=== PATIENT | male | born 1930 | race Caucasian/White ===

== ENCOUNTER → 2017-03-16 | Outpatient (CLI) | payer OTHER | LOC: FIMAGING 08:50 | PROVIDERS: ATTEND Internal Medicine | DX: N41.9 Inflammatory disease of prostate, unspecified (principal); Z87.440 Personal history of urinary (tract) infections ==

== ENCOUNTER → 2017-05-08 | Outpatient (CLI) | payer OTHER | LOC: BHFA 11:30 | PROVIDERS: ATTEND Internal Medicine Interventional Cardiology | DX: I35.9 Nonrheumatic aortic valve disorder, unspecified (principal) ==

== ENCOUNTER 2017-09-01 09:18 | Inpatient (IN) | payer OTHER ==
--- NOTE | 2017-09-01 09:55 | EDPHY ---
H & P Time Seen by Provider: 09/01/17 09:32 HPI/ROS: CHIEF COMPLAINT: Right groin pain HISTORY OF PRESENT ILLNESS: 87-year-old male presents to the emergency department by private vehicle complaining of pain in his groin on the right side. The patient has had a previous inguinal hernia repair a number of years ago. He states that he does not remember doing anything. Denies trauma. He states 2 days ago he noted pain and swelling in his right groin. He was trying to "push it back in" however he was on able to. He states that he was in too much pain. He had a normal bowel movement prior to arrival. No urinary symptoms. No chest pain or difficulty breathing. No fevers or chills. REVIEW OF SYSTEMS: Constitutional: No fever, no chills. Eyes: No double or blurry vision. ENT: No sore throat. Respiratory: No cough, no shortness of breath. Cardiac: No chest pain. Gastrointestinal: No abdominal pain, vomiting or diarrhea. Genitourinary: No dysuria. Musculoskeletal: No neck or back pain. Skin: No rashes. Neurological: No headache. Past Medical/Surgical History: Atrial fibrillation, pacemaker, aortic valve replacement, coronary artery disease, CABG, abdominal aortic aneurysm with repair, pulmonary fibrosis on chronic oxygen, retinal detachment, bilateral inguinal hernia repair, cataract, appendectomy, cholecystectomy, small-bowel obstruction Primary care provider is Dr. Cohn Social History: and lives with his son in [place] Smoking Status: Former smoker Physical Exam: General Appearance: Alert, no distress. Eyes: Pupils equal and round. Extraocular motions are all intact. ENT: Mouth: Mucous membranes moist. Respiratory: No wheezing, rhonchi, or rales, lungs are clear to auscultation. Cardiovascular: Regular rate and rhythm. Gastrointestinal: Abdomen is soft and nontender, no masses, no rebound or guarding, bowel sounds normal. Neurological: Alert and oriented x 3, cranial nerves II through XII grossly intact Genitourinary: Tender, palpable lump in the right inguinal area. Unable to reproduce this with him lying supine. Skin: Warm and dry, no rashes. Musculoskeletal: Nontender to palpate along the cervical, thoracic or lumbar spine. Neck is supple. Extremities: Full range of motion and no peripheral edema. Psychiatric: Patient is oriented X 3, there is no agitation. Constitutional: Initial Vital Signs Temperature (C) 36.6 C 09/01/17 09:20 Heart Rate 74 09/01/17 09:20 Respiratory Rate 18 09/01/17 09:20 Blood Pressure 154/83 H 09/01/17 09:20 O2 Sat (%) 88 L 09/01/17 09:20 O2 Delivery Mode Room Air O2 (L/minute) 3 Allergies/Adverse Reactions: ciprofloxacin [From Cipro] Allergy (Verified 09/01/17 11:20) Other-Enter Comments codeine Allergy (Verified 09/01/17 11:20) Other-Enter Comments Home Medications: Medication Instructions Recorded Acetaminophen [Tylenol 325mg (*)] 650 mg PO BID PRN 11/25/14 Carvedilol [Coreg (*)] 3.125 mg PO BIDMEAL 11/25/14 Fexofenadine HCl [Yohana Allergy] 60 mg PO DAILY PRN 11/25/14 Pantoprazole Sodium [Protonix 40mg 40 mg PO DAILY 11/25/14 (*)] Polyethylene Glycol 3350 [Miralax 17 gm PO DAILY 11/25/14 17 gm (*)] Tamsulosin HCl [Flomax 0.4 MG (*)] 0.4 mg PO HS 11/25/14 Warfarin Sodium [Coumadin 4MG (*)] 4 mg PO SUTUTHSA@16 11/25/14 [place]-3 Fatty Acids [Fish Oil 1000 1,000 mg PO DAILY18 11/29/14 mg (*)] Finasteride [Proscar 5 MG (*)] 5 mg PO HS 11/25/15 Herbals/Supplements -Info Only 1 ea PO DAILY 11/25/15 Warfarin Sodium [Coumadin 2MG (*)] 2 mg PO MWF@16 11/25/15 rOPINIRole HCL [Requip 1mg (*)] 1 mg PO TID 11/25/15 Ascorbic Acid [Vitamin C 500 mg 500 mg PO DAILY 09/01/17 (*)] Aspirin [Aspirin 81mg (*)] 81 mg PO DAILY 09/01/17 Cholecalciferol Vit D3 [Vitamin D3 1,000 units PO DAILY 09/01/17 (*)] Multivitamins [Multivitamin (*)] 1 tab PO DAILY 09/01/17 Medical Decision Making ED Course/Re-evaluation: 87-year-old male with right inguinal hernia which is incarcerated. I attempted to try to reduce the hernia with the patient lying supine, however this was not successful. I consulted with Dr. Zoltan Man, secondary supervising physician , who also evaluated the patient and placed the patient in Trendelenburg. He also tried to reduce the hernia and this was unsuccessful. I consulted with Dr. Osman Hernandez, on-call general surgeon, who also attempted to reduce the hernia and was unsuccessful. The patient will be taken to the operating room for incarcerated inguinal hernia. Differential Diagnosis: Including but not limited to incarcerated inguinal hernia, hematoma, carcinoma, bowel obstruction - Data Points Laboratory Results: Laboratory Results 09/01/17 10:24 09/01/17 10:24 09/01/17 09/01/17 09/01/17 10:45 10:24 10:24 WBC 7.78 10^3/uL 10^3/uL (3.80-9.50) RBC 4.16 10^6/uL L 10^6/uL (4.40-6.38) Hgb 13.7 g/dL g/dL (13.7-17.5) POC Hgb Hct 39.5 % L % (40.0-51.0) POC Hct MCV 95.0 fL fL (81.5-99.8) MCH 32.9 pg pg (27.9-34.1) MCHC 34.7 g/dL g/dL (32.4-36.7) RDW 14.7 % % (11.5-15.2) Plt Count 156 10^3/uL 10^3/uL (150-400) MPV 9.0 fL fL (8.7-11.7) Neut % (Auto) 72.1 % % (39.3-74.2) Lymph % (Auto) 14.3 % L % (15.0-45.0) Clinch % (Auto) 9.6 % % (4.5-13.0) Eos % (Auto) 3.2 % % (0.6-7.6) Baso % (Auto) 0.5 % % (0.3-1.7) Nucleat RBC Rel Count 0.0 % % (0.0-0.2) Absolute Neuts (auto) 5.61 10^3/uL 10^3/uL (1.70-6.50) Absolute Lymphs (auto) 1.11 10^3/uL 10^3/uL (1.00-3.00) Absolute Monos (auto) 0.75 10^3/uL 10^3/uL (0.30-0.80) Absolute Eos (auto) 0.25 10^3/uL 10^3/uL (0.03-0.40) Absolute Basos (auto) 0.04 10^3/uL 10^3/uL (0.02-0.10) Absolute Nucleated RBC 0.00 10^3/uL 10^3/uL (0-0.01) Immature Gran % 0.3 % % (0.0-1.1) Immature Gran # 0.02 10^3/uL 10^3/uL (0.00-0.10) PT 25.5 SEC H SEC (12.0-15.0) INR 2.30 H (0.83-1.16) POC Sodium Sodium 139 mEq/L mEq/L (134-144) POC Potassium Potassium 4.0 mEq/L mEq/L (3.5-5.2) POC Chloride Chloride 103 mEq/L mEq/L (97-110) Carbon Dioxide 26 mEq/l mEq/l (22-31) Anion Gap 10 mEq/L mEq/L (8-16) POC BUN BUN 18 mg/dL mg/dL (7-23) Creatinine 0.8 mg/dL mg/dL (0.7-1.3) POC Creatinine Estimated GFR > 60 Glucose 119 mg/dL H mg/dL (70-100) POC Glucose Calcium 9.0 mg/dL mg/dL (8.5-10.4) 09/01/17 10:19 WBC RBC Hgb POC Hgb 14.3 gm/dL gm/dL (13.7-17.5) Hct POC Hct 42 % % (40-51) MCV MCH MCHC RDW Plt Count MPV Neut % (Auto) Lymph % (Auto) Clinch % (Auto) Eos % (Auto) Baso % (Auto) Nucleat RBC Rel Count Absolute Neuts (auto) Absolute Lymphs (auto) Absolute Monos (auto) Absolute Eos (auto) Absolute Basos (auto) Absolute Nucleated RBC Immature Gran % Immature Gran # PT INR POC Sodium 141 mEq/L mEq/L (134-144) Sodium POC Potassium 3.9 mEq/L mEq/L (3.3-5.0) Potassium POC Chloride 103 mEq/L mEq/L (97-110) Chloride Carbon Dioxide Anion Gap POC BUN 18 mg/dL mg/dL (7-23) BUN Creatinine POC Creatinine 0.9 mg/dL mg/dL (0.7-1.3) Estimated GFR Glucose POC Glucose 123 mg/dL H mg/dL (70-100) Calcium Point of Care Test Results: 09/01/17 10:19 POC Sodium 141 POC Potassium 3.9 POC Chloride 103 POC BUN 18 POC Creatinine 0.9 POC Glucose 123 H Departure - Departure Disposition: To OP Cath/Surgery Clinical Impression: Incarcerated right inguinal hernia Condition: Good
[2017-09-01 10:33] LABS: % IMMATURE GRANULYOCYTES 0.3 % (0.0-1.1); ABSOLUTE IMMATURE GRANULOCYTES 0.02 10^3/uL (0.00-0.10); ADD DIFF? NO; ADD MORPH? NO; ADD SCAN? NO; ATYPICAL LYMPHOCYTE FLAG 0 (0-99); FRAGMENT RBC FLAG 0 (0-99); HEMATOCRIT 39.5 % (40.0-51.0); HEMOGLOBIN 13.7 g/dL (13.7-17.5); LEFT SHIFT FLG 0 (0-99); LIPEMIA HEMOLYSIS FLAG 90 (0-99); MEAN CELL HEMOGLOBIN 32.9 pg (27.9-34.1); MEAN CELL HEMOGLOBIN CONCENTR. 34.7 g/dL (32.4-36.7); PLATELET CLUMPS FLAG 0 (0-99); PLATELET COUNT 156 10^3/uL (150-400); RED BLOOD CELL COUNT 4.16 10^6/uL (4.40-6.38); RED CELL DISTRIBUTION WIDTH 14.7 % (11.5-15.2)
[2017-09-01 10:47] LABS: ANION GAP 10 mEq/L (8-16); CARBON DIOXIDE 26 mEq/l (22-31); CHLORIDE 103 mEq/L (97-110); CREATININE 0.8 mg/dL (0.7-1.3); GLOMERULAR FILTRATION RATE > 60; GLUCOSE 119 mg/dL (70-100); SODIUM 139 mEq/L (134-144)
[2017-09-01 11:07] LABS: INR 2.3 (0.83-1.16); PROTIME(PATIENT) 25.5 SEC (12.0-15.0)
[2017-09-01] MEDS ORDERED: ceFAZolin 2 GM/DEXTROSE 100 ML IV ONE (11:08)
[2017-09-01] MEDS ORDERED: DEXAMETHASONE 4 MG/ML VIAL IVP ONE (11:10)
[2017-09-01] MEDS ORDERED: ONDANSETRON 4 MG/2 ML VIAL IVP ONE (11:10)
--- NOTE | 2017-09-01 11:16 | PDCONSULT ---
Phone Triage Specialist Note: CC: RIH HPI: 87 y/o male with 3 day hx incarcerated RIH. He tried to reduce it himself at home, but was unsuccessful. He came to the ED and despite attempts at reduction by Patricia Marcano PA-C and Dr. Zoltan Man, it remains incarcerated. Surgical consult was requested. He reports no changes in his bowel or bladder function and denies N/V. He last ate at 0800 and did not take his Coumadin last night. PMH: Bovine Aortic Valve replacement AAA repair pacemaker appendectomy bilateral inguinal hernia repair meds: Carvedilol, Coumadin, Proscar, Protonix, Requip, Flomax, ASA, Yohana med hx: A-fib, BPH, CHF non-smoker, denies EtOH SH: , lives with his son ROS: denies chest pain/dyspnea, N/V, change in bowel or bladder habits PE: BP 154/83 P 74 R 18 T 36.6 O2sat 88% RA pleasant and articulate gentleman in NAD HEENT: no scleral icterus or adenopathy CVS: IRRR Lungs: clear Abd: soft/distended , non-tender : right groin mass, tender consistant with incarcerated inguinal hernia testes descended bilaterally INR 2.3 Na 139 wbc 7.8 K 4.0 HCT 39.5 BUN/creat 18/0.8 Plat 165K gluc 119 Imp: incarcerated RIH 72 hours/no bowel symptoms-could be omental incarceration multiple medical problems on anticoagulation for AVR Rec: start reversing anticoagulation with FFP, NPO, to OR later today for operative repair Hospitalist consult requested. Ziggy Hernandez MD, FACS
[2017-09-01] MEDS ORDERED: LR 1,000 ML IV SCH (11:30)
--- NOTE | 2017-09-01 11:45 | CPEKG ---
Heart Rate: 70 RR Interval: 857 QRSD Interval: 126 QT Interval: 448 QTC Interval: 484 QRS [place]: 264 T Wave [place]: 60 EKG Severity - ABNORMAL ECG - EKG Impression: AFIB/FLUTTER AND VENTRICULAR-PACED RHYTHM Electronically Signed By: Zoltan Man 01-Sep-2017 13:18:01
--- NOTE | 2017-09-01 13:11 | PDHOSCONS ---
Hospitalist Consult Hospitalist Consult: We have been consulted for medical management of this 87yo male with right incarcerated hernia who will have surgical management by Dr. Hernandez this afternoon. The patient is a pleasant make with hx of bilateral inguinal hernia s /p bilateral repair. He has a hx of Afib and is s/p pacemaker, Aortic valve replacement x 2 with most recent replacement Bovine aortic valve in 2000. He is on chronic AC on Coumadin and INR is 2.30 today. FFP has been ordered for reversal. He is a non smoker. He has a hx of AAA repair in the late . He has no know CAD and no hx of RI. He does have chronic resp failure of unclear etiology and is on 3L O2 24/. He denies any CV or Resp sx's. EKG today shows Afib with a rate in the 70's. CBC and BMP are unremarkable. He has a hx of SHAY and uses a CPAP machine at home. He denies any pain. He has a hx of allergies to Codeine as well as Dilaudid. ROS: 10 point ROS obtained and is positive per above, otherwise negative PMHX: Bovine aortic valve replacement, AAA repair, Appendectomy, Bilateral inguinal hernia repair, BPH, Afib, Recurrent UTI, s/p Pacemaker, Chronic resp failure (3L), SHAY, Soc: lives with son. Non smoker, social ETOH, no illicits FmHx: Non contributory Exam: NAD PERRLA, EOMI, OROPHARYNX CLEAR, MMM NO JVD IRR/IRR, 2/6 CANDIE CTA B, NO RESP DISTRESS S/NT/ND : DEFERRED SKIN: WARM AAOX 3, NO ANXIETY, NO ENCEPHALOPATHY MOOD APPROPRIATE I/P #RIH: Mgmt per surgery #Afib s/p pacemaker #chronic Anticoagulation on Warfarin #Hx of Bovine Aortic Valve replacement #Chronic respiratory failure, 3L O2 24/7 #SHAY, on CPAP Plan: -INR is being reversed with FFP -to OR today -home meds have already been restarted -will follow Full Code
[2017-09-01 14:34] LABS: INR 1.6 (0.83-1.16); PROTIME(PATIENT) 19.1 SEC (12.0-15.0)
[2017-09-01] MEDS ORDERED: LIDOCAINE 1% 300 MG/30 ML SDV ONE (15:39)
[2017-09-01] MEDS ORDERED: BUPIVACAINE/EPI 0.5% 30 ML SDV ONE (15:39)
[2017-09-01] MEDS ORDERED: CEFAZOLIN 2 GM/DEXTROSE/100 ML BAG IV ONE (15:40)
[2017-09-01] MEDS ORDERED: ONDANSETRON 4 MG/2 ML VIAL ONE (15:50)
[2017-09-01] MEDS ORDERED: DEXAMETHASONE 4 MG/ML VIAL ONE (15:50)
[2017-09-01] MEDS ORDERED: LIDOCAINE 2% 5 ML SDV ONE (15:59)
[2017-09-01] MEDS ORDERED: PROPOFOL 200 MG/20 ML VIAL ONE (15:59)
[2017-09-01] MEDS ORDERED: PHENYLEPHRINE HCL 100 MCG/ML SYR ONE (16:00)
[2017-09-01] MEDS ORDERED: ROCURONIUM 100 MG/10 ML VIAL ONE ×2 (16:00→17:32)
--- NOTE | 2017-09-01 16:03 | PDANEPAE ---
ANE Past Medical History - Cardiovascular History Hx Hypertension: Yes Hx Arrhythmias: Yes Hx Chest Pain: No Hx Coronary Artery / Peripheral Vascular Disease: Yes Hx CHF / Valvular Disease: Yes Hx Palpitations: No - Pulmonary History Hx COPD: Yes Hx Asthma/Reactive Airway Disease: No Hx Recent Upper Respiratory Infection: No Hx Oxygen in Use at Home: Yes O2 in Use at Home (L/minute): 3 Hx Sleep Apnea: Yes - Endocrine History Hx Diabetes: No Hypothyroid: No Hyperthyroid: No Obesity: mild - Renal History Hx Renal Disorders: No - Liver History Hx Hepatic Disorders: No - Neurological & Psychiatric Hx Hx Neurological and Psychiatric Disorders: No - GI History GERD: no - Chronic Pain History Chronic Pain: No ANE Review of Systems Review of Systems: - Pacemaker Pacemaker Top [employer] Body Maker: [employer] Pacemaker Model: 2800 ANE Patient History - Allergies Allergies/Adverse Reactions: ciprofloxacin [From Cipro] Allergy (Verified 09/01/17 11:20) Other-Enter Comments codeine Allergy (Verified 09/01/17 11:20) Other-Enter Comments - Home Medications Home Medications: Acetaminophen [Tylenol 325mg (*)] 650 mg PO BID PRN 11/25/14 [Last Taken ] Carvedilol [Coreg (*)] 3.125 mg PO BIDMEAL 11/25/14 [Last Taken 09/01/17] Fexofenadine HCl [Yohana Allergy] 60 mg PO DAILY PRN 11/25/14 [Last Taken 09/01] Pantoprazole Sodium [Protonix 40mg (*)] 40 mg PO DAILY 11/25/14 [Last Taken ] Polyethylene Glycol 3350 [Miralax 17 gm (*)] 17 gm PO DAILY 11/25/14 [Last Taken 08/31/17] Tamsulosin HCl [Flomax 0.4 MG (*)] 0.4 mg PO HS 11/25/14 [Last Taken 08/31/17] Warfarin Sodium [Coumadin 4MG (*)] 4 mg PO SUTUTHSA@16 11/25/14 [Last Taken 11/04] [place]-3 Fatty Acids [Fish Oil 1000 mg (*)] 1,000 mg PO DAILY18 11/29/14 [Last Taken 09/01/17] Finasteride [Proscar 5 MG (*)] 5 mg PO HS 11/25/15 [Last Taken 08/31/17] Herbals/Supplements -Info Only 1 ea PO DAILY 11/25/15 [Last Taken Unknown] Warfarin Sodium [Coumadin 2MG (*)] 2 mg PO MWF@16 11/25/15 [Last Taken 08/29/17] rOPINIRole HCL [Requip 1mg (*)] 1 mg PO TID 11/25/15 [Last Taken 11/24/15] Ascorbic Acid [Vitamin C 500 mg (*)] 500 mg PO DAILY 09/01/17 [Last Taken ] Aspirin [Aspirin 81mg (*)] 81 mg PO DAILY 09/01/17 [Last Taken 08/31/17] Cholecalciferol Vit D3 [Vitamin D3 (*)] 1,000 units PO DAILY 09/01/17 [Last Taken 08/31/17] Multivitamins [Multivitamin (*)] 1 tab PO DAILY 09/01/17 [Last Taken 09/01/17] - Smoking Hx Smoking Status: Former smoker ANE Labs/Vital Signs - Labs Result Diagrams: 09/01/17 10:24 09/01/17 10:24 - Vital Signs Blood Pressure: 176/99 Heart Rate: 70 Respiratory Rate: 16 O2 Sat (%): 100 Height: 172.72 cm Weight: 77.111 kg ANE Physical Exam - Airway Neck exam: decreased ROM Mallampati Score: Class 1 Mouth exam: poor dentition - Pulmonary Pulmonary: no respiratory distress - Cardiovascular Cardiovascular: irregularly irregular ANE Anesthesia Plan Anesthesia Plan: GA w LMA
[2017-09-01] MEDS ORDERED: fentaNYL 100 MCG/2 ML INJ ONE ×2 (16:07→16:30)
--- NOTE | 2017-09-01 17:17 | POSTOPPROG ---
Post Op Note Date of Operation: 09/01/17 Surgeon: Osman Hernandez (, FACS) Anesthesiologist: Edouard Arrington MD Pre-op Diagnosis: incarcerated R inguinal hernia Post-op Diagnosis: incarcerated recurrent RIH Procedure: open repair incarcerated recurrent RIH Findings: incarceration with bladder/omentum Inf/Abcess present in the surg proc area at time of surgery?: No EBL: Minimal Specimen(s): hernia sac
[2017-09-01] MEDS ORDERED: PROMETHAZINE HCL 25 MG/ML INJ IVP PRN (17:33)
[2017-09-01] MEDS ORDERED: fentaNYL 100 MCG/2 ML INJ IVP PRN (17:33)
[2017-09-01] MEDS ORDERED: NALOXONE HCL 0.4 MG/ML INJ IVP PRN (17:33)
--- NOTE | 2017-09-01 17:34 | POSTANESTH ---
Post Anesthetic Evaluation Cardiovascular Status: Similar to Pre-Op Cond Respiratory Status: Similar to Pre-op Cond. Level of Consciousness/Mental Status: Mildly Sleepy, Arousable Pain Control: Adequate, Prn Tx Ordered Nausea/Vomiting Control: Adequate, Prn Tx Ordered Complications Possibly Related to Anesthesia: None Noted
[2017-09-01] MEDS: CARVEDILOL 3.125 MG TAB PO SCH (19:11)
[2017-09-01] MEDS: TAMSULOSIN HCL 0.4 MG CAP PO SCH (20:53)
[2017-09-01] MEDS: FINASTERIDE 5 MG TAB PO SCH (20:53)
--- NOTE | 2017-09-01 21:07 | GOP ---
[f rep st] OPERATIVE REPORT DATE OF OPERATION: 09/01/2017 SURGEON: Osman Hernandez MD ANESTHESIA: General endotracheal. ANESTHESIOLOGIST: Travis Paige MD. PREOPERATIVE DIAGNOSIS: Incarcerated right inguinal hernia, recurrent. POSTOPERATIVE DIAGNOSIS: Incarcerated right inguinal hernia, recurrent. PROCEDURE PERFORMED: Open repair, recurrent incarcerated right inguinal hernia. FINDINGS: Indirect recurrence at the internal ring with incarceration of lateral portion of the blad brian and omentum. No bowel incarceration. ESTIMATED BLOOD LOSS: 10 cc. INDICATIONS: The patient is an 87-year-old male who presents with a 3-day history of an incarcerated hernia and an INR of 2.3. Patient received 3 units of fresh frozen plasma prior to surgery. His IN R dropped to 1.6 after the first 2 units. DESCRIPTION OF PROCEDURE: After informed consent was obtained, the patient was brought to the operat ing room. Placed under general anesthesia. The lower abdomen was clipped, prepped and draped in the usual fashion. Before proceeding, a time-out and identification of the patient was performed. 0.25% Marcaine with epinephrine was used to establish a regional field block. The planned incision s ite was infiltrated and a transverse incision was made and carried through the skin and subcutaneous tissues. Dissection was carried out down to the external oblique fascia which was quite attenuated. This was opened laterally and the hernia sac which was filled with dark blood tinged fluid was isola gerard from the spermatic cord and the cord encircled with a Kelley drain for gentle traction. The her tyrone sac was opened and noted to contain 2 structures, an area of ischemic omentum and a larger area o f fatty tissue that ultimately proved to be the bladder. The internal ring had been previously recon structed with a mesh technique and had an opening measuring approximately 10 mm in diameter through w [facility] these 2 structures had prolapsed and incarcerated. Despite the open approach, these structures could not be reduced into the peritoneal cavity and I elected to incise the prior repair directly cep halad from the internal ring. This allowed reduction of the omentum as well as the lateral edge of t he bladder, both of which appeared viable. The internal ring was reconstructed with interrupted 0 Nu robbie sutures. There was no need to reinforce the inguinal floor as this showed no evidence of recur rent hernia. The cord structures were returned to their anatomic position. The external oblique fas jonas was closed with continuous running 0 PDS suture. Subcutaneous tissues were closed with 3-0 Monoc ryl suture and skin was closed with 4-0 Monocryl suture in a subcuticular fashion. Mastisol and Ster i-Strips were applied. Needle, sponge, and instrument count were correct. COMPLICATIONS: None. /[id number]/MODL
[2017-09-01 22:59] LABS: COLOR YELLOW; LEUKOCYTE ESTERASE,URINE NEGATIVE (NEGATIVE); NITRITE,URINE NEGATIVE (NEGATIVE)
[2017-09-01 23:21] LABS: RBC,URINE NONE SEEN /hpf (0-3)
[2017-09-02] MEDS: ceFAZolin 2 GM/DEXTROSE 100 ML IV SCH ×2 (00:28→07:53)
[2017-09-02 04:47] LABS: % IMMATURE GRANULYOCYTES 0.4 % (0.0-1.1); ABSOLUTE IMMATURE GRANULOCYTES 0.04 10^3/uL (0.00-0.10); ADD DIFF? NO; ADD MORPH? NO; ADD SCAN? NO; ATYPICAL LYMPHOCYTE FLAG 0 (0-99); FRAGMENT RBC FLAG 0 (0-99); HEMATOCRIT 36.3 % (40.0-51.0); HEMOGLOBIN 12.3 g/dL (13.7-17.5); LEFT SHIFT FLG 0 (0-99); LIPEMIA HEMOLYSIS FLAG 90 (0-99); MEAN CELL HEMOGLOBIN 32.5 pg (27.9-34.1); MEAN CELL HEMOGLOBIN CONCENTR. 33.9 g/dL (32.4-36.7); MEAN PLATELET VOLUME 9.5 fL (8.7-11.7); PLATELET CLUMPS FLAG 0 (0-99); PLATELET COUNT 141 10^3/uL (150-400); RED BLOOD CELL COUNT 3.78 10^6/uL (4.40-6.38); RED CELL DISTRIBUTION WIDTH 14.7 % (11.5-15.2)
[2017-09-02 04:58] LABS: ANION GAP 7 mEq/L (8-16); CALCIUM 9.1 mg/dL (8.5-10.4); CARBON DIOXIDE 25 mEq/l (22-31); CHLORIDE 104 mEq/L (97-110); CREATININE 0.8 mg/dL (0.7-1.3); GLOMERULAR FILTRATION RATE > 60; GLUCOSE 131 mg/dL (70-100); MAGNESIUM 2.1 mg/dL (1.6-2.3); POTASSIUM 4.2 mEq/L (3.5-5.2); SODIUM 136 mEq/L (134-144)
[2017-09-02 06:11] LABS: INR 1.57 (0.83-1.16); PROTIME(PATIENT) 18.8 SEC (12.0-15.0)
[2017-09-02] MEDS ORDERED: WARFARIN SODIUM 5 MG TAB PO ONE (06:44)
--- NOTE | 2017-09-02 07:36 | SOAPPROG ---
SOAP Progress Note Assessment/Plan: Assessment:s/p repair incarcerated recurrent RIH chronic anticoagulation for A-fib pacemaker/has not been interrogated since surgery transient post op femoral nerve paresis Plan:start bridging anticoagulation with Lovenox 1mg/kg BID, po Coumadin recheck INR in AM, PT to eval anticipate discharge home tomorrow [facility] Ziggy Hernandez MD, FACS 09/02/17 07:34 Subjective: Tripp is resting comfortably/he was unable to walk post op due to right quadriceps weakness Objective: Vital Signs Temp Pulse Resp BP Pulse Ox 36.6 C 75 16 147/79 H 97 09/02/17 04:00 09/02/17 04:00 09/02/17 04:00 09/02/17 04:00 09/02/17 04:00 Microbiology 09/01/17 16:40 Gram Stain - Final Peritoneal Fluid - Eswab Laboratory Results 09/02/17 04:24 09/02/17 04:24 09/01/17 09/02/17 09/03/17 05:59 05:59 05:59 Intake Total 1450 Output Total 735 200 Balance 715 -200 PT 18.8 SEC (12.0-15.0) H 09/02/17 05:50 INR 1.57 (0.83-1.16) H 09/02/17 05:50 Physical Exam - Physical Exam General Appearance: no apparent distress Respiratory: lungs clear Cardiac/Chest: irregularly irregular Abdomen: soft, distended (hypoactive bowel sounds) Male Genitalia: other (right inguinal dressing dry and intact/mild swelling) Rectal: deferred Extremities: normal range of motion Neuro/Psych: no motor/sensory deficits, normal mood/affect, oriented x 3, other (Prior right quad weakness related to intra-op injection of bupivicaine into the surgical field with secondary femoral nerve block) ICD10 Worksheet Patient Problems: Problems Problem Status Onset Incarcerated right inguinal hernia Acute Abdominal pain Acute Atrial fibrillation Acute Hematoma of chest wall Acute Hematoma of pacemaker pocket Acute Small bowel obstruction Acute
[2017-09-02] MEDS: ENOXAPARIN 80 MG/0.8 ML SYR SC SCH ×2 (07:53→20:52)
[2017-09-02] MEDS: CARVEDILOL 3.125 MG TAB PO SCH ×2 (07:54→17:54)
[2017-09-02] MEDS: PANTOPRAZOLE SODIUM 40 MG TAB PO SCH (07:54)
[2017-09-02] MEDS: traMADol 50 MG TAB PO PRN ×2 (08:59→13:16)
[2017-09-02] MEDS: POLYETHYLENE GLYCOL 3350 17 GM PKT PO SCH (09:29)
--- NOTE | 2017-09-02 10:35 | ASMTCASEMG ---
Living Arrangements What is your living Answers: With Child(carlyn) arrangement? Who do you live with? Type Of Residence What kind of residence do Answers: House you live in? Discharge Plan Comments Coordination Status Comments Notes: Chart reviewed and spoke w/ TAVARES Lynn. Pt is a 87 y/o man admitted w/ right incarcerated hernia that lives w/ a supportive son. Pt had surgical procedure yesterday. PT ordered and awaiting recommendations. Needs are TBD at this time. CM to follow. Date Signed: 09/02/2017 10:35 AM Electronically Signed By:JACQUES Diaz
--- NOTE | 2017-09-02 13:47 | HOSPPROG ---
Hospitalist Progress Note Assessment/Plan: 87 y male with incarcerated RIH, s/p repair on POD #1. Doing well overall. #RIH: Mgmt per surgery #Afib s/p pacemaker #chronic Anticoagulation on Warfarin #Hx of Bovine Aortic Valve replacement #Chronic respiratory failure, 3L O2 24/ #SHAY, on CPAP Plan: -Restart warfarin. Lovenox bridge -Stop IVF -cont home meds -PT/OT -Likely home with [facility] tomorrow Full Code Subjective: Surgery yesterday. No pain. No overnight events. Objective: Vital Signs Temp Pulse Resp BP Pulse Ox 36.7 C 74 14 126/67 H 97 09/02/17 11:23 09/02/17 11:23 09/02/17 11:23 09/02/17 11:23 09/02/17 11:23 PT 18.8 SEC (12.0-15.0) H 09/02/17 05:50 INR 1.57 (0.83-1.16) H 09/02/17 05:50 - Physical Exam Constitutional: no apparent distress Eyes: PERRL, EOMI Ears, Nose, Mouth, Throat: moist mucous membranes, hearing normal Cardiovascular: regular rate and rhythym, no murmur, rub, or gallop Respiratory: no respiratory distress, reduced air movement Gastrointestinal: normoactive bowel sounds, soft, non-tender abdomen Skin: warm Neurologic: AAOx3, sensation intact bilaterally Psychiatric: interacting appropriately, not anxious, not encephalopathic ICD10 Worksheet Patient Problems: Problems Problem Status Onset Incarcerated right inguinal hernia Acute Abdominal pain Acute Atrial fibrillation Acute Hematoma of chest wall Acute Hematoma of pacemaker pocket Acute Small bowel obstruction Acute
[2017-09-02] MEDS: CETIRIZINE 10 MG TAB PO SCH (14:53)
[2017-09-02] MEDS: ONDANSETRON 4 MG/2 ML VIAL IVP PRN ×2 (17:55→23:20)
[2017-09-02] MEDS: TAMSULOSIN HCL 0.4 MG CAP PO SCH (20:52)
[2017-09-02] MEDS: FINASTERIDE 5 MG TAB PO SCH (20:52)
[2017-09-02] MEDS ORDERED: ATENOLOL 25 MG TAB PO ONE (23:45)
[2017-09-03] MEDS: ONDANSETRON 4 MG/2 ML VIAL IVP PRN (04:34)
[2017-09-03 05:02] LABS: % IMMATURE GRANULYOCYTES 0.4 % (0.0-1.1); ABSOLUTE IMMATURE GRANULOCYTES 0.05 10^3/uL (0.00-0.10); ADD DIFF? NO; ADD MORPH? NO; ADD SCAN? NO; ATYPICAL LYMPHOCYTE FLAG 0 (0-99); FRAGMENT RBC FLAG 0 (0-99); HEMOGLOBIN 13.6 g/dL (13.7-17.5); LEFT SHIFT FLG 0 (0-99); LIPEMIA HEMOLYSIS FLAG 90 (0-99); MEAN CELL HEMOGLOBIN 32.5 pg (27.9-34.1); MEAN CELL VOLUME 95.7 fL (81.5-99.8); MEAN PLATELET VOLUME 9.6 fL (8.7-11.7); PLATELET CLUMPS FLAG 0 (0-99); PLATELET COUNT 173 10^3/uL (150-400); RED BLOOD CELL COUNT 4.18 10^6/uL (4.40-6.38); RED CELL DISTRIBUTION WIDTH 14.6 % (11.5-15.2)
[2017-09-03 05:06] LABS: INR 1.81 (0.83-1.16); PROTIME(PATIENT) 21.1 SEC (12.0-15.0)
[2017-09-03 05:14] LABS: ANION GAP 8 mEq/L (8-16); CALCIUM 9.6 mg/dL (8.5-10.4); CARBON DIOXIDE 32 mEq/l (22-31); CHLORIDE 97 mEq/L (97-110); CREATININE 0.8 mg/dL (0.7-1.3); GLOMERULAR FILTRATION RATE > 60; GLUCOSE 136 mg/dL (70-100); POTASSIUM 3.9 mEq/L (3.5-5.2); SODIUM 137 mEq/L (134-144)
--- NOTE | 2017-09-03 06:13 | SOAPPROG ---
SOAP Progress Note Assessment/Plan: Assessment:s/p repair incarcerated recurrent RIH/now with symptoms of SBO Tripp has had several SBOs in the past chronic anticoagulation for A-fib INR today 1.8 pacemaker/has not been interrogated since surgery transient post op femoral nerve paresis-resolved Plan:continue bridging anticoagulation with Lovenox 1mg/kg BID, hold additional Coumadin for now check KUB, NPO, IV fluids/he would like to avoid NG decompression for now S MD David, FACS 09/02/17 07:34 09/03/17 06:10 Subjective: Tripp started having abdominal pain last night followed by emesis Objective: Vital Signs Temp Pulse Resp BP Pulse Ox 37.1 C 74 16 174/96 H 97 09/03/17 04:00 09/03/17 04:00 09/03/17 04:00 09/03/17 04:00 09/03/17 04:00 Laboratory Results 09/03/17 04:19 09/03/17 04:19 09/02/17 09/03/17 09/04/17 05:59 05:59 05:59 Intake Total 0 Output Total 700 Balance -700 PT 21.1 SEC (12.0-15.0) H 09/03/17 04:19 INR 1.81 (0.83-1.16) H 09/03/17 04:19 - Pending Discharge Pending Discharge Within 24 Hours: No Pending Discharge Within 48 Hours: No Physical Exam - Physical Exam General Appearance: mild distress Respiratory: lungs clear Cardiac/Chest: irregularly irregular Abdomen: soft, distended, other (active bowel sounds/tympanitic) Male Genitalia: deferred, other (RIH site uncomplicated) Skin: normal color Extremities: non-tender Neuro/Psych: oriented x 3 ICD10 Worksheet Patient Problems: Problems Problem Status Onset Incarcerated right inguinal hernia Acute Abdominal pain Acute Atrial fibrillation Acute Hematoma of chest wall Acute Hematoma of pacemaker pocket Acute Small bowel obstruction Acute
[2017-09-03] MEDS: POTASSIUM Cl (KCl) 20 MEQ in D5W LR 1,000 ML IV SCH ×2 (06:21→16:21)
[2017-09-03] MEDS: CETIRIZINE 10 MG TAB PO SCH (08:15)
[2017-09-03] MEDS: CARVEDILOL 3.125 MG TAB PO SCH ×2 (08:15→18:34)
[2017-09-03] MEDS: PANTOPRAZOLE SODIUM 40 MG TAB PO SCH (08:16)
[2017-09-03] MEDS: ENOXAPARIN 80 MG/0.8 ML SYR SC SCH ×2 (08:26→20:02)
--- NOTE | 2017-09-03 09:02 | HOSPPROG ---
Hospitalist Progress Note Assessment/Plan: 87 y male with #incarcerated RIH, s/p repair on POD #2, now with concern for SBO -per surgery/Dr Hernandez -may need NGT, continue bowel rest for now #Afib s/p pacemaker -chronic Anticoagulation on Warfarin -INR 1.8, on bridge lovenox as holding warfarin for now # HTN -intermittently quite elev -not on chronic meds, prn ordered #Hx of Bovine Aortic Valve replacement -see above #Chronic respiratory failure, 3L O2 11/06 #SHAY, on CPAP PCP: [facility] Dispo: > 2 mdnts bc of post op SBO Full Code Subjective: Feels OK, no sign pain, has been up walking. No n/v this AM. No CP/ SOB. Discussed code status, confirms full code. Objective: Vital Signs Temp Pulse Resp BP Pulse Ox 98.7 F 75 20 174/96 H 96 09/03/17 07:27 09/03/17 07:27 09/03/17 07:27 09/03/17 07:27 09/03/17 07:27 Laboratory Results 09/03/17 04:19 09/03/17 04:19 09/01/17 09/02/17 09/03/17 11:59 11:59 11:59 Intake Total 0 Output Total 1600 Balance -1600 PT 21.1 SEC (12.0-15.0) H 09/03/17 04:19 INR 1.81 (0.83-1.16) H 09/03/17 04:19 - Time Spent With Patient Time Spent with Patient: greater than 25 minutes Time Spent with Patient: Greater than 25 minutes spent on this patients care, greater than 50% of time spent counseling, educating, and coordinating care regarding the above mentioned plan. - Physical Exam Constitutional: no apparent distress, not in pain Eyes: anicteric sclera Ears, Nose, Mouth, Throat: moist mucous membranes Cardiovascular: regular rate and rhythym Respiratory: no respiratory distress, no rales or rhonchi, clear to auscultation Gastrointestinal: tenderness (mild throughout), distension, No normoactive bowel sounds (decreased bowel sounds), No guarding, No rebound Skin: warm Psychiatric: interacting appropriately, not anxious, not encephalopathic ICD10 Worksheet Patient Problems: Problems Problem Status Onset Incarcerated right inguinal hernia Acute Abdominal pain Acute Atrial fibrillation Acute Hematoma of chest wall Acute Hematoma of pacemaker pocket Acute Small bowel obstruction Acute
[2017-09-03] MEDS: POLYETHYLENE GLYCOL 3350 17 GM PKT PO SCH (11:34)
--- NOTE | 2017-09-03 14:34 | ASMTCMCOM ---
CM Note CM Note Notes: CM met w/ pt for dispo planning. Pt is post op day 2 from his hernia repair. Pt has some concerns about going up to his second floor apartment. PT is recommending HC at this time. Pt reports that he may be interested in going to a SNF if he continues to have concerns about stairs. Pt would like to mario over his d/c options at this time. Pt hopes to improve his strength and mobility. CM to follow. Date Signed: 09/03/2017 02:33 PM Electronically Signed By:JACQUES Diaz
[2017-09-03] MEDS ORDERED: BISACODYL 10 MG SUPP PR PRN (15:35)
[2017-09-03] MEDS ORDERED: LACTULOSE 20 GM/30 ML UDCUP PO PRN (15:35)
[2017-09-03] MEDS ORDERED: MAGNESIUM HYDROXIDE 30 ML UDCUP PO PRN (15:35)
[2017-09-03] MEDS ORDERED: hydrALAZINE 20 MG/ML VIAL IVP PRN (15:43)
[2017-09-03] MEDS: SENNOSIDES/DOCUSATE SODIUM TAB PO SCH (20:01)
[2017-09-03] MEDS: FINASTERIDE 5 MG TAB PO SCH (20:01)
[2017-09-03] MEDS: TAMSULOSIN HCL 0.4 MG CAP PO SCH (20:01)
[2017-09-04] MEDS: POTASSIUM Cl (KCl) 20 MEQ in D5W LR 1,000 ML IV SCH ×2 (02:10→11:53)
[2017-09-04 05:23] LABS: HEMATOCRIT 34.1 % (40.0-51.0); HEMOGLOBIN 11.4 g/dL (13.7-17.5); MEAN CELL HEMOGLOBIN 32.8 pg (27.9-34.1); MEAN CELL HEMOGLOBIN CONCENTR. 33.4 g/dL (32.4-36.7); RED BLOOD CELL COUNT 3.48 10^6/uL (4.40-6.38); RED CELL DISTRIBUTION WIDTH 14.8 % (11.5-15.2)
[2017-09-04 05:31] LABS: ALANINE AMINOTRANSFERASE 38 IU/L (21-72); ALBUMIN 2.9 g/dL (3.5-5.0); ALKALINE PHOSPHATASE 54 IU/L (38-126); ANION GAP 6 mEq/L (8-16); ASPARTATE AMINOTRANSFERASE 32 IU/L (17-59); CALCIUM 9.3 mg/dL (8.5-10.4); CARBON DIOXIDE 31 mEq/l (22-31); CHLORIDE 101 mEq/L (97-110); CREATININE 0.9 mg/dL (0.7-1.3); GLOMERULAR FILTRATION RATE > 60; GLUCOSE 120 mg/dL (70-100); INR 1.97 (0.83-1.16); POTASSIUM 4.5 mEq/L (3.5-5.2); PROTIME(PATIENT) 22.5 SEC (12.0-15.0); SODIUM 138 mEq/L (134-144)
--- NOTE | 2017-09-04 08:35 | SOAPPROG ---
SOAP Progress Note Assessment/Plan: Assessment:s/p repair incarcerated recurrent RIH/now with symptoms of SBO Tripp has had several SBOs in the past chronic anticoagulation for A-fib INR today 1.8 pacemaker/has not been interrogated since surgery transient post op femoral nerve paresis-resolved Plan:continue bridging anticoagulation with Lovenox 1mg/kg BID, hold additional Coumadin for now sips and chips only, IV fluids/he would like to avoid NG decompression for now S MD David, FACS 09/02/17 07:34 09/03/17 06:10 09/04/17 08:33 Subjective: hiccups/no further emesis passed some flatus Objective: Vital Signs Temp Pulse Resp BP Pulse Ox 36.7 C 60 16 171/73 H 98 09/04/17 07:14 09/04/17 07:14 09/04/17 07:14 09/04/17 07:14 09/04/17 07:14 Laboratory Results 09/04/17 04:17 09/04/17 04:17 09/03/17 09/04/17 09/05/17 05:59 05:59 05:59 Intake Total 0 1100 Output Total 1600 Balance -1600 1100 PT 22.5 SEC (12.0-15.0) H 09/04/17 04:17 INR 1.97 (0.83-1.16) H 09/04/17 04:17 - Pending Discharge Pending Discharge Within 24 Hours: No Physical Exam - Physical Exam General Appearance: mild distress Respiratory: lungs clear Cardiac/Chest: regular rate, rhythm Abdomen: soft, distended, other (bowel sounds active) Male Genitalia: other (right inguinal swelling c/w post op hematoma) Rectal: deferred Skin: warm/dry Neuro/Psych: alert, normal mood/affect, oriented x 3 ICD10 Worksheet Patient Problems: Problems Problem Status Onset Incarcerated right inguinal hernia Acute Abdominal pain Acute Atrial fibrillation Acute Hematoma of chest wall Acute Hematoma of pacemaker pocket Acute Small bowel obstruction Acute
[2017-09-04] MEDS: POLYETHYLENE GLYCOL 3350 17 GM PKT PO SCH (08:37)
[2017-09-04] MEDS: ONDANSETRON 4 MG/2 ML VIAL IVP PRN (09:04)
[2017-09-04] MEDS: CARVEDILOL 3.125 MG TAB PO SCH ×2 (09:07→17:36)
[2017-09-04] MEDS: SENNOSIDES/DOCUSATE SODIUM TAB PO SCH ×2 (09:07→22:12)
[2017-09-04] MEDS: CETIRIZINE 10 MG TAB PO SCH (09:08)
[2017-09-04] MEDS: PANTOPRAZOLE SODIUM 40 MG TAB PO SCH (09:08)
[2017-09-04] MEDS: ENOXAPARIN 80 MG/0.8 ML SYR SC SCH ×2 (09:08→22:13)
[2017-09-04] MEDS: traMADol 50 MG TAB PO PRN ×2 (11:11→17:36)
--- NOTE | 2017-09-04 15:22 | HOSPPROG ---
Hospitalist Progress Note Assessment/Plan: #incarcerated RIH, s/p repair on POD #3 -post op SBO -per surgery/Dr Hernandez -may need NGT, continue bowel rest/IVF for now #Afib s/p pacemaker -chronic anticoagulation on Warfarin -INR 1.9, on bridge lovenox as holding warfarin for now -likely restart warfarin when advancing diet per surgery # HTN -intermittently quite elev -not on chronic meds, prn ordered #Hx of Bovine Aortic Valve replacement -see above #Chronic respiratory failure, 3L O2 11/06 #SHAY, on CPAP PCP: [facility] Dispo: > 2 mdnts bc of post op SBO Full Code Subjective: Says pain OK with meds, was N earlier, but improved. No CP/SOB. No BM yet. Objective: Vital Signs Temp Pulse Resp BP Pulse Ox 97.9 F 79 24 H 194/93 H 98 09/04/17 15:07 09/04/17 15:07 09/04/17 15:07 09/04/17 15:07 09/04/17 15:07 Laboratory Results 09/04/17 04:17 09/04/17 04:17 09/03/17 09/04/17 09/05/17 11:59 11:59 11:59 Intake Total 0 1100 Output Total 1600 125 Balance -1600 1100 -125 PT 22.5 SEC (12.0-15.0) H 09/04/17 04:17 INR 1.97 (0.83-1.16) H 09/04/17 04:17 - Physical Exam Constitutional: no apparent distress Ears, Nose, Mouth, Throat: moist mucous membranes Cardiovascular: regular rate and rhythym Respiratory: no respiratory distress, no rales or rhonchi, clear to auscultation Gastrointestinal: tenderness (R LQ, some bowel sounds noted), distension, No guarding, No rebound Skin: warm Psychiatric: interacting appropriately, not anxious, not encephalopathic ICD10 Worksheet Patient Problems: Problems Problem Status Onset Incarcerated right inguinal hernia Acute Abdominal pain Acute Atrial fibrillation Acute Hematoma of chest wall Acute Hematoma of pacemaker pocket Acute Small bowel obstruction Acute
--- NOTE | 2017-09-04 16:27 | ASMTCMCOM ---
CM Note CM Note Notes: Spoke w/pt about possible rehab before going home, discussed facilities nearby and Medicare coverage. Pt wishes to wait to send referral, will check in with pt tomorrow. Date Signed: 09/04/2017 04:27 PM Electronically Signed By:Cathie Romeo RN
[2017-09-04] MEDS ORDERED: amLODIPine BESYLATE 5 MG TAB PO SCH (17:15)
[2017-09-04] MEDS: FINASTERIDE 5 MG TAB PO SCH (22:13)
[2017-09-04] MEDS: TAMSULOSIN HCL 0.4 MG CAP PO SCH (22:13)
[2017-09-05] MEDS: POTASSIUM Cl (KCl) 20 MEQ in D5W LR 1,000 ML IV SCH ×3 (01:56→20:57)
[2017-09-05 05:11] LABS: ANION GAP 6 mEq/L (8-16); CALCIUM 8.9 mg/dL (8.5-10.4); CARBON DIOXIDE 31 mEq/l (22-31); CHLORIDE 103 mEq/L (97-110); CREATININE 0.8 mg/dL (0.7-1.3); GLOMERULAR FILTRATION RATE > 60; GLUCOSE 121 mg/dL (70-100); INR 1.93 (0.83-1.16); POTASSIUM 4.2 mEq/L (3.5-5.2); PROTIME(PATIENT) 22.2 SEC (12.0-15.0); SODIUM 140 mEq/L (134-144)
[2017-09-05] MEDS: traMADol 50 MG TAB PO PRN (05:21)
[2017-09-05] MEDS: CARVEDILOL 3.125 MG TAB PO SCH ×2 (09:41→17:35)
[2017-09-05] MEDS: ENOXAPARIN 80 MG/0.8 ML SYR SC SCH ×2 (09:41→20:56)
[2017-09-05] MEDS: POLYETHYLENE GLYCOL 3350 17 GM PKT PO SCH (09:41)
[2017-09-05] MEDS: PANTOPRAZOLE SODIUM 40 MG TAB PO SCH (09:42)
[2017-09-05] MEDS: CETIRIZINE 10 MG TAB PO SCH (09:42)
[2017-09-05] MEDS: SENNOSIDES/DOCUSATE SODIUM TAB PO SCH (09:42)
--- NOTE | 2017-09-05 11:23 | HOSPPROG ---
Hospitalist Progress Note Assessment/Plan: # incarcerated RIH s/p open repair by Dr Hernandez - ongoing post-op SBO - resolving - diet per Dr Hernandez # a-fib s/p ppm - lovenox bridge, INR 1.9 - coreg # bovine AVR # chronic resp failure - 3L O2 baseline # SHAY - CPAP # BPH - flomax # RLS - requip Subjective: +flatus; no BM; mild abd pain Objective: Vital Signs Temp Pulse Resp BP Pulse Ox 37.0 C 73 20 129/69 H 96 09/05/17 08:00 09/05/17 09:41 09/05/17 08:00 09/05/17 08:00 09/05/17 08:00 Laboratory Results 09/04/17 04:17 09/05/17 04:21 09/04/17 09/05/17 09/06/17 05:59 05:59 05:59 Intake Total 1100 2055 Output Total 400 Balance 1100 1655 PT 22.2 SEC (12.0-15.0) H 09/05/17 04:21 INR 1.93 (0.83-1.16) H 09/05/17 04:21 - Physical Exam Constitutional: no apparent distress, appears nourished Cardiovascular: no murmur, rub, or gallop, irregularly irregular Respiratory: no respiratory distress, no rales or rhonchi, clear to auscultation Gastrointestinal: other (+BS; distended; mild TTP diffusely; no masses) ICD10 Worksheet Patient Problems: Problems Problem Status Onset Incarcerated right inguinal hernia Acute Abdominal pain Acute Atrial fibrillation Acute Hematoma of chest wall Acute Hematoma of pacemaker pocket Acute Small bowel obstruction Acute
--- NOTE | 2017-09-05 12:30 | SOAPPROG ---
SOAP Progress Note Assessment/Plan: Assessment:s/p repair incarcerated recurrent RIH/now with symptoms of SBO- resolving clinically Tripp has had several SBOs in the past related to his prior AAA repair chronic anticoagulation for A-fib INR today 1.8 pacemaker/has not been interrogated since surgery transient post op femoral nerve paresis-resolved Plan:continue bridging anticoagulation with Lovenox 1mg/kg BID clear liquid diet (no C02 beverages), po coumadin 4mg today check PT/INR in AM Ziggy Hernandez MD, FACS 09/02/17 07:34 09/03/17 06:10 09/04/17 08:33 09/05/17 12:28 Subjective: feeling better/passing flatus Objective: Vital Signs Temp Pulse Resp BP Pulse Ox 36.4 C 70 20 103/62 95 09/05/17 11:28 09/05/17 11:28 09/05/17 08:00 09/05/17 11:28 09/05/17 11:28 Laboratory Results 09/04/17 04:17 09/05/17 04:21 09/04/17 09/05/17 09/06/17 05:59 05:59 05:59 Intake Total 1100 2055 Output Total 400 Balance 1100 1655 PT 22.2 SEC (12.0-15.0) H 09/05/17 04:21 INR 1.93 (0.83-1.16) H 09/05/17 04:21 Physical Exam - Physical Exam General Appearance: no apparent distress Respiratory: normal breath sounds Cardiac/Chest: regular rate, rhythm Abdomen: non-tender, soft, distended, other (hypoactive bowel sounds) ICD10 Worksheet Patient Problems: Problems Problem Status Onset Incarcerated right inguinal hernia Acute Abdominal pain Acute Atrial fibrillation Acute Hematoma of chest wall Acute Hematoma of pacemaker pocket Acute Small bowel obstruction Acute
[2017-09-05] MEDS ORDERED: WARFARIN SODIUM 4 MG TAB PO ONE (16:00)
--- NOTE | 2017-09-05 16:38 | ASMTCMCOM ---
CM Note CM Note Notes: Met w/pt again re; dc poc. Discussed referrals to snf, pt ok w/CM faxing referrals, still feeling uncertain about going home but would like home care if dc's to son's house. Advised pt CM will fax referrals to [facility], [facility], and [facility] and can change his mind if he feels safe enough to return home. Also discussed above with son Scott who works from home and is able to assist but is agreeable to snf. CM w/f Date Signed: 09/05/2017 04:38 PM Electronically Signed By:Cathie Romeo RN
[2017-09-05] MEDS: ONDANSETRON 4 MG/2 ML VIAL IVP PRN (17:42)
[2017-09-05] MEDS: TAMSULOSIN HCL 0.4 MG CAP PO SCH (20:57)
[2017-09-05] MEDS: FINASTERIDE 5 MG TAB PO SCH (20:57)
[2017-09-06] MEDS: traMADol 50 MG TAB PO PRN ×2 (03:11→11:46)
[2017-09-06] MEDS: POTASSIUM Cl (KCl) 20 MEQ in D5W LR 1,000 ML IV SCH ×2 (05:55→18:12)
[2017-09-06 06:01] LABS: % IMMATURE GRANULYOCYTES 0.5 % (0.0-1.1); ABSOLUTE IMMATURE GRANULOCYTES 0.05 10^3/uL (0.00-0.10); ADD DIFF? NO; ADD MORPH? NO; ADD SCAN? NO; ATYPICAL LYMPHOCYTE FLAG 10 (0-99); FRAGMENT RBC FLAG 0 (0-99); HEMATOCRIT 28.6 % (40.0-51.0); HEMOGLOBIN 9.7 g/dL (13.7-17.5); LEFT SHIFT FLG 0 (0-99); LIPEMIA HEMOLYSIS FLAG 90 (0-99); MEAN CELL HEMOGLOBIN 33.6 pg (27.9-34.1); MEAN CELL HEMOGLOBIN CONCENTR. 33.9 g/dL (32.4-36.7); MEAN PLATELET VOLUME 9.9 fL (8.7-11.7); PLATELET CLUMPS FLAG 0 (0-99); PLATELET COUNT 195 10^3/uL (150-400); RED BLOOD CELL COUNT 2.89 10^6/uL (4.40-6.38); RED CELL DISTRIBUTION WIDTH 14.3 % (11.5-15.2)
[2017-09-06 06:05] LABS: INR 2.02 (0.83-1.16)
--- NOTE | 2017-09-06 06:12 | SOAPPROG ---
SOAP Progress Note Assessment/Plan: Assessment:s/p repair incarcerated recurrent RIH/now with symptoms of SBO- appears worse today Tripp has had several SBOs in the past related to his prior AAA repair chronic anticoagulation for A-fib INR today 2.0 Plan:continue bridging anticoagulation with Lovenox 1mg/kg BID Tripp has been reluctant to consider further treatment of SBO with NGT I recommended a CT Abd and if SBO is confirmed I would recommend NGT decompression He could require laparotomy Ziggy Hernandez MD, FACS 09/02/17 07:34 09/03/17 06:10 09/04/17 08:33 09/05/17 12:28 09/06/17 06:10 Subjective: awake/complaining of increased abd pain no flatus or stool Objective: Vital Signs Temp Pulse Resp BP Pulse Ox 36.6 C 74 16 137/78 H 100 09/06/17 03:05 09/06/17 03:05 09/06/17 03:05 09/06/17 03:05 09/06/17 03:05 Laboratory Results 09/06/17 04:16 09/05/17 09/06/17 09/07/17 05:59 05:59 05:59 Intake Total 2054 2016 Output Total 400 300 Balance 1655 1717 PT 23.0 SEC (12.0-15.0) H 09/06/17 04:16 INR 2.02 (0.83-1.16) H 09/06/17 04:16 - Pending Discharge Pending Discharge Within 24 Hours: No Pending Discharge Within 48 Hours: No Physical Exam - Physical Exam General Appearance: no apparent distress, moderate distress Respiratory: lungs clear Cardiac/Chest: regular rate, rhythm Abdomen: soft, distended, other (diffuse tenderness) Male Genitalia: deferred Rectal: deferred Extremities: normal range of motion Neuro/Psych: normal mood/affect, oriented x 3 ICD10 Worksheet Patient Problems: Problems Problem Status Onset Incarcerated right inguinal hernia Acute Abdominal pain Acute Atrial fibrillation Acute Hematoma of chest wall Acute Hematoma of pacemaker pocket Acute Small bowel obstruction Acute
[2017-09-06 06:17] LABS: ANION GAP 6 mEq/L (8-16); CALCIUM 8.7 mg/dL (8.5-10.4); CARBON DIOXIDE 32 mEq/l (22-31); CHLORIDE 101 mEq/L (97-110); CREATININE 0.8 mg/dL (0.7-1.3); GLOMERULAR FILTRATION RATE > 60; GLUCOSE 141 mg/dL (70-100); POTASSIUM 4.2 mEq/L (3.5-5.2); SODIUM 139 mEq/L (134-144)
[2017-09-06] MEDS ORDERED: IOPAMIDOL (ISOVUE-300) 100 ML BTL ONE (06:32)
[2017-09-06] MEDS ORDERED: LIDOCAINE 2% JELLY 5 ML TUBE TP ONE (07:05)
--- NOTE | 2017-09-06 07:08 | SOAPPROG ---
Downtime Inpatient MD Late Entry SOAP Note: Ct shows SBO with significant gastric distention in addition to right inguinal hematoma/no hernia recurrence/no free air NGT orders placed will attempt non-operative management.
[2017-09-06] MEDS: ENOXAPARIN 80 MG/0.8 ML SYR SC SCH (11:11)
[2017-09-06] MEDS: CETIRIZINE 10 MG TAB PO SCH (11:11)
[2017-09-06] MEDS: PANTOPRAZOLE SODIUM 40 MG TAB PO SCH (11:11)
[2017-09-06] MEDS: CARVEDILOL 3.125 MG TAB PO SCH (11:11)
[2017-09-06] MEDS: ONDANSETRON 4 MG/2 ML VIAL IVP PRN (12:55)
[2017-09-06] MEDS ORDERED: FUROSEMIDE 20 MG/2 ML VIAL IVP ONE (13:03)
--- NOTE | 2017-09-06 13:06 | HOSPPROG ---
Hospitalist Progress Note Assessment/Plan: # incarcerated RIH s/p open repair by Dr Hernandez # SBO - has a hx of SBO's, never required surgery - s/p NGT (advance slightly) # a-fib s/p ppm - INR 2.0 - hold lovenox tonight - metop IV while NGT in place # mild CHF, suspect diastolic (EF 55%) - lasix 20 IV x 1 # bovine AVR # chronic resp failure - 3L O2 baseline # SHAY - CPAP # BPH - flomax # RLS - requip Subjective: s/p NGT placement; abd softer Objective: Vital Signs Temp Pulse Resp BP Pulse Ox 36.5 C 77 24 H 177/90 H 97 09/06/17 11:20 09/06/17 11:20 09/06/17 11:20 09/06/17 11:20 09/06/17 11:20 Laboratory Results 09/06/17 04:16 09/06/17 04:16 09/05/17 09/06/17 09/07/17 05:59 05:59 05:59 Intake Total 2054 2016 80 Output Total 400 300 Balance 1655 1717 80 PT 23.0 SEC (12.0-15.0) H 09/06/17 04:16 INR 2.02 (0.83-1.16) H 09/06/17 04:16 chart reviewed CXR personally reviewed CT reviewed - Physical Exam Constitutional: no apparent distress Ears, Nose, Mouth, Throat: other (NGT) Cardiovascular: regular rate and rhythym, no murmur, rub, or gallop Respiratory: no respiratory distress, no rales or rhonchi, clear to auscultation Gastrointestinal: other (soft, mild TTP, slightly distended, faint BS) ICD10 Worksheet Patient Problems: Problems Problem Status Onset Hematoma of chest wall Acute Hematoma of pacemaker pocket Acute Atrial fibrillation Acute Small bowel obstruction Acute Abdominal pain Acute Incarcerated right inguinal hernia Acute
[2017-09-06] MEDS ORDERED: WARFARIN SODIUM 4 MG TAB PO ONE (16:00)
[2017-09-06] MEDS: METOPROLOL TARTRATE 5 MG/5 ML INJ IVP SCH (18:15)
[2017-09-06] MEDS: TAMSULOSIN HCL 0.4 MG CAP PO SCH (22:20)
[2017-09-07] MEDS: METOPROLOL TARTRATE 5 MG/5 ML INJ IVP SCH ×4 (01:20→17:13)
[2017-09-07 05:08] LABS: INR 2.81 (0.83-1.16); PROTIME(PATIENT) 29.9 SEC (12.0-15.0)
[2017-09-07] MEDS: POTASSIUM Cl (KCl) 20 MEQ in D5W LR 1,000 ML IV SCH ×2 (05:18→17:08)
[2017-09-07] MEDS ORDERED: PHYTONADIONE 5 MG in NS 50 ML IV ONE (07:58)
--- NOTE | 2017-09-07 08:02 | SOAPPROG ---
SOAP Progress Note Assessment/Plan: Assessment:s/p repair incarcerated recurrent RIH/now with symptoms of SBO- improved after NGT Tripp has had several SBOs in the past related to his prior AAA repair chronic anticoagulation for A-fib INR today 2.8 Plan:stop bridging anticoagulation with Lovenox 1mg/kg BID SBFT with gastrograffin He could require laparotomy Ziggy Hernandez MD, FACS 09/02/17 07:34 09/03/17 06:10 09/04/17 08:33 09/05/17 12:28 09/06/17 06:10 09/07/17 07:59 Subjective: feels better after NGT decompression Objective: Vital Signs Temp Pulse Resp BP Pulse Ox 36.6 C 72 15 138/73 H 99 09/07/17 04:00 09/07/17 04:00 09/07/17 04:00 09/07/17 04:00 09/07/17 04:00 Laboratory Results 09/06/17 04:16 09/06/17 04:16 09/06/17 09/07/17 09/08/17 05:59 05:59 05:59 Intake Total 2016 2508 Output Total 300 3050 Balance 1717 -541 PT 29.9 SEC (12.0-15.0) H 09/07/17 04:37 INR 2.81 (0.83-1.16) H 09/07/17 04:37 Physical Exam - Physical Exam General Appearance: alert, mild distress, other (hiccups) Respiratory: lungs clear, decreased breath sounds Cardiac/Chest: irregularly irregular Abdomen: non-tender, soft, distended, other (active bowel sounds) Male Genitalia: deferred, other (right inguinal hematoma) Rectal: deferred Neuro/Psych: normal mood/affect, oriented x 3 ICD10 Worksheet Patient Problems: Problems Problem Status Onset Incarcerated right inguinal hernia Acute Abdominal pain Acute Atrial fibrillation Acute Hematoma of chest wall Acute Hematoma of pacemaker pocket Acute Small bowel obstruction Acute
[2017-09-07] MEDS: ONDANSETRON 4 MG/2 ML VIAL IVP PRN (08:47)
--- NOTE | 2017-09-07 09:02 | HOSPPROG ---
Hospitalist Progress Note Assessment/Plan: # incarcerated RIH s/p open repair by Dr Hernandez # SBO - has a hx of SBO's, never required surgery - cont NGT - check SBFT - may need KIESHA # p. acnes in peritoneal fluid - will d/w Dr Hernandez # a-fib s/p ppm - INR 2.8 - vit k given - metop IV while NGT in place # mild CHF, suspect diastolic (EF 55%) - relatively euvolemic today # bovine AVR # AAA repair # chronic resp failure - 3L O2 baseline # SHAY - CPAP # BPH - flomax # RLS - requip Subjective: abd pain ongoing; no flatus or BM Objective: Vital Signs Temp Pulse Resp BP Pulse Ox 36.6 C 72 15 138/73 H 99 09/07/17 04:00 09/07/17 04:00 09/07/17 04:00 09/07/17 04:00 09/07/17 04:00 Laboratory Results 09/06/17 04:16 09/06/17 04:16 09/06/17 09/07/17 09/08/17 05:59 05:59 05:59 Intake Total 2016 2508 Output Total 300 3050 Balance 1717 -541 PT 29.9 SEC (12.0-15.0) H 09/07/17 04:37 INR 2.81 (0.83-1.16) H 09/07/17 04:37 high risk - may need KIESHA - Physical Exam Constitutional: no apparent distress, appears nourished Ears, Nose, Mouth, Throat: other (NGT) Respiratory: no respiratory distress, no rales or rhonchi, clear to auscultation Gastrointestinal: other (normal BS; slightly distended; mild TTP diffusely; no masses) ICD10 Worksheet Patient Problems: Problems Problem Status Onset Hematoma of chest wall Acute Hematoma of pacemaker pocket Acute Atrial fibrillation Acute Small bowel obstruction Acute Abdominal pain Acute Incarcerated right inguinal hernia Acute
[2017-09-07] MEDS: PANTOPRAZOLE SODIUM 40 MG in NS 100 ML IV SCH (09:51)
--- NOTE | 2017-09-07 14:20 | SOAPPROG ---
Downtime Inpatient MD Late Entry SOAP Note: SBFT shows no contrast passing beyond the mid small bowel at 3 hours. Tripp is back in his room and denies worsening pain. I reviewed the images with him and recommended a repeat film in a couple of hours and if not improved proceeding to exp lap. I have started reversal of his anticoagulation with vitK and FFP. Ziggy Hernandez MD, FACS
--- NOTE | 2017-09-07 14:49 | ASMTCMCOM ---
CM Note CM Note Notes: Spoke w/RN, pt to have xray at 4pm to see if he needs surgery, likely will need snf, referrals sent to [facility]. Son Scott hinkle and agrees w/plan, [facility]ILO w/f for PT/OT recs. Date Signed: 09/07/2017 02:48 PM Electronically Signed By:Cathie Romeo RN
[2017-09-07 19:13] LABS: INR 1.46 (0.83-1.16); PROTIME(PATIENT) 17.7 SEC (12.0-15.0)
[2017-09-07] MEDS ORDERED: BUPIVACAINE 0.5% 30 ML SDV ONE (19:47)
--- NOTE | 2017-09-07 19:59 | PDANEPAE ---
ANE History of Present Illness SBO S/P inguinal hernia repair 09/01/17 ANE Past Medical History - Cardiovascular History Hx Hypertension: Yes Hx Arrhythmias: Yes Hx Chest Pain: No Hx Coronary Artery / Peripheral Vascular Disease: Yes Hx CHF / Valvular Disease: Yes Hx Palpitations: No - Pulmonary History Hx COPD: Yes Hx Asthma/Reactive Airway Disease: No Hx Recent Upper Respiratory Infection: No Hx Oxygen in Use at Home: Yes O2 in Use at Home (L/minute): 3 Hx Sleep Apnea: Yes Sleep Apnea Screening Result - Last Documented: Positive - Endocrine History Hx Diabetes: No Hypothyroid: No Hyperthyroid: No Obesity: mild - Renal History Hx Renal Disorders: No - Liver History Hx Hepatic Disorders: No - Neurological & Psychiatric Hx Hx Neurological and Psychiatric Disorders: No - GI History GERD: no - Chronic Pain History Chronic Pain: No ANE Review of Systems Review of Systems: - Exercise capacity METS (RN): 3 METS - Pacemaker Pacemaker Liqu[employer] Mer[employer]: [employer] Pacemaker Model: 2800 ANE Patient History - Allergies Allergies/Adverse Reactions: ciprofloxacin [From Cipro] Allergy (Verified 09/01/17 11:20) Other-Enter Comments codeine Allergy (Verified 09/01/17 11:20) Other-Enter Comments hydromorphone [From Dilaudid] Allergy (Verified 09/02/17 07:29) Unknown - Home Medications Home Medications: Acetaminophen [Tylenol 325mg (*)] 650 mg PO BID PRN 11/25/14 [Last Taken ] Carvedilol [Coreg (*)] 3.125 mg PO BIDMEAL 11/25/14 [Last Taken 09/01/17] Fexofenadine HCl [Yohana Allergy] 60 mg PO DAILY PRN 11/25/14 [Last Taken 09/01] Pantoprazole Sodium [Protonix 40mg (*)] 40 mg PO DAILY 11/25/14 [Last Taken ] Polyethylene Glycol 3350 [Miralax 17 gm (*)] 17 gm PO DAILY 11/25/14 [Last Taken 08/31/17] Tamsulosin HCl [Flomax 0.4 MG (*)] 0.4 mg PO HS 11/25/14 [Last Taken 08/31/17] Warfarin Sodium [Coumadin 4MG (*)] 4 mg PO SUTUTHSA@16 11/25/14 [Last Taken 11/04] [place]-3 Fatty Acids [Fish Oil 1000 mg (*)] 1,000 mg PO DAILY18 11/29/14 [Last Taken 09/01/17] Finasteride [Proscar 5 MG (*)] 5 mg PO HS 11/25/15 [Last Taken 08/31/17] Herbals/Supplements -Info Only 1 ea PO DAILY 11/25/15 [Last Taken Unknown] Warfarin Sodium [Coumadin 2MG (*)] 2 mg PO MWF@16 11/25/15 [Last Taken 08/29/17] rOPINIRole HCL [Requip 1mg (*)] 1 mg PO TID 11/25/15 [Last Taken 11/24/15] Ascorbic Acid [Vitamin C 500 mg (*)] 500 mg PO DAILY 09/01/17 [Last Taken ] Aspirin [Aspirin 81mg (*)] 81 mg PO DAILY 09/01/17 [Last Taken 08/31/17] Cholecalciferol Vit D3 [Vitamin D3 (*)] 1,000 units PO DAILY 09/01/17 [Last Taken 08/31/17] Multivitamins [Multivitamin (*)] 1 tab PO DAILY 09/01/17 [Last Taken 09/01/17] - NPO status NPO Status: no food or drink >8 hours NPO Since - Liquids (Date): 09/01/17 NPO Since - Liquids (Time): 07:30 NPO Since - Solids (Date): 09/01/17 NPO Since - Solids (Time): 07:30 - Anes Hx Anes Hx: no prior problems - Smoking Hx Smoking Status: Former smoker ANE Labs/Vital Signs - Labs Result Diagrams: 09/06/17 04:16 09/06/17 04:16 - Vital Signs Blood Pressure: 140/65 Heart Rate: 70 Respiratory Rate: 19 O2 Sat (%): 100 Height: 172.72 cm Weight: 77.111 kg ANE Physical Exam - Airway Neck exam: decreased ROM Mouth exam: poor dentition - Pulmonary Pulmonary: no respiratory distress - Cardiovascular Cardiovascular: regular rate and rhythym ANE Anesthesia Plan Anesthesia Plan: general endotracheal anesthesia
[2017-09-07] MEDS ORDERED: fentaNYL 100 MCG/2 ML INJ ONE ×3 (20:33→23:26)
[2017-09-07] MEDS ORDERED: PROPOFOL/EMULSION 500 MG/50 ML BOTTLE IV ONE (20:34)
[2017-09-07] MEDS ORDERED: ROCURONIUM 50 MG/5 ML VIAL ONE ×2 (21:27→21:28)
[2017-09-07] MEDS ORDERED: GLYCOPYRROLATE 0.2 MG/1 ML VIAL ONE (21:28)
[2017-09-07 21:58] LABS: HEMATOCRIT 21.6 % (40.0-51.0); HEMOGLOBIN 7.3 g/dL (13.7-17.5)
[2017-09-07] MEDS ORDERED: FUROSEMIDE 20 MG/2 ML VIAL ONE (22:35)
[2017-09-07] MEDS ORDERED: PROPOFOL 200 MG/20 ML VIAL ONE (22:36)
[2017-09-07] MEDS ORDERED: SUGAMMADEX SODIUM 200 MG/2 ML VIAL IVP ONE (23:07)
[2017-09-07] MEDS: fentaNYL 100 MCG/2 ML INJ IVP PRN ×2 (23:30→23:55)
[2017-09-07 23:50] LABS: HEMATOCRIT 30.9 % (40.0-51.0); HEMOGLOBIN 10.4 g/dL (13.7-17.5)
--- NOTE | 2017-09-07 23:51 | POSTOPPROG ---
Post Op Note Date of Operation: 09/07/17 Surgeon: Osman Hernandez (, FACS) Anesthesiologist: Debbie Pacheco MD Pre-op Diagnosis: SBO Post-op Diagnosis: SBO/hemoperitoneum/inguinal hematoma Procedure: laparotomy with lysis adhesions/evacuation of hematoma Findings: chronic adhesions/ hemoperitoneum from recent inguinal hernia repair Inf/Abcess present in the surg proc area at time of surgery?: No EBL: 50 ml acute blood loss/500 ml clot Drains: Ventura Rodríguez (right inguinal)
[2017-09-07] MEDS ORDERED: NALOXONE HCL 0.4 MG/ML INJ IVP PRN (23:53)
[2017-09-07 23:59] LABS: INR 1.25 (0.83-1.16); PROTIME(PATIENT) 15.7 SEC (12.0-15.0)
[2017-09-08] LABS: APTT 30.2 SEC (23.0-38.0)
[2017-09-08] MEDS: ceFAZolin 2 GM in D5W 100 ML IV SCH ×3 (00:47→17:04)
[2017-09-08] MEDS: METOPROLOL TARTRATE 5 MG/5 ML INJ IVP SCH ×4 (01:01→17:03)
[2017-09-08] MEDS: TAMSULOSIN HCL 0.4 MG CAP PO SCH ×2 (01:02→21:15)
[2017-09-08 04:46] LABS: % IMMATURE GRANULYOCYTES 0.6 % (0.0-1.1); ABSOLUTE NRBC COUNT 0.02 10^3/uL (0-0.01); ADD DIFF? NO; ADD MORPH? NO; ADD SCAN? NO; ATYPICAL LYMPHOCYTE FLAG 20 (0-99); FRAGMENT RBC FLAG 0 (0-99); HEMATOCRIT 29.2 % (40.0-51.0); LEFT SHIFT FLG 10 (0-99); LIPEMIA HEMOLYSIS FLAG 90 (0-99); MEAN CELL HEMOGLOBIN 33.2 pg (27.9-34.1); MEAN CELL HEMOGLOBIN CONCENTR. 34.2 g/dL (32.4-36.7); MEAN PLATELET VOLUME 9.3 fL (8.7-11.7); NRBC-AUTO% 0.1 % (0.0-0.2); PLATELET CLUMPS FLAG 10 (0-99); PLATELET COUNT 183 10^3/uL (150-400); RED BLOOD CELL COUNT 3.01 10^6/uL (4.40-6.38); RED CELL DISTRIBUTION WIDTH 15.5 % (11.5-15.2)
[2017-09-08 04:54] LABS: INR 1.3 (0.83-1.16); PROTIME(PATIENT) 16.2 SEC (12.0-15.0)
[2017-09-08 05:03] LABS: ANION GAP 9 mEq/L (8-16); CALCIUM 8.6 mg/dL (8.5-10.4); CARBON DIOXIDE 39 mEq/l (22-31); CHLORIDE 100 mEq/L (97-110); GLOMERULAR FILTRATION RATE > 60; GLUCOSE 133 mg/dL (70-100); POTASSIUM 3.6 mEq/L (3.5-5.2); SODIUM 148 mEq/L (134-144)
[2017-09-08] MEDS ORDERED: ceFAZolin 2 GM/DEXTROSE 100 ML IV SCH (06:00)
--- NOTE | 2017-09-08 06:25 | SOAPPROG ---
SOAP Progress Note Assessment/Plan: Assessment: s/p laparotomy and lysis adhesions for SBO post op ileus increase activity/pulmonary toilet Plan: Hold anticoagulation additional 24 hours then start bridging therapy with Lovenox S MD David, FACS 09/02/17 07:34 09/03/17 06:10 09/04/17 08:33 09/05/17 12:28 09/06/17 06:10 09/07/17 07:59 09/08/17 06:25 Subjective: awake/incisional pain Objective: Vital Signs Temp Pulse Resp BP Pulse Ox 36.9 C 77 14 118/53 L 100 09/08/17 00:45 09/08/17 05:00 09/08/17 05:00 09/08/17 05:00 09/08/17 05:00 Laboratory Results 09/08/17 04:30 09/08/17 04:30 09/07/17 09/08/17 09/09/17 05:59 05:59 05:59 Intake Total 2509 4175 Output Total 3050 5130 Balance -541 -955 PT 16.2 SEC (12.0-15.0) H 09/08/17 04:30 INR 1.30 (0.83-1.16) H 09/08/17 04:30 - Pending Discharge Pending Discharge Within 24 Hours: No Pending Discharge Within 48 Hours: No Physical Exam - Physical Exam General Appearance: mild distress Respiratory: lungs clear, normal breath sounds, decreased breath sounds, splinting Cardiac/Chest: regular rate, rhythm Abdomen: soft, other (dressing dry/BRET sanguinous/hypoactive bowel sounds) ICD10 Worksheet Patient Problems: Problems Problem Status Onset Incarcerated right inguinal hernia Acute Abdominal pain Acute Atrial fibrillation Acute Hematoma of chest wall Acute Hematoma of pacemaker pocket Acute Small bowel obstruction Acute
[2017-09-08] MEDS: POTASSIUM Cl (KCl) 20 MEQ in D5W LR 1,000 ML IV SCH (06:32)
--- NOTE | 2017-09-08 09:11 | GOP ---
[f rep st] OPERATIVE REPORT DATE OF OPERATION: SURGEON: Osman Hernandez MD, FACS ANESTHESIA: General endotracheal. ANESTHESIOLOGIST: Nadya Pacheco MD. PREOPERATIVE DIAGNOSIS: 1. Small bowel obstruction. 2. Right inguinal hematoma, status post repair of incarcerated right inguinal hernia 09/01/2017. POSTOPERATIVE DIAGNOSIS: 1. Small bowel obstruction. 2. Right inguinal hematoma, status post repair of incarcerated right inguinal hernia 09/01/2017. PROCEDURE PERFORMED: 1. Laparotomy with lysis of adhesions. 2. Evacuation of right inguinal hematoma. FINDINGS: Moderate-sized right inguinal hematoma related to prior repair of incarcerated right inguinal hernia. Moderate hemoperitoneum with old clotted blood in the pelvis, likely arising from the hernia repair as well. No evidence of hernia recurrence. Small bowel obstruction related to chronic adhesions from prior abdominal aortic aneurysm repair. No evidence of bowel ischemia or necrosis. No evidence of bowel perforation. ESTIMATED BLOOD LOSS: 50 mL of acute blood loss, 500 mL of clot. Patient received 1 unit of packed red blood cells and 1 unit of FFP in the operating room in addition to crystalloid. I should mention that a Sousa catheter was placed with some difficulty prior to beginning the operation. After a failed attempt at a silicone catheter, I was successful in passing a 14-Lithuanian coude catheter with some resistance, but without bleeding. Urine output improved throughout the operation toward the end of the case. DESCRIPTION OF PROCEDURE: After informed consent was obtained, the patient was brought to the operating room and placed under general anesthesia. He had received 2 units of fresh frozen plasma to bring his INR down from 2.8 to 1.46, and a third unit was running as he was placed under anesthesia. The abdomen and right groin were prepped and draped in the usual fashion. The patient had a progressively enlarging hematoma in the right groin that started to arise the day after his surgery, when he was restarted on full anticoagulation. He had a slow decline in his hemoglobin and hematocrit. Before proceeding, a time-out identification of the patient was performed. The abdomen was entered through the prior midline incision, starting with the umbilicus down to the pubis. Adhesions were immediately encountered to the anterior abdominal wall and were slowly and carefully taken down using primarily sharp dissection. The pelvis was relatively free of adhesions, and the internal aspect of the right inguinal hernia repair showed evidence of hematoma and old blood, but no active bleeding. This was evacuated. 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 The second content of the inguinal hernia appeared as a tinea epiploica, previously thought to be an omental fat plug. These structures appeared viable and without active hemorrhage. The small bowel was run from the ligament of Treitz proximally, and this terminal ileum was all decompressed. The proximal bowel was quite dilated. Extensive adhesions did not readily reveal the point of obstruction, and I took down all adhesions starting with the distal bowel proximally in slow, careful, painstaking fashion using primarily sharp dissection. A couple of small serosal injuries were repaired with 3-0 Vicryl suture. There were no full-thickness injuries during the dissection. Most of the dense adhesions were between loops of small bowel and omentum. As these were taken down, the transition point was identified, and some of the more proximal adhesions were left in place, as they did not appear to be contributing to this obstructive process. After this had been completed, the abdominal cavity was irrigated, and hemostasis was secured with spot cautery. A sheet of Interceed was placed over the right internal inguinal floor to prevent adhesions to the prior hernia repair. The bowel was returned to its anatomic position. The remaining upper abdominal adhesions, which were extensive, made it difficult to palpate the stomach, but the stomach appeared decompressed, and nasogastric tube position was confirmed. The inguinal incision was reopened, and the hematoma was evacuated and irrigated. A 10 mm flat Ventura-Rodríguez drain was brought through a separate stab wound and placed into the depths of the inguinal incision. The hematoma extended down to the external oblique fascia, which was not reopened. Subcutaneous tissues were closed with continuous running 3-0 Monocryl suture, and the skin closed with kirsty over the drain, which was secured to the skin with 3-0 nylon suture. The abdominal cavity was again inspected for hemostasis, which appeared secure. The bowel was run one final time and returned to its anatomic position. The midline fascia was closed with continuous running #1 PDS suture, looped. Skin was closed with kirsty. The patient had sterile dressings applied, was extubated in the operating room and returned to the recovery room in satisfactory condition. Needle, sponge and instrument counts were correct. /[id number]/MODL MTDD
[2017-09-08] MEDS: PANTOPRAZOLE SODIUM 40 MG in NS 100 ML IV SCH (09:44)
--- NOTE | 2017-09-08 10:28 | HOSPPROG ---
Hospitalist Progress Note Assessment/Plan: DIAGNOSES: # incarcerated RIH s/p open repair by Dr Hernandez -p op ileus # acute blood loss anemia with inguinal hematoma after nick repair; subsequent evacuation of hematoma -s/p transfusion RBC # SBO - s/p adhesiolysis # prerenal azotemia and hypernatremia, mild # p. acnes in peritoneal fluid # a-fib hx, s/p ppm - INR down to 1.3, off anticoag for moment due to inguinal bleed - metop IV while NGT in place # mild CHF, suspect diastolic (EF 55%) - relatively euvolemic today # hx of bovine AVR # hx of AAA repair # chronic resp failure - 3L O2 baseline # SHAY - CPAP # BPH - flomax # RLS - requip reviewed in detail with Dr Hill also seen on multidisc rounds PLANS: -continue current supportive care, hydration -continue off anticoag another 24 hours then bridge back to oral med -does not appear to need further diuresis at present -increase ambulation as able -repeat BMP in am, increase fluids if not improving -diet per Dr Hernandez when pt able SUBJECTIVE: feels better overall today still some pain but pt ok w control at this time no fever sxs OBJECTIVE: vitals: stable without fever card monitor: paced exam: alert oriented relaxed, skin warm dry resps easy lungs diminished but clear heart reg abd soft nondistended, mildly tender some edema Labs: some hypernatremia and rising BUN, may need more fluid Hg better after transfusion Objective: Vital Signs Temp Pulse Resp BP Pulse Ox 36.3 C 74 18 128/54 H 99 09/08/17 06:00 09/08/17 06:36 09/08/17 06:00 09/08/17 06:36 09/08/17 06:00 Laboratory Results 09/08/17 04:30 09/08/17 04:30 09/07/17 09/08/17 09/09/17 06:59 06:59 06:59 Intake Total 2429 0605 Output Total 4581 9766 4903 Balance -756 -985 -8767 PT 16.2 SEC (12.0-15.0) H 09/08/17 04:30 INR 1.30 (0.83-1.16) H 09/08/17 04:30 - Time Spent With Patient Time Spent with Patient: greater than 35 minutes Time Spent with Patient: Greater than 35 minutes spent on this patients care, greater than 50% of time spent counseling, educating, and coordinating care regarding the above mentioned plan. ICD10 Worksheet Patient Problems: Problems Problem Status Onset Incarcerated right inguinal hernia Acute Abdominal pain Acute Atrial fibrillation Acute Hematoma of chest wall Acute Hematoma of pacemaker pocket Acute Small bowel obstruction Acute
[2017-09-09] MEDS: METOPROLOL TARTRATE 5 MG/5 ML INJ IVP SCH ×4 (00:16→16:16)
[2017-09-09] MEDS: ceFAZolin 2 GM in D5W 100 ML IV SCH ×3 (00:17→16:14)
[2017-09-09] MEDS: POTASSIUM Cl (KCl) 20 MEQ in D5W LR 1,000 ML IV SCH ×2 (04:53→16:13)
[2017-09-09 05:08] LABS: HEMATOCRIT 28.6 % (40.0-51.0); HEMOGLOBIN 9.7 g/dL (13.7-17.5); MEAN CELL HEMOGLOBIN 33.3 pg (27.9-34.1); MEAN CELL HEMOGLOBIN CONCENTR. 33.9 g/dL (32.4-36.7); MEAN CELL VOLUME 98.3 fL (81.5-99.8); RED BLOOD CELL COUNT 2.91 10^6/uL (4.40-6.38)
[2017-09-09 05:17] LABS: INR 1.32 (0.83-1.16); PROTIME(PATIENT) 16.4 SEC (12.0-15.0)
[2017-09-09 05:19] LABS: ALANINE AMINOTRANSFERASE 33 IU/L (21-72); ALBUMIN 2.7 g/dL (3.5-5.0); ALKALINE PHOSPHATASE 60 IU/L (38-126); ANION GAP 11 mEq/L (8-16); ASPARTATE AMINOTRANSFERASE 39 IU/L (17-59); BILIRUBIN,TOTAL 1.6 mg/dL (0.1-1.4); CALCIUM 8.1 mg/dL (8.5-10.4); CARBON DIOXIDE 33 mEq/l (22-31); CHLORIDE 103 mEq/L (97-110); CREATININE 0.8 mg/dL (0.7-1.3); GLOMERULAR FILTRATION RATE > 60; GLUCOSE 141 mg/dL (70-100); POTASSIUM 3.7 mEq/L (3.5-5.2); SODIUM 147 mEq/L (134-144); TOTAL PROTEIN 5.1 g/dL (6.3-8.2)
[2017-09-09] MEDS: PANTOPRAZOLE SODIUM 40 MG in NS 100 ML IV SCH (08:55)
--- NOTE | 2017-09-09 10:01 | SOAPPROG ---
SOAP Progress Note Assessment/Plan: Assessment: s/p laparotomy and lysis adhesions for SBO post op ileus Plan: Restart Lovenox/clamp NGT/increase activity-OOB continue SDU status for now/anticipate transition to med-surg next 24 hours discussed need for post hospital rehab/SNF before returning home with patient and son will leave Sousa in for now as it was passed with difficulty under anesthesia Ziggy Hernandez MD, FACS 09/02/17 07:34 09/03/17 06:10 09/04/17 08:33 09/05/17 12:28 09/06/17 06:10 09/07/17 07:59 09/08/17 06:25 09/09/17 09:58 09/09/17 10:01 Subjective: awake/resting comfortably, but requiring IV narcotics for pain control oriented, but not able to remember what happened yesterday Objective: Vital Signs Temp Pulse Resp BP Pulse Ox 36.9 C 80 16 162/79 H 99 09/09/17 08:00 09/09/17 08:00 09/09/17 08:00 09/09/17 08:00 09/09/17 08:00 Laboratory Results 09/09/17 05:00 09/09/17 05:00 09/08/17 09/09/17 09/10/17 05:59 05:59 05:59 Intake Total 4175 2855 Output Total 5130 2410 Balance -955 445 PT 16.4 SEC (12.0-15.0) H 09/09/17 05:00 INR 1.32 (0.83-1.16) H 09/09/17 05:00 Physical Exam - Physical Exam General Appearance: mild distress Respiratory: normal breath sounds, decreased breath sounds Cardiac/Chest: regular rate, rhythm Abdomen: soft, distended, other (bowel sounds present) Male Genitalia: other (uncircumcised/14FR.Coudet cath in place) Rectal: deferred ICD10 Worksheet Patient Problems: Problems Problem Status Onset Incarcerated right inguinal hernia Acute Abdominal pain Acute Atrial fibrillation Acute Hematoma of chest wall Acute Hematoma of pacemaker pocket Acute Small bowel obstruction Acute
[2017-09-09] MEDS: ENOXAPARIN 80 MG/0.8 ML SYR SC SCH ×2 (11:17→21:25)
--- NOTE | 2017-09-09 12:40 | ASMTCMCOM ---
CM Note CM Note Notes: No bleeding this AM no clear source. May need to be transferred to [facility] for more extensive testing. [place] to eval on Sunday for Medicaid eligibility. CM to follow. Date Signed: 09/09/2017 12:39 PM Electronically Signed By:Jocelyn Blanco LCSW
--- NOTE | 2017-09-09 15:33 | HOSPPROG ---
Hospitalist Progress Note Assessment/Plan: DIAGNOSES: # incarcerated RIH s/p open repair by Dr Hernandez -p op ileus # acute blood loss anemia with inguinal hematoma after nick repair; subsequent evacuation of hematoma -s/p transfusion RBC # SBO - s/p adhesiolysis # prerenal azotemia and hypernatremia, mild # p. acnes in peritoneal fluid # a-fib hx, s/p ppm - INR down to 1.3, off anticoag for moment due to inguinal bleed - metop IV while NGT in place # mild CHF, suspect diastolic (EF 55%) - relatively euvolemic today # hx of bovine AVR # hx of AAA repair # chronic resp failure - 3L O2 baseline # SHAY - CPAP # BPH - flomax # RLS - requip reviewed in detail with Dr Hill and Dr. Osman Hernandez also seen on multidisc rounds PLANS: -continue current supportive care, hydration -Coumadin to start today, continue bridging until therapeutic -increase ambulation as able -diet per Dr Hernandez when pt able SUBJECTIVE: Complains of dry mouth mostly. Very little pain no dyspnea or fever symptoms This morning was noted to be somewhat confused and lethargic but now wide awake and very talkative Did do some walking very short distance today OBJECTIVE: vitals: stable without fever card monitor: paced exam: alert oriented relaxed, skin warm dry resps easy lungs diminished but clear heart reg abd bowel sounds present, soft nondistended, mildly tender, wounds look okay some edema Labs: Improvement in hypernatremia and BUN Objective: Vital Signs Temp Pulse Resp BP Pulse Ox 36.9 C 73 16 138/70 H 97 09/09/17 08:00 09/09/17 12:00 09/09/17 12:00 09/09/17 12:00 09/09/17 12:00 Laboratory Results 09/09/17 05:00 09/09/17 05:00 09/08/17 09/09/17 09/10/17 06:59 06:59 06:59 Intake Total 4175 2855 Output Total 5176 2410 Balance -955 445 PT 16.4 SEC (12.0-15.0) H 09/09/17 05:00 INR 1.32 (0.83-1.16) H 09/09/17 05:00 ICD10 Worksheet Patient Problems: Problems Problem Status Onset Incarcerated right inguinal hernia Acute Abdominal pain Acute Atrial fibrillation Acute Hematoma of chest wall Acute Hematoma of pacemaker pocket Acute Small bowel obstruction Acute
[2017-09-09] MEDS: WARFARIN SODIUM 3 MG TAB PO SCH (16:16)
[2017-09-09] MEDS: TAMSULOSIN HCL 0.4 MG CAP PO SCH (21:24)
[2017-09-10] MEDS: METOPROLOL TARTRATE 5 MG/5 ML INJ IVP SCH ×2 (00:31→06:08)
[2017-09-10] MEDS: ceFAZolin 2 GM in D5W 100 ML IV SCH (00:31)
[2017-09-10] MEDS: POTASSIUM Cl (KCl) 20 MEQ in D5W LR 1,000 ML IV SCH ×2 (00:32→14:51)
[2017-09-10 03:51] LABS: INR 1.43 (0.83-1.16); PROTIME(PATIENT) 17.4 SEC (12.0-15.0)
--- NOTE | 2017-09-10 07:48 | SOAPPROG ---
SOAP Progress Note Assessment/Plan: Assessment: s/p laparotomy and lysis adhesions for SBO post op ileus-resolving Plan: Sips of clears, increase activity-OOB discussed need for post hospital rehab/SNF before returning home with patient and son DC Lars Hernandez MD, FACS 09/02/17 07:34 09/03/17 06:10 09/04/17 08:33 09/05/17 12:28 09/06/17 06:10 09/07/17 07:59 09/08/17 06:25 09/09/17 09:58 09/09/17 10:01 09/10/17 07:46 Objective: Vital Signs Temp Pulse Resp BP Pulse Ox 36.9 C 70 11 L 123/43 H 96 09/10/17 00:00 09/10/17 06:08 09/10/17 04:00 09/10/17 06:08 09/10/17 04:00 Laboratory Results 09/09/17 05:00 09/09/17 05:00 09/09/17 09/10/17 09/11/17 05:59 05:59 05:59 Intake Total 2855 2618 Output Total 2410 760 Balance 445 1858 PT 17.4 SEC (12.0-15.0) H 09/10/17 03:30 INR 1.43 (0.83-1.16) H 09/10/17 03:30 Physical Exam - Physical Exam General Appearance: alert, mild distress Respiratory: lungs clear Cardiac/Chest: regular rate, rhythm Abdomen: soft, distended Male Genitalia: other (dressing dry/hypoactive bowel sounds) ICD10 Worksheet Patient Problems: Problems Problem Status Onset Incarcerated right inguinal hernia Acute Abdominal pain Acute Atrial fibrillation Acute Hematoma of chest wall Acute Hematoma of pacemaker pocket Acute Small bowel obstruction Acute
[2017-09-10] MEDS: CARVEDILOL 3.125 MG TAB PO SCH ×2 (08:07→17:45)
[2017-09-10] MEDS: ENOXAPARIN 80 MG/0.8 ML SYR SC SCH ×2 (08:07→20:55)
[2017-09-10] MEDS ORDERED: METHYLNALTREXONE BROMIDE 12 MG/0.6 ML INJ SC ONE (09:15)
[2017-09-10] MEDS: PANTOPRAZOLE SODIUM 40 MG TAB PO SCH (09:22)
--- NOTE | 2017-09-10 11:21 | HOSPPROG ---
Hospitalist Progress Note Assessment/Plan: DIAGNOSES: # incarcerated RIH s/p open repair by Dr Hernandez -p op ileus # acute blood loss anemia with inguinal hematoma after nick repair; subsequent evacuation of hematoma -s/p transfusion RBC # SBO - s/p adhesiolysis # prerenal azotemia and hypernatremia, mild # p. acnes in peritoneal fluid # a-fib hx, s/p ppm - INR down to 1.3, off anticoag for moment due to inguinal bleed - metop IV while NGT in place # mild CHF, suspect diastolic (EF 55%) - relatively euvolemic today # hx of bovine AVR # hx of AAA repair # chronic resp failure - 3L O2 baseline # SHAY - CPAP # BPH - flomax # RLS - requip today he is overall stable but has ongoing ileus with increased distension reviewed in detail with Dr Pinedo also seen on multidisc rounds PLANS: -continue current supportive care, hydration -Coumadin resumed, continue bridging until therapeutic -will add some relistor today to see if he does better w that -increase ambulation as able -diet per Dr Hernandez when pt able SUBJECTIVE: states he is hungry no flatus or stool no emesis OBJECTIVE: vitals: stable without fever card monitor: paced exam: alert oriented relaxed, skin warm dry resps easy lungs diminished but clear heart reg abd abdomen quite, is more distended and diffusely tender today; wounds look ok some edema rmains Objective: Vital Signs Temp Pulse Resp BP Pulse Ox 37.3 C 82 23 H 133/49 H 99 09/10/17 08:00 09/10/17 08:07 09/10/17 08:00 09/10/17 08:07 09/10/17 08:00 Laboratory Results 09/09/17 05:00 09/09/17 05:00 09/09/17 09/10/17 09/11/17 06:59 06:59 06:59 Intake Total 2855 2618 Output Total 2410 760 150 Balance 445 1858 -150 PT 17.4 SEC (12.0-15.0) H 09/10/17 03:30 INR 1.43 (0.83-1.16) H 09/10/17 03:30 - Time Spent With Patient Time Spent with Patient: greater than 35 minutes Time Spent with Patient: Greater than 35 minutes spent on this patients care, greater than 50% of time spent counseling, educating, and coordinating care regarding the above mentioned plan. ICD10 Worksheet Patient Problems: Problems Problem Status Onset Incarcerated right inguinal hernia Acute Abdominal pain Acute Atrial fibrillation Acute Hematoma of chest wall Acute Hematoma of pacemaker pocket Acute Small bowel obstruction Acute
--- NOTE | 2017-09-10 12:22 | POSTANESTH ---
Post Anesthetic Evaluation Cardiovascular Status: Normal, Stable Respiratory Status: Normal, Stable Level of Consciousness/Mental Status: Other, See Comment Pain Control: Adequate, Prn Tx Ordered Nausea/Vomiting Control: Adequate, Prn Tx Ordered Complications Possibly Related to Anesthesia: None Noted (NG tube out. Pt walked today. Asleep now. Rn states ileus.)
[2017-09-10] MEDS: traMADol 50 MG TAB PO PRN ×2 (13:48→17:44)
[2017-09-10] MEDS: WARFARIN SODIUM 3 MG TAB PO SCH (15:56)
--- NOTE | 2017-09-10 16:16 | ASMTCMCOM ---
CM Note CM Note Notes: Sorry, Please disregard CM Note dated 09/09/17 12:39 documented on the wrong patient. Chucho Castillo: [facility] Gave son addresses and he will go tour and make a final decision. Date Signed: 09/10/2017 04:16 PM Electronically Signed By:Jocelyn Blanco LCSW
[2017-09-10] MEDS: TAMSULOSIN HCL 0.4 MG CAP PO SCH (20:57)
[2017-09-11] MEDS: traMADol 50 MG TAB PO PRN ×4 (00:36→21:14)
[2017-09-11] MEDS: ONDANSETRON 4 MG/2 ML VIAL IVP PRN (00:40)
[2017-09-11] MEDS: POTASSIUM Cl (KCl) 20 MEQ in D5W LR 1,000 ML IV SCH (00:49)
[2017-09-11 05:54] LABS: INR 1.44 (0.83-1.16); PROTIME(PATIENT) 17.5 SEC (12.0-15.0)
--- NOTE | 2017-09-11 06:58 | SOAPPROG ---
SOAP Progress Note Assessment/Plan: Assessment: s/p laparotomy and lysis adhesions for SBO post op ileus-resolving Plan: Full Liquids/stop IV fluids, increase activity-OOB transfer to Med Surg discussed need for post hospital rehab/SNF before returning home with patient and son Ziggy Hernandez MD, FACS 09/02/17 07:34 09/03/17 06:10 09/04/17 08:33 09/05/17 12:28 09/06/17 06:10 09/07/17 07:59 09/08/17 06:25 09/09/17 09:58 09/09/17 10:01 09/10/17 07:46 09/11/17 06:56 Objective: Vital Signs Temp Pulse Resp BP Pulse Ox 36.6 C 75 12 122/58 H 98 09/11/17 04:00 09/11/17 04:00 09/11/17 04:00 09/11/17 04:00 09/11/17 04:00 Laboratory Results 09/09/17 05:00 09/09/17 05:00 09/10/17 09/11/17 09/12/17 05:59 05:59 05:59 Intake Total 2618 2648 Output Total 760 690 Balance 1858 1958 PT 17.5 SEC (12.0-15.0) H 09/11/17 05:30 INR 1.44 (0.83-1.16) H 09/11/17 05:30 Physical Exam - Physical Exam General Appearance: no apparent distress Respiratory: crackles, rales Cardiac/Chest: regular rate, rhythm (paced at 80) Abdomen: normal bowel sounds, soft, distended, other (incisions healing well/BRET drain removed) ICD10 Worksheet Patient Problems: Problems Problem Status Onset Incarcerated right inguinal hernia Acute Abdominal pain Acute Atrial fibrillation Acute Hematoma of chest wall Acute Hematoma of pacemaker pocket Acute Small bowel obstruction Acute
[2017-09-11] MEDS: CARVEDILOL 3.125 MG TAB PO SCH ×2 (08:19→17:39)
[2017-09-11] MEDS: ENOXAPARIN 80 MG/0.8 ML SYR SC SCH ×2 (08:19→21:14)
[2017-09-11] MEDS: PANTOPRAZOLE SODIUM 40 MG TAB PO SCH (08:19)
--- NOTE | 2017-09-11 10:00 | HOSPPROG ---
Hospitalist Progress Note Assessment/Plan: DIAGNOSES: # incarcerated RIH s/p open repair by Dr Hernandez -p op ileus # acute blood loss anemia with inguinal hematoma after nick repair; subsequent evacuation of hematoma -s/p transfusion RBC # SBO - s/p adhesiolysis # prerenal azotemia and hypernatremia, mild # p. acnes in peritoneal fluid # a-fib hx, s/p ppm - INR up to 1.4 no won coumadin -on his usual coreg # mild CHF, suspect diastolic (EF 55%) - relatively euvolemic today # hx of bovine AVR # hx of AAA repair # chronic resp failure - 3L O2 baseline # SHAY - CPAP # BPH - flomax # RLS - requip PLANS: -check K and Mg to be sure these aren't affecting ileus -may need some diuresis at this time to help ileus -Coumadin resumed, continue bridging until therapeutic -increase ambulation as able -increaases in diet per Dr Hernandez as pt able SUBJECTIVE: taking oral fluids ok has no new pains or discomforts slightly stronger had a loose stool after relistor yest; BSs have been noted today OBJECTIVE: vitals: stable without fever card monitor: paced exam: alert oriented relaxed, skin warm dry resps easy lungs diminished but clear heart reg abd abdomen +BSs, is somewhat less distended nontender; wounds look ok some edema remains Objective: Vital Signs Temp Pulse Resp BP Pulse Ox 36.7 C 70 18 122/52 H 2 L 09/11/17 07:30 09/11/17 07:30 09/11/17 07:30 09/11/17 07:30 09/11/17 07:30 Laboratory Results 09/09/17 05:00 09/09/17 05:00 09/10/17 09/11/17 09/12/17 06:59 06:59 06:59 Intake Total 2618 2648 Output Total 760 690 Balance 1858 1958 PT 17.5 SEC (12.0-15.0) H 09/11/17 05:30 INR 1.44 (0.83-1.16) H 09/11/17 05:30 ICD10 Worksheet Patient Problems: Problems Problem Status Onset Incarcerated right inguinal hernia Acute Abdominal pain Acute Atrial fibrillation Acute Hematoma of chest wall Acute Hematoma of pacemaker pocket Acute Small bowel obstruction Acute
[2017-09-11 11:31] LABS: ANION GAP 7 mEq/L (8-16); CALCIUM 7.8 mg/dL (8.5-10.4); CARBON DIOXIDE 33 mEq/l (22-31); CHLORIDE 105 mEq/L (97-110); CREATININE 0.7 mg/dL (0.7-1.3); GLOMERULAR FILTRATION RATE > 60; GLUCOSE 115 mg/dL (70-100); MAGNESIUM 1.7 mg/dL (1.6-2.3); POTASSIUM 3.6 mEq/L (3.5-5.2); SODIUM 145 mEq/L (134-144)
--- NOTE | 2017-09-11 17:20 | ASMTCMCOM ---
CM Note CM Note Notes: Received info from [facility] that [facility] could admit patient. Relayed that message to son, who went to look at facilities today. He would [facility] to [facility]. Gave that info to [facility] and to hold a bed for patient. Possible discharge Sunday? Date Signed: 09/11/2017 05:19 PM Electronically Signed By:Jocelyn Blanco LCSW
[2017-09-11] MEDS: WARFARIN SODIUM 3 MG TAB PO SCH (17:40)
[2017-09-11] MEDS: TAMSULOSIN HCL 0.4 MG CAP PO SCH (21:14)
[2017-09-12 05:58] LABS: ANION GAP 8 mEq/L (8-16); CALCIUM 7.9 mg/dL (8.5-10.4); CARBON DIOXIDE 33 mEq/l (22-31); CHLORIDE 103 mEq/L (97-110); CREATININE 0.8 mg/dL (0.7-1.3); GLOMERULAR FILTRATION RATE > 60; GLUCOSE 108 mg/dL (70-100); POTASSIUM 3.2 mEq/L (3.5-5.2); SODIUM 144 mEq/L (134-144)
[2017-09-12 06:30] LABS: INR 1.45 (0.83-1.16); PROTIME(PATIENT) 17.6 SEC (12.0-15.0)
--- NOTE | 2017-09-12 06:47 | SOAPPROG ---
SOAP Progress Note Assessment/Plan: Assessment: s/p laparotomy and lysis adhesions for SBO post op ileus-resolving Plan: Advance diet to regular increase activity-OOB transfer to [facility] Surg discussed need for post hospital rehab/SNF before returning home with patient and son anticipate DC if bowel and bladder function regular Ziggy Hernandez MD, FACS 09/02/17 07:34 09/03/17 06:10 09/04/17 08:33 09/05/17 12:28 09/06/17 06:10 09/07/17 07:59 09/08/17 06:25 09/09/17 09:58 09/09/17 10:01 09/10/17 07:46 09/11/17 06:56 09/12/17 06:45 Subjective: awake/alert, no BM tolerated diet advance has only voided once Objective: Vital Signs Temp Pulse Resp BP Pulse Ox 36.8 C 80 14 132/70 H 98 09/12/17 04:15 09/12/17 04:15 09/12/17 04:15 09/12/17 04:15 09/12/17 04:15 Laboratory Results 09/09/17 05:00 09/12/17 05:27 09/11/17 09/12/17 09/13/17 05:59 05:59 05:59 Intake Total 2648 300 Output Total 690 Balance 1958 300 PT 17.6 SEC (12.0-15.0) H 09/12/17 05:27 INR 1.45 (0.83-1.16) H 09/12/17 05:27 - Pending Discharge Pending Discharge Within 24 Hours: Yes Pending Discharge Date: 09/13/17 Pending Discharge Time: 11:00 Physical Exam - Physical Exam General Appearance: no apparent distress Respiratory: lungs clear, crackles, rales Cardiac/Chest: regular rate, rhythm Abdomen: soft, distended, other (hypoactive bowel sounds, incisions o.k.) Male Genitalia: other (ecchymosis/uncircumcised ) Rectal: deferred Neuro/Psych: normal mood/affect, oriented x 3 ICD10 Worksheet Patient Problems: Problems Problem Status Onset Incarcerated right inguinal hernia Acute Abdominal pain Acute Atrial fibrillation Acute Hematoma of chest wall Acute Hematoma of pacemaker pocket Acute Small bowel obstruction Acute
[2017-09-12] MEDS ORDERED: NS 500 ML IV ONE (06:52)
[2017-09-12] MEDS: PANTOPRAZOLE SODIUM 40 MG TAB PO SCH (08:05)
[2017-09-12] MEDS: CARVEDILOL 3.125 MG TAB PO SCH ×2 (08:05→18:30)
[2017-09-12] MEDS: ENOXAPARIN 80 MG/0.8 ML SYR SC SCH ×2 (08:06→20:45)
[2017-09-12] MEDS ORDERED: POTASSIUM CL 20 MEQ/15 ML UDCUP PO ONE (10:38)
--- NOTE | 2017-09-12 12:33 | HOSPPROG ---
Hospitalist Progress Note Assessment/Plan: DIAGNOSES: # incarcerated RIH s/p open repair by Dr Hernandez -p op ileus # acute blood loss anemia with inguinal hematoma after nick repair; subsequent evacuation of hematoma -s/p transfusion RBC # SBO - s/p adhesiolysis # prerenal azotemia and hypernatremia, mild # p. acnes in peritoneal fluid # a-fib hx, s/p ppm - INR up to 1.4 no won coumadin -on his usual coreg # mild CHF, suspect diastolic (EF 55%) - relatively euvolemic today # hx of bovine AVR # hx of AAA repair # chronic resp failure - 3L O2 baseline # SHAY - CPAP # BPH - flomax # RLS - requip PLANS: -will add K to help with ileus and recheck in am -will increase coumadin dose today, continue bridging until therapeutic -increase ambulation as able -increase in diet per Dr Hernandez as pt able SUBJECTIVE: taking oral fluids ok has no new pains or discomforts slightly stronger no BM today so far, stil feels a bit distended but comfortable OBJECTIVE: vitals: stable without fever card monitor: paced exam: alert oriented relaxed, skin warm dry resps easy lungs clear heart reg abd abdomen +BSs, still some distension; wounds look ok some edema remains Lab data: INR stuck at 1.4 K low today at 3.2 Objective: Vital Signs Temp Pulse Resp BP Pulse Ox 36.4 C 81 16 144/72 H 100 09/12/17 07:59 09/12/17 08:05 09/12/17 07:59 09/12/17 08:05 09/12/17 07:59 Laboratory Results 09/09/17 05:00 09/12/17 05:27 09/11/17 09/12/17 09/13/17 06:59 06:59 06:59 Intake Total 2648 300 Output Total 690 Balance 1958 300 PT 17.6 SEC (12.0-15.0) H 09/12/17 05:27 INR 1.45 (0.83-1.16) H 09/12/17 05:27 ICD10 Worksheet Patient Problems: Problems Problem Status Onset Incarcerated right inguinal hernia Acute Abdominal pain Acute Atrial fibrillation Acute Hematoma of chest wall Acute Hematoma of pacemaker pocket Acute Small bowel obstruction Acute
[2017-09-12] MEDS: WARFARIN SODIUM 5 MG TAB PO SCH (16:22)
[2017-09-12] MEDS: traMADol 50 MG TAB PO PRN (20:44)
[2017-09-12] MEDS: TAMSULOSIN HCL 0.4 MG CAP PO SCH (20:45)
[2017-09-13 06:02] LABS: ANION GAP 8 mEq/L (8-16); CALCIUM 7.8 mg/dL (8.5-10.4); CARBON DIOXIDE 31 mEq/l (22-31); CHLORIDE 103 mEq/L (97-110); CREATININE 0.8 mg/dL (0.7-1.3); GLOMERULAR FILTRATION RATE > 60; GLUCOSE 93 mg/dL (70-100); POTASSIUM 3.4 mEq/L (3.5-5.2); SODIUM 142 mEq/L (134-144)
[2017-09-13 06:07] LABS: INR 1.73 (0.83-1.16); PROTIME(PATIENT) 20.3 SEC (12.0-15.0)
[2017-09-13] MEDS ORDERED: BISACODYL 10 MG SUPP PR ONE (08:15)
--- NOTE | 2017-09-13 08:17 | SOAPPROG ---
SOAP Progress Note Assessment/Plan: Assessment: s/p laparotomy and lysis adhesions for SBO post op ileus-resolving Plan: Advance diet to regular increase activity-OOB discussed need for post hospital rehab/SNF before returning home with patient and son anticipate DC if bowel and bladder function returns Ziggy Hernandez MD, FACS 09/02/17 07:34 09/03/17 06:10 09/04/17 08:33 09/05/17 12:28 09/06/17 06:10 09/07/17 07:59 09/08/17 06:25 09/09/17 09:58 09/09/17 10:01 09/10/17 07:46 09/11/17 06:56 09/12/17 06:45 09/13/17 08:16 Subjective: tolerating diet advance, passing flatus/no BM Objective: Vital Signs Temp Pulse Resp BP Pulse Ox 36.5 C 60 18 121/55 H 98 09/12/17 23:16 09/12/17 23:16 09/12/17 23:16 09/12/17 23:16 09/12/17 23:16 Laboratory Results 09/09/17 05:00 09/13/17 05:20 09/12/17 09/13/17 09/14/17 05:59 05:59 05:59 Intake Total 300 1750 Balance 300 1750 PT 20.3 SEC (12.0-15.0) H 09/13/17 05:20 INR 1.73 (0.83-1.16) H 09/13/17 05:20 - Pending Discharge Pending Discharge Within 24 Hours: Yes Pending Discharge Date: 09/14/17 Pending Discharge Time: 11:00 Physical Exam - Physical Exam General Appearance: no apparent distress Respiratory: lungs clear, decreased breath sounds Cardiac/Chest: regular rate, rhythm Abdomen: soft, distended, other (incisions o.k.) Rectal: deferred ICD10 Worksheet Patient Problems: Problems Problem Status Onset Incarcerated right inguinal hernia Acute Abdominal pain Acute Atrial fibrillation Acute Hematoma of chest wall Acute Hematoma of pacemaker pocket Acute Small bowel obstruction Acute
[2017-09-13] MEDS: ENOXAPARIN 80 MG/0.8 ML SYR SC SCH ×2 (08:42→21:03)
[2017-09-13] MEDS: PANTOPRAZOLE SODIUM 40 MG TAB PO SCH (08:42)
[2017-09-13] MEDS: CARVEDILOL 3.125 MG TAB PO SCH ×2 (08:42→17:26)
[2017-09-13 09:59] LABS: ABSOLUTE IMMATURE GRANULOCYTES 0.11 10^3/uL (0.00-0.10); ADD DIFF? NO; ADD MORPH? NO; ADD SCAN? NO; ATYPICAL LYMPHOCYTE FLAG 30 (0-99); FRAGMENT RBC FLAG 0 (0-99); HEMATOCRIT 26.4 % (40.0-51.0); HEMOGLOBIN 8.7 g/dL (13.7-17.5); LEFT SHIFT FLG 20 (0-99); LIPEMIA HEMOLYSIS FLAG 80 (0-99); MEAN CELL HEMOGLOBIN 32.8 pg (27.9-34.1); MEAN CELL VOLUME 99.6 fL (81.5-99.8); MEAN PLATELET VOLUME 9.9 fL (8.7-11.7); PLATELET CLUMPS FLAG 10 (0-99); PLATELET COUNT 244 10^3/uL (150-400); RED BLOOD CELL COUNT 2.65 10^6/uL (4.40-6.38); RED CELL DISTRIBUTION WIDTH 14.6 % (11.5-15.2)
--- NOTE | 2017-09-13 12:58 | HOSPPROG ---
Hospitalist Progress Note Assessment/Plan: Mr Castillo is an 87 y/o male who has a history of atrial fibrillation, status post pacemaker, aortic valve replacement x2 with recent bovine valve in 2000. He is on chronic oral anticoagulation. He has chronic respiratory failure of unclear etiology. He had a right incarcerated hernia who had an open repair by Dr. Hernnadez. Today is my 1st encounter with the patient. Chart reviewed. * incarcerated graded right sided hernia -status post repair with Dr. Hernandez -having some issues with postop ileus -eating and drinking well today * acute blood loss anemia with subsequent inguinal hematoma -subsequent evacuation of the hematoma and transfusion of packed red blood cells * small-bowel obstruction -status post adhesiolysis * P acnes in peritoneal fluid *pre renal azotemia -resolved * hypernatremia -resolved * atrial fibrillation status post permanent pacemaker -INR is 1.73 * mild congestive heart failure, diastolic with an EF of 55% * history of bovine aortic valve repair -Coumadin resumed *hypokalemia -added oral protocol * history of AAA repair * chronic respiratory failure * obstructive sleep apnea -on CPAP * BPH -on Flomax * Restless leg syndrome -Requip *DVT prophylaxis -OAC *Plan: should be ready for dc soon/ has some abdominal and peripheral swelling/ will ask nursing staff to do daily weights/ may need a low dose of iv lasix/ eating and drinking well Subjective: Tripp is feeling better today/ would like to stay a bit longer in the hospital. Objective: Vital Signs Temp Pulse Resp BP Pulse Ox 36.8 C 83 18 118/62 96 09/13/17 08:00 09/13/17 08:00 09/13/17 08:00 09/13/17 08:00 09/13/17 08:00 Laboratory Results 09/13/17 05:20 09/13/17 05:20 09/12/17 09/13/17 09/14/17 05:59 05:59 05:59 Intake Total 300 1750 Balance 300 1750 PT 20.3 SEC (12.0-15.0) H 09/13/17 05:20 INR 1.73 (0.83-1.16) H 09/13/17 05:20 - Physical Exam Constitutional: not in pain, chronically ill appearing Eyes: PERRL Ears, Nose, Mouth, Throat: hearing normal Cardiovascular: regular rate and rhythym, edema (lower extremity) Respiratory: no respiratory distress Gastrointestinal: distension (abdomen large and rounded/ abdominal incision well approximated) Skin: warm, No normal color (pale) Musculoskeletal: generalized weakness Neurologic: AAOx3 Psychiatric: interacting appropriately ICD10 Worksheet Patient Problems: Problems Problem Status Onset Incarcerated right inguinal hernia Acute Abdominal pain Acute Atrial fibrillation Acute Hematoma of chest wall Acute Hematoma of pacemaker pocket Acute Small bowel obstruction Acute
[2017-09-13] MEDS ORDERED: PROTOCOL POTASSIUM 1 DOSE MISC PRN (14:55)
[2017-09-13] MEDS ORDERED: POTASSIUM CL 10 MEQ TAB PO ONE ×2 (15:10→19:43)
[2017-09-13] MEDS: WARFARIN SODIUM 5 MG TAB PO SCH (15:22)
--- NOTE | 2017-09-13 16:30 | ASMTCMCOM ---
CM Note CM Note Notes: Spoke w/[facility] regarding bed for pt, they state they cannot continue to hold bed, it is 50/50 whether bed available tomorrow. Pt and son notified. Date Signed: 09/13/2017 04:30 PM Electronically Signed By:Cathie Romeo RN
[2017-09-13 18:31] LABS: POTASSIUM 3.3 mEq/L (3.5-5.2)
[2017-09-13] MEDS: TAMSULOSIN HCL 0.4 MG CAP PO SCH (21:03)
[2017-09-13 22:26] VITALS: BP 133/63; PULSE 70; O2SAT 97
[2017-09-14 05:50] LABS: POTASSIUM 3.4 mEq/L (3.5-5.2)
[2017-09-14 05:55] LABS: INR 1.99 (0.83-1.16); PROTIME(PATIENT) 22.7 SEC (12.0-15.0)
--- NOTE | 2017-09-14 07:41 | PDIAF ---
- Diagnosis Code Status: Full Code - Medication Management Discharge Medications: Medications to Continue on Transfer Acetaminophen [Tylenol 325mg (*)] 650 mg PO BID PRN 11/25/14 [Last Taken ] Carvedilol [Coreg (*)] 3.125 mg PO BIDMEAL 11/25/14 [Last Taken 09/01/17] Fexofenadine HCl [Yohana Allergy] 60 mg PO DAILY PRN 11/25/14 [Last Taken 09/01] Pantoprazole Sodium [Protonix 40mg (*)] 40 mg PO DAILY 11/25/14 [Last Taken ] Polyethylene Glycol 3350 [Miralax 17 gm (*)] 17 gm PO DAILY 11/25/14 [Last Taken 08/31/17] Tamsulosin HCl [Flomax 0.4 MG (*)] 0.4 mg PO HS 11/25/14 [Last Taken 08/31/17] Warfarin Sodium [Coumadin 4MG (*)] 4 mg PO SUTUTHSA@16 11/25/14 [Last Taken 11/04] [place]-3 Fatty Acids [Fish Oil 1000 mg (*)] 1,000 mg PO DAILY18 11/29/14 [Last Taken 09/01/17] Finasteride [Proscar 5 MG (*)] 5 mg PO HS 11/25/15 [Last Taken 08/31/17] Herbals/Supplements -Info Only 1 ea PO DAILY 11/25/15 [Last Taken Unknown] Warfarin Sodium [Coumadin 2MG (*)] 2 mg PO MWF@16 11/25/15 [Last Taken 08/29/17] rOPINIRole HCL [Requip 1mg (*)] 1 mg PO TID 11/25/15 [Last Taken 11/24/15] Ascorbic Acid [Vitamin C 500 mg (*)] 500 mg PO DAILY 09/01/17 [Last Taken ] Aspirin [Aspirin 81mg (*)] 81 mg PO DAILY 09/01/17 [Last Taken 08/31/17] Cholecalciferol Vit D3 [Vitamin D3 (*)] 1,000 units PO DAILY 09/01/17 [Last Taken 08/31/17] Multivitamins [Multivitamin (*)] 1 tab PO DAILY 09/01/17 [Last Taken 09/01/17] Cetirizine [ZyrTEC 10 mg (*)] 10 mg PO DAILY tab 09/14/17 [Last Taken Unknown] Finasteride [Proscar 5 MG (*)] 5 mg PO HS tab 09/14/17 [Last Taken Unknown] traMADol [Ultram 50 mg (*)] 50 mg PO Q6HRS PRN tab 09/14/17 [Last Taken Unknown ] Discharge Medications: Refer to the Discharge Home Medication list for PRN reason. - Orders Services needed: Registered Nurse, Certified Winery Worker, Physical Therapy, Occupational Therapy Diet Recommendation: other (no carbonated beverages) Diet Texture: Regular Texture Diet Sutures/Alisia Site: abdominal and inguinal incisions Date to Remove Sutures/Alisia: 09/21/17 Activity/Weight Bearing Restrictions: no lifting over 25 pounds - Labs/Radiology PT/INR Date: 09/17/17 - Follow Up Care Current Providers and Referrals: Maurisio Cohn MD [Primary Care Provider] - As per Instructions Osman Hernandez MD [Medical Doctor] -
--- NOTE | 2017-09-14 07:44 | SOAPPROG ---
SOAP Progress Note Assessment/Plan: Assessment: s/p laparotomy and lysis adhesions for SBO post op ileus-resolving bowel movement with suppository-remains somewhat distended Plan: Advance diet to regular increase activity-OOB discussed need for post hospital rehab/SNF before returning home with patient and son anticipate DC today if bed available interagency document completed S MD David, FACS 09/02/17 07:34 09/03/17 06:10 09/04/17 08:33 09/05/17 12:28 09/06/17 06:10 09/07/17 07:59 09/08/17 06:25 09/09/17 09:58 09/09/17 10:01 09/10/17 07:46 09/11/17 06:56 09/12/17 06:45 09/13/17 08:16 09/14/17 07:42 Subjective: resting comfortably/explosive BM after suppository Objective: Vital Signs Temp Pulse Resp BP Pulse Ox 37.1 C 70 16 133/63 H 97 09/13/17 22:25 09/13/17 22:25 09/13/17 22:25 09/13/17 22:25 09/13/17 22:25 Laboratory Results 09/13/17 05:20 09/14/17 05:14 09/13/17 09/14/17 09/15/17 05:59 05:59 05:59 Intake Total 1750 Balance 1750 PT 22.7 SEC (12.0-15.0) H 09/14/17 05:14 INR 1.99 (0.83-1.16) H 09/14/17 05:14 - Pending Discharge Pending Discharge Within 24 Hours: Yes Pending Discharge Date: 09/15/17 Pending Discharge Time: 11:00 Physical Exam - Physical Exam General Appearance: mild distress Respiratory: normal breath sounds, decreased breath sounds, other (mild tachypnea at rest) Cardiac/Chest: regular rate, rhythm Abdomen: non-tender, soft, distended, other (incisions o.k.) ICD10 Worksheet Patient Problems: Problems Problem Status Onset Incarcerated right inguinal hernia Acute Abdominal pain Acute Atrial fibrillation Acute Hematoma of chest wall Acute Hematoma of pacemaker pocket Acute Small bowel obstruction Acute
[2017-09-14] MEDS: CARVEDILOL 3.125 MG TAB PO SCH (08:04)
[2017-09-14] MEDS: PANTOPRAZOLE SODIUM 40 MG TAB PO SCH (08:06)
[2017-09-14] MEDS: ENOXAPARIN 80 MG/0.8 ML SYR SC SCH (08:06)
[2017-09-14] MEDS ORDERED: POTASSIUM CL 10 MEQ TAB PO ONE (09:05)
[2017-09-14 09:12] VITALS: RESP 18; TEMP 98.6
--- NOTE | 2017-09-14 10:42 | ASMTCMCOM ---
CM Note CM Note Notes: D/w MD, final orders faxed, admissions at notified. supervisor porcelain department at 1pm arranged with [facility], pt and son notified. Date Signed: 09/14/2017 10:41 AM Electronically Signed By:Cathie Romeo RN
--- NOTE | 2017-09-14 12:43 | HOSPPROG ---
Hospitalist Progress Note Assessment/Plan: Mr Castillo is an 87 y/o male who has a history of atrial fibrillation, status post pacemaker, aortic valve replacement x2 with recent bovine valve in 2000. He is on chronic oral anticoagulation. He has chronic respiratory failure of unclear etiology. He had a right incarcerated hernia who had an open repair by Dr. Hernandez. Today is my 1st encounter with the patient. Chart reviewed. D/W CM. * incarcerated graded right sided hernia -status post repair with Dr. Hernandez -postop ileus resolved -eating and drinking well today * acute blood loss anemia with subsequent inguinal hematoma -subsequent evacuation of the hematoma and transfusion of packed red blood cells * small-bowel obstruction -status post adhesiolysis * P acnes in peritoneal fluid *pre renal azotemia -resolved * hypernatremia -resolved * atrial fibrillation status post permanent pacemaker -INR is 1.99 * mild congestive heart failure, diastolic with an EF of 55% * history of bovine aortic valve repair -Coumadin resumed *hypokalemia -oral protocol * history of AAA repair * chronic respiratory failure * obstructive sleep apnea -on CPAP * BPH -on Flomax * Restless leg syndrome -Requip *DVT prophylaxis -OAC *Plan: DC to [facility] Subjective: Up in the chair. Feels well. No pain. Objective: Vital Signs Temp Pulse Resp BP Pulse Ox 37.0 C 70 18 133/63 H 97 09/14/17 08:00 09/14/17 08:04 09/14/17 08:00 09/14/17 08:04 09/14/17 08:00 Laboratory Results 09/13/17 05:20 09/14/17 05:14 09/13/17 09/14/17 09/15/17 05:59 05:59 05:59 Intake Total 1750 Balance 1750 PT 22.7 SEC (12.0-15.0) H 09/14/17 05:14 INR 1.99 (0.83-1.16) H 09/14/17 05:14 - Physical Exam Constitutional: no apparent distress, appears nourished, not in pain Eyes: PERRL, anicteric sclera, EOMI Ears, Nose, Mouth, Throat: moist mucous membranes, hearing normal, ears appear normal Cardiovascular: irregularly irregular, No JVD, No edema Respiratory: no respiratory distress, no rales or rhonchi, reduced air movement Gastrointestinal: tenderness, No ascites, No distension Skin: warm, normal color, No mottled Musculoskeletal: normal joint ROM, no joint effusions, generalized weakness Neurologic: AAOx3 Psychiatric: interacting appropriately, not anxious, not encephalopathic ICD10 Worksheet Patient Problems: Problems Problem Status Onset Hematoma of chest wall Acute Hematoma of pacemaker pocket Acute Atrial fibrillation Acute Small bowel obstruction Acute Abdominal pain Acute Incarcerated right inguinal hernia Acute
--- NOTE | 2017-09-14 14:19 | ASDISCHSUM ---
Discharge Information Plan Status:SNF Medically Cleared to Leave: Discharge Date:09/14/2017 01:15 PM D/C Disposition:Shelter Facility ADT D/C Disposition:Shelter Facility Projected Discharge Date:09/14/2017 01:00 PM Transportation at D/C:Wheelchair Van Discharge Delay Reason: Follow-Up Date:09/14/2017 01:00 PM Discharge Slot: Final Diagnosis:Incarcerated R hernia, Hematoma, SBO Placement Information Referral Type:*Retirement/SNF Referral ID:[id number] Provider Name:[facility] Address 1:[address] Address 2: City:[place] Selection Factors: State:[place] Patient Contact Information Contact Name:DORA Relationship:Son Address:[address] City:[place] Alternate Phone: State/Zip Code:[place] [address] Email: Financial Information Financial Class: Primary Plan Desc:MEDICARE INPATIENT Primary Plan Number:[id number] Secondary Plan Desc:[facility] Secondary Plan Number:[id number] Assessment Information [facility] Initial CM Assessment Living Arrangements What is your living Answers: With Child(carlyn) arrangement? Who do you live with? Type Of Residence What kind of residence do Answers: House you live in? Discharge Plan Comments Coordination Status Comments Notes: Chart reviewed and spoke w/ TAVARES Lynn. Pt is a 87 y/o man admitted w/ right incarcerated hernia that lives w/ a supportive son. Pt had surgical procedure yesterday. PT ordered and awaiting recommendations. Needs are TBD at this time. CM to follow. Date Signed: 09/02/2017 10:35 AM Electronically Signed By:JACQUES Diaz [facility] CM Progress Note CM Note CM Note Notes: CM met w/ pt for dispo planning. Pt is post op day 2 from his hernia repair. Pt has some concerns about going up to his second floor apartment. PT is recommending HC at this time. Pt reports that he may be interested in going to a SNF if he continues to have concerns about stairs. Pt would like to mario over his d/c options at this time. Pt hopes to improve his strength and mobility. CM to follow. Date Signed: 09/03/2017 02:33 PM Electronically Signed By:JACQUES Diaz [facility] CM Progress Note CM Note CM Note Notes: Spoke w/pt about possible rehab before going home, discussed facilities nearby and Medicare coverage. Pt wishes to wait to send referral, will check in with pt tomorrow. Date Signed: 09/04/2017 04:27 PM Electronically Signed By:Cathie Romeo RN [facility] CM Progress Note CM Note CM Note Notes: Met w/pt again re; dc poc. Discussed referrals to snf, pt ok w/CM faxing referrals, still feeling uncertain about going home but would like home care if dc's to son's house. Advised pt CM will fax referrals to [facility], [facility], and [facility] and can change his mind if he feels safe enough to return home. Also discussed above with saulo Chavez who works from home and is able to assist but is agreeable to snf. CM w/f Date Signed: 09/05/2017 04:38 PM Electronically Signed By:Cathie Romeo RN [facility] CM Progress Note CM Note CM Note Notes: Spoke w/TAVARES pt to have xray at 4pm to see if he needs surgery, likely will need snf, referrals sent to [facility]. Saulo Chavez mdpoa and agrees w/[facility]ILO hidalgo w/f for PT/OT recs. Date Signed: 09/07/2017 02:48 PM Electronically Signed By:Cathie Romeo RN [facility] CM Progress Note CM Note CM Note Notes: No bleeding this AM no clear source. May need to be transferred to [facility] for more extensive testing. Sheba to [facility] on Sunday for Medicaid eligibility. CM to follow. Date Signed: 09/09/2017 12:39 PM Electronically Signed By:Jocelyn Blanco LCSW [facility] CM Progress Note CM Note CM Note Notes: Sorry, Please disregard CM Note dated 09/09/17 12:39 documented on the wrong patient. Chucho Castillo: Spoke to patient and son Carol [facility] and [facility] could admit patient. Gave son addresses and he will go tour and make a final decision. Date Signed: 09/10/2017 04:16 PM Electronically Signed By:Jocelyn Blanco LCSW [facility] CHILO Progress Note CM Note CM Note Notes: Received info from [facility] that they could admit patient. Relayed that message to son, who went to look at facilities today. He would like patient to go to . Gave that info to and to hold a bed for patient. Possible discharge Sunday? Date Signed: 09/11/2017 05:19 PM Electronically Signed By:Jocelyn Blanco LCSW [facility] CM Progress Note CM Note CM Note Notes: Spoke w/[facility] regarding bed for pt, they state they cannot continue to hold bed, it is 50/50 whether bed available tomorrow. Pt and son notified. Date Signed: 09/13/2017 04:30 PM Electronically Signed By:Catihe Romeo RN [facility] CM Progress Note CM Note CM Note Notes: D/w MD, final orders faxed, admissions at notified. superior court justice at 1pm arranged with [facility], pt and son notified. Date Signed: 09/14/2017 10:41 AM Electronically Signed By:Cathie Romeo RN Intervention Information Intervention Type:*IM-Signed Date of Service:09/14/2017 11:22 AM Patient Type:Inpatient Staff Member:Stephanie Masters Hours: Discipline: Severity: Comment:
--- NOTE | 2017-09-15 09:44 | PDDCSUM ---
Discharge Summary Discharge Summary: discharge summary dictated # [id number] S MD David, FACS
--- NOTE | 2017-09-15 10:02 | PDCONSULT ---
Stained Glass Artist Note: Mr. Castillo was readmitted with SOB this morning from [facility] after being discharged yesterday following a prolonged hospitalization (09/01-09/14) for an incarcerated recurrent RIH and subsequent SBO. He was quite weak at discharge, but without respiratory distress, and was tolerated a soft diet with return of bowel function. He apparently vomited in the [facility] and may have aspirated. He denies abdominal pain currently. PE: frail appearing elderly male in mod respiratory distress T38.4 P 80 R22 abd: soft/+BS, distended and non-tender to palpation, incision clean and dry : scrotal ecchymosis/right inguinal ecchymosis current exam not changed from pre-discharge yesterday Imp: s/p repair incarcerated recurrent RIH 09/01 s/p lap lysis adhesions for SBO 09/08 respiratory distress secondary to aspiration multiple medical problems Rec: I would hold off on NG decompression unless further emesis occurs will obtain plain films of the abd bowel rest for now S MD David, FACS
--- NOTE | 2017-09-15 10:27 | GDS ---
[f rep st] DISCHARGE SUMMARY DISCHARGE DIAGNOSIS: 1. Incarcerated right inguinal hernia, recurrent. 2. Small-bowel obstruction. 3. History of congestive heart failure. 4. Status post aortic valve replacement x2. 5. Repair of abdominal aortic aneurysm. 6. History of multiple prior small bowel obstructions. 7. Hypertension. 8. Postoperative ileus. 9. Restless legs syndrome. 10. Benign prostatic hyperplasia. 11. Indwelling pacemaker. 12. History of chronic paroxysmal atrial fibrillation. PROCEDURES PERFORMED: 09/01/2017, repair of incarcerated right inguinal hernia, recurrent. 7, laparotomy with lysis of adhesions. HOSPITAL COURSE: For details of admission history and physical, please see dictated summary by nestor burlseon as well as Dr. Zoltan Man. Briefly, the patient is an 87-year-old male, who presented with a 3-d ay history of a painful mass in the right groin. This proved to be an incarcerated inguinal hernia. Patient was anticoagulated at time of admission. His INR was reversed with 3 units of FFP and he wa s brought to the operating room that evening for repair of incarcerated hernia. He had incarceration of the lateral edge of his bladder as well as what appeared to be omentum within the hernia sac. Th vu were reduced and the hernia repaired. He was reanticoagulated relatively soon after the operatio n with full dose Lovenox 80 mg subcu q.12 hours and developed a hematoma in the right groin. He had an initial uneventful recovery but then became distended and vomited several times in the hospital. Plain films showed evidence of small-bowel obstruction and, in fact, the patient reported having had multiple small bowel obstructions in the past treated with nasogastric decompression and he specifica lly requested not to have nasogastric tube placed initially. Despite bowel rest and intravenous flui ds, his bowel obstruction did not resolve. A nasogastric tube was placed and he was decompressed and felt clinically improved. He, however, had no passage of flatus or stool and, on 09/07/2017, a smal l-bowel follow-through was initiated with Gastrografin. This, at 7 hours, showed no evidence of pass ing beyond the mid small bowel and we again prepared him for return to the operating room, by adminis tering vitamin K as well as FFP to reverse his Coumadin effect. He was brought to the operating room on 09/08, underwent extensive lysis of adhesions related to multiple prior abdominal surgeries. The previously incarcerated bladder and fatty tissue, which proved to be a tinea epiploica of the colon rather than the omentum, were unremarkable. The bowel was viable and intact and no bowel resection w as necessary. Following surgery, he had a prolonged postoperative ileus but, as this resolved, his n asogastric tube was placed to gravity drainage and then removed. He was started on a liquid diet on the third postoperative day, and began passing flatus. He did not have a bowel movement until the mo rning of discharge after a Dulcolax suppository had been administered but he reported feeling no abdo suleman pain and was tolerating a soft diet. The patient had mild abdominal distention. His incision was healing well at time of discharge, as was his right inguinal incision from which we drained the h ematoma during the second operation. The patient required significant assistance with ambulation and he was transferred to [facility] for further OT and PT before returnin g to independent living at home. DISCHARGE MEDICATIONS: Include aspirin 81 mg p.o. daily, carvedilol 3.125 mg p.o. twice daily, Zyrte c 10 mg p.o. daily, vitamin D3 1000 units p.o. daily, Proscar 5 mg q.h.s., DuoNeb 3 mL inhalation b.i .d. as needed, multivitamins, omega-3 fatty acid, Protonix 40 mg p.o. daily, MiraLAX 17 g p.o. daily, Requip 1 mg p.o. t.i.d., Senokot S 1 p.o. b.i.d., Flomax 0.4 mg p.o. q.h.s., Ultram 50 mg p.o. q.6 h ours p.r.n. pain, Warfarin 4 mg p.o. daily alternating with 2 mg 2 days per week. CONDITION ON DISCHARGE: Improved. FOLLOWUP: Arranged in my office in 1 week for staple removal. /[id number]/MODL
== END 2017-09-14 13:15 | DRG 336 ==
LOC: F3E 13:31 → OBSVTOIN 09-02 10:30 → F2N 09-08 00:32 → F3E 09-12 20:34
PROVIDERS: ADMIT Surgery; ATTEND Surgery
PROC: 0YQ50ZZ Repair Right Inguinal Region, Open Approach (ICD-10-PCS; 2017-09-01)
PROC: 30233K1 Transfusion of Nonautologous Frozen Plasma into Peripheral Vein, Percutaneous Approach (ICD-10-PCS; 2017-09-01)
PROC: 0WCG0ZZ Extirpation of Matter from Peritoneal Cavity, Open Approach (ICD-10-PCS; principal; 2017-09-07 18:00)
PROC: 0DN80ZZ Release Small Intestine, Open Approach (ICD-10-PCS; principal; 2017-09-07 18:00)
PROC: 0Y9500Z Drainage of Right Inguinal Region with Drainage Device, Open Approach (ICD-10-PCS; principal; 2017-09-07 18:00)
DX: K40.41 Unilateral inguinal hernia, with gangrene, recurrent (principal); K91.89 Other postprocedural complications and disorders of digestive system; D62 Acute posthemorrhagic anemia; K56.50 Intestinal adhesions [bands], unspecified as to partial versus complete obstruction; J96.10 Chronic respiratory failure, unspecified whether with hypoxia or hypercapnia; M96.841 Postprocedural hematoma of a musculoskeletal structure following other procedure; N32.3 Diverticulum of bladder; I10 Essential (primary) hypertension; G25.81 Restless legs syndrome; G47.33 Obstructive sleep apnea (adult) (pediatric); N40.0 Benign prostatic hyperplasia without lower urinary tract symptoms; Z95.0 Presence of cardiac pacemaker; Z95.3 Presence of xenogenic heart valve; Z95.5 Presence of coronary angioplasty implant and graft; Z95.1 Presence of aortocoronary bypass graft; Z79.01 Long term (current) use of anticoagulants
CPT/HCPCS: 82947-QW; 96374; 97110-GP; 97116-GP; 97162-GP; 97166-GO; 97530-GP; 97535-GO; C1765; G8978-GP-CJ; G8979-GP-CI; G8987-GO-CL; G8988-GO-CJ; J0360; J0690; J1100; J1650; J1940; J2212; J2370; J2405; J2704; J3010; J3430; P9016; P9017; Q9967

== ENCOUNTER 2017-09-15 05:17 | Inpatient (IN) | payer OTHER ==
[2017-09-15] MEDS ORDERED: ALBUTEROL 3 ML DEYVIAL IH ONE ×2 (05:31)
[2017-09-15] MEDS ORDERED: NS 500 ML IV ONE ×2 (05:31)
[2017-09-15] MEDS ORDERED: methylPREDNISolone SOD SUCC 125 MG/2 ML VIAL IVP ONE ×2 (05:31)
[2017-09-15 05:41] LABS: PLATELET COUNT 378 10^3/uL (150-400)
--- NOTE | 2017-09-15 05:42 | CPEKG ---
Heart Rate: 80 RR Interval: 750 QRSD Interval: 106 QT Interval: 408 QTC Interval: 471 QRS [place]: 267 T Wave [place]: 39 EKG Severity - ABNORMAL ECG - EKG Impression: AFIB/FLUTTER AND VENTRICULAR-PACED RHYTHM Electronically Signed By: Liberty Chen 15-Sep-2017 07:36:39
[2017-09-15 05:53] LABS: INR 2.03 (0.83-1.16); PROTIME(PATIENT) 23.1 SEC (12.0-15.0)
[2017-09-15] MEDS ORDERED: CLINDAMYCIN 600 MG/DEXTROSE 50 ML IV ONE ×2 (06:14)
--- NOTE | 2017-09-15 06:16 | EDPHY ---
H & P Stated Complaint: SOB Time Seen by Provider: 09/15/17 05:23 HPI/ROS: HPI The patient presents with shortness of breath, brought in by ambulance from [facility] where he resides. His shortness of breath began about 1 and 0.5 hours ago and awoke him from sleep. He had an oxygen concentrator at home because his COPD and when paramedics arrived he was on 5 L with a sat of 76%, this increased to 82% on a non-rebreather, he was started on CPAP with a neb with some improvement in his saturations to the 80s. He had an inguinal hernia repair , complicated by small bowel obstruction which required lysis of adhesions while in the hospital, and he was just discharged yesterday. He denies any chest pain. He has been coughing. Medics report that he has vomited.. REVIEW OF SYSTEMS Constitutional: No fever, no chills. Eyes: No discharge. ENT: No sore throat. Cardiovascular: No chest pain, no palpitations. Respiratory: No cough, no shortness of breath. Gastrointestinal: No abdominal pain, no vomiting. Genitourinary: No hematuria. Musculoskeletal: No back pain. Skin: No rashes. Neurological: No headache. PMHx: Atrial fibrillation with pacemaker in place, atrial valve replacement x2 , chronic Respiratory failure of uncertain etiology, recent hospitalization is for inguinal hernia repair, small-bowel obstruction Soc Hx: Currently resides at [facility] PHYSICAL General Appearance: Alert, CPAP in place in obvious respiratory distress, color is pale Eyes: Pupils equal and round no pallor or injection ENT, Mouth: Mucous membranes moist Respiratory: Tachypneic, retractions are present, there are coarse breath sounds throughout all lung ramon Cardiovascular: Regular rate and rhythm Gastrointestinal: Abdomen is soft and non-tender, no masses, bowel sounds normal Neurological: A&O, moves all extremities Skin: Warm and dry, no rashes Musculoskeletal: Neck is supple non tender Extremities: symmetrical, full range of motion Psychiatric: Patient is oriented X 3, there is no agitation Source: Patient, EMS Exam Limitations: Clinical condition - Personal History Current Tetanus/Diphtheria Vaccine: Unsure Current Tetanus Diphtheria and Acellular Pertussis (TDAP): Unsure - Medical/Surgical History Hx Asthma: No Hx Chronic Respiratory Disease: Yes Hx Diabetes: No Hx Cardiac Disease: No Hx Renal Disease: No Hx Cirrhosis: No Hx Alcoholism: No Hx HIV/AIDS: No Hx Splenectomy or Spleen Trauma: No Other PMH: COPD, hernia - Social History Smoking Status: Unknown if ever smoked Constitutional: Initial Vital Signs Temperature (C) 38.2 C 09/15/17 05:18 Heart Rate 82 09/15/17 05:18 Respiratory Rate 16 09/15/17 05:18 Blood Pressure 132/62 H 09/15/17 05:18 O2 Sat (%) 84 L 09/15/17 05:18 O2 Delivery Mode CPAP O2 (L/minute) 8 Allergies/Adverse Reactions: ciprofloxacin [From Cipro] Allergy (Verified 09/01/17 11:20) Other-Enter Comments codeine Allergy (Verified 09/01/17 11:20) Other-Enter Comments hydromorphone [From Dilaudid] Allergy (Verified 09/02/17 07:29) Unknown Home Medications: Medication Instructions Recorded Acetaminophen [Tylenol 325mg (*)] 650 mg PO BID PRN 11/25/14 Carvedilol [Coreg (*)] 3.125 mg PO BIDMEAL 11/25/14 Fexofenadine HCl [Yohana Allergy] 60 mg PO DAILY PRN 11/25/14 Pantoprazole Sodium [Protonix 40mg 40 mg PO DAILY 11/25/14 (*)] Polyethylene Glycol 3350 [Miralax 17 gm PO DAILY 11/25/14 17 gm (*)] Tamsulosin HCl [Flomax 0.4 MG (*)] 0.4 mg PO HS 11/25/14 Warfarin Sodium [Coumadin 4MG (*)] 4 mg PO SUTUTHSA@16 11/25/14 [place]-3 Fatty Acids [Fish Oil 1000 1,000 mg PO DAILY18 11/29/14 mg (*)] Finasteride [Proscar 5 MG (*)] 5 mg PO HS 11/25/15 Herbals/Supplements -Info Only 1 ea PO DAILY 11/25/15 Warfarin Sodium [Coumadin 2MG (*)] 2 mg PO MWF@16 11/25/15 rOPINIRole HCL [Requip 1mg (*)] 1 mg PO TID 11/25/15 Ascorbic Acid [Vitamin C 500 mg 500 mg PO DAILY 09/01/17 (*)] Aspirin [Aspirin 81mg (*)] 81 mg PO DAILY 09/01/17 Cholecalciferol Vit D3 [Vitamin D3 1,000 units PO DAILY 09/01/17 (*)] Multivitamins [Multivitamin (*)] 1 tab PO DAILY 09/01/17 Cetirizine [ZyrTEC 10 mg (*)] 10 mg PO DAILY tab 09/14/17 Finasteride [Proscar 5 MG (*)] 5 mg PO HS tab 09/14/17 traMADol [Ultram 50 mg (*)] 50 mg PO Q6HRS PRN tab 09/14/17 Medical Decision Making - Diagnostics EKG Interpretation: EKG: Complete interpretation has been separately recorded in the [facility] archive. Summary impression: Atrial fibrillation with ventricularly paced rhythm Imaging Results: Chest x-ray one view demonstrates diffuse fluffy infiltrates most prominent at the bases with likely right-sided pleural effusion, interpreted by me, radiology interpretation is pending. Procedures: Bedside cardiac Ultrasound- performed and interpreted by me. Indication: Shortness of breath Findings: Dilated cardiomyopathy with preserved ejection fraction, no pericardial effusion, occasional B lines present in both lung ramon Impression: Decreased EF without any pericardial effusion, mild likely pulmonary edema given B lines Differential Diagnosis: 87-year-old male, history of atrial fibrillation, atrial valve replacement x2, chronic Respiratory failure of uncertain etiology, discharged from the hospital yesterday presents with acute onset of shortness of breath. 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 He was started on CPAP with nebs with some improvement in his respiratory status. Is Here, I met the paramedics at the bedside to obtain their report. Patient was transferred to our CPAP machine as well as nasal cannula. Eventually pulse ox improved and was in the 90s. The patient felt much better. He has a most form saying that he is full code. He was given nebs in line. Labs were checked which did reveal leukocytosis, elevated D-dimer. His chest x- ray shows what appears to be pulmonary edema versus bilateral lower infiltrates which could be related to aspiration. CT scan of his chest was ordered. CT scan of his chest demonstrated what appears to be a multilobar pneumonia, possibly aspiration in nature. We have given the patient broad-spectrum antibiotics based on his chest x-ray are ready. He will be admitted to the intensive care unit in the case is discussed with the hospitalist Dr. Nava. Critical Care Time: CRITICAL CARE Critical care time spent by me, Dr. Chen, exclusively with this patient was 45 minutes, exclusive of PA time and exclusive of procedures. The organ system at risk was cardiac and respiratory and I gave IV fluids, broad-spectrum antibiotics, CPAP, transfer to the intensive care unit to prevent worsening of the patients condition. - Data Points Laboratory Results: Laboratory Results 09/15/17 Unknown 09/15/17 Unknown 09/15/17 09/15/17 09/15/17 Unknown Unknown Unknown WBC 21.52 10^3/uL H D 10^3/uL (3.80-9.50) RBC 3.38 10^6/uL L 10^6/uL (4.40-6.38) Hgb 11.3 g/dL L g/dL (13.7-17.5) Hct 34.0 % L % (40.0-51.0) MCV 100.6 fL H fL (81.5-99.8) MCH 33.4 pg pg (27.9-34.1) MCHC 33.2 g/dL g/dL (32.4-36.7) RDW 14.9 % % (11.5-15.2) Plt Count 378 10^3/uL D 10^3/uL (150-400) MPV 9.7 fL fL (8.7-11.7) Neut % (Auto) 87.6 % H % (39.3-74.2) Lymph % (Auto) 8.7 % L % (15.0-45.0) [place] % (Auto) 1.7 % L % (4.5-13.0) Eos % (Auto) 0.5 % L % (0.6-7.6) Baso % (Auto) 0.3 % % (0.3-1.7) Nucleat RBC Rel Count 0.0 % % (0.0-0.2) Absolute Neuts (auto) 18.87 10^3/uL H 10^3/uL (1.70-6.50) Absolute Lymphs (auto) 1.87 10^3/uL 10^3/uL (1.00-3.00) Absolute Monos (auto) 0.36 10^3/uL 10^3/uL (0.30-0.80) Absolute Eos (auto) 0.10 10^3/uL 10^3/uL (0.03-0.40) Absolute Basos (auto) 0.06 10^3/uL 10^3/uL (0.02-0.10) Absolute Nucleated RBC 0.00 10^3/uL 10^3/uL (0-0.01) Immature Gran % 1.2 % H % (0.0-1.1) Immature Gran # 0.26 10^3/uL H 10^3/uL (0.00-0.10) PT 23.1 SEC H SEC (12.0-15.0) INR 2.03 H (0.83-1.16) APTT 32.7 SEC SEC (23.0-38.0) D-Dimer 8.15 ug/mLFEU H ug/mLFEU (0.00-0.50) Sodium 142 mEq/L mEq/L (134-144) Potassium 4.1 mEq/L mEq/L (3.5-5.2) Chloride 101 mEq/L mEq/L (97-110) Carbon Dioxide 26 mEq/l mEq/l (22-31) Anion Gap 15 mEq/L mEq/L (8-16) BUN 11 mg/dL mg/dL (7-23) Creatinine 0.8 mg/dL mg/dL (0.7-1.3) Estimated GFR > 60 Glucose 129 mg/dL H mg/dL (70-100) Calcium 8.0 mg/dL L mg/dL (8.5-10.4) Troponin I 0.058 ng/mL H ng/mL (0.000-0.034) NT-Pro-B Natriuret Pep 3910 pg/mL H pg/mL (0-450) Medications Given: Discontinued Medications Albuterol (Proventil Neb) 3 ml IH EDNOW ONE Stop: 09/15/17 05:32 Last Admin: 09/15/17 05:35 Dose: 3 ml Sodium Chloride (Ns) 500 mls @ 1,000 mls/hr IV EDNOW ONE PRN Reason: Protocol Stop: 09/15/17 06:00 Last Admin: 09/15/17 06:52 Dose: Not Given Clindamycin Phosphate/Dextrose (Cleocin 600 Mg (Premix)) 50 mls @ 100 mls/hr IV EDNOW ONE PRN Reason: Protocol Stop: 09/15/17 06:43 Last Admin: 09/15/17 06:53 Dose: Not Given Methylprednisolone Sodium Succinate (Solu-Medrol) 125 mg IVP EDNOW ONE Stop: 09/15/17 05:32 Last Admin: 09/15/17 05:36 Dose: 125 mg Departure - Departure Disposition: [facility] Inpatient Acute Clinical Impression: Acute respiratory failure Qualifiers: Respiratory failure complication: hypoxia Qualified Code(s): J96.01 - Acute respiratory failure with hypoxia Pneumonia Qualifiers: Pneumonia type: due to unspecified organism Laterality: bilateral Lung location : unspecified part of lung Qualified Code(s): J18.9 - Pneumonia, unspecified organism Condition: Critical Referrals: Patient,NotPresent [Primary Care Provider] - As per Instructions
[2017-09-15] MEDS ORDERED: IOPAMIDOL (ISOVUE 370) 100 ML BTL IV ONE ×2 (06:37)
[2017-09-15] MEDS ORDERED: VANCOMYCIN HCL/NORMAL SALINE 250 ML IV ONE ×2 (06:43)
[2017-09-15] MEDS ORDERED: CEFEPIME HCL 1 GM in D5W 50 ML IV ONE (06:43)
[2017-09-15] MEDS ORDERED: ONDANSETRON DISINTEGRATING 4 MG TAB PO PRN ×2 (06:44)
[2017-09-15] MEDS ORDERED: ALBUTEROL 3 ML DEYVIAL IH PRN ×2 (06:44)
[2017-09-15] MEDS ORDERED: ACETAMINOPHEN 325 MG TAB PO PRN ×2 (06:44)
[2017-09-15] MEDS ORDERED: ONDANSETRON 4 MG/2 ML VIAL IVP PRN ×2 (06:44)
--- NOTE | 2017-09-15 06:55 | PDGENHP ---
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 Patient was discharged from the hospital yesterday after surgical management of incarcerated inguinal hernia complicated by SBO. Patient was awoken from sleep by respiratory distress. He turned up his O2 to 5 L/min; O2 sats remained in the 70's despite this upon arrival of EMS. He was placed on CPAP in the ED with improvement of O2 sats to the 90's. Per EMS some vomiting was witness prompting concern for aspiration. In the ED work-up notable for fever, leukocytosis, and CXR w/ multifocal opacities. Status improved with CPAP, nebulization, steroids, and antibiotics. History Information - Allergies/Home Medication List Allergies/Adverse Reactions: ciprofloxacin [From Cipro] Allergy (Verified 09/01/17 11:20) Other-Enter Comments codeine Allergy (Verified 09/01/17 11:20) Other-Enter Comments hydromorphone [From Dilaudid] Allergy (Verified 09/02/17 07:29) Unknown Home Medications: Acetaminophen [Tylenol 325mg (*)] 650 mg PO BID PRN 11/25/14 [Last Taken ] Carvedilol [Coreg (*)] 3.125 mg PO BIDMEAL 11/25/14 [Last Taken 09/01/17] Fexofenadine HCl [Yohana Allergy] 60 mg PO DAILY PRN 11/25/14 [Last Taken 09/01] Pantoprazole Sodium [Protonix 40mg (*)] 40 mg PO DAILY 11/25/14 [Last Taken ] Polyethylene Glycol 3350 [Miralax 17 gm (*)] 17 gm PO DAILY 11/25/14 [Last Taken 08/31/17] Tamsulosin HCl [Flomax 0.4 MG (*)] 0.4 mg PO HS 11/25/14 [Last Taken 08/31/17] Warfarin Sodium [Coumadin 4MG (*)] 4 mg PO SUTUTHSA@16 11/25/14 [Last Taken 11/04] [place]-3 Fatty Acids [Fish Oil 1000 mg (*)] 1,000 mg PO DAILY18 11/29/14 [Last Taken 09/01/17] Finasteride [Proscar 5 MG (*)] 5 mg PO HS 11/25/15 [Last Taken 08/31/17] Herbals/Supplements -Info Only 1 ea PO DAILY 11/25/15 [Last Taken Unknown] Warfarin Sodium [Coumadin 2MG (*)] 2 mg PO MWF@16 11/25/15 [Last Taken 08/29/17] rOPINIRole HCL [Requip 1mg (*)] 1 mg PO TID 11/25/15 [Last Taken 11/24/15] Ascorbic Acid [Vitamin C 500 mg (*)] 500 mg PO DAILY 09/01/17 [Last Taken ] Aspirin [Aspirin 81mg (*)] 81 mg PO DAILY 09/01/17 [Last Taken 08/31/17] Cholecalciferol Vit D3 [Vitamin D3 (*)] 1,000 units PO DAILY 09/01/17 [Last Taken 08/31/17] Multivitamins [Multivitamin (*)] 1 tab PO DAILY 09/01/17 [Last Taken 09/01/17] I have personally reviewed and updated: family history, medical history - Past Medical History atrial fibrillation, CHF - Surgical History Additional surgical history: AV replacement x2, most recently in 2000 - Family History Positive for: cancer - Social History Smoking Status: Unknown if ever smoked Review of Systems Review of Systems: ROS: 10pt was reviewed & negative except for what was stated in HPI & below Physical Exam Physical Exam: Temp Pulse Resp BP Pulse Ox 38.2 C 82 24 H 127/71 H 94 09/15/17 05:18 09/15/17 06:00 09/15/17 06:00 09/15/17 06:00 09/15/17 06:00 Constitutional: chronically ill appearing, uncomfortable Eyes: PERRL, EOMI Ears, Nose, Mouth, Throat: moist mucous membranes, no oral mucosal ulcers Cardiovascular: regular rate and rhythym, systolic murmur Respiratory: inspiratory crackles (Bibasilar), respiratory distress, No expiratory wheeze Gastrointestinal: distension (Midline surgical scar with kirsty in place), other, No tenderness Skin: warm, other (R groin resolving hematoma; scar w/ kirsty in place) Neurologic: sensation intact bilaterally, CN II-XII Intact Psychiatric: poor insight, poor memory Lab Data & Imaging Review 09/15/17 Unknown 09/15/17 Unknown WBC 21.52 10^3/uL (3.80-9.50) H D 09/15/17 Unknown RBC 3.38 10^6/uL (4.40-6.38) L 09/15/17 Unknown Hgb 11.3 g/dL (13.7-17.5) L 09/15/17 Unknown Hct 34.0 % (40.0-51.0) L 09/15/17 Unknown MCV 100.6 fL (81.5-99.8) H 09/15/17 Unknown MCH 33.4 pg (27.9-34.1) 09/15/17 Unknown MCHC 33.2 g/dL (32.4-36.7) 09/15/17 Unknown RDW 14.9 % (11.5-15.2) 09/15/17 Unknown Plt Count 378 10^3/uL (150-400) D 09/15/17 Unknown MPV 9.7 fL (8.7-11.7) 09/15/17 Unknown Neut % (Auto) 87.6 % (39.3-74.2) H 09/15/17 Unknown Lymph % (Auto) 8.7 % (15.0-45.0) L 09/15/17 Unknown [place] % (Auto) 1.7 % (4.5-13.0) L 09/15/17 Unknown Eos % (Auto) 0.5 % (0.6-7.6) L 09/15/17 Unknown Baso % (Auto) 0.3 % (0.3-1.7) 09/15/17 Unknown Nucleat RBC Rel Count 0.0 % (0.0-0.2) 09/15/17 Unknown Absolute Neuts (auto) 18.87 10^3/uL (1.70-6.50) H 09/15/17 Unknown Absolute Lymphs (auto) 1.87 10^3/uL (1.00-3.00) 09/15/17 Unknown Absolute Monos (auto) 0.36 10^3/uL (0.30-0.80) 09/15/17 Unknown Absolute Eos (auto) 0.10 10^3/uL (0.03-0.40) 09/15/17 Unknown Absolute Basos (auto) 0.06 10^3/uL (0.02-0.10) 09/15/17 Unknown Absolute Nucleated RBC 0.00 10^3/uL (0-0.01) 09/15/17 Unknown Immature Gran % 1.2 % (0.0-1.1) H 09/15/17 Unknown Immature Gran # 0.26 10^3/uL (0.00-0.10) H 09/15/17 Unknown PT 23.1 SEC (12.0-15.0) H 09/15/17 Unknown INR 2.03 (0.83-1.16) H 09/15/17 Unknown APTT 32.7 SEC (23.0-38.0) 09/15/17 Unknown D-Dimer 8.15 ug/mLFEU (0.00-0.50) H 09/15/17 Unknown Sodium 142 mEq/L (134-144) 09/15/17 Unknown Potassium 4.1 mEq/L (3.5-5.2) 09/15/17 Unknown Chloride 101 mEq/L (97-110) 09/15/17 Unknown Carbon Dioxide 26 mEq/l (22-31) 09/15/17 Unknown Anion Gap 15 mEq/L (8-16) 09/15/17 Unknown BUN 11 mg/dL (7-23) 09/15/17 Unknown Creatinine 0.8 mg/dL (0.7-1.3) 09/15/17 Unknown Estimated GFR > 60 09/15/17 Unknown Glucose 129 mg/dL (70-100) H 09/15/17 Unknown Calcium 8.0 mg/dL (8.5-10.4) L 09/15/17 Unknown Troponin I 0.058 ng/mL (0.000-0.034) H 09/15/17 Unknown NT-Pro-B Natriuret Pep 3910 pg/mL (0-450) H 09/15/17 Unknown Visualized and Interpreted Chest x-ray results: Yes Chest X-Ray results: infiltrate (Multifocal, PPM noted) Visualized and Interpreted EKG results: Yes EKG additional interpertation: V-paced rhythm with underlying afib Assessment & Plan Assessment: 87 yo M w/ AF, HFpEF, CHRF, hx AV replacement who was discharged 09/14 after inguinal hernia repair presents with respiratory distress from likely pneumonia. Plan: 1. Acute on chronic hypoxic respiratory failure - Seemingly acute onset on morning on admission, perhaps related to aspiration event. Very recent hospitalization puts patient at risk for resistant organisms. In respiratory distress on arrival improved with NIPPV. Noting fever, leukocytosis, and multifocal opacities on Xray, suspect pneumonia. ARDS, CHF exacerbation, and VTE need to be considered as well. - HCAP + anaerobic coverage with Vancomycin and Zosyn - NIPPV with intubation if necessary noting full code - Schedule duonebs despite lack of clear wheezing due to critical illness, albuterol PRN - S/p methylprednisone in ED - CTPE to evaluate for PE noting elevated d-dimer - Admit to ICU 2. Sepsis most likely 2/2 pneumonia - As noted above, at risk for resistant organisms noting recent hospitalization. Multifocal opacities on CXR raise concern for ARDS as well. Abdominal incisions and resolving R groin hematoma have no clear signs of infection, but very low threshold for abdominal imaging if worsening. - Broad coverage with Vancomycin, Zosyn - Blood cultures ordered - Cautious w/ IVF noting CXR appearance, currently HD stable - Low threshold for abdominal imaging noting recent surgery and R groin hematoma 3. AF s/p PPM - V-paced rhythm likely limiting evaluation of tachycardia; on warfarin with therapeutic INR. - Continue warfarin, daily INR 4. HFpEF - Last EF 55% with diastolic dysfunction. 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 5. Recent incarcerated inguinal hernia s/p repair c/b SBO and R inguinal hematoma 6. Macrocytic anemia - Improved from recent values, suspect some element of hemoconcentration. 7. Hx AV replacement x2 - Most recent in 2000 8. BPH - On tamsulosin, finasteride as outpatient Diet - NPO in setting of critical illness Ppx - warfarin, INR therapeutic Code - Full Dispo - Admit to ICU, inpatient status noting critical illness, need for IV abx and frequent monitoring, and possibility of intubation. I personally spent 60 minutes of critical care time evaluating patient, interpreting data, and coordinating care.
--- NOTE | 2017-09-15 07:35 | PDMN ---
Medical Necessity Medical necessity: C/M review: est. > 2 MN LOS for eval and TX of acute on chronic respiratory failure possibly related to aspiration event, sepsis secondary to pneumonia, shortness of breath requiring possible future intubation , ongoing IV Vancomycin, IV Cefepime, Duonebs, pulse oximetry, supplemental O2 with CPAP, close monitoring in ICU, comorbid 09/02/2017-09/14/2017 hospitalization for incarcerated right inguinal hernia requiring laparotomy and lysis of adhesions for small bowel obstruction, comorbid chronic O2 3L/min requirement, Hx AVR x 2, atrial fibrillation, CHF per H/P.
[2017-09-15] MEDS ORDERED: VANCOMYCIN 500 MG in D5W 100 ML IV ONE (09:00)
[2017-09-15] MEDS ORDERED: SENNOSIDES/DOCUSATE SODIUM TAB PO PRN ×2 (10:13)
--- NOTE | 2017-09-15 10:21 | HOSPPROG ---
Hospitalist Progress Note Assessment/Plan: 87 yo M w/ AF, HFpEF, CHRF, hx AV replacement who was discharged 09/14 after inguinal hernia repair presents with respiratory distress from likely pneumonia. # Acute on chronic hypoxic respiratory failure - Seemingly acute onset on morning on admission, perhaps related to aspiration event. Very recent hospitalization puts patient at risk for resistant organisms. In respiratory distress on arrival improved with NIPPV. Noting fever, leukocytosis, and multifocal opacities on Xray, suspect pneumonia. ARDS, CHF exacerbation, and VTE need to be considered as well. - HCAP + anaerobic coverage with Vancomycin and Zosyn - NIPPV with intubation if necessary noting full code - Schedule duonebs despite lack of clear wheezing due to critical illness, albuterol PRN - S/p methylprednisone in ED - CTPE to evaluate for PE noting elevated d-dimer - Admit to ICU # Sepsis most likely 2/2 pneumonia - As noted above, at risk for resistant organisms noting recent hospitalization. Multifocal opacities on CXR raise concern for ARDS as well. Abdominal incisions and resolving R groin hematoma have no clear signs of infection, but very low threshold for abdominal imaging if worsening. - Broad coverage with Vancomycin, Zosyn - Blood cultures ordered - Cautious w/ IVF noting CXR appearance, currently HD stable - Low threshold for abdominal imaging noting recent surgery and R groin hematoma # AF s/p PPM - V-paced rhythm likely limiting evaluation of tachycardia; on warfarin with therapeutic INR. - Continue warfarin, daily INR # HFpEF - Last EF 55% with diastolic dysfunction. 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 # Recent incarcerated inguinal hernia s/p repair c/b SBO and R inguinal hematoma -case discussed with Dr. Hernandez -mojgan -npo except for meds # Macrocytic anemia - Improved from recent values, suspect some element of hemoconcentration. #. Hx AV replacement x2 - Most recent in 2000 #. BPH - On tamsulosin, finasteride as outpatient Diet - NPO in setting of critical illness Ppx - warfarin, INR therapeutic Code - Full Dispo - Admit to ICU, inpatient status noting critical illness, need for IV abx and frequent monitoring, and possibility of intubation. I personally spent 60 minutes of critical care time evaluating patient, interpreting data, and coordinating care. Subjective: short of breath. denies nausea. no further vomiting Objective: Vital Signs Temp Pulse Resp BP Pulse Ox 38.4 C H 66 24 H 100/38 L 95 09/15/17 09:00 09/15/17 09:00 09/15/17 09:00 09/15/17 09:00 09/15/17 09:00 Laboratory Results 09/15/17 Unknown 09/15/17 Unknown PT 23.1 SEC (12.0-15.0) H 09/15/17 Unknown INR 2.03 (0.83-1.16) H 09/15/17 Unknown - Physical Exam Cardiovascular: regular rate and rhythym, no murmur, rub, or gallop Respiratory: reduced air movement Gastrointestinal: distension, other (hypoactive bowel sounds, soft), No guarding , No rebound ICD10 Worksheet Patient Problems: Problems Problem Status Onset Acute respiratory failure Acute Pneumonia Acute Abdominal pain Acute Atrial fibrillation Acute Hematoma of chest wall Acute Hematoma of pacemaker pocket Acute Incarcerated right inguinal hernia Acute Small bowel obstruction Acute
--- NOTE | 2017-09-15 11:22 | GCON ---
[f rep st] CONSULTATION DYNAMO REPAIRER CONSULTATION. REASON FOR ADMISSION: Acute respiratory failure. HISTORY OF PRESENT ILLNESS: The patient is a very pleasant 87-year-old white male with an extensive past medical history, including aortic valve replacement x2, chronic respiratory failure, chronic obs tructive pulmonary disease, atrial fibrillation, congestive heart failure. He had been recently disc harged from [facility] to [facility]. He was brought in the next day with increas ing breathlessness. He was initially seen in the emergency room, was admitted to Intensive Care Unit . He had an extensive stay previously for an incarcerated inguinal hernia repair, though complicated by a small bowel obstruction. In discussion with the patient, he states he is still somewhat breath less. He admits to a cough that is productive of yellowish sputum. There is no hemoptysis. He geoff es any chest pain, pleuritic-type chest pain, or angina equivalent. He feels somewhat better since a dmission. PAST MEDICAL HISTORY: As above. ALLERGIES: To ciprofloxacin, codeine, and Dilaudid. MEDICATIONS AT HOME: Include cholecalciferol, aspirin, ascorbic acid, Requip, Coumadin, Proscar, fis h oil, Flomax, MiraLAX, Protonix, Yohana, Coreg, and Tylenol. SOCIAL HISTORY: Previous smoker, none for a long time. No significant alcohol use. His son is at t he bedside. Has excellent family support. PHYSICAL EXAMINATION: VITAL SIGNS: Blood pressure 106/39, pulse 60, respirations are 32, temperatur e is 38.4, oxygen saturation 94% on nasal cannula. GENERAL: He is a well-developed, elderly white m geronimo who is resting comfortably on supplemental oxygen. HEENT: Eyes are PERRLA, EOMI. His throat sh ows no erythema or tonsillar hypertrophy. NECK: Supple. There is no cervical adenopathy. HEART: Regular rate and rhythm with a 2/6 systolic murmur at the left sternal border without radiation. MARY JO GS: Diminished breath sounds, but no wheeze and a few bibasilar rales. ABDOMEN: Soft, nontender. Bowel sounds are present. Wound is healing well. EXTREMITIES: No clubbing, cyanosis, or edema. IMAGING: Chest x-ray, dated 09/15/2017, shows cardiomegaly, pacemaker in place, pulmonary edema most ly unchanged from previous. CT scan of the chest shows bilateral pneumonia, possible left lower lobe mass, and a stable ascending aortic aneurysm. LABORATORY: White count is 21.5, hemoglobin of 11, hematocrit 34, platelet count 378. INR is 2.03. Sodium 142, potassium 4.1, chloride 101, CO2 is 26, BUN 11, creatinine 0.8, glucose is 126. BNP is elevated at 3910. IMPRESSION: 1. Acute respiratory failure, etiology of which is unclear, though a combination of pulmonary edema, possible pneumonia, and chronic obstructive pulmonary disease is most likely. 2. Chronic obstructive pulmonary disease. 3. Pneumonia, must treat for hospital acquired. 4. Congestive heart failure. 5. Recent inguinal hernia repair with small bowel obstruction. 6. Atrial fibrillation on Coumadin. RECOMMENDATIONS: 1. Agree with current antibiotic coverage. 2. We will add IV steroids to the mix. 3. Frequent nebulizations with both albuterol and Atrovent. 4. Gentle diuresis. 5. Adequate pain control. 6. DVT and PE prophylaxis. 7. Stress ulcer prophylaxis. 8. Close cardiovascular monitoring. /[id number]/MODL
[2017-09-15] MEDS: IPRATROPIUM/ALBUTEROL 3 ML DEYVIAL IH SCH ×6 (11:35→21:38)
[2017-09-15] MEDS: PIPERACILLIN/TAZO 3.375 GM/DEX 50 ML IV SCH ×6 (12:25→23:53)
[2017-09-15] MEDS: methylPREDNISolone SOD SUCC 125 MG/2 ML VIAL IVP SCH ×6 (12:28→23:53)
[2017-09-15] MEDS ORDERED: CEFEPIME HCL 2 GM in D5W 100 ML IV SCH (14:00)
[2017-09-15] MEDS: FUROSEMIDE 40 MG/4 ML VIAL IVP SCH ×2 (14:08)
[2017-09-15] MEDS: OMEGA-3 FATTY ACIDS 1,000 MG CAP PO SCH ×2 (18:08)
[2017-09-15] MEDS ORDERED: IPRATROPIUM/ALBUTEROL 3 ML DEYVIAL IH SCH ×2 (21:00)
[2017-09-15] MEDS: SENNOSIDES/DOCUSATE SODIUM TAB PO SCH ×2 (22:18)
[2017-09-15] MEDS: FINASTERIDE 5 MG TAB PO SCH ×2 (22:24)
[2017-09-15] MEDS: TAMSULOSIN HCL 0.4 MG CAP PO SCH ×2 (22:24)
[2017-09-16] MEDS: IPRATROPIUM/ALBUTEROL 3 ML DEYVIAL IH SCH ×8 (05:38→20:12)
[2017-09-16] MEDS: PIPERACILLIN/TAZO 3.375 GM/DEX 50 ML IV SCH ×8 (07:04→23:52)
[2017-09-16] MEDS: methylPREDNISolone SOD SUCC 125 MG/2 ML VIAL IVP SCH ×8 (07:04→23:51)
--- NOTE | 2017-09-16 07:21 | PDCONSULT ---
Electrical And Instrumentation Manager Note: [facility] LIVE Electrical And Instrumentation Manager Note Patient Name: BLANCA COX Date of : 1930 Patient Status: Inpatient Attending Provider: Osman Hernandez Date: 09/15/17 09:54 Initialization Date: 09/15/17 09:54 Electrical And Instrumentation Manager Note: Mr. Cox was readmitted with SOB this morning from [facility] after being discharged yesterday following a prolonged hospitalization (09/01-09/14) for an incarcerated recurrent RIH and subsequent SBO. He was quite weak at discharge, but without respiratory distress, and was tolerated a soft diet with return of bowel function. He apparently vomited in the [facility] and may have aspirated. He denies abdominal pain currently. PE: frail appearing elderly male in mod respiratory distress T38.4 P 80 R22 abd: soft/+BS, distended and non-tender to palpation, incision clean and dry : scrotal ecchymosis/right inguinal ecchymosis current exam not changed from pre-discharge yesterday Imp: s/p repair incarcerated recurrent RIH 09/01 s/p lap lysis adhesions for SBO 09/08 respiratory distress secondary to aspiration multiple medical problems Rec: I would hold off on NG decompression unless further emesis occurs will obtain plain films of the abd bowel rest for allison Hernandez MD, FACS This note was inadvertantly entered in his prior visit yesterday
--- NOTE | 2017-09-16 07:21 | PDCONSULT ---
Contingents Supervisor Note: [facility] LIVE Contingents Supervisor Note Patient Name: BLANCA COX Date of : 1930 Patient Status: Inpatient Attending Provider: Osman Hernandez Date: 09/15/17 09:54 Initialization Date: 09/15/17 09:54 Contingents Supervisor Note: Mr. Cox was readmitted with SOB this morning from [facility] after being discharged yesterday following a prolonged hospitalization (09/01-09/14) for an incarcerated recurrent RIH and subsequent SBO. He was quite weak at discharge, but without respiratory distress, and was tolerated a soft diet with return of bowel function. He apparently vomited in the [facility] and may have aspirated. He denies abdominal pain currently. PE: frail appearing elderly male in mod respiratory distress T38.4 P 80 R22 abd: soft/+BS, distended and non-tender to palpation, incision clean and dry : scrotal ecchymosis/right inguinal ecchymosis current exam not changed from pre-discharge yesterday Imp: s/p repair incarcerated recurrent RIH 09/01 s/p lap lysis adhesions for SBO 09/08 respiratory distress secondary to aspiration multiple medical problems Rec: I would hold off on NG decompression unless further emesis occurs will obtain plain films of the abd bowel rest for allison Hernandez MD, FACS This note was inadvertantly entered in his prior visit yesterday
--- NOTE | 2017-09-16 07:21 | PDCONSULT ---
Structural Steel Worker Note: [facility] LIVE Structural Steel Worker Note Patient Name: BLANCA COX Date of : 1930 Patient Status: Inpatient Attending Provider: Osman Hernandez Date: 09/15/17 09:54 Initialization Date: 09/15/17 09:54 Structural Steel Worker Note: Mr. Cox was readmitted with SOB this morning from [facility] after being discharged yesterday following a prolonged hospitalization (09/01-09/14) for an incarcerated recurrent RIH and subsequent SBO. He was quite weak at discharge, but without respiratory distress, and was tolerated a soft diet with return of bowel function. He apparently vomited in the residential and may have aspirated. He denies abdominal pain currently. PE: frail appearing elderly male in mod respiratory distress T38.4 P 80 R22 abd: soft/+BS, distended and non-tender to palpation, incision clean and dry : scrotal ecchymosis/right inguinal ecchymosis current exam not changed from pre-discharge yesterday Imp: s/p repair incarcerated recurrent RIH 09/01 s/p lap lysis adhesions for SBO 09/08 respiratory distress secondary to aspiration multiple medical problems Rec: I would hold off on NG decompression unless further emesis occurs will obtain plain films of the abd bowel rest for allison Hernandez MD, FACS This note was inadvertantly entered in his prior visit yesterday
[2017-09-16] MEDS: ASPIRIN 81 MG CHEWABLE TAB PO SCH ×2 (08:07)
[2017-09-16] MEDS: PANTOPRAZOLE SODIUM 40 MG TAB PO SCH ×2 (08:08)
[2017-09-16] MEDS: CHOLECALCIFEROL VIT D3 1,000 UNITS TAB PO SCH ×2 (08:08)
[2017-09-16] MEDS: FUROSEMIDE 40 MG/4 ML VIAL IVP SCH ×2 (08:08)
[2017-09-16] MEDS: ASCORBIC ACID 500 MG TAB PO SCH ×2 (08:08)
[2017-09-16] MEDS: MULTIVITAMINS 1 EACH TAB PO SCH ×2 (08:08)
[2017-09-16] MEDS: CETIRIZINE 10 MG TAB PO SCH ×2 (08:08)
[2017-09-16] MEDS: SENNOSIDES/DOCUSATE SODIUM TAB PO SCH ×4 (08:09→20:38)
--- NOTE | 2017-09-16 08:36 | PDCONSULT ---
[employer] Note: Tripp is sitting up in a chair and feels better. He has no further nausea or emesis and has had several liquid stools. His abd remains mildly distended and tympanitic/incisions healing without signs of infection. BC x 2 sets are + for GNR He is currently on Vanco/Zosyn I reviewed his KUB which shows moderate gastric distention without significant bowel distention. I recommended low dose Reglan and a trial of clear liquids Ziggy Hernandez MD, FACS
[2017-09-16] MEDS ORDERED: VANCOMYCIN 1.5 GM in D5W 250 ML IV SCH (09:00)
[2017-09-16 09:07] LABS: PLATELET COUNT 215 10^3/uL (150-400)
[2017-09-16 09:21] LABS: INR 2.88 (0.83-1.16); PROTIME(PATIENT) 30.5 SEC (12.0-15.0)
--- NOTE | 2017-09-16 09:43 | PDINTPN ---
[employer] Station Attendant Progress Note Assessment/Plan: Assessment/plan: * Acute on chronic respiratory failure-improved * Chronic obstructive pulmonary disease -continue nebs and steroids. * Aortic valve replacement x2 * Congestive heart failure * Atrial fibrillation * Recent incarcerated hernia repair complicated by small bowel obstruction * Positive blood wrjubskk-gvgp-vugaqube rods. -await identification -will discuss with surgery * Disposition-likely okay for step-down unit Subjective: Sitting up in chair eating. Comfortable. Much less breathless. Objective: Vital Signs Temp Pulse Resp BP Pulse Ox 36.8 C 75 24 H 116/79 97 09/16/17 08:00 09/16/17 08:00 09/16/17 08:00 09/16/17 08:00 09/16/17 08:00 Laboratory Results 09/16/17 08:55 09/16/17 08:55 09/15/17 09/16/17 09/17/17 05:59 05:59 05:59 Intake Total 600 Output Total 2250 200 Balance -1650 -200 PT 30.5 SEC (12.0-15.0) H 09/16/17 08:55 INR 2.88 (0.83-1.16) H 09/16/17 08:55 Laboratory Results 09/16/17 08:55 09/16/17 08:55 09/16/17 09/16/17 08:55 08:55 PT 30.5 SEC H SEC (12.0 - 15.0) INR 2.88 H (0.83 - 1.16) Calcium 7.2 mg/dL L mg/dL (8.5 - 10.4) Total Bilirubin 1.5 mg/dL H mg/dL (0.1 - 1.4) AST 87 IU/L H IU/L (17 - 59) ALT 72 IU/L IU/L (21 - 72) Alkaline Phosphatase 125 IU/L IU/L (38 - 126) Troponin I 0.167 ng/mL H ng/mL (0.000 - 0.034) Total Protein 5.6 g/dL L g/dL (6.3 - 8.2) Albumin 2.9 g/dL L g/dL (3.5 - 5.0) 09/15/17 05:56 Blood Culture - Preliminary Blood Blood Panel (PCR) - Pending Gram Negative Skip 10/28/17 05:40 Blood Culture - Preliminary Blood Gram Negative Skip Physical Exam - Physical Exam General Appearance: alert, no apparent distress EENT: PERRL/EOMI Neck: non-tender, full range of motion, supple, normal inspection Respiratory: prolonged expiration, No respiratory distress, No wheezing Cardiac/Chest: systolic murmur, irregularly irregular Peripheral Pulses: 2+: carotid (R), carotid (L), femoral (R), femoral (L), dorsalis-pedis (R), dorsalis-pedis (L) Abdomen: normal bowel sounds, non-tender, soft Male Genitalia: deferred Rectal: deferred Skin: normal color, warm/dry Extremities: normal range of motion, non-tender, normal inspection, normal capillary refill Neuro/Psych: no motor/sensory deficits, alert, normal mood/affect, oriented x 3 ICD10 Worksheet Patient Problems: Problems Problem Status Onset Acute respiratory failure Acute Pneumonia Acute Abdominal pain Acute Atrial fibrillation Acute Hematoma of chest wall Acute Hematoma of pacemaker pocket Acute Incarcerated right inguinal hernia Acute Small bowel obstruction Acute
[2017-09-16] MEDS: POLYETHYLENE GLYCOL 3350 17 GM PKT PO SCH ×2 (10:10)
[2017-09-16] MEDS ORDERED: PROTOCOL POTASSIUM 1 DOSE MISC PRN ×4 (10:31)
[2017-09-16] MEDS: POTASSIUM Cl (KCl) 100 ML IV SCH ×8 (10:52→14:15)
[2017-09-16] MEDS: METOCLOPRAMIDE 10 MG/2 ML VIAL IVP SCH ×6 (11:22→23:52)
--- NOTE | 2017-09-16 12:33 | HOSPPROG ---
Hospitalist Progress Note Assessment/Plan: 87 yo M w/ AF, HFpEF, CHRF, hx AV replacement who was discharged 09/14 after inguinal hernia repair presents with respiratory distress from likely pneumonia. # Acute on chronic hypoxic respiratory failure (suspect aspiration)- - HCAP + anaerobic coverage with Vancomycin and Zosyn - Schedule duonebs despite lack of clear wheezing due to critical illness, albuterol PRN - methylprednisone ordered by pulm # Sepsis with GNR Bacteremia aspiration vs GI source in the setting of recent inguinal hernia repair - Broad coverage with Vancomycin, Zosyn -ID consult called # AF s/p PPM - V-paced rhythm likely limiting evaluation of tachycardia; on warfarin with therapeutic INR. - Continue warfarin, daily INR # HFpEF - Last EF 55% with diastolic dysfunction. 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 # Recent incarcerated inguinal hernia s/p repair c/b SBO and R inguinal hematoma -case discussed with Dr. David lewis -npo except for meds # Macrocytic anemia - Improved from recent values, suspect some element of hemoconcentration. #. Hx AV replacement x2 - Most recent in 2000 #. BPH - On tamsulosin, finasteride as outpatient Diet - NPO in setting of critical illness Ppx - warfarin, INR therapeutic Code - Full Dispo - transfer to stepdown case discussed with Dr. Pinedo and the ICU team Subjective: feels better today. denies abd pain. denies cough. still with some shortness of breath Objective: Vital Signs Temp Pulse Resp BP Pulse Ox 36.8 C 75 29 H 130/93 H 97 09/16/17 08:00 09/16/17 10:00 09/16/17 10:00 09/16/17 10:00 09/16/17 10:00 Laboratory Results 09/16/17 08:55 09/16/17 08:55 09/15/17 09/16/17 09/17/17 05:59 05:59 05:59 Intake Total 600 650 Output Total 2250 400 Balance -1650 250 PT 30.5 SEC (12.0-15.0) H 09/16/17 08:55 INR 2.88 (0.83-1.16) H 09/16/17 08:55 Microbiology 09/15/17 05:56 Blood Blood Panel (PCR) - Final No Organism Detected 09/15/17 05:56 Blood Blood Culture - Preliminary 09/15/17 05:56 Blood Gram Negative Skip 09/15/17 05:40 Blood Blood Culture - Preliminary Gram Negative Skip - Physical Exam Constitutional: no apparent distress, appears nourished, not in pain Cardiovascular: regular rate and rhythym, no murmur, rub, or gallop Respiratory: no respiratory distress, no rales or rhonchi, clear to auscultation , reduced air movement Gastrointestinal: normoactive bowel sounds, soft, non-tender abdomen, no palpable masses, distension Genitourinary: no bladder fullness, no bladder tenderness, no renal bruits Neurologic: AAOx3, sensation intact bilaterally Psychiatric: interacting appropriately, not anxious, not encephalopathic, thought process linear ICD10 Worksheet Patient Problems: Problems Problem Status Onset Hematoma of chest wall Acute Hematoma of pacemaker pocket Acute Atrial fibrillation Acute Small bowel obstruction Acute Abdominal pain Acute Incarcerated right inguinal hernia Acute Acute respiratory failure Acute Pneumonia Acute
[2017-09-16] MEDS ORDERED: WARFARIN SODIUM 4 MG TAB PO SCH ×2 (16:00)
[2017-09-16] MEDS ORDERED: ACETAMN/DIPHENHYDRAMINE 500/25MG TAB PO PRN ×4 (16:11→16:12)
--- NOTE | 2017-09-16 17:02 | ASMTCMCOM ---
CM Note CM Note Notes: 87 year old male discharged from [facility] to [facility] days ago after a hernia repair followed by SBO. Patient has a hx of Afib, AVR x 2, CHRF-3 lits of O2, CHF. Patient admitted for SOB, possible asp PNA, respiratory failure. CM to follow for discharge needs. Date Signed: 09/16/2017 05:01 PM Electronically Signed By:Jocelyn Blanco LCSW
--- NOTE | 2017-09-16 17:02 | ASMTCMCOM ---
CM Note CM Note Notes: 87 year old male discharged from [facility] to [facility] days ago after a hernia repair followed by SBO. Patient has a hx of Afib, AVR x 2, CHRF-3 lits of O2, CHF. Patient admitted for SOB, possible asp PNA, respiratory failure. CM to follow for discharge needs. Date Signed: 09/16/2017 05:01 PM Electronically Signed By:Jocelyn Blanco LCSW
--- NOTE | 2017-09-16 17:02 | ASMTCMCOM ---
CM Note CM Note Notes: 87 year old male discharged from [facility] to [facility] days ago after a hernia repair followed by SBO. Patient has a hx of Afib, AVR x 2, CHRF-3 lits of O2, CHF. Patient admitted for SOB, possible asp PNA, respiratory failure. CM to follow for discharge needs. Date Signed: 09/16/2017 05:01 PM Electronically Signed By:Jocelyn Blanco LCSW
[2017-09-16] MEDS: OMEGA-3 FATTY ACIDS 1,000 MG CAP PO SCH ×2 (17:16)
[2017-09-16] MEDS ORDERED: POTASSIUM CL 10 MEQ TAB PO ONE ×2 (17:48)
[2017-09-16] MEDS: TAMSULOSIN HCL 0.4 MG CAP PO SCH ×2 (20:38)
[2017-09-16] MEDS: FINASTERIDE 5 MG TAB PO SCH ×2 (20:38)
--- NOTE | 2017-09-16 20:53 | GCON ---
[f rep st] CONSULTATION INFECTIOUS DISEASES CONSULTATION DATE OF CONSULTATION: 09/16/2017 REFERRING PHYSICIAN: Jose Williamson DO REASON FOR CONSULTATION: Gram-negative pierce bacteremia. HISTORY OF PRESENT ILLNESS: This patient is an 87-year-old male with a past medical history of atria l fibrillation, on chronic anticoagulation, history of aortic valve replacement x2, history of aortic aneurysm repair with Dacron graft, and recent hospitalization related to incarcerated inguinal herni a as well as small bowel obstruction, who I am asked to see in consultation for Gram-negative pierce maria m teremia. The patient was hospitalized on 09/01/2017 for incarcerated right inguinal hernia requiring open repair. Postoperatively, he did have hematoma development in the right inguinal region. He al so developed a small bowel obstruction which required laparotomy for lysis of adhesions. He did not have any evidence of ischemic or necrotic bowel and did not require any bowel resection. The patient was recently discharged to [facility] and developed acute shortness of breath overnight. He chapman d associated nausea and vomiting preceding his shortness of breath and is concerned he aspirated. Up on presentation, he was noted to have a temperature of 38.4 with a white count of 21,000. Procalcito kiana was elevated at 21.7. Blood cultures were obtained at the time of presentation and currently are showing Gram-negative rods growing from the anaerobic bottles only. PCR identification was unable t o specify organism. Previously, at the time of his hernia incarceration, cultures grew rare P. acnes . The patient has been started empirically on vancomycin and Zosyn. Today he feels clinically impro kashif. He continues to be dyspneic. He does not have abdominal pain or inguinal pain. He has had joaquín rrhea and C difficile testing was performed, which was negative. Given the above findings, I am now asked to assist in his ongoing management. PAST MEDICAL HISTORY: Atrial fibrillation, congestive heart failure, hernia as above, aortic aneurys m. PAST SURGICAL HISTORY: As above, aortic valve replacement x2, aortic aneurysm repair with Dacron gra ft, pacemaker placement. CURRENT MEDICATIONS: Zosyn 3.375 g IV q.6 hours, vancomycin 1.5 g IV daily, DuoNebs four times daily , vitamin C 500 mg p.o. daily, aspirin 81 mg p.o. daily, Zyrtec 10 mg p.o. daily, vitamin D 1000 unit s p.o. daily, Proscar 5 mg p.o. at bedtime, Lasix 40 mg IV daily, Solu-Medrol 60 mg IV q.6 hours, mul tivitamin p.o. daily, fish oil 1000 mg p.o. daily, Protonix 40 mg p.o. daily, Requip 1 mg p.o. three times daily, Flomax 0.4 mg p.o. at bedtime, Coumadin 4 mg p.o. daily. ALLERGIES: Ciprofloxacin, codeine; patient does not recall Cipro reaction although listed in his naomi rt are swelling and pain in legs and hip. SOCIAL HISTORY: Occasional alcohol use. No tobacco use. FAMILY HISTORY: Noncontributory. REVIEW OF SYSTEMS: Outside that noted in the HPI, the remainder of a 10-system review is unremarkabl e. PHYSICAL EXAMINATION: VITAL SIGNS: Temperature maximum 38.4, temperature current 37.0, heart rate 1 14, respiratory rate 22, blood pressure 149/100, oxygen saturation 94% on 4 L. GENERAL: Patient is chronically ill-appearing, but in no acute distress. He appears nontoxic. HEENT: There is no scler al icterus, conjunctival injection, or conjunctival petechiae. Oropharynx is clear without lesions. Mucous membranes are dry. There is no nasal discharge. There is no tenderness over the frontal, ma xillary or mastoid area. NECK: Supple without palpable lymphadenopathy or thyromegaly. CHEST: The re are coarse breath sounds bilaterally. There is intermittent cough present. The respiratory effor t is mildly increased. CARDIOVASCULAR: Tachycardic without murmurs, gallops, or rubs. ABDOMEN: So ft, nontender with mild distention. Abdominal staple line intact without erythema or drainage; right inguinal kirsty intact without erythema or drainage; ecchymosis present in the suprapubic and ingui nal region with slight induration. GENITOURINARY: Mild induration in right scrotal area with minima l tenderness. No overlying erythema. MUSCULOSKELETAL: 1+ lower extremity edema bilaterally. SKIN: See abdominal exam for details. No stigmata of endocarditis. The skin is warm and dry to touch. LYMPHATICS: No cervical, supraclavicular, or inguinal nodes palpable. LABORATORY DATA: White blood cell count 24.6, hematocrit 25.7, platelets 215, neutrophils 93%. Seru m creatinine 1.0, bicarb 25, bilirubin 1.5, AST 87, ALT 72, alkaline phosphatase 125, albumin 2.9. P rocalcitonin 21.7. INR is 2.9. C difficile toxin is negative. Urinalysis shows 10 to 15 white bloo d cells. Blood cultures with 2 of 2 sets showing Gram-negative rods growing from the anaerobic bottl es only. Chest CT shows bilateral consolidations sparing the left upper lobe. IMPRESSION: Sepsis due to Gram-negative pierce bacteremia: Currently organism only growing in the anae robic bottles suggestive of anaerobic Gram-negative pierce. It is possible this is associated with aspi ration pneumonia based on history, although uncommon to see concomitant bacteremia with aspiration ev ent. Other consideration is this is from a gastrointestinal etiology based on recent abdominal surge ry, although clinical exam does not show any evidence of abdominal tenderness. Similarly, infected h ematoma in the inguinal region is also a possibility, although clinical findings do not show overt in flammatory changes. RECOMMENDATIONS: 1. Continue Zosyn pending identification of Gram-negative pierce. 2. Discontinue vancomycin. 3. Will review with Dr. Hernandez regarding consideration of CT scan of abdomen and pelvis to further ass ess for possible GI etiology. 4. Repeat blood cultures to document clearing of bacteremia given patient has prosthetic aortic valv e and indwelling Dacron graft for aortic aneurysm. Thank you for this consultation. We will continue to follow the patient with you. /[id number]/MODL
[2017-09-17] MEDS: CEPACOL LOZENGE PO PRN ×2 (01:59)
[2017-09-17] MEDS ORDERED: POTASSIUM Cl (KCl) 100 ML IV SCH ×2 (02:45)
[2017-09-17] MEDS ORDERED: POTASSIUM CL 20 MEQ TAB PO ONE ×2 (03:45)
[2017-09-17] MEDS: METOCLOPRAMIDE 10 MG/2 ML VIAL IVP SCH ×8 (05:02→23:16)
[2017-09-17] MEDS: methylPREDNISolone SOD SUCC 125 MG/2 ML VIAL IVP SCH ×4 (05:02→14:20)
[2017-09-17] MEDS: PIPERACILLIN/TAZO 3.375 GM/DEX 50 ML IV SCH ×8 (05:02→23:15)
[2017-09-17] MEDS: IPRATROPIUM/ALBUTEROL 3 ML DEYVIAL IH SCH ×8 (05:20→20:26)
[2017-09-17 06:44] LABS: PLATELET COUNT 202 10^3/uL (150-400)
[2017-09-17 07:08] LABS: INR 3.85 (0.83-1.16); PROTIME(PATIENT) 38.5 SEC (12.0-15.0)
[2017-09-17] MEDS: MULTIVITAMINS 1 EACH TAB PO SCH ×2 (08:43)
[2017-09-17] MEDS: PANTOPRAZOLE SODIUM 40 MG TAB PO SCH ×2 (08:43)
[2017-09-17] MEDS: CHOLECALCIFEROL VIT D3 1,000 UNITS TAB PO SCH ×2 (08:43)
[2017-09-17] MEDS: CETIRIZINE 10 MG TAB PO SCH ×2 (08:43)
[2017-09-17] MEDS: ASCORBIC ACID 500 MG TAB PO SCH ×2 (08:43)
[2017-09-17] MEDS: ASPIRIN 81 MG CHEWABLE TAB PO SCH ×2 (08:43)
[2017-09-17] MEDS ORDERED: POTASSIUM CL 10 MEQ TAB PO ONE ×4 (09:30→20:24)
[2017-09-17] MEDS: FUROSEMIDE 40 MG/4 ML VIAL IVP SCH ×2 (09:56)
[2017-09-17] MEDS: SENNOSIDES/DOCUSATE SODIUM TAB PO SCH ×4 (09:56→21:02)
[2017-09-17] MEDS: POLYETHYLENE GLYCOL 3350 17 GM PKT PO SCH ×2 (09:56)
--- NOTE | 2017-09-17 14:00 | PDINTPN ---
Dental Detail Representative Progress Note Assessment/Plan: Assessment/plan: 87 M s/p recent incarcerated hernia repair complicated by SBO, discharged to [facility] but returned to hospital same day after complaining of SOB and found to have PNA and hypoxemia. * PNA- presumably HAP and treated with Zosyn. Afebrile with WBC 20's but high dose solumedrol as well. Feels well from this perspective, though complains of anxiety episode last pm and poor sleep. * COPD- he reports this is a new diagnosis within last three years. His smoking history is 2-3 ppd for 30+ years, but quit in the s. He has only used O2 but denies MDIs. No PFT available. His high dose steroids are likely contributing to delerium and poor sleep, and are not contributing to wound healing. Will reduce to daily and consider dc in near future. Continue duoneb qid for now, but also likely to reduce dose. Add flutter valve * Bacteremia with GNR- I suspect GI source, though he seems very stable today. Await further ID recs, but agree with CT looking for abscess, etc. Repeat Bcx sent 09/17. * CHF (EF 55) with AVR, permanent pacer. Seems stable at the moment. Subjective: Feels OK, tolerating 6 lpm O2 Objective: Vital Signs Temp Pulse Resp BP Pulse Ox 36.7 C 81 16 146/61 H 94 09/17/17 11:40 09/17/17 11:40 09/17/17 11:40 09/17/17 11:40 09/17/17 11:40 Laboratory Results 09/17/17 06:35 09/17/17 06:35 09/16/17 09/17/17 09/18/17 05:59 05:59 05:59 Intake Total 600 3350 620 Output Total 2250 2000 200 Balance -1650 1350 420 PT 38.5 SEC (12.0-15.0) H D 09/17/17 06:35 INR 3.85 (0.83-1.16) H 09/17/17 06:35 Physical Exam - Physical Exam General Appearance: alert, no apparent distress, obese EENT: PERRL/EOMI Neck: supple Respiratory: lungs clear, decreased breath sounds, No respiratory distress Cardiac/Chest: regular rate, rhythm, other (100% paced), No edema Abdomen: normal bowel sounds, non-tender, soft, No distended Skin: normal color, warm/dry Lymphatic: no adenopathy Extremities: No pedal edema Neuro/Psych: alert, normal mood/affect, oriented x 3 ICD10 Worksheet Patient Problems: Problems Problem Status Onset Acute respiratory failure Acute Pneumonia Acute Abdominal pain Acute Atrial fibrillation Acute Hematoma of chest wall Acute Hematoma of pacemaker pocket Acute Incarcerated right inguinal hernia Acute Small bowel obstruction Acute
--- NOTE | 2017-09-17 14:17 | ASMTCMCOM ---
CM Note CM Note Notes: Spoke to patient and son Librado. Librado wanted to leave patient's things at [facility] to hold his bed. [facility] told him that Medicare wouldn't pay them for holding the bed. Contact made to [facility] to let them know that patient would like to return on discharged and a referral sent to them. Date Signed: 09/17/2017 02:17 PM Electronically Signed By:Jocelyn Blanco LCSW
--- NOTE | 2017-09-17 14:17 | ASMTCMCOM ---
CM Note CM Note Notes: Spoke to patient and son Librado. Librado wanted to leave patient's things at [facility] to hold his bed. [facility] told him that Medicare wouldn't pay them for holding the bed. Contact made to [facility] to let them know that patient would like to return on discharged and a referral sent to them. Date Signed: 09/17/2017 02:17 PM Electronically Signed By:Jocelyn Blanco LCSW
--- NOTE | 2017-09-17 14:17 | ASMTCMCOM ---
CM Note CM Note Notes: Spoke to patient and son Librado. Librado wanted to leave patient's things at [facility] to hold his bed. [facility] told him that Medicare wouldn't pay them for holding the bed. Contact made to [facility] to let them know that patient would like to return on discharged and a referral sent to them. Date Signed: 09/17/2017 02:17 PM Electronically Signed By:Jocelyn Blanco LCSW
--- NOTE | 2017-09-17 14:36 | HOSPPROG ---
Hospitalist Progress Note Assessment/Plan: 87 yo M w/ AF, HFpEF, CHRF, hx AV replacement who was discharged 09/14 after inguinal hernia repair presents with respiratory distress from likely pneumonia. Acute on chronic hypoxic respiratory failure (suspect aspiration)- HCAP + anaerobic coverage with Vancomycin and Zosyn Schedule duonebs despite lack of clear wheezing due to critical illness, albuterol PRN methylprednisone ordered by pulm cxr w likely superimposed pulm edema (interp by me) Sepsis with GNR Bacteremia aspiration vs GI source in the setting of recent inguinal hernia repair Broad coverage with Vancomycin, Zosyn ID consult called bacteroides likely likely GI source, recent surgery noted ? role of CT scan. d/w dr gardner AF s/p PPM - V-paced rhythm likely limiting evaluation of tachycardia; on warfarin with therapeutic INR. Continue warfarin, daily INR hold warfarin today given inr 3.85 HFpEF - Last EF 55% with diastolic dysfunction. 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 diuresis Recent incarcerated inguinal hernia s/p repair c/b SBO and R inguinal hematoma -case discussed with Dr. David lewis -npo except for meds Macrocytic anemia - Improved from recent values, suspect some element of hemoconcentration. Hx AV replacement x2 - Most recent in 2000 bioprosthetic valves BPH - On tamsulosin, finasteride as outpatient Diet - NPO in setting of critical illness Ppx - warfarin, INR therapeutic Code - Full Dispo - transfer to stepdown Subjective: case d/w dr seaman Objective: Vital Signs Temp Pulse Resp BP Pulse Ox 36.7 C 81 16 146/61 H 94 09/17/17 11:40 09/17/17 11:40 09/17/17 11:40 09/17/17 11:40 09/17/17 11:40 Laboratory Results 09/17/17 06:35 09/17/17 06:35 09/16/17 09/17/17 09/18/17 05:59 05:59 05:59 Intake Total 600 3350 620 Output Total 2250 2000 200 Balance -1650 1350 420 PT 38.5 SEC (12.0-15.0) H D 09/17/17 06:35 INR 3.85 (0.83-1.16) H 09/17/17 06:35 ICD10 Worksheet Patient Problems: Problems Problem Status Onset Acute respiratory failure Acute Pneumonia Acute Abdominal pain Acute Atrial fibrillation Acute Hematoma of chest wall Acute Hematoma of pacemaker pocket Acute Incarcerated right inguinal hernia Acute Small bowel obstruction Acute
--- NOTE | 2017-09-17 18:16 | PCMIDPN ---
Assessment/Plan: Assessment: bacteroides ovatus bacteremia -- unlikely to be secondary to the bilateral infiltrates seen on CXR as a result of the witnessed aspiration. Suspect that there is a more likely intraabdominal explanation for this bacteremia. Patient is currently well covered for this bacteremia with the Zosyn but imaging of the abdomen and pelvis may be very important for source control. Plan: 1) Continue IV Zosyn coverage. 2) Consider abd/pelvis CT scan especially if leukocytosis does not resolve soon. Subjective: Patient is resting in his hospital room. No significant new complaint except for some worsening lower abdominal discomfort since yesterday. No fevers or chills. Objective: Zosyn #2 Vital Signs Temp Pulse Resp BP Pulse Ox 36.5 C 80 24 H 116/74 95 09/17/17 16:26 09/17/17 16:26 09/17/17 16:26 09/17/17 16:26 09/17/17 16:26 Laboratory Results 09/17/17 06:35 09/17/17 06:35 09/16/17 09/17/17 09/18/17 05:59 05:59 05:59 Intake Total 600 3350 710 Output Total 2250 2000 726 Balance -1650 1350 -16 - Physical Exam General Appearance: WD/WN, alert, no apparent distress, toxic (mildly) Respiratory: lungs clear, normal breath sounds, No respiratory distress Cardiac/Chest: regular rate, rhythm, No tachycardia Extremities: non-tender, normal inspection Abdomen: soft, distended, No non-tender, No mass Skin: normal color, warm/dry, No rash Neuro/Psych: alert, normal mood/affect ICD10 Worksheet Patient Problems: Problems Problem Status Onset Acute respiratory failure Acute Pneumonia Acute Abdominal pain Acute Atrial fibrillation Acute Hematoma of chest wall Acute Hematoma of pacemaker pocket Acute Incarcerated right inguinal hernia Acute Small bowel obstruction Acute
[2017-09-17] MEDS: OMEGA-3 FATTY ACIDS 1,000 MG CAP PO SCH ×2 (18:29)
[2017-09-17] MEDS: TAMSULOSIN HCL 0.4 MG CAP PO SCH ×2 (21:02)
[2017-09-17] MEDS: FINASTERIDE 5 MG TAB PO SCH ×2 (21:02)
[2017-09-18 05:06] LABS: PLATELET COUNT 282 10^3/uL (150-400)
[2017-09-18 05:10] LABS: INR 3.81 (0.83-1.16); PROTIME(PATIENT) 38.2 SEC (12.0-15.0)
[2017-09-18] MEDS: METOCLOPRAMIDE 10 MG/2 ML VIAL IVP SCH ×6 (05:18→17:00)
[2017-09-18] MEDS: PIPERACILLIN/TAZO 3.375 GM/DEX 50 ML IV SCH ×2 (05:18)
[2017-09-18] MEDS: IPRATROPIUM/ALBUTEROL 3 ML DEYVIAL IH SCH ×4 (05:26→09:33)
--- NOTE | 2017-09-18 07:50 | PDCONSULT ---
Clinical Account Specialist Note: Mr. Castillo is sitting up at the bedside sipping on chicken broth. He denies nausea or abdominal pain. He had 2 loose stools last night. He is requiring 5 lpm O2 via NC with sats 89-90%. Abd: soft, + BS, moderate distention without focal tenderness/incisions o.k. wbc 27 K INR 3.8 creat 1.0 CXR 09/17 reviewed-bilateral pulmonary infiltrates BC: Bacteroides ovatus Imp: clinically improved with persistant leukocytosis Rec: agree with CT chest/abd/pelvis hold Coumadin- discussed with Pharmacy S MD David, FACS
[2017-09-18] MEDS ORDERED: methylPREDNISolone SOD SUCC 125 MG/2 ML VIAL IVP SCH ×2 (09:00)
[2017-09-18] MEDS: PANTOPRAZOLE SODIUM 40 MG TAB PO SCH ×2 (09:08)
[2017-09-18] MEDS: MULTIVITAMINS 1 EACH TAB PO SCH ×2 (09:08)
[2017-09-18] MEDS: ASCORBIC ACID 500 MG TAB PO SCH ×2 (09:08)
[2017-09-18] MEDS: SENNOSIDES/DOCUSATE SODIUM TAB PO SCH ×4 (09:08→21:34)
[2017-09-18] MEDS: FUROSEMIDE 40 MG/4 ML VIAL IVP SCH ×2 (09:08)
[2017-09-18] MEDS: CHOLECALCIFEROL VIT D3 1,000 UNITS TAB PO SCH ×2 (09:08)
[2017-09-18] MEDS: ASPIRIN 81 MG CHEWABLE TAB PO SCH ×2 (09:08)
[2017-09-18] MEDS: CETIRIZINE 10 MG TAB PO SCH ×2 (09:08)
[2017-09-18] MEDS ORDERED: IOPAMIDOL (ISOVUE-300) 100 ML BTL ONE ×2 (10:01)
--- NOTE | 2017-09-18 11:31 | PCMIDPN ---
Assessment/Plan: Assessment/Plan: 1. POlymicrobial bacteremia with BActeroids and Klebsiella: - initial blodo cx positive on 09/15/17. PLaced on zosyn - f/u blood cx on 09/17/17 while on zosyn now showing klebsiella - wbc elevated today - change zosyn to invanz while susceptibilities pending - AWait CT chest/abd/pelvis results for possible sources 2. Aspiration pneumonia: - on broad coverage 3. Hx AVr/AAA repair Subjective: afebrile. c/o abd pain. denies sob. coughing mostly dry. loose stools Objective: Vital Signs Temp Pulse Resp BP Pulse Ox 37.1 C 71 24 H 136/55 H 92 09/18/17 07:25 09/18/17 09:35 09/18/17 09:35 09/18/17 07:25 09/18/17 09:35 Microbiology 09/17/17 11:15 Blood Panel (PCR) - Final Blood Klebsiella Pneumoniae Laboratory Results 09/18/17 04:50 09/18/17 04:50 09/17/17 09/18/17 09/19/17 05:59 05:59 05:59 Intake Total 3350 1290 Output Total 1999 1376 200 Balance 1350 -86 -200 - Physical Exam General Appearance: alert, no apparent distress Respiratory: coarse breath sounds Cardiac/Chest: regular rate, rhythm Extremities: No swelling Abdomen: normal bowel sounds, distended (mild), tender, other (mildline incision with kirsty, tender. no erythema no drainage. eccymosis in suprapubic region near kirsty. indurated. tender) Skin: other (see above.) ICD10 Worksheet Patient Problems: Problems Problem Status Onset Acute respiratory failure Acute Pneumonia Acute Abdominal pain Acute Atrial fibrillation Acute Hematoma of chest wall Acute Hematoma of pacemaker pocket Acute Incarcerated right inguinal hernia Acute Small bowel obstruction Acute
[2017-09-18] MEDS: ERTAPENEM 1 GM in NS 100 ML IV SCH (12:17)
[2017-09-18] MEDS ORDERED: POTASSIUM CL 20 MEQ/15 ML UDCUP PO ONE ×2 (14:30)
[2017-09-18] MEDS: POTASSIUM Cl (KCl) 100 ML IV SCH ×4 (14:31→16:45)
[2017-09-18] MEDS ORDERED: IPRATROPIUM/ALBUTEROL 3 ML DEYVIAL IH PRN ×2 (15:20)
--- NOTE | 2017-09-18 15:20 | HOSPPROG ---
Hospitalist Progress Note Assessment/Plan: 87 yo M w/ AF, HFpEF, CHRF, hx AV replacement who was discharged 09/14 after inguinal hernia repair presents with respiratory distress from likely pneumonia. Acute on chronic hypoxic respiratory failure (suspect aspiration)- HCAP + anaerobic coverage ertapenem given ecoli on blood cx Schedule duonebs despite lack of clear wheezing due to critical illness, albuterol PRN tapering steroids pulm toilet may need bronch Sepsis with GNR Bacteremia: Abd CT w no source of bacteremia AF s/p PPM - V-paced rhythm likely limiting evaluation of tachycardia; on warfarin with therapeutic INR. Continue warfarin, daily INR hold warfarin today given inr 3.85 HFpEF - Last EF 55% with diastolic dysfunction. 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 David horn, which is a good sign Hx AV replacement x2 - Most recent in 2000 bioprosthetic valves BPH - On tamsulosin, finasteride as outpatient Diet - NPO in setting of critical illness Ppx - warfarin, INR therapeutic Code - Full Dispo - transfer to stepdown Subjective: case d/w dr seaman, dr wallace. CT w worsening pneumonia, no abd abscess Objective: Vital Signs Temp Pulse Resp BP Pulse Ox 36.4 C 80 22 H 151/78 H 95 09/18/17 11:54 09/18/17 11:54 09/18/17 11:54 09/18/17 11:54 09/18/17 11:54 Microbiology 09/17/17 11:15 Blood Panel (PCR) - Final Blood Klebsiella Pneumoniae Laboratory Results 09/18/17 04:50 09/18/17 04:50 09/17/17 09/18/17 09/19/17 05:59 05:59 05:59 Intake Total 3350 1290 Output Total 1999 1376 400 Balance 1350 -86 -400 PT 38.2 SEC (12.0-15.0) H 09/18/17 04:50 INR 3.81 (0.83-1.16) H 09/18/17 04:50 - Physical Exam Constitutional: no apparent distress, appears nourished Eyes: PERRL, anicteric sclera Ears, Nose, Mouth, Throat: moist mucous membranes, hearing normal Cardiovascular: regular rate and rhythym, no murmur, rub, or gallop Respiratory: no respiratory distress, other (diffuse crackles. L> R) Gastrointestinal: normoactive bowel sounds, soft, non-tender abdomen Genitourinary: no bladder fullness, No bowen in urethra Skin: warm, normal color Musculoskeletal: full muscle strength, no muscle tenderness Neurologic: AAOx3 Psychiatric: interacting appropriately, not anxious ICD10 Worksheet Patient Problems: Problems Problem Status Onset Acute respiratory failure Acute Pneumonia Acute Abdominal pain Acute Atrial fibrillation Acute Hematoma of chest wall Acute Hematoma of pacemaker pocket Acute Incarcerated right inguinal hernia Acute Small bowel obstruction Acute
--- NOTE | 2017-09-18 16:24 | PDINTPN ---
Tag Stringer Progress Note Assessment/Plan: Assessment/plan: 87 M s/p recent incarcerated hernia repair complicated by SBO, discharged to [facility] but returned to hospital same day after complaining of SOB and found to have PNA and hypoxemia. * PNA- presumably HAP and treated with Zosyn. Blood cultures remain positive and chest CT today shows increased infiltrates. Zosyn changed to Invanz per ID. Continue pulmonary toilet. No empyema on CT. * COPD- he reports this is a new diagnosis within last three years. His smoking history is 2-3 ppd for 30+ years, but quit in the 1970s. He has only used O2 but denies MDIs. No PFT available. Added flutter valve, but favor dc steroids at this time. Watch closely, continue nebs. * Bacteremia with GNR- repeat culture with Klebsiella and no abscess found on CT. Will check echo * CHF (EF 55) with AVR, permanent pacer. Remains stable 09/18/17 16:20 Subjective: More SOB today and abdominal discomfort. Slept OK Objective: Vital Signs Temp Pulse Resp BP Pulse Ox 36.7 C 73 18 164/69 H 91 L 09/18/17 15:48 09/18/17 15:48 09/18/17 15:48 09/18/17 15:48 09/18/17 15:48 Microbiology 09/17/17 11:15 Blood Panel (PCR) - Final Blood Klebsiella Pneumoniae Laboratory Results 09/18/17 04:50 09/18/17 04:50 09/17/17 09/18/17 09/19/17 05:59 05:59 05:59 Intake Total 3350 1290 Output Total 1999 1376 550 Balance 1350 -86 -550 PT 38.2 SEC (12.0-15.0) H 09/18/17 04:50 INR 3.81 (0.83-1.16) H 09/18/17 04:50 Physical Exam - Physical Exam General Appearance: alert, no apparent distress EENT: PERRL/EOMI Neck: supple Respiratory: rhonchi, No respiratory distress, No wheezing Cardiac/Chest: regular rate, rhythm, No edema Abdomen: non-tender, soft, No distended Skin: normal color, warm/dry Lymphatic: no adenopathy Extremities: No pedal edema Neuro/Psych: alert, normal mood/affect, oriented x 3 ICD10 Worksheet Patient Problems: Problems Problem Status Onset Acute respiratory failure Acute Pneumonia Acute Abdominal pain Acute Atrial fibrillation Acute Hematoma of chest wall Acute Hematoma of pacemaker pocket Acute Incarcerated right inguinal hernia Acute Small bowel obstruction Acute
[2017-09-18] MEDS: OMEGA-3 FATTY ACIDS 1,000 MG CAP PO SCH ×2 (17:00)
[2017-09-18] MEDS: TAMSULOSIN HCL 0.4 MG CAP PO SCH ×2 (21:33)
[2017-09-18] MEDS: FINASTERIDE 5 MG TAB PO SCH ×2 (21:33)
[2017-09-18] MEDS: MELATONIN 3 MG TAB PO SCH ×2 (22:01)
[2017-09-19] MEDS: METOCLOPRAMIDE 10 MG/2 ML VIAL IVP SCH ×8 (00:20→17:42)
[2017-09-19 06:47] LABS: PLATELET COUNT 249 10^3/uL (150-400)
[2017-09-19] MEDS: PANTOPRAZOLE SODIUM 40 MG TAB PO SCH ×2 (08:44)
[2017-09-19] MEDS: CETIRIZINE 10 MG TAB PO SCH ×2 (08:44)
[2017-09-19] MEDS: ASPIRIN 81 MG CHEWABLE TAB PO SCH ×2 (08:44)
[2017-09-19] MEDS: CHOLECALCIFEROL VIT D3 1,000 UNITS TAB PO SCH ×2 (08:44)
[2017-09-19] MEDS: FUROSEMIDE 40 MG/4 ML VIAL IVP SCH ×2 (08:44)
[2017-09-19] MEDS: ASCORBIC ACID 500 MG TAB PO SCH ×2 (08:44)
[2017-09-19] MEDS: MULTIVITAMINS 1 EACH TAB PO SCH ×2 (08:44)
[2017-09-19] MEDS: SENNOSIDES/DOCUSATE SODIUM TAB PO SCH ×4 (08:45→19:57)
[2017-09-19] MEDS: ERTAPENEM 1 GM in NS 100 ML IV SCH (09:06)
--- NOTE | 2017-09-19 10:12 | PCMIDPN ---
Assessment/Plan: # sepsis: Due to infections as described below. Hemodynamics are improving and white count is trending down. # Polymicrobial bacteremia with Bacteroides and Klebsiella. Klebsiella came out while patient was on Zosyn, now known to be park susceptible which suggest lack of source control. Known aortic valve replacement and pacer in place but no murmur or peripheral stigmata of endocarditis. Surgical sites including midline incision and right inguinal hernia have expected appearance with mild edema and bruising, no warmth or erythema, no drainage. CT abdomen without clear source of bacteremia. --patient changed to ertapenem when Klebsiella susceptibilities were pending. Already received dose today --obtain repeat blood cultures today --obtain TTE # aspiration pneumonia: Coverage as above, subjective improvement in breathing. Aspiration pneumonia unusual cause of polymicrobial bacteremia. Medications Ertapenem 1 g IV daily # 2 S/p Zosyn 09/15 through 09/18 Microbiology 09/15 blood cultures 2 sets Bacteroides 09/17 blood cultures 2 sets Klebsiella Care was coordinated with hospitalist team. Subjective: Patient reports that breathing easier, likes the vera flow. No BM. Mild abdominal pain that is improving. Objective: Vital Signs Temp Pulse Resp BP Pulse Ox 37.1 C 81 25 H 152/94 H 100 09/19/17 08:00 09/19/17 08:00 09/19/17 08:00 09/19/17 08:00 09/19/17 08:00 Microbiology 09/17/17 11:15 Blood Panel (PCR) - Final Blood Klebsiella Pneumoniae Laboratory Results 09/19/17 06:30 09/19/17 06:30 09/18/17 09/19/17 09/20/17 05:59 05:59 05:59 Intake Total 1290 1241 Output Total 1376 1350 Balance -86 -109 - Physical Exam General Appearance: alert, no apparent distress Respiratory: crackles, wheezing, No accessory muscle use Cardiac/Chest: regular rate, rhythm, other (Mechanical click; pacer left upper chest C/D/I), No systolic murmur Extremities: No pedal edema Abdomen: soft, distended (Slight), other (Midline incision with kirsty in place , no surrounding erythema), No peritoneal signs Male Genitalia: scrotal edema (Mild with associated ecchymosis), other (Right inguinal incision without drainage, kirsty in place, associated ecchymosis in the suprapubic region, no erythema, mild edema), No bowen Skin: No rash Neuro/Psych: alert, normal mood/affect, oriented x 3 - Time Spent With Patient Time Spent with Patient: greater than 35 minutes Time Spent with Patient: Greater than 35 minutes spent on this patients care, greater than 50% of time spent counseling, educating, and coordinating care regarding the above mentioned plan. ICD10 Worksheet Patient Problems: Problems Problem Status Onset Acute respiratory failure Acute Pneumonia Acute Abdominal pain Acute Atrial fibrillation Acute Hematoma of chest wall Acute Hematoma of pacemaker pocket Acute Incarcerated right inguinal hernia Acute Small bowel obstruction Acute
--- NOTE | 2017-09-19 11:11 | ASMTCMCOM ---
CM Note CM Note Notes: Spoke to Fer from [facility]; she rec'd referral and PASRR that were sent. She said family is no longer paying to hold bed but Fer is hopeful that they will have bed available when pt ready for dc. Pt still w/high O2 needs. Date Signed: 09/19/2017 11:11 AM Electronically Signed By:Marcy Figueroa RN
--- NOTE | 2017-09-19 11:11 | ASMTCMCOM ---
CM Note CM Note Notes: Spoke to Fer from [facility]; she rec'd referral and PASRR that were sent. She said family is no longer paying to hold bed but Fer is hopeful that they will have bed available when pt ready for dc. Pt still w/high O2 needs. Date Signed: 09/19/2017 11:11 AM Electronically Signed By:Marcy Figueroa RN
--- NOTE | 2017-09-19 11:15 | HOSPPROG ---
Hospitalist Progress Note Assessment/Plan: # acute on chronic hypoxic resp failure - multifactorial, pulm edema and pna - cont abx and diuresis - 3L O2 baseline (currently oxymask) # sepsis, POA - source bacteremia - no pressors # aspiration pna - invanz # polymicrobial bacteremia, bacteroides initially, and then klebsiella while on zosyn - source possibly pna but very abnormal; no clear source from CT abd; also has AAA and thoracic aneurysm - cont invanx # recent inguinal hernia repair, c/p SBO s/p KIESHA # COPD/chronic resp failure - 3L O2 baseline # a-fib s/p ppm - recheck INR today; currently holding warfarin # mild CHF, suspect diastolic (EF 55%) - anthony vol overload, cont lasix # AAA repair # SHAY # BPH - flomax/proscar # RLS - requip Subjective: feels slightly SBO today Objective: Vital Signs Temp Pulse Resp BP Pulse Ox 37.1 C 81 25 H 152/94 H 100 09/19/17 08:00 09/19/17 08:00 09/19/17 08:00 09/19/17 08:00 09/19/17 08:00 Microbiology 09/17/17 11:15 Blood Panel (PCR) - Final Blood Klebsiella Pneumoniae Laboratory Results 09/19/17 06:30 09/19/17 06:30 09/18/17 09/19/17 09/20/17 05:59 05:59 05:59 Intake Total 1290 1241 Output Total 1376 1350 Balance -86 -109 PT 38.2 SEC (12.0-15.0) H 09/18/17 04:50 INR 3.81 (0.83-1.16) H 09/18/17 04:50 chart reviewed CXR personally reviewed - Physical Exam Constitutional: no apparent distress, appears nourished Cardiovascular: regular rate and rhythym, no murmur, rub, or gallop, systolic murmur Respiratory: no respiratory distress, inspiratory crackles (bilat), No no rales or rhonchi, No expiratory wheeze Gastrointestinal: normoactive bowel sounds, soft, non-tender abdomen, no palpable masses ICD10 Worksheet Patient Problems: Problems Problem Status Onset Hematoma of chest wall Acute Hematoma of pacemaker pocket Acute Atrial fibrillation Acute Small bowel obstruction Acute Abdominal pain Acute Incarcerated right inguinal hernia Acute Acute respiratory failure Acute Pneumonia Acute
--- NOTE | 2017-09-19 11:48 | ECHO ---
[email or web address] [address] [address] Main: [phone] Fax: Transthoracic Echocardiogram Name: BLANCA COX MR#: [id number] Study Date: 09/19/2017 Study Time: 10:16 AM Date of : 1930 Age: 87 year(s) Height: 182.9 cm (72 in.) Weight: 85.28 kg (188 lb.) BSA: 2.08 m2 Gender: Male Examination: Echo Indication: Ao replacement x 2, Last 2000, PNA, Hypoxia, Pacemaker, Bacteremia, Post hernia surgery Image Quality: Contrast: Requested by: Reny Hartley BP: 157 mmHg/78 mmHg Heart Rate: Rhythm: Normal sinus rhythm Indication: Ao replacement x 2, Last 2000, PNA, Hypoxia, Pacemaker, Bacteremia, Post hernia surgery Procedure Staff Surveyor Instrument Assistant: Satish Richter Reading Physician: Tej Perez Requesting Provider: Conclusions: Paced rhythm. Normal left ventricular size and systolic function. LV EF estimated to be 60-65% with normal contractility. Normal right-sided chamber dimensions. Moderate to severely dilated left atrium. Bioprosthetic aortic valve which is well seated. Normal transvalvular hemodynamics. No significant aortic insufficiency. Mitral annular calcification. No significant mitral regurgitation or stenosis. Mildly dilated ascending aorta measuring 4.2 cm with no dissection. Measurements: Chambers Valvular Assessment AV/MV Valvular Assessment TV/PV Normal Normal Normal Name Value Range Name Value Range Name Value Range Ao Wendi (MM): 4.2 cm (2.2 cm-3.7 AV Vmax: 2.66 m/s (1 m/s-1.7 TR Vmax: 2.74 mm/s ( - ) cm) m/s) TR PGmax: 30 mmHg ( - ) IVSd (2D): 1.0 cm (0.6 cm-1.1 AV maxP mmHg ( - ) syst. PAP: 35 mmHg ( - ) cm) AV meanP mmHg ( - ) PV Vmax: 1.06 m/s (0.6 m/s-0.9 LVDd (2D): 5.5 cm (4.2 cm-5.9 ISAI (VTI): 1.2 cm ( - ) m/s) cm) MV E Vmax: 1.44 m/s ( - ) PV PGmax: 4 mmHg ( - ) LVDs (2D): 3.8 cm (2.1 cm-4 MV A Vmax: 0.45 m/s ( - ) cm) MV E/A: 3.20 ( - ) LVPWd (2D): 1.1 cm (0.6 cm-1 cm) LVOTd 2.0 cm 2.0 cm mm LVEF (2D): 59 (>=54 %) Continued Measurements: Chambers Valvular Assessment AV/MV Valvular Assessment TV/PV Name Value Name Value Name Value LADs Lon.6 cm MV E' Septal: 0.09 m/s CVP (est.): 5 mmHg LA Area: 25.6 cm2 MV E/E' Septal: 16.40 Patient: BLANCA COX Study Date: 09/19/2017 Page 1 of 2 10:16 AM LA Volume: 88 ml MV E/E' Lateral: 16.20 LA Volume Index: 42.3 ml/m2 Findings: Left Ventricle: Normal size left ventricle. No LV hypertrophy. Normal global systolic LV function. EF is 59 %. No regional wall motion abnormality. Diastolic dysfunction is present. . Right Ventricle: Normal size right ventricle. Normal RV function. There is a pacemaker lead noted in the right ventricle. Left Atrium: The left atrium is moderately dilated. Right Atrium: The right atrium is mildly dilated. Mitral Valve: Mild-moderate mitral annular calcification. Aortic Valve: The Ao mean Pg is 17 mmHg With a max PG of 29 mmHg. The Ao Vmax is 2.7 m/sThe aortic valve is a porcine bioprosthesis. No prosthesis stenosis. There is mild to moderate Aortic valve calcification. Tricuspid Valve: The tricuspid valve is normal in appearance and function. There is no significant tricuspid valve regurgitation. Pulmonic Valve: The pulmonic valve is normal in appearance and function. Aorta: Dilated aortic root measuring 4.2 cm. Pericardium: No pericardial effusion. Exam Comments: There is no obvious vegetation noted on the Aortic or mitral valves, consider STEFANIE is clinically indicated. . (No Signature Object) Patient: BLANCA COX Study Date: 09/19/2017 Page 2 of 2 10:16 AM [id number]
--- NOTE | 2017-09-19 11:48 | ECHO ---
[email or web address] [address] [address] Main: [phone] Fax: Transthoracic Echocardiogram Name: BLANCA COX MR#: [id number] Study Date: 09/19/2017 Study Time: 10:16 AM Date of : 1930 Age: 87 year(s) Height: 182.9 cm (72 in.) Weight: 85.28 kg (188 lb.) BSA: 2.08 m2 Gender: Male Examination: Echo Indication: Ao replacement x 2, Last 2000, PNA, Hypoxia, Pacemaker, Bacteremia, Post hernia surgery Image Quality: Contrast: Requested by: Reny Hartley BP: 157 mmHg/78 mmHg Heart Rate: Rhythm: Normal sinus rhythm Indication: Ao replacement x 2, Last 2000, PNA, Hypoxia, Pacemaker, Bacteremia, Post hernia surgery Procedure Staff Twisting Machine Operator: Satish Richter Reading Physician: Tej Perez Requesting Provider: Conclusions: Paced rhythm. Normal left ventricular size and systolic function. LV EF estimated to be 60-65% with normal contractility. Normal right-sided chamber dimensions. Moderate to severely dilated left atrium. Bioprosthetic aortic valve which is well seated. Normal transvalvular hemodynamics. No significant aortic insufficiency. Mitral annular calcification. No significant mitral regurgitation or stenosis. Mildly dilated ascending aorta measuring 4.2 cm with no dissection. Measurements: Chambers Valvular Assessment AV/MV Valvular Assessment TV/PV Normal Normal Normal Name Value Range Name Value Range Name Value Range Ao Wendi (MM): 4.2 cm (2.2 cm-3.7 AV Vmax: 2.66 m/s (1 m/s-1.7 TR Vmax: 2.74 mm/s ( - ) cm) m/s) TR PGmax: 30 mmHg ( - ) IVSd (2D): 1.0 cm (0.6 cm-1.1 AV maxP mmHg ( - ) syst. PAP: 35 mmHg ( - ) cm) AV meanP mmHg ( - ) PV Vmax: 1.06 m/s (0.6 m/s-0.9 LVDd (2D): 5.5 cm (4.2 cm-5.9 ISAI (VTI): 1.2 cm ( - ) m/s) cm) MV E Vmax: 1.44 m/s ( - ) PV PGmax: 4 mmHg ( - ) LVDs (2D): 3.8 cm (2.1 cm-4 MV A Vmax: 0.45 m/s ( - ) cm) MV E/A: 3.20 ( - ) LVPWd (2D): 1.1 cm (0.6 cm-1 cm) LVOTd 2.0 cm 2.0 cm mm LVEF (2D): 59 (>=54 %) Continued Measurements: Chambers Valvular Assessment AV/MV Valvular Assessment TV/PV Name Value Name Value Name Value LADs Lon.6 cm MV E' Septal: 0.09 m/s CVP (est.): 5 mmHg LA Area: 25.6 cm2 MV E/E' Septal: 16.40 Patient: BLANCA COX Study Date: 09/19/2017 Page 1 of 2 10:16 AM LA Volume: 88 ml MV E/E' Lateral: 16.20 LA Volume Index: 42.3 ml/m2 Findings: Left Ventricle: Normal size left ventricle. No LV hypertrophy. Normal global systolic LV function. EF is 59 %. No regional wall motion abnormality. Diastolic dysfunction is present. . Right Ventricle: Normal size right ventricle. Normal RV function. There is a pacemaker lead noted in the right ventricle. Left Atrium: The left atrium is moderately dilated. Right Atrium: The right atrium is mildly dilated. Mitral Valve: Mild-moderate mitral annular calcification. Aortic Valve: The Ao mean Pg is 17 mmHg With a max PG of 29 mmHg. The Ao Vmax is 2.7 m/sThe aortic valve is a porcine bioprosthesis. No prosthesis stenosis. There is mild to moderate Aortic valve calcification. Tricuspid Valve: The tricuspid valve is normal in appearance and function. There is no significant tricuspid valve regurgitation. Pulmonic Valve: The pulmonic valve is normal in appearance and function. Aorta: Dilated aortic root measuring 4.2 cm. Pericardium: No pericardial effusion. Exam Comments: There is no obvious vegetation noted on the Aortic or mitral valves, consider STEFANIE is clinically indicated. . (No Signature Object) Patient: BLANCA COX Study Date: 09/19/2017 Page 2 of 2 10:16 AM [id number]
--- NOTE | 2017-09-19 11:48 | ECHO ---
[email or web address] [address] [address] Main: [phone] Fax: Transthoracic Echocardiogram Name: BLANCA COX MR#: [id number] Study Date: 09/19/2017 Study Time: 10:16 AM Date of : 1930 Age: 87 year(s) Height: 182.9 cm (72 in.) Weight: 85.28 kg (188 lb.) BSA: 2.08 m2 Gender: Male Examination: Echo Indication: Ao replacement x 2, Last 2000, PNA, Hypoxia, Pacemaker, Bacteremia, Post hernia surgery Image Quality: Contrast: Requested by: Reny Hartley BP: 157 mmHg/78 mmHg Heart Rate: Rhythm: Normal sinus rhythm Indication: Ao replacement x 2, Last 2000, PNA, Hypoxia, Pacemaker, Bacteremia, Post hernia surgery Procedure Staff Healthcare Economics Manager: Satish Richter Reading Physician: Tej Perez Requesting Provider: Conclusions: Paced rhythm. Normal left ventricular size and systolic function. LV EF estimated to be 60-65% with normal contractility. Normal right-sided chamber dimensions. Moderate to severely dilated left atrium. Bioprosthetic aortic valve which is well seated. Normal transvalvular hemodynamics. No significant aortic insufficiency. Mitral annular calcification. No significant mitral regurgitation or stenosis. Mildly dilated ascending aorta measuring 4.2 cm with no dissection. Measurements: Chambers Valvular Assessment AV/MV Valvular Assessment TV/PV Normal Normal Normal Name Value Range Name Value Range Name Value Range Ao Wendi (MM): 4.2 cm (2.2 cm-3.7 AV Vmax: 2.66 m/s (1 m/s-1.7 TR Vmax: 2.74 mm/s ( - ) cm) m/s) TR PGmax: 30 mmHg ( - ) IVSd (2D): 1.0 cm (0.6 cm-1.1 AV maxP mmHg ( - ) syst. PAP: 35 mmHg ( - ) cm) AV meanP mmHg ( - ) PV Vmax: 1.06 m/s (0.6 m/s-0.9 LVDd (2D): 5.5 cm (4.2 cm-5.9 IASI (VTI): 1.2 cm ( - ) m/s) cm) MV E Vmax: 1.44 m/s ( - ) PV PGmax: 4 mmHg ( - ) LVDs (2D): 3.8 cm (2.1 cm-4 MV A Vmax: 0.45 m/s ( - ) cm) MV E/A: 3.20 ( - ) LVPWd (2D): 1.1 cm (0.6 cm-1 cm) LVOTd 2.0 cm 2.0 cm mm LVEF (2D): 59 (>=54 %) Continued Measurements: Chambers Valvular Assessment AV/MV Valvular Assessment TV/PV Name Value Name Value Name Value LADs Lon.6 cm MV E' Septal: 0.09 m/s CVP (est.): 5 mmHg LA Area: 25.6 cm2 MV E/E' Septal: 16.40 Patient: BLANCA COX Study Date: 09/19/2017 Page 1 of 2 10:16 AM LA Volume: 88 ml MV E/E' Lateral: 16.20 LA Volume Index: 42.3 ml/m2 Findings: Left Ventricle: Normal size left ventricle. No LV hypertrophy. Normal global systolic LV function. EF is 59 %. No regional wall motion abnormality. Diastolic dysfunction is present. . Right Ventricle: Normal size right ventricle. Normal RV function. There is a pacemaker lead noted in the right ventricle. Left Atrium: The left atrium is moderately dilated. Right Atrium: The right atrium is mildly dilated. Mitral Valve: Mild-moderate mitral annular calcification. Aortic Valve: The Ao mean Pg is 17 mmHg With a max PG of 29 mmHg. The Ao Vmax is 2.7 m/sThe aortic valve is a porcine bioprosthesis. No prosthesis stenosis. There is mild to moderate Aortic valve calcification. Tricuspid Valve: The tricuspid valve is normal in appearance and function. There is no significant tricuspid valve regurgitation. Pulmonic Valve: The pulmonic valve is normal in appearance and function. Aorta: Dilated aortic root measuring 4.2 cm. Pericardium: No pericardial effusion. Exam Comments: There is no obvious vegetation noted on the Aortic or mitral valves, consider STEFANIE is clinically indicated. . (No Signature Object) Patient: BLANCA COX Study Date: 09/19/2017 Page 2 of 2 10:16 AM [id number]
[2017-09-19 12:56] LABS: INR 3.02 (0.83-1.16); PROTIME(PATIENT) 31.7 SEC (12.0-15.0)
--- NOTE | 2017-09-19 13:27 | PDINTPN ---
Rn Manager Progress Note Assessment/Plan: Assessment/plan: 87 M s/p recent incarcerated hernia repair complicated by SBO, discharged to [facility] but returned to hospital same day after complaining of SOB and found to have PNA and hypoxemia. * PNA- presumably HAP and initially treated with Zosyn, changed to Invanz 09/18 after repeat Bcx were still positive. No empyema on CT and echo without vegetations. WBC dropped after abx change. * COPD- he reports this is a new diagnosis within last three years. His smoking history is 2-3 ppd for 30+ years, but quit in the 1970s. He has only used O2 but denies MDIs. No PFT available. Added flutter valve, and steroids dc'd 09/18 * Bacteremia with GNR- repeat culture with Klebsiella and no abscess found on CT. * CHF (EF 55) with AVR, permanent pacer. Remains stable Subjective: Feels better today, though O2 requirement remains high Objective: Vital Signs Temp Pulse Resp BP Pulse Ox 36.8 C 74 15 158/69 H 95 09/19/17 11:46 09/19/17 11:46 09/19/17 11:46 09/19/17 11:46 09/19/17 11:46 Microbiology 09/17/17 11:15 Blood Panel (PCR) - Final Blood Klebsiella Pneumoniae Laboratory Results 09/19/17 06:30 09/19/17 06:30 09/18/17 09/19/17 09/20/17 05:59 05:59 05:59 Intake Total 1290 1241 Output Total 1376 1350 300 Balance -86 -109 -300 PT 31.7 SEC (12.0-15.0) H 09/19/17 12:37 INR 3.02 (0.83-1.16) H 09/19/17 12:37 Physical Exam - Physical Exam General Appearance: alert, no apparent distress EENT: PERRL/EOMI Neck: supple Respiratory: rales (few), No respiratory distress, No accessory muscle use Cardiac/Chest: regular rate, rhythm, No edema Abdomen: non-tender, soft, No organomegaly, No distended Skin: normal color, warm/dry Lymphatic: no adenopathy Extremities: No pedal edema Neuro/Psych: alert, normal mood/affect, oriented x 3 ICD10 Worksheet Patient Problems: Problems Problem Status Onset Acute respiratory failure Acute Pneumonia Acute Abdominal pain Acute Atrial fibrillation Acute Hematoma of chest wall Acute Hematoma of pacemaker pocket Acute Incarcerated right inguinal hernia Acute Small bowel obstruction Acute
[2017-09-19] MEDS: OMEGA-3 FATTY ACIDS 1,000 MG CAP PO SCH ×2 (17:42)
[2017-09-19] MEDS: TAMSULOSIN HCL 0.4 MG CAP PO SCH ×2 (19:56)
[2017-09-19] MEDS: FINASTERIDE 5 MG TAB PO SCH ×2 (19:56)
[2017-09-19] MEDS: MELATONIN 3 MG TAB PO SCH ×2 (19:56)
[2017-09-20] MEDS: METOCLOPRAMIDE 10 MG/2 ML VIAL IVP SCH ×8 (05:04→18:12)
[2017-09-20 06:05] LABS: PLATELET COUNT 279 10^3/uL (150-400)
[2017-09-20 06:13] LABS: INR 2.46 (0.83-1.16); PROTIME(PATIENT) 26.9 SEC (12.0-15.0)
[2017-09-20] MEDS: PANTOPRAZOLE SODIUM 40 MG TAB PO SCH ×2 (08:34)
[2017-09-20] MEDS: ERTAPENEM 1 GM in NS 100 ML IV SCH (08:34)
[2017-09-20] MEDS: FUROSEMIDE 40 MG/4 ML VIAL IVP SCH ×2 (08:36)
[2017-09-20] MEDS: CEPACOL LOZENGE PO PRN ×2 (09:21)
[2017-09-20] MEDS: SENNOSIDES/DOCUSATE SODIUM TAB PO SCH ×4 (10:06→20:35)
--- NOTE | 2017-09-20 11:09 | HOSPPROG ---
Hospitalist Progress Note Assessment/Plan: # acute on chronic hypoxic resp failure - multifactorial, pulm edema and pna; slow improvement - cont abx and diuresis - 3L O2 baseline, currently on oxymask # aspiration pna - invanz changed to unasyn today # sepsis, POA - source bacteremia; resolved - no pressors # polymicrobial bacteremia, bacteroides initially, and then klebsiella while on zosyn - source possibly pna but very abnormal; no clear source from CT abd; also has AAA and thoracic aneurysm - cont unasyn # recent inguinal hernia repair, c/p SBO s/p KIESHA # COPD/chronic resp failure - 3L O2 baseline # a-fib s/p ppm - restart warf at 3mg # mild CHF, suspect diastolic (EF 55%) - some vol overload, cont lasix # AAA repair # SHAY # BPH - flomax/proscar # RLS - requip Subjective: still coughing, difficulty bringing up sputum Objective: Vital Signs Temp Pulse Resp BP Pulse Ox 37.4 C 89 19 128/65 H 98 09/20/17 07:43 09/20/17 09:00 09/20/17 09:00 09/20/17 07:43 09/20/17 09:00 Microbiology 09/17/17 11:15 Blood Panel (PCR) - Final Blood Klebsiella Pneumoniae Laboratory Results 09/20/17 05:53 09/20/17 05:53 09/19/17 09/20/17 09/21/17 05:59 05:59 05:59 Intake Total 1241 200 Output Total 1350 550 Balance -109 -350 PT 26.9 SEC (12.0-15.0) H 09/20/17 05:53 INR 2.46 (0.83-1.16) H 09/20/17 05:53 echo reviewed discussed with Dr Almanza on ICU rounds - Physical Exam Constitutional: unkempt Cardiovascular: regular rate and rhythym, no murmur, rub, or gallop Respiratory: inspiratory crackles, respiratory distress (mild), No reduced air movement Gastrointestinal: normoactive bowel sounds, soft, non-tender abdomen, no palpable masses ICD10 Worksheet Patient Problems: Problems Problem Status Onset Hematoma of chest wall Acute Hematoma of pacemaker pocket Acute Atrial fibrillation Acute Small bowel obstruction Acute Abdominal pain Acute Incarcerated right inguinal hernia Acute Acute respiratory failure Acute Pneumonia Acute
[2017-09-20] MEDS: ASPIRIN 81 MG CHEWABLE TAB PO SCH ×2 (11:14)
[2017-09-20] MEDS: CETIRIZINE 10 MG TAB PO SCH ×2 (11:14)
[2017-09-20] MEDS: ASCORBIC ACID 500 MG TAB PO SCH ×2 (11:14)
[2017-09-20] MEDS: CHOLECALCIFEROL VIT D3 1,000 UNITS TAB PO SCH ×2 (11:14)
[2017-09-20] MEDS: MULTIVITAMINS 1 EACH TAB PO SCH ×2 (11:14)
[2017-09-20] MEDS: guaiFENesin 600 MG TAB.ER PO SCH ×4 (11:23→20:35)
--- NOTE | 2017-09-20 12:54 | PDINTPN ---
Valet Cashier Progress Note Assessment/Plan: Assessment/plan: 87 M s/p recent incarcerated hernia repair complicated by SBO, discharged to [facility] but returned to hospital same day after complaining of SOB and found to have PNA and hypoxemia. * PNA- presumably HAP and initially treated with Zosyn, changed to Invanz 09/18 after repeat Bcx were still positive. No empyema on CT and echo without vegetations. WBC dropped after abx change. Changed again to Unasyn per ID recommendations 09/20/17 with slight increase in wbc today. . * COPD- he reports this is a new diagnosis within last three years. His smoking history is 2-3 ppd for 30+ years, but quit in the 1970's. He has only used O2 but denies MDIs. No PFT available. Added flutter valve, and steroids dc'd . Continue titration of vapotherm to NC as tolerated. * Bacteremia with GNR- repeat culture with Klebsiella (previously Bacteroides) and no abscess found on CT. GI translocation? * CHF (EF 55) with AVR, permanent pacer. Remains stable 09/20/17 12:50 Subjective: Continued slow improvement Objective: Vital Signs Temp Pulse Resp BP Pulse Ox 37.2 C 75 23 H 129/53 H 96 09/20/17 12:00 09/20/17 12:00 09/20/17 12:00 09/20/17 12:00 09/20/17 12:00 Microbiology 09/17/17 11:15 Blood Panel (PCR) - Final Blood Klebsiella Pneumoniae Laboratory Results 09/20/17 05:53 09/20/17 05:53 09/19/17 09/20/17 09/21/17 05:59 05:59 05:59 Intake Total 1241 200 Output Total 1350 550 Balance -109 -350 PT 26.9 SEC (12.0-15.0) H 09/20/17 05:53 INR 2.46 (0.83-1.16) H 09/20/17 05:53 Physical Exam - Physical Exam General Appearance: alert, no apparent distress EENT: PERRL/EOMI Neck: supple Respiratory: lungs clear, No respiratory distress, No accessory muscle use Cardiac/Chest: regular rate, rhythm, No edema Abdomen: non-tender, soft, No distended Skin: normal color, warm/dry Lymphatic: no adenopathy Extremities: No pedal edema Neuro/Psych: alert, normal mood/affect, oriented x 3 ICD10 Worksheet Patient Problems: Problems Problem Status Onset Acute respiratory failure Acute Pneumonia Acute Abdominal pain Acute Atrial fibrillation Acute Hematoma of chest wall Acute Hematoma of pacemaker pocket Acute Incarcerated right inguinal hernia Acute Small bowel obstruction Acute
[2017-09-20] MEDS ORDERED: WARFARIN SODIUM 3 MG TAB PO ONE ×2 (16:00)
[2017-09-20] MEDS ORDERED: WARFARIN SODIUM 2 MG TAB PO ONE ×2 (16:00)
--- NOTE | 2017-09-20 17:25 | PCMIDPN ---
Assessment/Plan: Assessment/Plan: * Polymicrobial bacteremia with growth of Klebsiella pneumoniae and Bacteroides : Unusual to see this with aspiration pneumonia although CT scan shows severe diffuse pneumonia. CT abdomen pelvis reviewed with small amount of fluid in right inguinal region possibly. Will evaluate this further with ultrasound as infected hematoma would be potential origin for polymicrobial bacteremia-however , patient without significant clinical findings other than ecchymosis. Will transition ertapenem to Unasyn based on Klebsiella susceptibilities with Bacteroides covered by presence of beta lactamase inhibitor. 09/20/17 17:21 Subjective: Patient complains of dyspnea. Persistent cough. Objective: Vital Signs Temp Pulse Resp BP Pulse Ox 37.2 C 82 34 H 137/56 H 92 09/20/17 12:00 09/20/17 16:00 09/20/17 16:00 09/20/17 16:00 09/20/17 16:00 Microbiology 09/17/17 11:15 Blood Panel (PCR) - Final Blood Klebsiella Pneumoniae Laboratory Results 09/20/17 05:53 09/20/17 05:53 09/19/17 09/20/17 09/21/17 05:59 05:59 05:59 Intake Total 1241 200 Output Total 1076 788 0182 Balance -109 -350 -1100 Ertapenem # 3 Klebsiella isolate resistant to ampicillin, otherwise park susceptible Blood cultures 09/19/2017 pending - Physical Exam General Appearance: alert, non-toxic EENT: No scleral icterus, No thrush Respiratory: coarse breath sounds, other (Mild increase in respiratory effort) Cardiac/Chest: other (Pacemaker site nontender without erythema) Abdomen: non-tender, other (Staple line mid abdomen intact without erythema or drainage; kirsty intact in right inguinal region with adjacent ecchymosis but no tenderness or drainage), No distended ICD10 Worksheet Patient Problems: Problems Problem Status Onset Acute respiratory failure Acute Pneumonia Acute Abdominal pain Acute Atrial fibrillation Acute Hematoma of chest wall Acute Hematoma of pacemaker pocket Acute Incarcerated right inguinal hernia Acute Small bowel obstruction Acute
[2017-09-20] MEDS: OMEGA-3 FATTY ACIDS 1,000 MG CAP PO SCH ×2 (18:15)
[2017-09-20] MEDS: FINASTERIDE 5 MG TAB PO SCH ×2 (20:34)
[2017-09-20] MEDS: MELATONIN 3 MG TAB PO SCH ×2 (20:35)
[2017-09-20] MEDS: TAMSULOSIN HCL 0.4 MG CAP PO SCH ×2 (20:35)
[2017-09-21] MEDS: METOCLOPRAMIDE 10 MG/2 ML VIAL IVP SCH ×10 (01:59→23:55)
[2017-09-21] MEDS ORDERED: PROTOCOL POTASSIUM 1 DOSE MISC PRN ×2 (05:16)
[2017-09-21 05:39] LABS: INR 2.04 (0.83-1.16); PROTIME(PATIENT) 23.2 SEC (12.0-15.0)
[2017-09-21] MEDS: AMPICILLIN/SULBACTAM 3 GM in NS 100 ML IV SCH ×4 (05:43→23:55)
[2017-09-21 05:44] LABS: PLATELET COUNT 252 10^3/uL (150-400)
[2017-09-21] MEDS ORDERED: POTASSIUM CL 10 MEQ TAB PO ONE ×6 (06:00→19:41)
[2017-09-21] MEDS ORDERED: POTASSIUM CL 20 MEQ/15 ML UDCUP PO ONE ×2 (06:30)
[2017-09-21] MEDS: CETIRIZINE 10 MG TAB PO SCH ×2 (09:11)
[2017-09-21] MEDS: PANTOPRAZOLE SODIUM 40 MG TAB PO SCH ×2 (09:12)
[2017-09-21] MEDS: ASPIRIN 81 MG CHEWABLE TAB PO SCH ×2 (09:12)
[2017-09-21] MEDS: CHOLECALCIFEROL VIT D3 1,000 UNITS TAB PO SCH ×2 (09:13)
[2017-09-21] MEDS: SENNOSIDES/DOCUSATE SODIUM TAB PO SCH ×4 (09:13→21:36)
[2017-09-21] MEDS: MULTIVITAMINS 1 EACH TAB PO SCH ×2 (09:13)
[2017-09-21] MEDS: ASCORBIC ACID 500 MG TAB PO SCH ×2 (09:14)
[2017-09-21] MEDS: guaiFENesin 600 MG TAB.ER PO SCH ×4 (09:16→21:36)
[2017-09-21] MEDS ORDERED: POTASSIUM CL 20 MEQ TAB PO ONE ×2 (11:36)
[2017-09-21] MEDS: FUROSEMIDE 40 MG/4 ML VIAL IVP SCH ×2 (11:39)
[2017-09-21] MEDS: POTASSIUM Cl (KCl) 100 ML IV SCH ×4 (11:48→15:46)
--- NOTE | 2017-09-21 12:21 | PCMIDPN ---
Assessment/Plan: 1. Polymicrobial bacteremia with Klebsiella pneumoniae and Bacteroides: Agree with my colleagues that this is a confusing picture, as anaerobic bacteremia is unusual with an aspiration pneumonia. The patient has had an extensive evaluation, that includes no obvious intra-abdominal source. Patient' s inguinal hernia repair site is notable for a significant hematoma, but no obvious evidence of secondary infection clinically. I would prefer not to surgically manipulate this area presently given clinical stability and improvement. Continue Unasyn. Repeat blood cultures are sterile. 2. Aspiration pneumonia: His oxygenation is improved, as is his white blood cell count. Continue Unasyn as above. Subjective: " I feel like I am getting stronger." Still coughing. Constipated. No shaking chills. Abdominal ultrasound performed reveals bilobed collection right inguinal area that looks consistent with a hematoma. Objective: Unasyn 3 g IV q.6 hours day 1. (antibiotics day 6) T-max 37.4 Vital Signs Temp Pulse Resp BP Pulse Ox 37.0 C 80 27 H 141/59 H 92 09/21/17 08:00 09/21/17 08:00 09/21/17 08:00 09/21/17 08:00 09/21/17 08:00 Laboratory Results 09/21/17 05:01 09/21/17 10:55 09/20/17 09/21/17 09/22/17 05:59 05:59 05:59 Intake Total 200 1050 Output Total 550 1400 Balance -350 -350 Blood cultures on September 1712/23 bottles with Klebsiella pneumoniae Blood cultures September 15 with Klebsiella pneumoniae and B.ovatus September 19 blood cultures no growth so far - Physical Exam General Appearance: alert, no apparent distress EENT: pharynx normal, No thrush Respiratory: coarse breath sounds, other Cardiac/Chest: regular rate, rhythm, other (Pacer generator left upper chest without erythema or tenderness.) Abdomen: non-tender, soft, other (Midline abdominal incision looks fine with kirsty in place. No erythema or drainage. No significant tenderness to palpation. Right inguinal area notable for a large hematoma at the surgical site, and across his suprapubic region. No erythema or tenderness.) Skin: No rash ICD10 Worksheet Patient Problems: Problems Problem Status Onset Acute respiratory failure Acute Pneumonia Acute Abdominal pain Acute Atrial fibrillation Acute Hematoma of chest wall Acute Hematoma of pacemaker pocket Acute Incarcerated right inguinal hernia Acute Small bowel obstruction Acute
--- NOTE | 2017-09-21 12:41 | HOSPPROG ---
Hospitalist Progress Note Assessment/Plan: # acute on chronic hypoxic resp failure - multifactorial, pulm edema and pna; continued slow improvement - cont abx and diuresis - 3L O2 baseline, currently on 4L # aspiration pna - cont unasyn today # hypoK - likely d/t lasix; aggressive repletion today # sepsis, POA - source bacteremia; resolved - no pressors # polymicrobial bacteremia, bacteroides initially, and then klebsiella while on zosyn - source possibly pna but very abnormal; no clear source from CT abd; also has AAA and thoracic aneurysm - cont unasyn # recent inguinal hernia repair, c/p SBO s/p KIESHA # COPD/chronic resp failure - 3L O2 baseline # a-fib s/p ppm - cont warf at 2mg # mild CHF, suspect diastolic (EF 55%) - some vol overload, cont lasix # AAA repair # SHAY # BPH - flomax/proscar # RLS - requip # dispo - med surg Subjective: sleeping; no new complaints Objective: Vital Signs Temp Pulse Resp BP Pulse Ox 37.0 C 80 27 H 141/59 H 92 09/21/17 08:00 09/21/17 08:00 09/21/17 08:00 09/21/17 08:00 09/21/17 08:00 Laboratory Results 09/21/17 05:01 09/21/17 10:55 09/20/17 09/21/17 09/22/17 05:59 05:59 05:59 Intake Total 200 1050 Output Total 550 1400 Balance -350 -350 PT 23.2 SEC (12.0-15.0) H 09/21/17 05:01 INR 2.04 (0.83-1.16) H 09/21/17 05:01 US reviewed discussed with Dr Colunga - Physical Exam Constitutional: no apparent distress, appears nourished Cardiovascular: regular rate and rhythym, no murmur, rub, or gallop Respiratory: no respiratory distress, no rales or rhonchi, clear to auscultation Gastrointestinal: normoactive bowel sounds, soft, non-tender abdomen, no palpable masses ICD10 Worksheet Patient Problems: Problems Problem Status Onset Hematoma of chest wall Acute Hematoma of pacemaker pocket Acute Atrial fibrillation Acute Small bowel obstruction Acute Abdominal pain Acute Incarcerated right inguinal hernia Acute Acute respiratory failure Acute Pneumonia Acute
--- NOTE | 2017-09-21 15:12 | ASMTCMCOM ---
CM Note CM Note Notes: Patient transferring to Med-surg status. I spoke to his son Scott about discharge planning; they are still hopeful for a bed at [facility] (patient was there briefly before admission) and have chosen [facility] as a second option. I explained that when we have a better idea of d/c date, we will contact the SNFs for bed availability. Current discharge plan: SNF: [facility] or [facility] Date Signed: 09/21/2017 03:11 PM Electronically Signed By:Lisa Mcclelland RN
--- NOTE | 2017-09-21 15:12 | ASMTCMCOM ---
CM Note CM Note Notes: Patient transferring to Med-surg status. I spoke to his son Scott about discharge planning; they are still hopeful for a bed at [facility] (patient was there briefly before admission) and have chosen [facility] as a second option. I explained that when we have a better idea of d/c date, we will contact the SNFs for bed availability. Current discharge plan: SNF: [facility] or [facility] Date Signed: 09/21/2017 03:11 PM Electronically Signed By:Lisa Mcclelland RN
--- NOTE | 2017-09-21 15:12 | ASMTCMCOM ---
CM Note CM Note Notes: Patient transferring to Med-surg status. I spoke to his son Scott about discharge planning; they are still hopeful for a bed at [facility] (patient was there briefly before admission) and have chosen [facility] as a second option. I explained that when we have a better idea of d/c date, we will contact the SNFs for bed availability. Current discharge plan: SNF: [facility] or [facility] Date Signed: 09/21/2017 03:11 PM Electronically Signed By:Lisa Mcclelland RN
[2017-09-21] MEDS: WARFARIN SODIUM 2 MG TAB PO SCH ×2 (15:51)
[2017-09-21] MEDS: OMEGA-3 FATTY ACIDS 1,000 MG CAP PO SCH ×2 (18:09)
[2017-09-21] MEDS: FINASTERIDE 5 MG TAB PO SCH ×2 (21:30)
[2017-09-21] MEDS: TAMSULOSIN HCL 0.4 MG CAP PO SCH ×2 (21:31)
[2017-09-21] MEDS: MELATONIN 3 MG TAB PO SCH ×2 (21:36)
[2017-09-22 04:46] LABS: PLATELET COUNT 261 10^3/uL (150-400)
[2017-09-22] MEDS: AMPICILLIN/SULBACTAM 3 GM in NS 100 ML IV SCH ×3 (06:03→16:54)
[2017-09-22] MEDS: METOCLOPRAMIDE 10 MG/2 ML VIAL IVP SCH ×8 (06:04→23:23)
[2017-09-22 06:16] LABS: INR 2.13 (0.83-1.16)
[2017-09-22] MEDS ORDERED: POTASSIUM CL 10 MEQ TAB PO ONE ×2 (07:58)
--- NOTE | 2017-09-22 08:39 | HOSPPROG ---
Hospitalist Progress Note Assessment/Plan: # acute on chronic hypoxic resp failure - multifactorial, pulm edema and pna; continued slow improvement - cont abx and diuresis - 3L O2 baseline, currently on 4L # aspiration pna - cont unasyn # hypoK - likely d/t lasix; better after repletion # sepsis, POA - source bacteremia; resolved - no pressors # polymicrobial bacteremia, bacteroides initially, and then klebsiella while on zosyn - source possibly pna but very abnormal; no clear source from CT abd; also has AAA and thoracic aneurysm - cont unasyn # recent inguinal hernia repair, c/p SBO s/p KIESHA # COPD/chronic resp failure - 3L O2 baseline # a-fib s/p ppm - cont warf at 2mg; INR therapeutic # mild CHF, suspect diastolic (EF 55%) - euvolemic # AAA repair # SHAY # BPH - flomax/proscar # RLS - requip # dispo - getting close to dc Subjective: feels better; had small BM Objective: Vital Signs Temp Pulse Resp BP Pulse Ox 36.3 C 76 14 128/60 H 98 09/22/17 07:49 09/22/17 07:49 09/22/17 07:49 09/22/17 07:49 09/22/17 07:49 Laboratory Results 09/22/17 04:28 09/22/17 04:28 09/21/17 09/22/17 09/23/17 05:59 05:59 04:59 Intake Total 1050 295 Output Total 1400 300 Balance -350 -5 PT 24.0 SEC (12.0-15.0) H 09/22/17 04:28 INR 2.13 (0.83-1.16) H 09/22/17 04:28 - Physical Exam Constitutional: no apparent distress, appears nourished Cardiovascular: regular rate and rhythym, systolic murmur, No irregularly irregular, No diastolic murmur Respiratory: no respiratory distress, inspiratory crackles (bilat bases), No reduced air movement, No expiratory wheeze ICD10 Worksheet Patient Problems: Problems Problem Status Onset Hematoma of chest wall Acute Hematoma of pacemaker pocket Acute Atrial fibrillation Acute Small bowel obstruction Acute Abdominal pain Acute Incarcerated right inguinal hernia Acute Acute respiratory failure Acute Pneumonia Acute
[2017-09-22] MEDS: guaiFENesin 600 MG TAB.ER PO SCH ×4 (08:50→20:28)
[2017-09-22] MEDS: CHOLECALCIFEROL VIT D3 1,000 UNITS TAB PO SCH ×2 (08:51)
[2017-09-22] MEDS: ASPIRIN 81 MG CHEWABLE TAB PO SCH ×2 (08:51)
[2017-09-22] MEDS: PANTOPRAZOLE SODIUM 40 MG TAB PO SCH ×2 (08:51)
[2017-09-22] MEDS: ASCORBIC ACID 500 MG TAB PO SCH ×2 (08:51)
[2017-09-22] MEDS: MULTIVITAMINS 1 EACH TAB PO SCH ×2 (08:51)
[2017-09-22] MEDS: CETIRIZINE 10 MG TAB PO SCH ×2 (08:51)
[2017-09-22] MEDS: SENNOSIDES/DOCUSATE SODIUM TAB PO SCH ×4 (09:04→20:29)
[2017-09-22] MEDS ORDERED: ALTEPLASE 2 MG VIAL IVP PRN ×2 (10:20)
--- NOTE | 2017-09-22 10:24 | PCMIDPN ---
Assessment/Plan: 1. Polymicrobial bacteremia with Klebsiella pneumoniae and Bacteroides: Agree with my colleagues that this is a confusing picture, as anaerobic bacteremia is unusual with an aspiration pneumonia. The patient has had an extensive evaluation, that includes no obvious intra-abdominal source. Patient' s inguinal hernia repair site is notable for a significant hematoma, but no obvious evidence of secondary infection clinically. I would prefer not to surgically manipulate this area presently given clinical stability and improvement. Continue Unasyn. Stop date October 03. Needs another 11 days of therapy. Have ordered PICC line, and talked patient about this. He is in agreement. Will also fill out transfer of care summary as he will likely be discharged in the next 24-48 hours. 2. Aspiration pneumonia: His oxygenation is improved, as is his white blood cell count. Continue Unasyn as above. 09/22/17 10:21 Subjective: Feels much better today. Getting stronger every day. About take a shower. No abdominal pain, nausea vomiting or diarrhea. States that his cough has improved. Objective: Unasyn 3 g IV q.6 hours day 2 (antibiotics day 7) T-max 37.2degrees Vital Signs Temp Pulse Resp BP Pulse Ox 36.3 C 76 14 128/60 H 98 09/22/17 07:49 09/22/17 07:49 09/22/17 07:49 09/22/17 07:49 09/22/17 07:49 Laboratory Results 09/22/17 04:28 09/22/17 04:28 09/21/17 09/22/17 09/23/17 05:59 05:59 04:59 Intake Total 1050 295 Output Total 1400 300 Balance -350 -5 September 19 blood cultures are sterile - Physical Exam General Appearance: alert, no apparent distress EENT: pharynx normal, No thrush Respiratory: lungs clear Cardiac/Chest: irregularly irregular Abdomen: non-tender, soft, other (Incision with kirsty in place. Inguinal region on the right with kirsty in place. Large hematoma suprapubically. Unchanged.) Skin: No rash ICD10 Worksheet Patient Problems: Problems Problem Status Onset Acute respiratory failure Acute Pneumonia Acute Abdominal pain Acute Atrial fibrillation Acute Hematoma of chest wall Acute Hematoma of pacemaker pocket Acute Incarcerated right inguinal hernia Acute Small bowel obstruction Acute
--- NOTE | 2017-09-22 10:26 | PDIAF ---
- Diagnosis Diagnosis: Aspiration pneumonia/sepsis Code Status: Full Code - Medication Management Discharge Medications: Medications to Continue on Transfer Carvedilol [Coreg (*)] 3.125 mg PO BIDMEAL 11/25/14 [Last Taken 09/14/17] Pantoprazole Sodium [Protonix 40mg (*)] 40 mg PO DAILY 11/25/14 [Last Taken ] Polyethylene Glycol 3350 [Miralax 17 gm (*)] 17 gm PO DAILY 11/25/14 [Last Taken 09/14/17] Tamsulosin HCl [Flomax 0.4 MG (*)] 0.4 mg PO HS 11/25/14 [Last Taken 09/14/17] Warfarin Sodium [Coumadin 4MG (*)] 4 mg PO DAILY@16 11/25/14 [Last Taken ] [place]-3 Fatty Acids [Fish Oil 1000 mg (*)] 1,000 mg PO DAILY18 11/29/14 [Last Taken 09/14/17] Finasteride [Proscar 5 MG (*)] 5 mg PO HS 11/25/15 [Last Taken 09/14/17] rOPINIRole HCL [Requip 1mg (*)] 1 mg PO TID 11/25/15 [Last Taken 09/14/17] Ascorbic Acid [Vitamin C 500 mg (*)] 500 mg PO DAILY 09/01/17 [Last Taken ] Aspirin [Aspirin 81mg (*)] 81 mg PO DAILY 09/01/17 [Last Taken 09/14/17] Cholecalciferol Vit D3 [Vitamin D3 (*)] 1,000 units PO DAILY 09/01/17 [Last Taken 09/14/17] Multivitamins [Multivitamin (*)] 1 tab PO DAILY 09/01/17 [Last Taken 09/14/17] Cetirizine [ZyrTEC 10 mg (*)] 10 mg PO DAILY tab 09/14/17 [Last Taken 09/14/17] traMADol [Ultram 50 mg (*)] 50 mg PO Q6HRS PRN tab 09/14/17 [Last Taken Unknown ] Ipratropium/Albuterol [Duoneb (*)] 3 ml IH BID 09/15/17 [Last Taken 09/14/17] Sennosides/Docusate Sodium [Senna-Docusate Sodium Tablet] 1 each PO BID [Last Taken 09/14/17] Sennosides/Docusate Sodium [Senna-Docusate Sodium Tablet] 1 each PO BID PRN [Last Taken Unknown] Shelter Antibiotics: Unasyn 3 g IV q.6 hours Shelter Antibiotic Stop Date: 10/03/17 Discharge Medications: Refer to the Discharge Home Medication list for PRN reason. PICC Care - Routine: Yes - Orders Diet Texture: Regular Texture Diet, Thin Liquids, Meds Whole in Puree - Labs/Radiology CBC w/diff Date: 09/25/17 (Fax to Dr. Rosenbaum [phone]) CMP Date: 09/25/17 (Fax to Dr. Rosenbaum [phone]) - Follow Up Care Current Providers and Referrals: Patient,NotPresent [Unknown] - As per Instructions Zoltan Rosenbaum MD [Medical Doctor] - (We will arrange for follow-up in the next 7 -10 days at our clinic.)
--- NOTE | 2017-09-22 10:26 | PDIAF ---
- Diagnosis Diagnosis: Aspiration pneumonia/sepsis Code Status: Full Code - Medication Management Discharge Medications: Medications to Continue on Transfer Carvedilol [Coreg (*)] 3.125 mg PO BIDMEAL 11/25/14 [Last Taken 09/14/17] Pantoprazole Sodium [Protonix 40mg (*)] 40 mg PO DAILY 11/25/14 [Last Taken ] Polyethylene Glycol 3350 [Miralax 17 gm (*)] 17 gm PO DAILY 11/25/14 [Last Taken 09/14/17] Tamsulosin HCl [Flomax 0.4 MG (*)] 0.4 mg PO HS 11/25/14 [Last Taken 09/14/17] Warfarin Sodium [Coumadin 4MG (*)] 4 mg PO DAILY@16 11/25/14 [Last Taken ] [place]-3 Fatty Acids [Fish Oil 1000 mg (*)] 1,000 mg PO DAILY18 11/29/14 [Last Taken 09/14/17] Finasteride [Proscar 5 MG (*)] 5 mg PO HS 11/25/15 [Last Taken 09/14/17] rOPINIRole HCL [Requip 1mg (*)] 1 mg PO TID 11/25/15 [Last Taken 09/14/17] Ascorbic Acid [Vitamin C 500 mg (*)] 500 mg PO DAILY 09/01/17 [Last Taken ] Aspirin [Aspirin 81mg (*)] 81 mg PO DAILY 09/01/17 [Last Taken 09/14/17] Cholecalciferol Vit D3 [Vitamin D3 (*)] 1,000 units PO DAILY 09/01/17 [Last Taken 09/14/17] Multivitamins [Multivitamin (*)] 1 tab PO DAILY 09/01/17 [Last Taken 09/14/17] Cetirizine [ZyrTEC 10 mg (*)] 10 mg PO DAILY tab 09/14/17 [Last Taken 09/14/17] traMADol [Ultram 50 mg (*)] 50 mg PO Q6HRS PRN tab 09/14/17 [Last Taken Unknown ] Ipratropium/Albuterol [Duoneb (*)] 3 ml IH BID 09/15/17 [Last Taken 09/14/17] Sennosides/Docusate Sodium [Senna-Docusate Sodium Tablet] 1 each PO BID [Last Taken 09/14/17] Sennosides/Docusate Sodium [Senna-Docusate Sodium Tablet] 1 each PO BID PRN [Last Taken Unknown] [facility] Antibiotics: Unasyn 3 g IV q.6 hours [facility] Antibiotic Stop Date: 10/03/17 Discharge Medications: Refer to the Discharge Home Medication list for PRN reason. PICC Care - Routine: Yes - Orders Diet Texture: Regular Texture Diet, Thin Liquids, Meds Whole in Puree - Labs/Radiology CBC w/diff Date: 09/25/17 (Fax to Dr. Rosenbaum [phone]) CMP Date: 09/25/17 (Fax to Dr. Rosenbaum ) - Follow Up Care Current Providers and Referrals: Patient,NotPresent [Unknown] - As per Instructions Zoltan Rosenbaum MD [Medical Doctor] - (We will arrange for follow-up in the next 7 -10 days at our clinic.)
--- NOTE | 2017-09-22 10:26 | PDIAF ---
- Diagnosis Diagnosis: Aspiration pneumonia/sepsis Code Status: Full Code - Medication Management Discharge Medications: Medications to Continue on Transfer Carvedilol [Coreg (*)] 3.125 mg PO BIDMEAL 11/25/14 [Last Taken 09/14/17] Pantoprazole Sodium [Protonix 40mg (*)] 40 mg PO DAILY 11/25/14 [Last Taken ] Polyethylene Glycol 3350 [Miralax 17 gm (*)] 17 gm PO DAILY 11/25/14 [Last Taken 09/14/17] Tamsulosin HCl [Flomax 0.4 MG (*)] 0.4 mg PO HS 11/25/14 [Last Taken 09/14/17] Warfarin Sodium [Coumadin 4MG (*)] 4 mg PO DAILY@16 11/25/14 [Last Taken ] [place]-3 Fatty Acids [Fish Oil 1000 mg (*)] 1,000 mg PO DAILY18 11/29/14 [Last Taken 09/14/17] Finasteride [Proscar 5 MG (*)] 5 mg PO HS 11/25/15 [Last Taken 09/14/17] rOPINIRole HCL [Requip 1mg (*)] 1 mg PO TID 11/25/15 [Last Taken 09/14/17] Ascorbic Acid [Vitamin C 500 mg (*)] 500 mg PO DAILY 09/01/17 [Last Taken ] Aspirin [Aspirin 81mg (*)] 81 mg PO DAILY 09/01/17 [Last Taken 09/14/17] Cholecalciferol Vit D3 [Vitamin D3 (*)] 1,000 units PO DAILY 09/01/17 [Last Taken 09/14/17] Multivitamins [Multivitamin (*)] 1 tab PO DAILY 09/01/17 [Last Taken 09/14/17] Cetirizine [ZyrTEC 10 mg (*)] 10 mg PO DAILY tab 09/14/17 [Last Taken 09/14/17] traMADol [Ultram 50 mg (*)] 50 mg PO Q6HRS PRN tab 09/14/17 [Last Taken Unknown ] Ipratropium/Albuterol [Duoneb (*)] 3 ml IH BID 09/15/17 [Last Taken 09/14/17] Sennosides/Docusate Sodium [Senna-Docusate Sodium Tablet] 1 each PO BID [Last Taken 09/14/17] Sennosides/Docusate Sodium [Senna-Docusate Sodium Tablet] 1 each PO BID PRN [Last Taken Unknown] Residential Antibiotics: Unasyn 3 g IV q.6 hours Residential Antibiotic Stop Date: 10/03/17 Discharge Medications: Refer to the Discharge Home Medication list for PRN reason. PICC Care - Routine: Yes - Orders Diet Texture: Regular Texture Diet, Thin Liquids, Meds Whole in Puree - Labs/Radiology CBC w/diff Date: 09/25/17 (Fax to Dr. Rosenbaum [phone]) CMP Date: 09/25/17 (Fax to Dr. Rosenbaum [phone]) - Follow Up Care Current Providers and Referrals: Patient,NotPresent [Unknown] - As per Instructions Zoltan Rosenbaum MD [Medical Doctor] - (We will arrange for follow-up in the next 7 -10 days at our clinic.)
[2017-09-22] MEDS: POLYETHYLENE GLYCOL 3350 17 GM PKT PO SCH ×2 (11:35)
[2017-09-22 15:27] VITALS: PULSE 70
--- NOTE | 2017-09-22 16:38 | ASMTCMCOM ---
CM Note CM Note Notes: Reviewed chart for discharge plan, pt's progress. Per MD notes, pt will likely be ready for discharge 09/23/17. Per ID, pt will require 6 wks of IV antibiotics - Unasyn 3 g IV every 6 hrs. Call placed to [facility]. Per [facility], able to accept pt back, will have a bed available Sunday. Updates manually faxed at [facility] request (per [facility] "[employer] isn't working"); confirmed receipt. Update provided to TAVARES Ravi. CM will cont to follow. Date Signed: 09/22/2017 04:37 PM Electronically Signed By:Lay Tsang RN
--- NOTE | 2017-09-22 16:38 | ASMTCMCOM ---
CM Note CM Note Notes: Reviewed chart for discharge plan, pt's progress. Per MD notes, pt will likely be ready for discharge 09/23/17. Per ID, pt will require 6 wks of IV antibiotics - Unasyn 3 g IV every 6 hrs. Call placed to [facility]. Per [facility], able to accept pt back, will have a bed available Sunday. Updates manually faxed at [facility] (per [facility] "[employer] isn't working"); confirmed receipt. Update provided to TAVARES Ravi. CM will cont to follow. Date Signed: 09/22/2017 04:37 PM Electronically Signed By:Lay Tsang RN
--- NOTE | 2017-09-22 16:38 | ASMTCMCOM ---
CM Note CM Note Notes: Reviewed chart for discharge plan, pt's progress. Per MD notes, pt will likely be ready for discharge 09/23/17. Per ID, pt will require 6 wks of IV antibiotics - Unasyn 3 g IV every 6 hrs. Call placed to [facility] at [facility]. Per [facility], able to accept pt back, will have a bed available Sunday. Updates manually fax[facility] (per [facility] "[employer] isn't working"); confirmed receipt. Update provided to TAVARES Ravi. CM will cont to follow. Date Signed: 09/22/2017 04:37 PM Electronically Signed By:Lay Tsang RN
[2017-09-22] MEDS: OMEGA-3 FATTY ACIDS 1,000 MG CAP PO SCH ×2 (16:40)
[2017-09-22] MEDS: WARFARIN SODIUM 2 MG TAB PO SCH ×2 (16:54)
[2017-09-22] MEDS: FINASTERIDE 5 MG TAB PO SCH ×2 (20:16)
[2017-09-22] MEDS: TAMSULOSIN HCL 0.4 MG CAP PO SCH ×2 (20:16)
[2017-09-22] MEDS: MELATONIN 3 MG TAB PO SCH ×2 (20:16)
[2017-09-22] MEDS: POTASSIUM Cl (KCl) 100 ML IV SCH ×6 (20:30→23:21)
[2017-09-22] MEDS ORDERED: guaiFENesin 200 MG/10 ML UDL PO PRN ×2 (20:34)
[2017-09-23] MEDS: POTASSIUM Cl (KCl) 100 ML IV SCH ×8 (00:28→10:57)
[2017-09-23] MEDS: AMPICILLIN/SULBACTAM 3 GM in NS 100 ML IV SCH ×3 (01:28→12:10)
[2017-09-23] MEDS: METOCLOPRAMIDE 10 MG/2 ML VIAL IVP SCH ×4 (05:23→12:09)
[2017-09-23 05:51] LABS: PLATELET COUNT 245 10^3/uL (150-400)
[2017-09-23 05:58] LABS: INR 2.03 (0.83-1.16); PROTIME(PATIENT) 23.1 SEC (12.0-15.0)
[2017-09-23 07:39] VITALS: BP 126/57; RESP 16; TEMP 97.4; O2SAT 98
[2017-09-23] MEDS: PANTOPRAZOLE SODIUM 40 MG TAB PO SCH ×2 (08:07)
[2017-09-23] MEDS: CHOLECALCIFEROL VIT D3 1,000 UNITS TAB PO SCH ×2 (08:07)
[2017-09-23] MEDS: ASPIRIN 81 MG CHEWABLE TAB PO SCH ×2 (08:07)
[2017-09-23] MEDS: SENNOSIDES/DOCUSATE SODIUM TAB PO SCH ×2 (08:07)
[2017-09-23] MEDS: CETIRIZINE 10 MG TAB PO SCH ×2 (08:08)
[2017-09-23] MEDS: POLYETHYLENE GLYCOL 3350 17 GM PKT PO SCH ×2 (08:08)
[2017-09-23] MEDS: ASCORBIC ACID 500 MG TAB PO SCH ×2 (08:08)
[2017-09-23] MEDS: MULTIVITAMINS 1 EACH TAB PO SCH ×2 (08:08)
--- NOTE | 2017-09-23 11:22 | PDIAF ---
- Diagnosis Diagnosis: Aspiration pneumonia/sepsis Code Status: Full Code - Medication Management Discharge Medications: Medications to Continue on Transfer Carvedilol [Coreg (*)] 3.125 mg PO BIDMEAL 11/25/14 [Last Taken 09/14/17] Pantoprazole Sodium [Protonix 40mg (*)] 40 mg PO DAILY 11/25/14 [Last Taken ] Polyethylene Glycol 3350 [Miralax 17 gm (*)] 17 gm PO DAILY 11/25/14 [Last Taken 09/14/17] Tamsulosin HCl [Flomax 0.4 MG (*)] 0.4 mg PO HS 11/25/14 [Last Taken 09/14/17] [place]-3 Fatty Acids [Fish Oil 1000 mg (*)] 1,000 mg PO DAILY18 11/29/14 [Last Taken 09/14/17] Finasteride [Proscar 5 MG (*)] 5 mg PO HS 11/25/15 [Last Taken 09/14/17] rOPINIRole HCL [Requip 1mg (*)] 1 mg PO TID 11/25/15 [Last Taken 09/14/17] Ascorbic Acid [Vitamin C 500 mg (*)] 500 mg PO DAILY 09/01/17 [Last Taken ] Aspirin [Aspirin 81mg (*)] 81 mg PO DAILY 09/01/17 [Last Taken 09/14/17] Cholecalciferol Vit D3 [Vitamin D3 (*)] 1,000 units PO DAILY 09/01/17 [Last Taken 09/14/17] Multivitamins [Multivitamin (*)] 1 tab PO DAILY 09/01/17 [Last Taken 09/14/17] Cetirizine [ZyrTEC 10 mg (*)] 10 mg PO DAILY tab 09/14/17 [Last Taken 09/14/17] traMADol [Ultram 50 mg (*)] 50 mg PO Q6HRS PRN tab 09/14/17 [Last Taken Unknown ] Ipratropium/Albuterol [Duoneb (*)] 3 ml IH BID 09/15/17 [Last Taken 09/14/17] Sennosides/Docusate Sodium [Senna-Docusate Sodium Tablet] 1 each PO BID [Last Taken 09/14/17] Sennosides/Docusate Sodium [Senna-Docusate Sodium Tablet] 1 each PO BID PRN [Last Taken Unknown] Alteplase [Cathflo Activase 2 mg (*)] 2 mg IVP PRN PRN vial 09/23/17 [Last Taken Unknown] Ampicillin/Sulbactam [Unasyn] 3 gm IV Q6HRS vial 09/23/17 [Last Taken Unknown] Warfarin Sodium [Coumadin 2MG (*)] 2 mg PO DAILY16 tab 09/23/17 [Last Taken Unknown] [employer] Antibiotics: Unasyn 3 g IV q.6 hours [employer] Antibiotic Stop Date: 10/03/17 Discharge Medications: Refer to the Discharge Home Medication list for PRN reason. PICC Care - Routine: Yes - Orders Services needed: Registered Nurse, Certified Booster Station Operator, Physical Therapy, Occupational Therapy Diet Recommendation: no restrictions on diet Diet Texture: Regular Texture Diet, Thin Liquids, Meds Whole in Puree Wound Care Instructions: for his surgical kirsty - he should follow up with Dr Hernandez or Dr Carmen in 2-3 days Sutures/Kirsty Site: abdomen - Labs/Radiology CBC w/diff Date: 09/25/17 (Fax to Dr. Rosenbaum [phone]) CMP Date: 09/25/17 (Fax to Dr. Rosenbaum [phone]) PT/INR Date: 09/25/17 - Follow Up Care Current Providers and Referrals: Patient,NotPresent [Unknown] - As per Instructions Zoltan Rosenbaum MD [Medical Doctor] - (We will arrange for follow-up in the next 7 -10 days at our clinic.)
--- NOTE | 2017-09-23 11:22 | PDIAF ---
- Diagnosis Diagnosis: Aspiration pneumonia/sepsis Code Status: Full Code - Medication Management Discharge Medications: Medications to Continue on Transfer Carvedilol [Coreg (*)] 3.125 mg PO BIDMEAL 11/25/14 [Last Taken 09/14/17] Pantoprazole Sodium [Protonix 40mg (*)] 40 mg PO DAILY 11/25/14 [Last Taken ] Polyethylene Glycol 3350 [Miralax 17 gm (*)] 17 gm PO DAILY 11/25/14 [Last Taken 09/14/17] Tamsulosin HCl [Flomax 0.4 MG (*)] 0.4 mg PO HS 11/25/14 [Last Taken 09/14/17] [place]-3 Fatty Acids [Fish Oil 1000 mg (*)] 1,000 mg PO DAILY18 11/29/14 [Last Taken 09/14/17] Finasteride [Proscar 5 MG (*)] 5 mg PO HS 11/25/15 [Last Taken 09/14/17] rOPINIRole HCL [Requip 1mg (*)] 1 mg PO TID 11/25/15 [Last Taken 09/14/17] Ascorbic Acid [Vitamin C 500 mg (*)] 500 mg PO DAILY 09/01/17 [Last Taken ] Aspirin [Aspirin 81mg (*)] 81 mg PO DAILY 09/01/17 [Last Taken 09/14/17] Cholecalciferol Vit D3 [Vitamin D3 (*)] 1,000 units PO DAILY 09/01/17 [Last Taken 09/14/17] Multivitamins [Multivitamin (*)] 1 tab PO DAILY 09/01/17 [Last Taken 09/14/17] Cetirizine [ZyrTEC 10 mg (*)] 10 mg PO DAILY tab 09/14/17 [Last Taken 09/14/17] traMADol [Ultram 50 mg (*)] 50 mg PO Q6HRS PRN tab 09/14/17 [Last Taken Unknown ] Ipratropium/Albuterol [Duoneb (*)] 3 ml IH BID 09/15/17 [Last Taken 09/14/17] Sennosides/Docusate Sodium [Senna-Docusate Sodium Tablet] 1 each PO BID [Last Taken 09/14/17] Sennosides/Docusate Sodium [Senna-Docusate Sodium Tablet] 1 each PO BID PRN [Last Taken Unknown] Alteplase [Cathflo Activase 2 mg (*)] 2 mg IVP PRN PRN vial 09/23/17 [Last Taken Unknown] Ampicillin/Sulbactam [Unasyn] 3 gm IV Q6HRS vial 09/23/17 [Last Taken Unknown] Warfarin Sodium [Coumadin 2MG (*)] 2 mg PO DAILY16 tab 09/23/17 [Last Taken Unknown] Legal Clerk Antibiotics: Unasyn 3 g IV q.6 hours Legal Clerk Antibiotic Stop Date: 10/03/17 Discharge Medications: Refer to the Discharge Home Medication list for PRN reason. PICC Care - Routine: Yes - Orders Services needed: Registered Nurse, Certified Client Service Administrator, Physical Therapy, Occupational Therapy Diet Recommendation: no restrictions on diet Diet Texture: Regular Texture Diet, Thin Liquids, Meds Whole in Puree Wound Care Instructions: for his surgical kirsty - he should follow up with Dr Hernandez or Dr Carmen in 2-3 days Sutures/Kirsty Site: abdomen - Labs/Radiology CBC w/diff Date: 09/25/17 (Fax to Dr. Rosenbaum [phone]) CMP Date: 09/25/17 (Fax to Dr. Rosenbaum ) PT/INR Date: 09/25/17 - Follow Up Care Current Providers and Referrals: Patient,NotPresent [Unknown] - As per Instructions Zoltan Rosenbaum MD [Medical Doctor] - (We will arrange for follow-up in the next 7 -10 days at our clinic.)
--- NOTE | 2017-09-23 11:22 | PDIAF ---
- Diagnosis Diagnosis: Aspiration pneumonia/sepsis Code Status: Full Code - Medication Management Discharge Medications: Medications to Continue on Transfer Carvedilol [Coreg (*)] 3.125 mg PO BIDMEAL 11/25/14 [Last Taken 09/14/17] Pantoprazole Sodium [Protonix 40mg (*)] 40 mg PO DAILY 11/25/14 [Last Taken ] Polyethylene Glycol 3350 [Miralax 17 gm (*)] 17 gm PO DAILY 11/25/14 [Last Taken 09/14/17] Tamsulosin HCl [Flomax 0.4 MG (*)] 0.4 mg PO HS 11/25/14 [Last Taken 09/14/17] [place]-3 Fatty Acids [Fish Oil 1000 mg (*)] 1,000 mg PO DAILY18 11/29/14 [Last Taken 09/14/17] Finasteride [Proscar 5 MG (*)] 5 mg PO HS 11/25/15 [Last Taken 09/14/17] rOPINIRole HCL [Requip 1mg (*)] 1 mg PO TID 11/25/15 [Last Taken 09/14/17] Ascorbic Acid [Vitamin C 500 mg (*)] 500 mg PO DAILY 09/01/17 [Last Taken ] Aspirin [Aspirin 81mg (*)] 81 mg PO DAILY 09/01/17 [Last Taken 09/14/17] Cholecalciferol Vit D3 [Vitamin D3 (*)] 1,000 units PO DAILY 09/01/17 [Last Taken 09/14/17] Multivitamins [Multivitamin (*)] 1 tab PO DAILY 09/01/17 [Last Taken 09/14/17] Cetirizine [ZyrTEC 10 mg (*)] 10 mg PO DAILY tab 09/14/17 [Last Taken 09/14/17] traMADol [Ultram 50 mg (*)] 50 mg PO Q6HRS PRN tab 09/14/17 [Last Taken Unknown ] Ipratropium/Albuterol [Duoneb (*)] 3 ml IH BID 09/15/17 [Last Taken 09/14/17] Sennosides/Docusate Sodium [Senna-Docusate Sodium Tablet] 1 each PO BID [Last Taken 09/14/17] Sennosides/Docusate Sodium [Senna-Docusate Sodium Tablet] 1 each PO BID PRN [Last Taken Unknown] Alteplase [Cathflo Activase 2 mg (*)] 2 mg IVP PRN PRN vial 09/23/17 [Last Taken Unknown] Ampicillin/Sulbactam [Unasyn] 3 gm IV Q6HRS vial 09/23/17 [Last Taken Unknown] Warfarin Sodium [Coumadin 2MG (*)] 2 mg PO DAILY16 tab 09/23/17 [Last Taken Unknown] End User Support Specialist Antibiotics: Unasyn 3 g IV q.6 hours End User Support Specialist Antibiotic Stop Date: 10/03/17 Discharge Medications: Refer to the Discharge Home Medication list for PRN reason. PICC Care - Routine: Yes - Orders Services needed: Registered Nurse, Certified [place], Physical Therapy, Occupational Therapy Diet Recommendation: no restrictions on diet Diet Texture: Regular Texture Diet, Thin Liquids, Meds Whole in Puree Wound Care Instructions: for his surgical kirsty - he should follow up with Dr Hernandez or Dr Carmen in 2-3 days Sutures/Kirsty Site: abdomen - Labs/Radiology CBC w/diff Date: 09/25/17 (Fax to Dr. Rosenbaum [phone]) CMP Date: 09/25/17 (Fax to Dr. Rosenbaum ) PT/INR Date: 09/25/17 - Follow Up Care Current Providers and Referrals: Patient,NotPresent [Unknown] - As per Instructions Zoltan Rosenbaum MD [Medical Doctor] - (We will arrange for follow-up in the next 7 -10 days at our clinic.)
--- NOTE | 2017-09-23 11:46 | GDS ---
[f rep st] DISCHARGE SUMMARY ALL DIAGNOSES: 1. Uxekq-aq-qoreaai hypoxic respiratory failure. 2. Aspiration pneumonia. 3. Hypokalemia. 4. Sepsis, present on admission. 5. Polymicrobial bacteremia with Bacteroides and Klebsiella pneumoniae. 6. Recent inguinal hernia repair. 7. Recent small bowel obstruction, status post lysis of adhesions. 8. Chronic obstructive pulmonary disease, on 3 liters oxygen at baseline. 9. Atrial fibrillation with a pacemaker. 10. Mild diastolic congestive heart failure. 11. Abdominal aortic aneurysm, status post repair. 12. Obstructive sleep apnea. 13. Benign prostatic hypertrophy. 14. Restless legs syndrome. HOSPITAL COURSE: The patient is an 87-year-old man who was discharged on 09/14/2017 and readmitted o n 09/15/2017. Previous hospitalization had been for an incarcerated right inguinal hernia. His cour se had been complicated by a small bowel obstruction, which required lysis of adhesions. He was read mitted the following day, on the 15 of September, with shortness of breath. 1. Aspiration pneumonia: Treated with multiple different antibiotics, currently being treated with Unasyn for this. His oxygen is at his baseline of about 3 L. He has underlying COPD. He appears co mfortable and is breathing well, in no respiratory distress. 2. Polymicrobial bacteremia: Initial blood culture grew out Bacteroides ovatus as well as Klebsiell a pneumoniae. He was on Zosyn and actually grew out Klebsiella pneumoniae while on Zosyn 2 days late r. Second set of surveillance cultures on September 19 have remained no growth to date. He was seen by Infectious Disease. The source is presumed to be GI, though imaging did not reveal a clear sourc e. Potentially bacterial translocation through the GI tract. Recommendation is for Unasyn 3 g q.6 t o continue through October 03. He will have labs per Infectious Disease recommendations and follo w up with Dr. Rosenbaum. 3. Recent abdominal surgeries including right inguinal hernia repair as well as small bowel obstruct ion, status post lysis of adhesions: He should follow up with Dr. eHrnandez or his partner in a few days to address his kirsty. These need to be removed soon, though I am not sure of the exact date. Dr. Hernandez has been out of town. 4. Atrial fibrillation, status post pacemaker: INR on the day of discharge is 2.03. Did have some problems with supratherapeutic INR, thus his warfarin has been decreased. He had previously been adrianne ing 4 mg daily, I have decreased it to 2 mg daily. I have written to recheck an INR in 2 days. Need to consider following this more closely and potentially adjusting his warfarin back up. 5. Hypokalemia: He was aggressively diuresed for a few days which, caused his hypokalemia. On the day of discharge it is 3.5. This will be rechecked in 2 days and may need to be repleted, though I a m not continuing any diuretics at this point. FOLLOWUP: 1. Dr. Rosenbaum. 2. Dr. Hernandez. BILLING: I spent more than 30 minutes on the day of discharge coordinating care. /[id number]/MODL
--- NOTE | 2017-09-23 16:09 | ASMTCMCOM ---
CM Note CM Note Notes: Reviewed chart, spoke blaire Allen regarding discharge plan, pt's progress. Per ID, pt ready for discharge to SNF today. Correction to prior note: pt will only require antibiotics until 10/03/17, not for 6 wks as prev indicated. Call placed to [facility] (); spoke du/ TAVARES Mcmullen. Per Benedict, expecting pt today. Update provided to pt and pt's son Scott (c) [phone], (h)[phone]. Transportation options discussed. [facility]s [facility] to [facility] and [facility] - all unavailable for w/c transport today. Call placed to José w/ [facility] [phone]. Per José, able to transport pt for $85. Pt wishing for son to provide transportation. Call placed to sylvia Chavez uncomfortable w/ doing transfer, willing to prepay for services w/ [facility]. Phone number provided, Scott to pay via credit card. Transport arranged for 1400, w/c w/ oxygen. Update provided to pt, RN, and Benedict at . All discharge orders and paperwork faxed manually [phone] per Benedict's request; confirmed receipt w/ [facility]. Updated referral also sent via [employer]. IM signed. Pt to follow up as directed. CM avail for any further issues or concerns. Final Discharge Plan: [facility] via w/c transport w/ [facility] Date Signed: 09/23/2017 04:09 PM Electronically Signed By:Lay Tsang RN
--- NOTE | 2017-09-23 16:09 | ASMTCMCOM ---
CM Note CM Note Notes: Reviewed chart, spoke blaire Allen regarding discharge plan, pt's progress. Per ID, pt ready for discharge to SNF today. Correction to prior note: pt will only require antibiotics until 10/03/17, not for 6 wks as prev indicated. Call placed to [facility] (); spoke du/ TAVARES Mcmullen. Per Benedict, expecting pt today. Update provided to pt and pt's son Scott (c) [phone], (h)[phone]. Transportation options discussed. Calls placed to [facility]; [facility] and [facility] - all unavailable for w/c transport today. Call placed to José w/ [facility] [phone]. Per José, able to transport pt for $85. Pt wishing for son to provide transportation. Call placed to sylvia Chavez uncomfortable w/ doing transfer, willing to prepay for services w/ [facility]. Phone number provided, Scott to pay via credit card. Transport arranged for 1400, w/c w/ oxygen. Update provided to pt, RN, and Benedict at . All discharge orders and paperwork faxed manually [phone] per Benedict's request; confirmed receipt w/ [facility]. Updated referral also sent via [employer]. IM signed. Pt to follow up as directed. CM avail for any further issues or concerns. Final Discharge Plan: [facility] via w/c transport w/ [facility] Date Signed: 09/23/2017 04:09 PM Electronically Signed By:Lay Tsang RN
--- NOTE | 2017-09-23 16:09 | ASMTCMCOM ---
CM Note CM Note Notes: Reviewed chart, spoke blaire Allen regarding discharge plan, pt's progress. Per ID, pt ready for discharge to SNF today. Correction to prior note: pt will only require antibiotics until 10/03/17, not for 6 wks as prev indicated. Call placed to [facility] (); spoke du/ TAVARES Mcmullen. Per Benedict, expecting pt today. Update provided to pt and pt's son Scott (c) [phone], (h)[phone]. Transportation options discussed. [facility]s [facility] to [facility]; [facility] - all unavailable for w/c transport today. Call placed to José w/ [facility] [phone]. Per José, able to transport pt for $85. Pt wishing for son to provide transportation. Call placed to sylvia Chavez uncomfortable w/ doing transfer, willing to prepay for services w/ [facility]. Phone number provided, Scott to pay via credit card. Transport arranged for 1400, w/c w/ oxygen. Update provided to pt, RN, and Benedict at . All discharge orders and paperwork faxed manually [phone] per Benedict's request; confirmed receipt w/ [facility]. Updated referral also sent via [facility]. IM signed. Pt to follow up as directed. CM avail for any further issues or concerns. Final Discharge Plan: [facility] via w/c transport w/ [facility] Date Signed: 09/23/2017 04:09 PM Electronically Signed By:Lay Tsang RN
--- NOTE | 2017-09-23 16:10 | ASDISCHSUM ---
Discharge Information Plan Status:SNF Medically Cleared to Leave:09/23/2017 Discharge Date:09/23/2017 02:19 PM CM D/C Disposition:[facility] Facility ADT D/C Disposition:[facility] Facility Projected Discharge Date:09/21/2017 11:00 AM Transportation at D/C:[facility] Discharge Delay Reason: Follow-Up Date:09/21/2017 11:00 AM Discharge Slot:2 - 12:01 pm - 18:00 pm Final Diagnosis:Hypoxic resp failure, aspiraton PNA, hypokalemia, sepsis, COPD Placement Information Referral Type:*[facility] Care/SNF Referral ID:[id number] Provider Name:[facility] Address 1:[address] 2: City:[place] Selection Factors:Patient/Family Choice State:[place] Patient Contact Information Contact Name:DORA Relationship:Son Address:[address] [place] Alternate Phone: State/Zip Code:[place] [address] Email: Financial Information Financial Class: Primary Plan Desc:MEDICARE INPATIENT Primary Plan Number:[id number] Secondary Plan Desc:[facility] Secondary Plan Number:[id number] Assessment Information [facility] CM Progress Note CM Note CM Note Notes: 87 year old male discharged from [facility] to [facility] days ago after a hernia repair followed by [facility]. Patient has a hx of Afib, AVR x 2, CHRF-3 lits of O2, CHF. Patient admitted for SOB, possible asp PNA, respiratory failure. CM to follow for discharge needs. Date Signed: 09/16/2017 05:01 PM Electronically Signed By:Jocelyn Blanco LCSW [facility] CM Progress Note CM Note CM Note Notes: Spoke to patient and son Librado. Librado wanted to leave patient's things at [facility] to hold his bed. [facility] told him that Medicare wouldn't pay them for holding the bed. Contact made to [facility] to let them know that patient would like to return on discharged and a referral sent to them. Date Signed: 09/17/2017 02:17 PM Electronically Signed By:Jocelyn Blanco LCSW [facility] Progress Note CM Note CM Note Notes: [facility]; she rec'd referral and [facility] that were sent. She said family is no longer paying to hold bed but Fer is hopeful that they will have bed available when pt ready for dc. Pt still w/high O2 needs. Date Signed: 09/19/2017 11:11 AM Electronically Signed By:Marcy Figueroa RN LACE JONATHAN Length of stay for Answers: 3 days current admission Acuity / Level of Care Answers: Was the patient admitted to hospital via the emergency department? Yes: Comorbidities - select Answers: Chronic pulmonary disease all that apply Emergency dept visits in Answers: 2 last 6 months Score: 10 Date Signed: 09/20/2017 09:46 AM Electronically Signed By:Karishma Paz RN [facility] CM Progress Note CM Note CM Note Notes: Patient transferring to Med-surg status. I spoke to his son Scott about discharge planning; they are still hopeful for a bed at [facility] (patient was there briefly before admission) and have chosen [facility] as a second option. I explained that when we have a better idea of d/c date, we will contact the SNFs for bed availability. Current discharge plan: SNF: [facility] or [facility] Date Signed: 09/21/2017 03:11 PM Electronically Signed By:Lisa Mcclelland RN [facility] CM Progress Note CM Note CM Note Notes: Reviewed chart for discharge plan, pt's progress. Per notes, pt will likely be ready for discharge 09/23/17. Per ID, pt will require 6 wks of IV antibiotics - Unasyn 3 g IV every [address] [facility]. Per Serv, able to accept pt back, will have a bed available Sunday. Updates manually faxed at [facility]'s request (per [facility] "[employer] isn't working"); confirmed receipt. Update provided to TAVARES Ravi. CM will cont to follow. Date Signed: 09/22/2017 04:37 PM Electronically Signed By:Lay Tsang RN [facility] CM Progress Note CM Note CM Note Notes: Reviewed chart, spoke w/ Alejandro regarding discharge plan, pt's progress. Per ID, pt ready for discharge to SNF today. Correction to prior note: pt will only require antibiotics until 10/03/17, not for 6 wks as prev indicated. Call placed to [facility] (); spoke w/ TAVARES Mcmullen. Per Benedict, expecting pt today. Update provided to pt and pt's son Scott (c) [phone], (h)[phone]. Transportation options discussed. Calls placed to [facility]; [facility] and [facility] - all unavailable for w/c transport today. Call placed to José w/ [facility] [phone]. Per José, able to transport pt for $85. Pt wishing for son to provide transportation. Call placed to sylvia Chavez uncomfortable w/ doing transfer, willing to prepay for services w/ [facility]. Phone number provided, Scott to pay via credit card. Transport arranged for 1400, w/c w/ oxygen. Update provided to pt, RN, and Benedict at . All discharge orders and paperwork faxed manually [phone] per Benedict's request; confirmed receipt w/ [facility]. Updated referral also sent via [employer]. IM signed. Pt to follow up as directed. CM avail for any further issues or concerns. Final Discharge Plan: [facility] via w/c transport w/ [facility] Date Signed: 09/23/2017 04:09 PM Electronically Signed By:Lay Tsang RN Intervention Information Intervention Type:*IM-Signed Date of Service:09/23/2017 03:48 PM Patient Type:Inpatient Staff Member:TAVARES Tsang Taylor Hours: Discipline: Severity: Comment:
--- NOTE | 2017-09-23 16:10 | ASDISCHSUM ---
Discharge Information Plan Status:SNF Medically Cleared to Leave:09/23/2017 Discharge Date:09/23/2017 02:19 PM CM D/C Disposition:Jail Facility ADT D/C Disposition:Jail Facility Projected Discharge Date:09/21/2017 11:00 AM Transportation at D/C:Wheelchair Van Discharge Delay Reason: Follow-Up Date:09/21/2017 11:00 AM Discharge Slot:2 - 12:01 pm - 18:00 pm Final Diagnosis:Hypoxic resp failure, aspiraton PNA, hypokalemia, sepsis, COPD Placement Information Referral Type:*Intermediate/SNF Referral ID:[id number] Provider Name:[facility] Address 1:[address] Address 2: City:[place] Selection Factors:Patient/Family Choice State:[place] Patient Contact Information Contact Name:DORA Relationship:Son Address:[address] City:[place] Alternate Phone: State/Zip Code:[place] [address] Email: Financial Information Financial Class: Primary Plan Desc:MEDICARE INPATIENT Primary Plan Number:[id number] Secondary Plan Desc:[facility] Secondary Plan Number:[id number] Assessment Information [facility] CM Progress Note CM Note CM Note Notes: 87 year old male discharged from [facility] to [facility] days ago after a hernia repair followed by SBO. Patient has a hx of Afib, AVR x 2, CHRF-3 lits of O2, CHF. Patient admitted for SOB, possible asp PNA, respiratory failure. CM to follow for discharge needs. Date Signed: 09/16/2017 05:01 PM Electronically Signed By:Jocelyn Blanco LCSW [facility] CM Progress Note CM Note CM Note Notes: Spoke to patient and son Librado. Librado wanted to leave patient's things at [facility] to hold his bed. [facility] told him that Medicare wouldn't pay them for holding the bed. Contact made to [facility] to let them know that patient would like to return on discharged and a referral sent to them. Date Signed: 09/17/2017 02:17 PM Electronically Signed By:Jocelyn Blanco LCSW [facility] Progress Note CM Note CM Note Notes: [facility]; she rec'd referral and PASRR that were sent. She said family is no longer paying to hold bed but Fer is hopeful that they will have bed available when pt ready for dc. Pt still w/high O2 needs. Date Signed: 09/19/2017 11:11 AM Electronically Signed By:Marcy Figueroa RN LACE JONATHAN Length of stay for Answers: 3 days current admission Acuity / Level of Care Answers: Was the patient admitted to hospital via the emergency department? Yes: Comorbidities - select Answers: Chronic pulmonary disease all that apply Emergency dept visits in Answers: 2 last 6 months Score: 10 Date Signed: 09/20/2017 09:46 AM Electronically Signed By:Karishma Paz RN [facility] CM Progress Note CM Note CM Note Notes: Patient transferring to Med-surg status. I spoke to his son Scott about discharge planning; they are still hopeful for a bed at [facility] (patient was there briefly before admission) and have chosen [facility] as a second option. I explained that when we have a better idea of d/c date, we will contact the SNFs for bed availability. Current discharge plan: SNF: [facility] or [facility] Date Signed: 09/21/2017 03:11 PM Electronically Signed By:Lisa Mcclelland RN [facility] CM Progress Note CM Note CM Note Notes: Reviewed chart for discharge plan, pt's progress. Per notes, pt will likely be ready for discharge 09/23/17. Per ID, pt will require 6 wks of IV antibiotics - Unasyn 3 g IV every 6 hrs. [facility]. Per Serv, able to accept pt back, will have a bed available Sunday. Updates manually faxed at Serva's request (per Serva "Allscripts isn't working"); confirmed receipt. Update provided to TAVARES Ravi. CM will cont to follow. Date Signed: 09/22/2017 04:37 PM Electronically Signed By:Lay Tsang RN [facility] CM Progress Note CM Note CM Note Notes: Reviewed chart, spoke w/ Alejandro regarding discharge plan, pt's progress. Per ID, pt ready for discharge to SNF today. Correction to prior note: pt will only require antibiotics until 10/03/17, not for 6 wks as prev indicated. Call placed to [facility] (); spoke w/ TAVARES Mcmullen. Per Benedict, expecting pt today. Update provided to pt and pt's son Scott (c) [phone], (h)[phone]. Transportation options discussed. Calls placed to [facility]; [facility] and [facility] - all unavailable for w/c transport today. Call placed to José w/ [facility] [phone]. Per José, able to transport pt for $85. Pt wishing for son to provide transportation. Call placed to sylvia Chavez uncomfortable w/ doing transfer, willing to prepay for services w/ [facility]. Phone number provided, Scott to pay via credit card. Transport arranged for 1400, w/c w/ oxygen. Update provided to pt, RN, and Benedict at . All discharge orders and paperwork faxed manually [phone] per Benedict's request; confirmed receipt w/ [facility]. Updated referral also sent via [employer]. IM signed. Pt to follow up as directed. CM avail for any further issues or concerns. Final Discharge Plan: [facility] via w/c transport w/ [place] [facility] Date Signed: 09/23/2017 04:09 PM Electronically Signed By:Lay Tsang RN Intervention Information Intervention Type:*IM-Signed Date of Service:09/23/2017 03:48 PM Patient Type:Inpatient Staff Member:TAVARES Tsang Taylor Hours: Discipline: Severity: Comment:
--- NOTE | 2017-09-23 16:10 | ASDISCHSUM ---
Discharge Information Plan Status:SNF Medically Cleared to Leave:09/23/2017 Discharge Date:09/23/2017 02:19 PM CM D/C Disposition:Intermediate Facility ADT D/C Disposition:Intermediate Facility Projected Discharge Date:09/21/2017 11:00 AM Transportation at D/C:Wheelchair Van Discharge Delay Reason: Follow-Up Date:09/21/2017 11:00 AM Discharge Slot:2 - 12:01 pm - 18:00 pm Final Diagnosis:Hypoxic resp failure, aspiraton PNA, hypokalemia, sepsis, COPD Placement Information Referral Type:*Prison/SNF Referral ID:[id number] Provider Name:G[facility] Address 1:[address] Address 2: City:[place] Selection Factors:Patient/Family Choice [place] Patient Contact Information Contact Name:DORA Relationship:Son Address:[address] City:[place] Alternate Phone: State/Zip Code:[place] [address] Email: Financial Information Financial Class: Primary Plan Desc:MEDICARE INPATIENT Primary Plan Number:[id number] Secondary Plan Desc:[facility] Secondary Plan Number:[id number] Assessment Information [facility] CM Progress Note CM Note CM Note Notes: 87 year old male discharged from [facility] to [facility] days ago after a hernia repair followed by SBO. Patient has a hx of Afib, AVR x 2, CHRF-3 lits of O2, CHF. Patient admitted for SOB, possible asp PNA, respiratory failure. CM to follow for discharge needs. Date Signed: 09/16/2017 05:01 PM Electronically Signed By:Jocelyn Blanco LCSW [facility] CM Progress Note CM Note CM Note Notes: Spoke to patient and son Librado. Librado wanted to leave patient's things at [facility] to hold his bed. [facility] told him that Medicare wouldn't pay them for holding the bed. Contact made to [facility] to let them know that patient would like to return on discharged and a referral sent to them. Date Signed: 09/17/2017 02:17 PM Electronically Signed By:Jocelyn Blanco LCSW [facility] Progress Note CM Note CM Note Notes: [facility]; she rec'd referral and PASRR that were sent. She said family is no longer paying to hold bed but Fer is hopeful that they will have bed available when pt ready for dc. Pt still w/high O2 needs. Date Signed: 09/19/2017 11:11 AM Electronically Signed By:Marcy iFgueroa RN LACE JONATHAN Length of stay for Answers: 3 days current admission Acuity / Level of Care Answers: Was the patient admitted to hospital via the emergency department? Yes: Comorbidities - select Answers: Chronic pulmonary disease all that apply Emergency dept visits in Answers: 2 last 6 months Score: 10 Date Signed: 09/20/2017 09:46 AM Electronically Signed By:Karishma Paz RN [facility] CM Progress Note CM Note CM Note Notes: Patient transferring to Med-surg status. I spoke to his son Scott about discharge planning; they are still hopeful for a bed at [facility] (patient was there briefly before admission) and have chosen [facility] as a second option. I explained that when we have a better idea of d/c date, we will contact the SNFs for bed availability. Current discharge plan: SNF: [facility] or [facility] Date Signed: 09/21/2017 03:11 PM Electronically Signed By:Lisa Mcclelland RN [facility] CM Progress Note CM Note CM Note Notes: Reviewed chart for discharge plan, pt's progress. Per notes, pt will likely be ready for discharge 09/23/17. Per ID, pt will require 6 wks of IV antibiotics - Unasyn 3 g IV every [facility] [address] [facility]. Per Serv, able to accept pt back, will have a bed available Sunday. Updates manually faxed at Serva's request (per Serva "[employer]scripts isn't working"); confirmed receipt. Update provided to TAVARES Ravi. CM will cont to follow. Date Signed: 09/22/2017 04:37 PM Electronically Signed By:Lay Tsang RN [facility] CM Progress Note CM Note CM Note Notes: Reviewed chart, spoke w/ Alejandro regarding discharge plan, pt's progress. Per ID, pt ready for discharge to SNF today. Correction to prior note: pt will only require antibiotics until 10/03/17, not for 6 wks as prev indicated. Call placed to [facility] (); spoke w/ TAVARES Mcmullen. Per Benedict, expecting pt today. Update provided to pt and pt's son Scott (c) [phone], (h)[phone]. Transportation options discussed. Calls placed to [facility]; [facility] and [facility] - all unavailable for w/c transport today. Call placed to José w/ [facility] [phone]. Per José, able to transport pt for $85. Pt wishing for son to provide transportation. Call placed to syl[facility] Chavez uncomfortable w/ doing transfer, willing to prepay for services w/ [facility]. Phone number provided, Scott to pay via credit card. Transport arranged for 1400, w/c w/ oxygen. Update provided to pt, RN, and Benedict at . All discharge orders and paperwork faxed manually [phone] per Benedict's request; confirmed receipt w/ [facility]. Updated referral also sent via [employer]. IM signed. Pt to follow up as directed. CM avail for any further issues or concerns. Final Discharge Plan: [facility] via w/c transport w/ [facility] Date Signed: 09/23/2017 04:09 PM Electronically Signed By:Lay Tsang RN Intervention Information Intervention Type:*IM-Signed Date of Service:09/23/2017 03:48 PM Patient Type:Inpatient Staff Member:TAVARES Tsang Taylor Hours: Discipline: Severity: Comment:
== END 2017-09-23 14:19 | DRG 871 ==
LOC: EDUNIT# → F2N 08:00 → F3E 09-21 15:05
PROVIDERS: ADMIT Student in an Organized Health Care Education/Training Program; ATTEND Student in an Organized Health Care Education/Training Program
PROC: 02HV33Z Insertion of Infusion Device into Superior Vena Cava, Percutaneous Approach (ICD-10-PCS; principal; 2017-09-22)
DX: A41.89 Other specified sepsis (principal); J96.21 Acute and chronic respiratory failure with hypoxia; J69.0 Pneumonitis due to inhalation of food and vomit; I50.30 Unspecified diastolic (congestive) heart failure; E87.6 Hypokalemia; B96.1 Klebsiella pneumoniae [K. pneumoniae] as the cause of diseases classified elsewhere; J44.9 Chronic obstructive pulmonary disease, unspecified; I48.91 Unspecified atrial fibrillation; Z95.0 Presence of cardiac pacemaker; G47.33 Obstructive sleep apnea (adult) (pediatric); N40.0 Benign prostatic hyperplasia without lower urinary tract symptoms; G25.81 Restless legs syndrome; Z95.2 Presence of prosthetic heart valve; Z79.01 Long term (current) use of anticoagulants
CPT/HCPCS: 92526-GN; 92610-GN; 96374; 97110-GP; 97116-GP; 97161-GP; 97166-GO; 97530-GO; 97530-GP; 97535-GO; C1751; G8978-GP-CK; G8979-GP-CJ; G8987-GO-CK; G8988-GO-CI; G8996-GN-CH; G8997-GN-CH; G8998-GN-CH; J0295; J0692; J1335; J1940; J2543; J2765; J2930; J3370; Q9967

== ENCOUNTER 2017-10-02 21:39 | Inpatient (IN) | payer OTHER ==
--- NOTE | 2017-10-02 21:51 | EDPHY ---
H & P HPI/ROS: CHIEF COMPLAINT: Shortness of breath HISTORY OF PRESENT ILLNESS: Patient is an 87-year-old man who was brought from the senior care by EMS complaining of shortness of breath. He was saturating 71% when they arrived on 5 L nasal cannula. He has a history of CHF as well as COPD and was recently admitted for aspiration pneumonia /sepsis discharged on the 5th of this month. He had multi-drug resistant infections and cultures that grew out Bacteroides as well as Klebsiella. He was discharged on Unasyn at that time. According to the EMS reports he was doing well until about a week ago when he aspirated again. They did a chest x-ray at the senior care which revealed a aspiration pneumonia and he was started on Zosyn. They have also been treating him with Lasix and albuterol inhalers. He also has a history of atrial fibrillation and is on Coumadin. EMS placed him on BiPAP and his saturations improved and he felt much better. He is saturating 95% on OxyMask. REVIEW OF SYSTEMS: Constitutional: denies: chills, fever, recent illness, recent injury EENTM: denies: blurred vision, double vision, nose congestion Respiratory: See HPI Cardiac: denies: chest pain, irregular heart rate, lightheadedness, palpitations Gastrointestinal/Abdominal: denies: abdominal pain, diarrhea, nausea, vomiting, blood streaked stools Genitourinary: denies: dysuria, frequency, hematuria, pain Musculoskeletal: denies: joint pain, muscle pain Skin: denies: lesions, rash, jaundice, bruising Neurological: denies: headache, numbness, paresthesia, tingling, dizziness, weakness Hematologic/Lymphatic: denies: blood clots, easy bleeding, easy bruising Immunologic/allergic: denies: HIV/AIDS, transplant EXAM: GENERAL: Well-appearing, well-nourished and in no acute distress. HEAD: Atraumatic, normocephalic. EYES: Pupils equal round and reactive to light, extraocular movements intact, sclera anicteric, conjunctiva are normal. ENT: TMs normal, nares patent, oropharynx clear without exudates. Moist mucous membranes. NECK: Normal range of motion, supple without lymphadenopathy or JVD. LUNGS: Right lower lobe rhonchi, mild diffuse wheezes HEART: Regular rate and rhythm without murmurs, rubs or gallops. ABDOMEN: Soft, nontender, normoactive bowel sounds. No guarding, no rebound. No masses appreciated. BACK: No CVA tenderness, no spinal tenderness, step-offs or deformities EXTREMITIES: Normal range of motion, no pitting or edema. No clubbing or cyanosis. NEUROLOGICAL: Cranial nerves II through XII grossly intact. Normal speech, normal gait. 5/5 strength, normal movement in all extremities, normal sensation PSYCH: Normal mood, normal affect. SKIN: Warm, dry, normal turgor, no visible rashes or lesions. Source: Patient Exam Limitations: No limitations - Medical/Surgical History Hx Asthma: No Hx Chronic Respiratory Disease: No Hx Diabetes: No Hx Cardiac Disease: Yes Hx Renal Disease: No Hx Cirrhosis: No Hx Alcoholism: No Hx HIV/AIDS: No Hx Splenectomy or Spleen Trauma: No Other PMH: COPD, hernia,open heart aortic valve replacement x2,pacer,small bowel obstruction,home o2 with cpap,AAA,appy,BPH on flomax,CHF EF 55%,sleep apnea - Family History Significant Family History: No pertinent family hx - Social History Smoking Status: Former smoker Alcohol Use: Sober Drug Use: None Constitutional: Initial Vital Signs O2 Sat (%) 97 10/02/17 21:40 O2 Delivery Mode Oxymask O2 (L/minute) 5 Allergies/Adverse Reactions: ciprofloxacin [From Cipro] Allergy (Verified 09/01/17 11:20) Other-Enter Comments codeine Allergy (Verified 09/01/17 11:20) Other-Enter Comments hydromorphone [From Dilaudid] Allergy (Verified 09/02/17 07:29) Unknown Home Medications: Medication Instructions Recorded Carvedilol [Coreg (*)] 3.125 mg PO BIDMEAL 11/25/14 Pantoprazole Sodium [Protonix 40mg 40 mg PO DAILY 11/25/14 (*)] Polyethylene Glycol 3350 [Miralax 17 gm PO DAILY 11/25/14 17 gm (*)] Tamsulosin HCl [Flomax 0.4 MG (*)] 0.4 mg PO HS 11/25/14 [place]-3 Fatty Acids [Fish Oil 1000 1,000 mg PO DAILY 11/29/14 mg (*)] Finasteride [Proscar 5 MG (*)] 5 mg PO DAILY 01/07/16 rOPINIRole HCL [Requip 1mg (*)] 1 mg PO TID 11/25/15 Ascorbic Acid [Vitamin C 500 mg 500 mg PO DAILY 09/01/17 (*)] Aspirin [Aspirin 81mg (*)] 81 mg PO DAILY 09/01/17 Cholecalciferol Vit D3 [Vitamin D3 1,000 units PO DAILY 09/01/17 (*)] Multivitamins [Multivitamin (*)] 1 tab PO DAILY 09/01/17 Cetirizine [ZyrTEC 10 mg (*)] 10 mg PO DAILY tab 09/14/17 traMADol [Ultram 50 mg (*)] 50 mg PO Q6HRS PRN tab 09/14/17 Sennosides/Docusate Sodium 1 each PO BID 09/15/17 [Senna-Docusate Sodium Tablet] Sennosides/Docusate Sodium 1 each PO BID PRN 09/15/17 [Senna-Docusate Sodium Tablet] Benzocaine/Menthol 03/03 [Cepacol 1 each PO Q2HRS PRN 10/03/17 Lozenge] Melatonin [Melatonin 3 MG (*)] 6 mg PO HS 10/03/17 Furosemide [Lasix 40 MG (*)] 40 mg PO BID@0900,1500 tab 10/04/17 Potassium Cl [Klor-Con 20 meq (*)] 20 meq PO BID #0 10/04/17 Warfarin Sodium [Coumadin 3MG (*)] 3 mg PO DAILY16 tab 10/04/17 Medical Decision Making ED Course/Re-evaluation: 10:45 p.m. I discussed the case with Dr. Galaviz. She will admit the patient for bilateral pneumonia. The patient appears to have been on Unasyn at home according to his med sheet. We will give him Zosyn here since he does not seem to be improving. I am unclear as to whether he has simply been on the antibiotics since is discharged or whether the they were finished and restarted with a new diagnosis. The patient's INR is slightly elevated likely due to his Coumadin however this causes his severe sepsis to be protocol positive. I will hold off on the IV fluids other than a small bolus however because of his history of CHF. He has improved with some Lasix the senior care. Hospital service agrees with this. Differential Diagnosis: Partial list of the Differential diagnosis considered include but were not limited to; pneumonia, CHF, COPD exacerbation and although unlikely based on the history and physical exam, I also considered pneumothorax, PE. - Data Points Laboratory Results: Laboratory Results 10/03/17 05:25 10/03/17 05:25 Microbiology Results: MICROBIOLOGY 10/02/17 21:51 Blood Blood Culture - Preliminary 10/03/17 01:02 Urine,Clean Catch Urine Culture - Preliminary Kaitlyn Albicans 10/02/17 21:45 Blood Blood Culture - Preliminary Medications Given: Discontinued Medications Ascorbic Acid (Vitamin C) 500 mg PO DAILY SUSHMA Stop: 04/01/18 09:14 Last Admin: 10/04/17 08:55 Dose: 500 mg Aspirin (Aspirin) 81 mg PO DAILY SUSHMA Stop: 04/01/18 09:14 Last Admin: 10/04/17 08:55 Dose: 81 mg Carvedilol (Coreg) 3.125 mg PO BIDMEAL SUSHMA Stop: 04/01/18 09:14 Last Admin: 10/04/17 08:55 Dose: 3.125 mg Cetirizine HCl (Zyrtec) 10 mg PO DAILY SUSHMA Stop: 04/01/18 09:14 Last Admin: 10/04/17 08:55 Dose: 10 mg Cholecalciferol (Vitamin D) 1,000 units PO DAILY SUSHMA Stop: 04/01/18 09:14 Last Admin: 10/04/17 08:55 Dose: 1,000 units Finasteride (Proscar) 5 mg PO DAILY SUSHMA Stop: 04/01/18 09:14 Last Admin: 10/04/17 08:55 Dose: 5 mg Furosemide (Lasix Injection) 40 mg IVP ONCE ONE Stop: 10/02/17 23:23 Last Admin: 10/03/17 00:07 Dose: 40 mg Furosemide (Lasix Injection) 40 mg IVP BID@0600,1400 SUSHMA Stop: 04/01/18 05:59 Last Admin: 10/04/17 05:37 Dose: 40 mg Piperacillin/Tazobactam/Dextrose (Zosyn (Premix)) 100 mls @ 200 mls/hr IV EDNOW ONE PRN Reason: Protocol Stop: 10/02/17 23:14 Last Admin: 10/02/17 23:01 Dose: 100 mls Piperacillin/Tazobactam/Dextrose (Zosyn 3.375 Gm (Premix)) 50 mls @ 100 mls/hr IV Q6HRS [facility] PRN Reason: Protocol Stop: 10/03/17 19:00 Last Admin: 10/03/17 16:45 Dose: 50 mls Melatonin (Melatonin) 6 mg PO HS SUSHMA Stop: 04/01/18 20:59 Last Admin: 10/03/17 21:17 Dose: 6 mg Multivitamins (Tab-A-Zaynab) 1 each PO DAILY SUSHMA Stop: 04/01/18 09:14 Last Admin: 10/04/17 08:55 Dose: 1 each [id number] Ethyl Esters (Fish Oil) 1,000 mg PO DAILY SUSHMA Stop: 04/01/18 09:14 Last Admin: 10/04/17 08:55 Dose: 1,000 mg Pantoprazole Sodium (Protonix) 40 mg PO DAILY SUSHMA Stop: 04/01/18 09:14 Last Admin: 10/04/17 08:55 Dose: 40 mg Polyethylene Glycol (Miralax) 17 gm PO DAILY SUSHMA Stop: 04/01/18 09:14 Last Admin: 10/04/17 08:55 Dose: 17 gm Potassium Chloride (Klor-Con) 20 meq PO DAILY SUSHMA Stop: 04/01/18 09:14 Last Admin: 10/04/17 08:56 Dose: 20 meq Potassium Chloride (Klor-Con) 40 meq PO ONCE ONE Stop: 10/03/17 09:10 Last Admin: 10/03/17 10:13 Dose: 40 meq Potassium Chloride (Klor-Con) 40 meq PO ONCE ONE Stop: 10/04/17 08:30 Last Admin: 10/04/17 08:56 Dose: 40 meq Ropinirole HCl (Requip) 1 mg PO TID SUSHMA Stop: 04/01/18 09:14 Last Admin: 10/04/17 08:55 Dose: 1 mg Senna/Docusate Sodium (Senokot-S) 1 tab PO BID SUSHMA Stop: 04/01/18 09:14 Last Admin: 10/04/17 08:55 Dose: 1 tab Tamsulosin HCl (Flomax) 0.4 mg PO HS SUSHMA Stop: 04/01/18 20:59 Last Admin: 10/03/17 21:17 Dose: 0.4 mg Warfarin Sodium (Coumadin) 3 mg PO DAILY16 SUSHMA Stop: 04/01/18 15:59 Last Admin: 10/03/17 15:31 Dose: 3 mg Departure - Departure Disposition: [facility] Inpatient Acute Clinical Impression: Severe sepsis Pneumonia Qualifiers: Pneumonia type: due to unspecified organism Laterality: bilateral Lung location : unspecified part of lung Qualified Code(s): J18.9 - Pneumonia, unspecified organism Condition: Fair
[2017-10-02 22:02] LABS: ADD DIFF? NO; ADD MORPH? NO; ADD SCAN? YES; FRAGMENT RBC FLAG 0 (0-99); LEFT SHIFT FLG 0 (0-99); LIPEMIA HEMOLYSIS FLAG 80 (0-99); PLATELET CLUMPS FLAG 0 (0-99)
[2017-10-02 22:11] LABS: % IMMATURE GRANULYOCYTES 1.3 % (0.0-1.1); ABSOLUTE IMMATURE GRANULOCYTES 0.11 10^3/uL (0.00-0.10); ABSOLUTE NRBC COUNT 0.02 10^3/uL (0-0.01); HEMATOCRIT 26.8 % (40.0-51.0); HEMOGLOBIN 8.6 g/dL (13.7-17.5); INR 1.83 (0.83-1.16); MEAN CELL HEMOGLOBIN CONCENTR. 32.1 g/dL (32.4-36.7); MEAN CELL VOLUME 99.6 fL (81.5-99.8); MEAN PLATELET VOLUME 9.8 fL (8.7-11.7); NRBC-AUTO% 0.2 % (0.0-0.2); PLATELET COUNT 187 10^3/uL (150-400); PROTIME(PATIENT) 21.2 SEC (12.0-15.0); RED BLOOD CELL COUNT 2.69 10^6/uL (4.40-6.38); RED CELL DISTRIBUTION WIDTH 17.6 % (11.5-15.2)
[2017-10-02 22:12] LABS: APTT 40.9 SEC (23.0-38.0)
[2017-10-02 22:14] LABS: ATYPICAL LYMPHOCYTE FLAG 100 (0-99)
[2017-10-02 22:40] LABS: ANION GAP 9 mEq/L (8-16); BILIRUBIN,TOTAL 0.9 mg/dL (0.1-1.4); CALCIUM 8.4 mg/dL (8.5-10.4); CARBON DIOXIDE 28 mEq/l (22-31); CHLORIDE 102 mEq/L (97-110); CREATININE 0.8 mg/dL (0.7-1.3); GLOMERULAR FILTRATION RATE > 60; GLUCOSE 123 mg/dL (70-100); POTASSIUM 3.6 mEq/L (3.5-5.2); SODIUM 139 mEq/L (134-144)
[2017-10-02] MEDS ORDERED: PIPERACILLIN/TAZO 4.5 GM/DEX 100 ML IV ONE (22:45)
[2017-10-02] MEDS ORDERED: NS 1,000 ML IV ONE (22:46)
[2017-10-02 22:47] LABS: SCAN POSITIVE
[2017-10-02 22:52] LABS: HYPOCHROMIA 2+; PLATELET ESTIMATE ADEQUATE (ADEQ); POLYCHROMASIA 1+; SCHISTOCYTES 1+
[2017-10-02] MEDS ORDERED: FUROSEMIDE 40 MG/4 ML VIAL IVP ONE (23:22)
[2017-10-02] MEDS ORDERED: ACETAMINOPHEN 325 MG TAB PO PRN (23:23)
[2017-10-02] MEDS ORDERED: ONDANSETRON 4 MG/2 ML VIAL IVP PRN (23:23)
[2017-10-02] MEDS ORDERED: ALBUTEROL 3 ML DEYVIAL IH PRN (23:23)
[2017-10-02] MEDS ORDERED: ACETAMINOPHEN 650 MG SUPP PR PRN (23:23)
[2017-10-02] MEDS ORDERED: IPRATROPIUM/ALBUTEROL 3 ML DEYVIAL IH PRN (23:23)
[2017-10-03 00:37] LABS: TROPONIN I 0.028 ng/mL (0.000-0.034)
[2017-10-03 00:55] LABS: COLOR YELLOW; LEUKOCYTE ESTERASE,URINE 1+ (NEGATIVE); NITRITE,URINE NEGATIVE (NEGATIVE)
[2017-10-03 01:07] LABS: BACTERIA TRACE /hpf (NONE SEEN); MUCUS TRACE /lpf (NONE-1+); WBC,URINE 15-25 /hpf (0-3)
[2017-10-03] MEDS: PIPERACILLIN/TAZO 3.375 GM/DEX 50 ML IV SCH ×3 (05:28→16:45)
[2017-10-03 05:43] LABS: ADD MORPH? NO; ADD SCAN? YES; FRAGMENT RBC FLAG 0 (0-99); HEMOGLOBIN 8.7 g/dL (13.7-17.5); LEFT SHIFT FLG 0 (0-99); LIPEMIA HEMOLYSIS FLAG 80 (0-99); MEAN CELL HEMOGLOBIN 32.5 pg (27.9-34.1); MEAN CELL HEMOGLOBIN CONCENTR. 32.2 g/dL (32.4-36.7); MEAN CELL VOLUME 100.7 fL (81.5-99.8); MEAN PLATELET VOLUME 9.4 fL (8.7-11.7); PLATELET CLUMPS FLAG 10 (0-99); PLATELET COUNT 190 10^3/uL (150-400); RED BLOOD CELL COUNT 2.68 10^6/uL (4.40-6.38); RED CELL DISTRIBUTION WIDTH 17.5 % (11.5-15.2)
[2017-10-03 05:51] LABS: ATYPICAL LYMPHOCYTE FLAG 130 (0-99)
[2017-10-03 05:58] LABS: INR 1.84 (0.83-1.16); PROTIME(PATIENT) 21.3 SEC (12.0-15.0)
[2017-10-03 05:59] LABS: APTT 41.5 SEC (23.0-38.0)
[2017-10-03] MEDS: FUROSEMIDE 40 MG/4 ML VIAL IVP SCH ×2 (06:02→15:31)
[2017-10-03 06:04] LABS: ANION GAP 10 mEq/L (8-16); CALCIUM 8.4 mg/dL (8.5-10.4); CARBON DIOXIDE 33 mEq/l (22-31); CHLORIDE 102 mEq/L (97-110); CREATININE 0.8 mg/dL (0.7-1.3); GLOMERULAR FILTRATION RATE > 60; GLUCOSE 98 mg/dL (70-100); POTASSIUM 3.2 mEq/L (3.5-5.2); SODIUM 145 mEq/L (134-144)
[2017-10-03 06:34] LABS: ADD DIFF? YES; SCAN POSITIVE
[2017-10-03 06:43] LABS: PLATELET ESTIMATE ADEQUATE (ADEQ); POLYCHROMASIA 1+; SCHISTOCYTES 1+
--- NOTE | 2017-10-03 07:50 | GHP ---
[f rep st] HISTORY AND PHYSICAL DATE OF ADMISSION: 10/02/2017 SOURCE: Patient provides history, appears reliable. His electronic medical record is also reviewed. Case discussed with ED provider. CHIEF COMPLAINT: Shortness of breath. HISTORY OF PRESENT ILLNESS: This is a very pleasant 87-year-old gentleman with past medical history significant for chronic respiratory failure on baseline 3 L/minute oxygen, COPD, BPH, hypertension, O SA, atrial fibrillation with history of AV valve replacement, on Coumadin for anticoagulation with a complicated recent history of incarcerated right inguinal hernia and subsequent small bowel obstructi on, admitted on 09/02/2017. The patient subsequently underwent exploratory laparotomy for lysis of adhesions and repair of the inguinal hernia. The patient was discharged on 09/14/2017 a nd returned on 09/15/2017 after an episode of acute on chronic respiratory failure suspected secondar y to aspiration pneumonia. The patient was also found to be septic and bacteremic with blood culture s growing Klebsiella pneumoniae and Bacteroides. Patient was initially admitted with severe sepsis t o the ICU, stabilized and subsequently continued on IV antibiotics. Infectious Disease was consulted , and subsequently patient was discharged on IV Zosyn 3.375 g q.6 hours as well as 40 mg of Lasix b.i .d. The patient was discharged on 09/23/2017 to [facility]. The patie nt apparently continued to struggle with dyspnea and had been placed on IV antibiotics at his facilit y with Zosyn. Reportedly, there has no been no change in patient's weight however. The patient stat es that he has noted increased lower extremity edema, worsening dyspnea with exertion, increased oxyg en requirement, and denies any episodes of aspiration, choking or difficulties swallowing. The patient is seen on the telemetry floor. He denies any significant improvement in his respiratory status. When he presented to the emergency department, the patient was noted to be saturating at 71 % with increased work of breathing. EMS was called to the skilled nursing, and patient was placed on Bi PAP with improvement in O2 saturation. The patient's oxygenation improved to 95% with use of OxyMask . The patient denies any productive cough. No rhinorrhea. No congestion. Additionally, he had bee n on Tamiflu prophylaxis during his stay at [facility]. The patient reports likely exposure to sick contacts at the nursing facility. REVIEW OF SYSTEMS: GENERAL: Negative. Denies any fevers, chills. ENT: Patient denies any congest ion, sore throat. EYES: Patient denies any acute changes in vision or ocular pain. CV: The patien t denies any chest pain or palpitations. RESPIRATORY: Dyspnea. No cough. No dysphagia. As noted above in HPI. GI: Patient denies any nausea, vomiting, abdominal pain. No diarrhea. : Patient denies any dysuria or hematuria. MUSCULOSKELETAL: Patient complains of generalized weakness. No my algias. NEURO: Patient denies any headache. No changes in vision. No ocular pain. Denies any num bness, tingling, or focal deficits. PSYCH: The patient denies any issues with anxiety or depression . Remainder of review of systems negative except as noted above. ALLERGIES: To ciprofloxacin, codeine, and Dilaudid. HOME MEDICATIONS: As per accompanying paper record from [facility]. Lasix 40 mg p.o. b.i.d., pota ssium 20 mEq p.o. daily, Biotene spray q.i.d. p.r.n., Tamiflu 75 mg p.o. daily, vitamin C 500 mg p.o. daily, aspirin 81 mg p.o. daily, Zyrtec 10 mg p.o. daily, vitamin D3 1000 units p.o. daily, finaster zahra 5 mg p.o. daily, Coreg 3.125 mg p.o. b.i.d., Protonix 40 mg p.o. daily, MiraLAX 17 g packet p.o. daily p.r.n. for constipation, tamsulosin 0.4 mg p.o. daily, fish oil 1000 mg omega-3 p.o. daily, Req uip 1 mg p.o. t.i.d. p.r.n. for Parkinson, multivitamin 1 tab p.o. daily, tramadol 50 mg p.o. q.6 katharine rs p.r.n. for pain, senna 1 tab p.o. b.i.d. p.r.n. for constipation, Cathflo p.r.n., throat lozenge q .2 p.r.n., Zosyn 3.375 g IV q.6 hours, continuous oxygen, melatonin 6 mg p.o. daily p.r.n. insomnia, Coumadin 2 mg p.o. daily. PAST MEDICAL HISTORY: Significant for aspiration pneumonia; diastolic CHF with last EF of 55%; chron ic respiratory failure, baseline is 3 L/minute oxygen requirement; SHAY; osteoarthritis; chronic pain; restless legs syndrome; Parkinson's; GERD; BPH; COPD; hypertension; history of small bowel obstructi on related to incarcerated hernia; atrial fibrillation on Coumadin with pacer placement; history of a ortic valve replacement; AAA status post repair; history of bacteremia with Bacteroides and Klebsiell a pneumoniae. PAST SURGICAL HISTORY: AAA repair, AV replacement; exploratory laparotomy with lysis of adhesions fo r incarcerated hernia, small bowel obstruction, appendectomy, cholecystectomy, retinal surgery. FAMILY HISTORY: Significant for cancer. SOCIAL HISTORY: The patient is currently residing at [facility] since his discharge on the 23 of September. He does not smoke, drink, or do drugs. He is a former smoker. He is essentially wheel chair bound with max assist requirement needs for ADLs. CODE STATUS: At this time is full. PHYSICAL EXAM: VITAL SIGNS: Upon arrival to the emergency department, blood pressure 158/84, pulse 85, respiratory rate 22, O2 saturation 94% on CPAP with temperature 36.9. Vitals available time of i nterview: Blood pressure 146/65, pulse 74, respiratory rate 19, O2 saturation 96% on 4 L by OxyMask, temperature 36.6. GENERAL: No acute distress. Pleasant, frail, elderly gentleman who is lying kenney etly in bed. He does have some mild increased work of breathing but is sleeping and wakes easily to his name. HEAD: Normocephalic, atraumatic. EYES: Extraocular muscles intact. Pupils equal, round , slightly decreased reactivity bilaterally and symmetric. No scleral icterus or conjunctival inject ion. ENT: Mucous membranes appear moist. No oropharyngeal erythema or exudates. NECK: Supple. T rachea midline. CV: Regular rate and rhythm. Positive systolic murmur. No chest wall tenderness t o palpation. RESPIRATORY: Diminished at the bases with crackles. No wheezing. The patient with so me mild increased work of breathing. ABDOMEN: Obese, soft. Patient with some mild tenderness to pa lpation near incision sites, which are well healed. Patient without any distention. He has an obese abdomen, but soft. Positive bowel sounds. : No Sousa in place. No scrotal edema. EXTREMITIES: Patient with generalized weakness. Able to move his upper and lower extremities while lying in bed . The patient does have 2+ pitting edema bilateral lower extremities that extends distal to the knee s. NEURO: Cranial nerves 2-12 intact, symmetric bilaterally. Patient is awake, alert, and oriented x3. He is quite fatigued, but answers questions appropriately. PSYCH: Patient without any increas ed anxiety. Thought process, content and questions appropriate. LABORATORY STUDIES: 1. WBCs 8.60, H and H 8.6 and 26.8, MCV of 99.6, platelet count is 187. No bands. Patient with not ed atypical lymphocytes, polychromasia, hypochromasia, schistocytes. 2. PT 21.2, INR 1.83, PTT is 40.9. 3. VBG lactic acid 1.1. 4. Sodium is 139, potassium 2.6, chloride 102, CO2 is 28, anion gap 9, BUN 15, creatinine 0.8, GFR g reater than 60, glucose 123, calcium 8.4, total bilirubin 0.9. Troponin 0.028. BTNP is 5380. UA wi th specific gravity 1.024, pH of 5.0, protein 1+, ketones trace, 1+ leukocyte esterase, RBCs 5-10, WB Cs 15-25, trace bacteria. CULTURES: Urine and blood x2 are pending. IMAGING: Chest x-ray image and report reviewed by myself showing diffuse infiltrate throughout the r ight lung and in the left lower half of the lung. Consolidation densest in the lower lung zones, dif ficult to exclude small associated pleural effusion. Right arm PIC present in the tip of the superio r vena cava. Left chest wall pacer device, associated 3 pacer leads. Difficult to plate printer heart size due to adjacent right-sided consolidation. Median sternotomy wires and valve replacement overlie the heart. Dense atherosclerotic calcifications of the aortic arch and descending aorta consistent with chronic recurrent bilateral pneumonia. ASSESSMENT AND PLAN: Pleasant 87-year-old gentleman presents with acute on chronic respiratory compl aints of shortness of breath. 1. Acute on chronic respiratory failure with hypoxia. Patient is status post placement on BiPAP and OxyMask, currently oxygenating on 4 L/minute. The patient will receive diuresis. Continue antibiot ic therapy. Infectious Disease consult will be obtained in the morning for further recommendation on antibiotics. At this point, patient is afebrile. He has no leukocytosis, and lactate is within nor mal limits. The patient presented with systemic inflammatory response syndrome criteria, but this chapman s improved. 2. Acute on chronic diastolic congestive heart failure with decompensation. The patient will receiv e additional diuresis. He has lower extremity edema, jugular venous distention. Saline lock IV and place patient on fluid restriction and salt-restricted diet. 3. Bilateral pneumonia with history of aspiration. Again, patient afebrile, without leukocytosis. Infectious Disease consultation this morning for additional recommendations. Continue patient's Zosy n. 4. Anemia, likely of chronic disease. Patient without any evidence of active bleeding. Continue to monitor. 5. History of atrial fibrillation, chronic. Continue patient's Coreg and Coumadin dosing. He does have a pacer in place. 6. History of aortic valve replacement. On anticoagulation. Subtherapeutic for goal. Pharmacy cons ultation to assist with dosing. 7. Obstructive sleep apnea. Unknown if patient wears BiPAP at h.s. but does wear oxygen 3 L/minute baseline. 8. Chronic pain, stable. 9. Restless legs syndrome. Continue Requip. 10. Gastroesophageal reflux disease. Continue proton pump inhibitor. Speech Therapy consultation t o evaluate for dysphagia. 11. Chronic obstructive pulmonary disease with exacerbation. Continue nebulizer treatments and Solu -Medrol p.r.n. 12. Benign essential hypertension. Blood pressure is slightly increased but acceptable for 87-year- old gentleman. Will continue to monitor. Resume patient's Coreg in the morning. 13. Fluids, electrolytes and nutrition. Saline lock IV. Fluid restriction. Once diet is advanced after patient evaluated by Speech Therapy, electrolyte replacement if needed. 14. Code status is full. DISPOSITION: Patient admitted to observation status at this time pending response to diuresis and fu rther recommendations from Infectious Disease. The patient admitted on PCU. /[id number]/MODL
[2017-10-03] MEDS ORDERED: SENNOSIDES/DOCUSATE SODIUM TAB PO PRN (09:07)
[2017-10-03] MEDS ORDERED: traMADol 50 MG TAB PO PRN (09:07)
[2017-10-03] MEDS ORDERED: CEPACOL LOZENGE PO PRN (09:07)
[2017-10-03] MEDS ORDERED: POTASSIUM CL 20 MEQ TAB PO ONE (09:09)
[2017-10-03] MEDS: ASCORBIC ACID 500 MG TAB PO SCH (10:13)
[2017-10-03] MEDS: CHOLECALCIFEROL VIT D3 1,000 UNITS TAB PO SCH (10:13)
[2017-10-03] MEDS: POTASSIUM CL 20 MEQ TAB PO SCH (10:13)
[2017-10-03] MEDS: PANTOPRAZOLE SODIUM 40 MG TAB PO SCH (10:13)
[2017-10-03] MEDS: CARVEDILOL 3.125 MG TAB PO SCH ×2 (10:13→16:45)
[2017-10-03] MEDS: SENNOSIDES/DOCUSATE SODIUM TAB PO SCH ×2 (10:13→21:17)
[2017-10-03] MEDS: OMEGA-3 FATTY ACIDS 1,000 MG CAP PO SCH (10:13)
[2017-10-03] MEDS: ASPIRIN 81 MG CHEWABLE TAB PO SCH (10:13)
[2017-10-03] MEDS: MULTIVITAMINS 1 EACH TAB PO SCH (10:13)
[2017-10-03] MEDS: FINASTERIDE 5 MG TAB PO SCH (10:13)
[2017-10-03] MEDS: CETIRIZINE 10 MG TAB PO SCH (10:13)
[2017-10-03] MEDS: POLYETHYLENE GLYCOL 3350 17 GM PKT PO SCH (10:14)
--- NOTE | 2017-10-03 11:11 | ASMTCMCOM ---
CM Note CM Note Notes: 10/03/2017 Case Management Note Reviewed chart. Pt admitted to [facility] from [facility]. Alerted Fer at [facility]. Fer stated she is holding a bed for pt and anticipates that pt will return to [facility] at d/c. Faxed updates to [facility]. Case Management d/c poc: return to [facility] when medically stable. Case management available if needs change. Date Signed: 10/03/2017 11:11 AM Electronically Signed By:Estefanía Pacheco RN
--- NOTE | 2017-10-03 12:48 | PCMIDPN ---
Assessment/Plan: Assessment: Readmission for hypoxia. Patient previously hospitalized almost 2 weeks ago for polymicrobial bacteremia of unclear source. Patient does have a chronic pneumonia/pneumonitis which may be related to aspiration but is unlikely to be the cause of the prior polymicrobial bacteremia. Patient at that point had leukocytosis and was toxic on admission. He is clinically stable on this admission apart from the hypoxia. Patient continues on Zosyn and will complete his 2 week course of treatment today. Plan on no further antibiotics after today's doses. Will sign off. Fluid management and chronic respiratory insufficiency will be over seen by hospitalist group. Plan: 1. Discontinue IV Zosyn after today's doses. 2. Follow clinical course. 3. Infectious disease to sign off today. Follow-up as needed. 10/03/17 12:45 Subjective: Patient is resting comfortably in his hospital bed. Patient states that he feels better with the oxygen amount that he is getting. He denies any cough. He denies any fevers or chills. Objective: Zosyn # 14/14 Vital Signs Temp Pulse Resp BP Pulse Ox 36.6 C 70 20 149/67 H 98 10/03/17 11:37 10/03/17 11:37 10/03/17 11:37 10/03/17 11:37 10/03/17 11:37 Laboratory Results 10/03/17 05:25 10/03/17 05:25 10/02/17 10/03/17 10/04/17 05:59 05:59 05:59 Intake Total 170 Output Total 0295 1575 Balance -2155 -1575 - Physical Exam General Appearance: WD/WN, alert, no apparent distress, non-toxic Respiratory: normal breath sounds, crackles, No lungs clear Cardiac/Chest: regular rate, rhythm, No tachycardia Skin: normal color, warm/dry, No rash Neuro/Psych: alert, normal mood/affect, oriented x 3 ICD10 Worksheet Patient Problems: Problems Problem Status Onset Pneumonia Acute Severe sepsis Acute Abdominal pain Acute Acute respiratory failure Acute Atrial fibrillation Acute Hematoma of chest wall Acute Hematoma of pacemaker pocket Acute Incarcerated right inguinal hernia Acute Small bowel obstruction Acute
--- NOTE | 2017-10-03 14:13 | WOCRNPDOC ---
WOCRN Advanced Assessment Note - Skin Integrity Problem, Advanced Assess Right Medial Buttock Incont Assoc Dermatitis Dressing Type: Open to Air Site Measurement - Head-to-Toe Length X Width X Depth (cm): 4x2x0.1 Skin Integrity Problem Comment: Partial thickness friction injury to right buttock. No pressure involvement. Mild to moderate incontinence dermatitis to gluteal cleft as well with blanching erythema. Wound care will sign off. Alejandro CHAPIN in room for care. Apply 50/50 calazime and dimethicone to area.
[2017-10-03] MEDS ORDERED: WARFARIN SODIUM 3 MG TAB PO SCH (16:00)
--- NOTE | 2017-10-03 16:48 | PDMN ---
Medical Necessity Medical necessity: Change to IP, as of 10/03/17, per MD; los >2 mn for ongoing management/tx of acute diastolic CHF exacerbation, hypoxia, chronic pna/ pneumonitis; hx aspiration pna, CHF, chronic respiratory failure, Parkinsons, COPD, HTN, AFIB, AAA, bacteremia; per progress note & order 10/03/17
--- NOTE | 2017-10-03 17:28 | HOSPPROG ---
Hospitalist Progress Note Assessment/Plan: Assessment: 87-year-old male presents with acute on chronic hypoxic respiratory failure in the setting of acute on chronic diastolic congestive heart failure exacerbation and possible aspiration pneumonitis Plan: 1. Acute on chronic hypoxic respiratory failure. Evidenced by SpO2 of 71% on supplemental oxygen with notable increased work of breathing, requiring BiPAP therapy, secondary to CHF exacerbation, less likely COPD exacerbation -the patient has been weaned to 5 L high-flow oxygen, and his baseline is 3 L nasal cannula -requires ongoing care given that he is not at his respiratory baseline -continue to treat CHF 2. Acute on chronic diastolic congestive heart failure exacerbation. Evidenced by bibasilar airspace disease on chest x-ray, BNP of 5300, JVD, lower extremity edema -reviewed outside records including 09/19/2017 echocardiogram demonstrating preserved ejection fraction, atrial enlargement -most likely secondary to a combination of salt content of Zosyn therapy plus recent IV fluids and hospitalization, likely inadequate Lasix dosing -increase Lasix to 40 mg IV twice daily and continue -monitor strict I&Os, weights -monitor creatinine -counseled patient and his son extensively regarding the pathophysiology of congestive heart failure and patient's resulting respiratory failure -patient remains clinically hypovolemic, requires ongoing IV diuresis 3. Possible aspiration pneumonitis. Discussed with Dr. Zoltan Rosenbaum, he and I both agree that is unlikely that the patient is experiencing a new bacterial pneumonia process, and most likely experiences some ongoing aspiration, with possible pneumonitis contributing to his presentation and chest x-ray findings -get [employer] eval -dietary modifications under their supervision -will continue the Zosyn at the previously scheduled duration of therapy, with last dosage tonight 4. Permanent atrial fibrillation. Continue on Coreg and Coumadin, mild up titration of Coumadin dosing -continue monitor on telemetry, has permanent pacemaker 5. Anemia of chronic inflammatory disease. No evidence of acute blood loss, hemoglobin 8.7, continue monitor Diet. [employer], advance as tolerated Prophylaxis. High risk patient, currently on Coumadin Code. Full Disposition. Anticipated discharge uncertain this time, anticipated length stay greater than 48 hours warranting inpatient admission status for reasonable medical necessity including acute CHF exacerbation requiring ongoing IV diuretic therapy and current oxygen requirements higher than his baseline. Subjective: Patient reports he is substantially fatigue after not getting to sleep until approximately 4:00 a.m. Objective: Vital Signs Temp Pulse Resp BP Pulse Ox 36.4 C 76 20 107/51 L 96 10/03/17 15:13 10/03/17 15:13 10/03/17 15:13 10/03/17 15:13 10/03/17 15:13 10/02/17 10/03/17 10/04/17 05:59 05:59 05:59 Output Total 250 Balance -250 PT 21.3 SEC (12.0-15.0) H 10/03/17 05:25 INR 1.84 (0.83-1.16) H 10/03/17 05:25 - Time Spent With Patient Time Spent with Patient: greater than 35 minutes Time Spent with Patient: Greater than 35 minutes spent on this patients care, greater than 50% of time spent counseling, educating, and coordinating care regarding the above mentioned plan. - Physical Exam Constitutional: no apparent distress, not in pain, chronically ill appearing, No uncomfortable Cardiovascular: systolic murmur (0 6 at the sternum), irregularly irregular, JVD , tachycardia, edema (Trace bilateral extremities) Respiratory: reduced air movement (Bilateral bases), inspiratory crackles ( Bilateral bases), No expiratory wheeze, No bronchial breath sounds Gastrointestinal: normoactive bowel sounds, soft, non-tender abdomen, no palpable masses, No distension Neurologic: AAOx3, No sensation intact bilaterally, No facial droop Psychiatric: interacting appropriately, not anxious, not encephalopathic, thought process linear ICD10 Worksheet Patient Problems: Problems Problem Status Onset Pneumonia Acute Severe sepsis Acute Abdominal pain Acute Acute respiratory failure Acute Atrial fibrillation Acute Hematoma of chest wall Acute Hematoma of pacemaker pocket Acute Incarcerated right inguinal hernia Acute Small bowel obstruction Acute
[2017-10-03] MEDS ORDERED: MELATONIN 3 MG TAB PO SCH (21:00)
[2017-10-03] MEDS ORDERED: TAMSULOSIN HCL 0.4 MG CAP PO SCH (21:00)
[2017-10-04] MEDS: FUROSEMIDE 40 MG/4 ML VIAL IVP SCH (05:37)
[2017-10-04 06:08] LABS: ANION GAP 7 mEq/L (8-16); CALCIUM 8.1 mg/dL (8.5-10.4); CARBON DIOXIDE 39 mEq/l (22-31); CHLORIDE 97 mEq/L (97-110); CREATININE 0.8 mg/dL (0.7-1.3); GLOMERULAR FILTRATION RATE > 60; GLUCOSE 93 mg/dL (70-100); INR 1.99 (0.83-1.16); MAGNESIUM 1.9 mg/dL (1.6-2.3); POTASSIUM 3.1 mEq/L (3.5-5.2); PROTIME(PATIENT) 22.7 SEC (12.0-15.0); SODIUM 143 mEq/L (134-144)
[2017-10-04 06:14] LABS: ADD MORPH? NO; ADD SCAN? YES; FRAGMENT RBC FLAG 0 (0-99); HEMATOCRIT 26.9 % (40.0-51.0); HEMOGLOBIN 8.5 g/dL (13.7-17.5); LEFT SHIFT FLG 0 (0-99); LIPEMIA HEMOLYSIS FLAG 80 (0-99); MEAN CELL HEMOGLOBIN 32.1 pg (27.9-34.1); MEAN CELL HEMOGLOBIN CONCENTR. 31.6 g/dL (32.4-36.7); MEAN CELL VOLUME 101.5 fL (81.5-99.8); MEAN PLATELET VOLUME 9.5 fL (8.7-11.7); PLATELET CLUMPS FLAG 0 (0-99); PLATELET COUNT 228 10^3/uL (150-400); RED BLOOD CELL COUNT 2.65 10^6/uL (4.40-6.38); RED CELL DISTRIBUTION WIDTH 17.7 % (11.5-15.2)
[2017-10-04 06:28] LABS: ATYPICAL LYMPHOCYTE FLAG 120 (0-99)
[2017-10-04 06:46] LABS: ADD DIFF? YES; SCAN POSITIVE
[2017-10-04 06:50] LABS: MACROCYTES 1+; PLATELET ESTIMATE ADEQUATE (ADEQ)
[2017-10-04 07:46] VITALS: TEMP 98.1
[2017-10-04] MEDS ORDERED: POTASSIUM CL 20 MEQ TAB PO ONE (08:29)
[2017-10-04] MEDS: OMEGA-3 FATTY ACIDS 1,000 MG CAP PO SCH (08:55)
[2017-10-04] MEDS: ASPIRIN 81 MG CHEWABLE TAB PO SCH (08:55)
[2017-10-04] MEDS: ASCORBIC ACID 500 MG TAB PO SCH (08:55)
[2017-10-04] MEDS: FINASTERIDE 5 MG TAB PO SCH (08:55)
[2017-10-04] MEDS: CETIRIZINE 10 MG TAB PO SCH (08:55)
[2017-10-04] MEDS: MULTIVITAMINS 1 EACH TAB PO SCH (08:55)
[2017-10-04] MEDS: CHOLECALCIFEROL VIT D3 1,000 UNITS TAB PO SCH (08:55)
[2017-10-04] MEDS: SENNOSIDES/DOCUSATE SODIUM TAB PO SCH (08:55)
[2017-10-04] MEDS: PANTOPRAZOLE SODIUM 40 MG TAB PO SCH (08:55)
[2017-10-04] MEDS: CARVEDILOL 3.125 MG TAB PO SCH (08:55)
[2017-10-04] MEDS: POLYETHYLENE GLYCOL 3350 17 GM PKT PO SCH (08:55)
[2017-10-04] MEDS: POTASSIUM CL 20 MEQ TAB PO SCH (08:56)
[2017-10-04 11:26] VITALS: BP 112/53; PULSE 80; RESP 18; O2SAT 90
--- NOTE | 2017-10-04 11:29 | PDIAF ---
- Diagnosis Diagnosis: Acute diastolic CHF Code Status: Full Code - Medication Management Discharge Medications: Medications to Continue on Transfer Carvedilol [Coreg (*)] 3.125 mg PO BIDMEAL 11/25/14 [Last Taken 09/14/17] Pantoprazole Sodium [Protonix 40mg (*)] 40 mg PO DAILY 11/25/14 [Last Taken ] Polyethylene Glycol 3350 [Miralax 17 gm (*)] 17 gm PO DAILY 11/25/14 [Last Taken 09/14/17] Tamsulosin HCl [Flomax 0.4 MG (*)] 0.4 mg PO HS 11/25/14 [Last Taken 09/14/17] [place]-3 Fatty Acids [Fish Oil 1000 mg (*)] 1,000 mg PO DAILY 11/29/14 [Last Taken 09/14/17] Finasteride [Proscar 5 MG (*)] 5 mg PO DAILY 11/25/15 [Last Taken 09/14/17] rOPINIRole HCL [Requip 1mg (*)] 1 mg PO TID 11/25/15 [Last Taken 09/14/17] Ascorbic Acid [Vitamin C 500 mg (*)] 500 mg PO DAILY 09/01/17 [Last Taken ] Aspirin [Aspirin 81mg (*)] 81 mg PO DAILY 09/01/17 [Last Taken 09/14/17] Cholecalciferol Vit D3 [Vitamin D3 (*)] 1,000 units PO DAILY 09/01/17 [Last Taken 09/14/17] Multivitamins [Multivitamin (*)] 1 tab PO DAILY 09/01/17 [Last Taken 09/14/17] Cetirizine [ZyrTEC 10 mg (*)] 10 mg PO DAILY tab 09/14/17 [Last Taken 09/14/17] traMADol [Ultram 50 mg (*)] 50 mg PO Q6HRS PRN tab 09/14/17 [Last Taken Unknown ] Sennosides/Docusate Sodium [Senna-Docusate Sodium Tablet] 1 each PO BID [Last Taken 09/14/17] Sennosides/Docusate Sodium [Senna-Docusate Sodium Tablet] 1 each PO BID PRN [Last Taken Unknown] Benzocaine/Menthol 15/4 [Cepacol Lozenge] 1 each PO Q2HRS PRN 10/03/17 [Last Taken Unknown] Melatonin [Melatonin 3 MG (*)] 6 mg PO HS 10/03/17 [Last Taken Unknown] Furosemide [Lasix 40 MG (*)] 40 mg PO BID@0900,1500 tab 10/04/17 [Last Taken Unknown] Potassium Cl [Klor-Con 20 meq (*)] 20 meq PO BID #0 10/04/17 [Last Taken Unknown ] Warfarin Sodium [Coumadin 3MG (*)] 3 mg PO DAILY16 tab 10/04/17 [Last Taken Unknown] Returner Antibiotics: NA Discharge Medications: Refer to the Discharge Home Medication list for PRN reason. PICC Care - Routine: N/A - Orders Services needed: Registered Nurse, Physical Therapy, Occupational Therapy, Speech Language Pathologist (swallow therapy) Isolation Type: None Oxygen: 3L NC continuous Diet Recommendation: cardiac -low fat low salt Diet Texture: Regular Texture Diet, Thin Liquids, Meds Whole in Puree Weigh Patient: daily Sousa: Not applicable Additional: patient would like to wear diapers and have them changed on a regular basis - Labs/Radiology BMP Date: 10/08/17 PT/INR Date: 10/08/17 Call or Fax Lab and Imaging Results to: Dr. Miguel - Follow Up Care Current Providers and Referrals: Sahil Miguel MD [Medical Doctor] - 3-5 days (please call to schedule) Isi Huynh MD [Primary Care Provider] - 3 days of d/c SNF/Rehab
--- NOTE | 2017-10-04 12:19 | ASMTCMCOM ---
CM Note CM Note Notes: Pt is being discharged back to [facility] today. CM coordinated the d/c with Alonzo at [facility]. Alonzo will set up transportation. Pt will go via wheelchair with [employer]. CM sent d/c orders. CHILO provided TAVARES Rogers w/ phone number to give report to [facility]. CM available for changes. Date Signed: 10/04/2017 12:18 PM Electronically Signed By:JACQUES Diaz
--- NOTE | 2017-10-04 13:20 | PDDCSUM ---
Discharge Summary Discharge Summary: DISCHARGE SUMMARY FOLLOW-UP ITEMS: Follow-up creatinine BUN and lytes on Sunday DATE OF ADMISSION: 10/02/2017 DATE OF DISCHARGE: 10/04/2017 DISCHARGE DIAGNOSES: 1. Acute on chronic hypoxic respiratory failure 2. Acute on chronic diastolic congestive heart failure exacerbation 3. Possible aspiration pneumonitis 4. Permanent atrial fibrillation 5. Anemia of chronic inflammatory disease CONSULTATIONS: Infectious Disease PROCEDURES / IMAGING: Chest x-ray demonstrating bibasilar airspace disease CHIEF COMPLAINT: Acute shortness of breath SUBJECTIVE: Patient is feeling well at time of discharge, his respiratory status has stabilized PHYSICAL EXAM ON DISCHARGE: Systolic blood pressure is 130-150, heart rate 80, satting well on 3 L nasal cannula, net-4 L length of stay, lungs have inspiratory crackles in the bilateral bases, no expiratory wheezes, no tachypnea or labored breathing, no lower extremity edema, heart rhythm is irregularly irregular LABS ON DISCHARGE: Creatinine 0.8, potassium 3.1, INR 2.0, hemoglobin 8.5, white blood count [id number] HOSPITAL COURSE BY PROBLEM: The patient presented with acute on chronic hypoxic respiratory failure evidenced by SpO2 of 71% on supplemental oxygen with notable increased work of breathing, requiring BiPAP therapy, secondary to a CHF exacerbation. The patient was treated with BiPAP therapy for respiratory stabilization as well as IV Lasix. The patient was aggressively diuresed and was net-4 L during his length of stay. I believe the most likely cause of his CHF exacerbation is ongoing use of Zosyn while at [facility] facility, inadequate diuretic dosing, as well as recent hospitalization where he received IV fluids. Of note , the patient completed his course of Zosyn therapy, and it was discontinued by Infectious Disease. His Lasix dosing will be temporarily increased to 40 mg twice daily with supplemental potassium and repeat creatinine BUN and lytes next week. He should be followed up closely at [facility] with his primary cloth napping supervisor, Dr. Sahil Miguel. Patient was continued on his other cardiac medications notably his Coreg for permanent atrial fibrillation as well as his Coumadin. His Coumadin dosing was mildly increased to 3 mg daily in order to accomplish therapeutic INR. The patient was also seen by speech therapy and dietary modifications were made. It is possible the patient may have experienced some, aspiration pneumonitis, which could explain some of his ongoing radiographic findings. Overall, the patient does not have a recurrence or persistent infection, and no further antibiotics are indicated. DISCHARGE MEDICATIONS: Please see official discharge medication reconciliation sheet in chart , Lasix 40 mg twice daily, potassium 20 mEq twice daily, discontinuation of Zosyn, continue other home medications with the up titration of Coumadin to 3 mg daily. DISCHARGE INSTRUCTIONS: Please follow up with Dr. Sahil Miguel next week and have labs prior to appointment. TIME SPENT: Greater than 30 minutes were spent on direct patient care, as well as discharge planning and preparation.
[2017-10-04] MEDS ORDERED: FUROSEMIDE 40 MG TAB PO SCH (15:00)
--- NOTE | 2017-10-04 16:23 | ASDISCHSUM ---
Discharge Information Plan Status:SNF Medically Cleared to Leave:10/03/2017 Discharge Date:10/04/2017 02:45 PM CM D/C Disposition:Custodial Facility ADT D/C Disposition:Custodial Facility Projected Discharge Date:10/04/2017 11:00 AM Transportation at D/C:Wheelchair Van Discharge Delay Reason: Follow-Up Date:10/04/2017 11:00 AM Discharge Slot: Final Diagnosis: Placement Information Referral Type:*Care Home/SNF Referral ID:[id number] Provider Name:[facility] Address 1:[address] Address 2: City:[place] Selection Factors: State:[place] Patient Contact Information Contact Name:DORA Relationship:Son Address:[address] City:[place] Alternate Phone: State/Zip Code:[place] [address] Email: Financial Information Financial Class: Primary Plan Desc:MEDICARE INPATIENT Primary Plan Number:[id number] Secondary Plan Desc:[facility] Secondary Plan Number:[id number] Assessment Information [facility] CM Progress Note CM Note CM Note Notes: 10/03/2017 Case Management Note Reviewed chart. Pt admitted to [facility] from [facility]. Alerted Fer at [facility]. Fer stated she is holding a bed for pt and anticipates that pt will return to [facility] at d/c. Faxed updates to [facility]. Case Management d/c poc: return to [facility] when medically stable. Case management available if needs change. Date Signed: 10/03/2017 11:11 AM Electronically Signed By:Estefanía Pacheco RN [facility] CM Progress Note CM Note Note Notes: Pt is being discharged back to [facility] today. CHILO coordinated the d/c with Alonzo at [facility]. Alonzo will set up transportation. Pt will go via wheelchair with [facility]. CM sent d/c orders. CHILO provided TAVARES Rogers w/ phone number to give report to [facility]. CHILO available for changes. Date Signed: 10/04/2017 12:18 PM Electronically Signed By:JACQUES Diaz Intervention Information Intervention Type:*COSTA-Signed Date of Service:10/03/2017 11:28 AM Patient Type:Observation Staff Member:Stephanie Masters Hours: Discipline: Severity: Comment: Intervention Type:*Erika 73 Date of Service:10/04/2017 03:46 PM Patient Type:Inpatient Staff Member:TAVARES Hoffman, Ranjana Hours: Discipline: Severity: Comment:
== END 2017-10-04 14:45 | DRG 291 ==
LOC: EDUNIT# → F2W 23:54 → OBSVTOIN 10-03 15:41
PROVIDERS: ADMIT Family Medicine; ATTEND Internal Medicine
PROC: 5A09358 Assistance with Respiratory Ventilation, Less than 24 Consecutive Hours, Intermittent Positive Airway Pressure (ICD-10-PCS; principal; 2017-10-02)
DX: I50.33 Acute on chronic diastolic (congestive) heart failure (principal); J96.21 Acute and chronic respiratory failure with hypoxia; I11.0 Hypertensive heart disease with heart failure; J69.0 Pneumonitis due to inhalation of food and vomit; I48.2 Chronic atrial fibrillation; D63.8 Anemia in other chronic diseases classified elsewhere; G47.33 Obstructive sleep apnea (adult) (pediatric); J44.9 Chronic obstructive pulmonary disease, unspecified; K21.9 Gastro-esophageal reflux disease without esophagitis; G20 Parkinson's disease; G25.81 Restless legs syndrome; Z79.01 Long term (current) use of anticoagulants; Z95.2 Presence of prosthetic heart valve; Z95.0 Presence of cardiac pacemaker
CPT/HCPCS: 92610-GN; 96365; 97110-GP; 97116-GP; 97161-GP; G0378; G8978-GP-CJ; G8979-GP-CI; G8996-GN-CH; G8996-GN-CI; G8997-GN-CH; G8997-GN-CI; G8998-GN-CH; G8998-GN-CI; J1940; J2543

== ENCOUNTER → 2017-10-22 | Outpatient (CLI) | payer OTHER | LOC: FIMAGING 08:16 | PROVIDERS: ATTEND Internal Medicine Cardiovascular Disease | DX: R53.83 Other fatigue (principal); R06.02 Shortness of breath; J69.0 Pneumonitis due to inhalation of food and vomit; I25.810 Atherosclerosis of coronary artery bypass graft(s) without angina pectoris ==

== ENCOUNTER → 2018-09-18 | Outpatient (CLI) | payer OTHER | LOC: BHFA 13:15 | PROVIDERS: ATTEND Internal Medicine Cardiovascular Disease | DX: Z95.2 Presence of prosthetic heart valve (principal) ==

== ENCOUNTER → 2018-11-14 | Outpatient (CLI) | payer OTHER | LOC: FIMAGING 13:45 | PROVIDERS: ATTEND Internal Medicine | DX: J44.9 Chronic obstructive pulmonary disease, unspecified (principal); I25.10 Atherosclerotic heart disease of native coronary artery without angina pectoris; R91.8 Other nonspecific abnormal finding of lung field ==

== ENCOUNTER → 2018-12-14 | Outpatient (CLI) | payer OTHER | LOC: FIMAGING 12:13 | PROVIDERS: ATTEND Internal Medicine Pulmonary Disease | DX: J84.10 Pulmonary fibrosis, unspecified (principal) ==

== ENCOUNTER 2019-01-09 13:54 | Inpatient (IN) | payer OTHER ==
--- NOTE | 2019-01-09 14:13 | EDPHY ---
HPI/HX/ROS/PE/MDM Narrative: CHIEF COMPLAINT: Period of unresponsiveness HPI: The patient is an anticoagulated 88 y/o male with a history of atrial fibrillation, aortic valve replacement, CHF, arriving with his friends from the [facility] for evaluation of a period of unresponsiveness this afternoon. His friend says he was on the exercise bike for about 15 minutes then sat down to play poker with his friends. A short time into the game he had a 10-15 minute period of unresponsiveness without loss of consciousness. They describe his eyes open, not talking "like he wasn't even there, it was just a body sitting in a chair." At some point he said, "I can't" and later developed "high deep breathing" per friends. These symptoms have resolved and the patient says he "pretty much" feels back to normal at this time. He remembers this event and says, "I couldn't say or do what I wanted to do." He does not recall experiencing symptoms like this previously. He denies headache, recent illness, recent trauma. REVIEW OF SYSTEMS: A comprehensive 10 system review of systems is otherwise negative aside from elements mentioned in the history of present illness. PMH: Aspiration pneumonia, diastolic CHF, chronic respiratory failure, obstructive sleep apnea, osteoarthritis, chronic pain, restless leg syndrome, Parkinson's disease, GERD, BPH, COPD, hypertension, small bowel obstruction, atrial fibrillation - Coumadin and aspirin, pacemaker, aortic valve replacement , AAA s/p repair, appendectomy, cholecystectomy SOCIAL HISTORY: Friends at bedside. PCP: Dr. Cohn. Prior medical records reviewed including admission 10/03/17 for shortness of breath. PHYSICAL EXAM: General:Patient is alert, in no acute distress. ENT:Eyes are normal to inspection. ENT inspection normal. Neck: Normal inspection. Full range of motion. Respiratory:No respiratory distress. Breath sounds normal bilaterally. Cardiovascular: Regular rate and rhythm. Strong peripheral pulses. Normal cap refill. Abdomen:The abdomen is nontender to palpation. There are no peritoneal signs. Back: Normal to inspection. No tenderness to palpation. Skin: Normal color. No rash. Warm and dry. Extremities: Normal appearance. Full range of motion. Neuro: Oriented x3. Normal motor function. Normal sensory function. No pronator drift. ED Course: This is an anticoagulated 88 y/o male who presents after what sounds like a TIA lasting 15 minutes today after exercising. He lost the ability to speak or move during this episode, but says he remembers the whole incident. His neuro exam is currently nonfocal. Plan for IV, labs, EKG, head CT. 500mL IV NS ordered. The 12 lead EKG was interpreted by myself. AV-paced rhythm. See hard copy and/ or "tracemaster" electronic copy for interpretation. Spoke with hospitalist service. Dr. Jennings accepts admission. She requests head and neck CTAs as well. - Data Points Imaging: Discussed imaging studies w/ shuttle veneering supervisor Radiologist, I viewed and interpreted images myself Laboratory Results: Laboratory Results 01/09/19 14:00 01/09/19 14:00 01/09/19 01/09/19 01/09/19 14:00 14:00 14:00 WBC 10.86 10^3/uL H 10^3/uL (3.80-9.50) RBC 4.20 10^6/uL L 10^6/uL (4.40-6.38) Hgb 13.5 g/dL L g/dL (13.7-17.5) Hct 40.3 % % (40.0-51.0) MCV 96.0 fL fL (81.5-99.8) MCH 32.1 pg pg (27.9-34.1) MCHC 33.5 g/dL g/dL (32.4-36.7) RDW 14.4 % % (11.5-15.2) Plt Count 190 10^3/uL 10^3/uL (150-400) MPV 9.3 fL fL (8.7-11.7) Neut % (Auto) 63.9 % % (39.3-74.2) Lymph % (Auto) 19.5 % % (15.0-45.0) [place] % (Auto) 11.3 % % (4.5-13.0) Eos % (Auto) 4.4 % % (0.6-7.6) Baso % (Auto) 0.6 % % (0.3-1.7) Nucleat RBC Rel Count 0.0 % % (0.0-0.2) Absolute Neuts (auto) 6.94 10^3/uL H 10^3/uL (1.70-6.50) Absolute Lymphs (auto) 2.12 10^3/uL 10^3/uL (1.00-3.00) Absolute Monos (auto) 1.23 10^3/uL H 10^3/uL (0.30-0.80) Absolute Eos (auto) 0.48 10^3/uL H 10^3/uL (0.03-0.40) Absolute Basos (auto) 0.06 10^3/uL 10^3/uL (0.02-0.10) Absolute Nucleated RBC 0.00 10^3/uL 10^3/uL (0-0.01) Immature Gran % 0.3 % % (0.0-1.1) Immature Gran # 0.03 10^3/uL 10^3/uL (0.00-0.10) PT 24.1 SEC H SEC (12.0-15.0) INR 2.16 H (0.83-1.16) APTT 33.7 SEC SEC (23.0-38.0) Sodium 138 mEq/L mEq/L (135-145) Potassium 4.4 mEq/L mEq/L (3.5-5.2) Chloride 103 mEq/L mEq/L (97-110) Carbon Dioxide 28 mEq/l mEq/l (22-31) Anion Gap 7 mEq/L mEq/L (6-14) BUN 23 mg/dL mg/dL (7-23) Creatinine 1.0 mg/dL mg/dL (0.7-1.3) Estimated GFR > 60 Glucose 121 mg/dL H mg/dL (70-100) Calcium 9.5 mg/dL mg/dL (8.5-10.4) Medications Given: Discontinued Medications Sodium Chloride (Ns) 500 mls @ 0 mls/hr IV EDNOW ONE; Wide Open PRN Reason: Protocol Stop: 01/09/19 14:15 Last Admin: 01/09/19 14:30 Dose: 500 mls General Time Seen by Provider: 01/09/19 14:02 Initial Vital Signs: Initial Vital Signs Temperature (C) 36.9 C 01/09/19 14:07 Heart Rate 71 01/09/19 14:07 Respiratory Rate 18 01/09/19 14:07 Blood Pressure 135/85 H 01/09/19 14:07 O2 Sat (%) 98 01/09/19 14:07 O2 Delivery Mode Nasal Cannula O2 (L/minute) 3 Allergies/Adverse Reactions: ciprofloxacin [From Cipro] Allergy (Verified 09/01/17 11:20) Other-Enter Comments codeine Allergy (Verified 09/01/17 11:20) Other-Enter Comments hydromorphone [From Dilaudid] Allergy (Verified 09/02/17 07:29) Unknown Home Medications: Medication Instructions Recorded Carvedilol [Coreg (*)] 3.125 mg PO BIDMEAL 11/25/14 Polyethylene Glycol 3350 [Miralax 17 gm PO DAILY 11/25/14 17 gm (*)] [place]-3 Fatty Acids [Fish Oil 1000 1,000 mg PO HS 11/29/14 mg (*)] Finasteride [Proscar 5 MG (*)] 5 mg PO HS 11/25/15 rOPINIRole HCL [Requip 1mg (*)] 1 mg PO QID 11/25/15 Ascorbic Acid [Vitamin C 500 mg 500 mg PO HS 09/01/17 (*)] Aspirin [Aspirin 81mg (*)] 81 mg PO DAILY 09/01/17 Cholecalciferol Vit D3 [Vitamin D3 1,000 units PO DAILY 09/01/17 (*)] Multivitamins [Multivitamin (*)] 1 tab PO DAILY 09/01/17 Ferrous Sulfate [Ferrous Sulf 325 325 mg PO HS 01/09/19 MG (*)] Melatonin [Melatonin 3 MG (*)] 3 mg PO HS PRN 01/09/19 Warfarin Sodium [Coumadin 4MG (*)] 4 mg PO DAILY 01/09/19 Departure - Departure Disposition: [facility] Inpatient Acute Clinical Impression: TIA (transient ischemic attack) Condition: Fair Report Scribed for: Isaias Palomino Report Scribed by: Keisha Andrew Date of Report: 01/09/19 Time of Report: 14:14 Physician Review and Approval Statement: Portions of this note were transcribed by an ED scribe. I personally performed the history, physical exam, and medical decision making; and confirm the accuracy of the information in the transcribed note.
[2019-01-09] MEDS ORDERED: NS 500 ML IV ONE (14:14)
[2019-01-09 14:20] LABS: PLATELET COUNT 190 10^3/uL (150-400)
[2019-01-09 14:30] LABS: INR 2.16 (0.83-1.16); PROTIME(PATIENT) 24.1 SEC (12.0-15.0)
[2019-01-09] MEDS ORDERED: IOPAMIDOL (ISOVUE 370) 100 ML BTL IV ONE (15:12)
[2019-01-09] MEDS ORDERED: ONDANSETRON 4 MG/2 ML VIAL IVP PRN (15:54)
[2019-01-09] MEDS ORDERED: ONDANSETRON DISINTEGRATING 4 MG TAB PO PRN (15:54)
--- NOTE | 2019-01-09 16:11 | PDGENHP ---
History and Physical - Chief Complaint unresponsiveness - History of Present Illness 88 yo male with h/o hypertension, A fib on coumadin, and AVR presents to ED after an episode of unresponsiveness. He rode the stationary bicycle at the [facility] for about 10 minutes. Later, he and his friends sat down to play cards. When it was his turn, he wasn't moving or talking. He was conscious however. His friends asked "how are you". He said "I can't". For about 20 more minutes, he was unable to speak and was breathing heavily. He was able to remain seated and did not lose consciousness. EMS was called and upon arrival to the ED, his symptoms had resolved. Currently, he feels well, speech is fluent. He denies CP, SOB, vision changes or focal weakness. He is admitted for further evaluation History Information - Allergies/Home Medication List Allergies/Adverse Reactions: ciprofloxacin [From Cipro] Allergy (Verified 09/01/17 11:20) Other-Enter Comments codeine Allergy (Verified 09/01/17 11:20) Other-Enter Comments hydromorphone [From Dilaudid] Allergy (Verified 09/02/17 07:29) Unknown Home Medications: Carvedilol [Coreg (*)] 3.125 mg PO BIDMEAL 11/25/14 [Last Taken 01/09/19] Polyethylene Glycol 3350 [Miralax 17 gm (*)] 17 gm PO DAILY 11/25/14 [Last Taken 01/09/19] [place]-3 Fatty Acids [Fish Oil 1000 mg (*)] 1,000 mg PO HS 11/29/14 [Last Taken 01/08/19] Finasteride [Proscar 5 MG (*)] 5 mg PO HS 11/25/15 [Last Taken 01/08/19] rOPINIRole HCL [Requip 1mg (*)] 1 mg PO QID 11/25/15 [Last Taken 01/09/19] Ascorbic Acid [Vitamin C 500 mg (*)] 500 mg PO HS 09/01/17 [Last Taken 01/09/19] Aspirin [Aspirin 81mg (*)] 81 mg PO DAILY 09/01/17 [Last Taken 01/09/19] Cholecalciferol Vit D3 [Vitamin D3 (*)] 1,000 units PO DAILY 09/01/17 [Last Taken 01/09/19] Multivitamins [Multivitamin (*)] 1 tab PO DAILY 09/01/17 [Last Taken 01/09/19] Ferrous Sulfate [Ferrous Sulf 325 MG (*)] 325 mg PO HS 01/09/19 [Last Taken ] Melatonin [Melatonin 3 MG (*)] 3 mg PO HS PRN 01/09/19 [Last Taken Unknown] Warfarin Sodium [Coumadin 4MG (*)] 4 mg PO DAILY 01/09/19 [Last Taken 01/09/19] I have personally reviewed and updated: family history, medical history, social history, surgical history - Past Medical History atrial fibrillation, CHF, hypertension Additional medical history: chronic diastolic HF. SHAY. COPD. 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 AVR -bioprosthetic valve. Parkinsons. RLS. Hypertension. AAA s/p repair - Surgical History Additional surgical history: AV replacement x2, most recently in 2000. AAA repair - Family History Positive for: cancer - Social History Smoking Status: Former smoker Alcohol Use: None Drug Use: None Additional social history: Lives independently with son, who is present at bedside. Has good social support. Review of Systems Review of Systems: ROS: 10pt was reviewed & negative except for what was stated in HPI & below Physical Exam Physical Exam: Temp Pulse Resp BP Pulse Ox 36.5 C 78 18 162/108 H 100 01/09/19 15:53 01/09/19 15:53 01/09/19 15:53 01/09/19 15:53 01/09/19 15:53 O2 (L/minute) 3 Constitutional: no apparent distress Eyes: PERRL Ears, Nose, Mouth, Throat: moist mucous membranes Cardiovascular: systolic murmur, irregularly irregular Respiratory: no respiratory distress, clear to auscultation, reduced air movement Gastrointestinal: normoactive bowel sounds, soft, non-tender abdomen Skin: warm Musculoskeletal: full muscle strength Neurologic: AAOx3, other (neg pronator drift, speech fluent, no facial asymmetry ) Psychiatric: interacting appropriately Lab Data & Imaging Review 01/09/19 14:00 01/09/19 14:00 WBC 10.86 10^3/uL (3.80-9.50) H 01/09/19 14:00 RBC 4.20 10^6/uL (4.40-6.38) L 01/09/19 14:00 Hgb 13.5 g/dL (13.7-17.5) L 01/09/19 14:00 Hct 40.3 % (40.0-51.0) 01/09/19 14:00 MCV 96.0 fL (81.5-99.8) 01/09/19 14:00 MCH 32.1 pg (27.9-34.1) 01/09/19 14:00 MCHC 33.5 g/dL (32.4-36.7) 01/09/19 14:00 RDW 14.4 % (11.5-15.2) 01/09/19 14:00 Plt Count 190 10^3/uL (150-400) 01/09/19 14:00 MPV 9.3 fL (8.7-11.7) 01/09/19 14:00 Neut % (Auto) 63.9 % (39.3-74.2) 01/09/19 14:00 Lymph % (Auto) 19.5 % (15.0-45.0) 01/09/19 14:00 [place] % (Auto) 11.3 % (4.5-13.0) 01/09/19 14:00 Eos % (Auto) 4.4 % (0.6-7.6) 01/09/19 14:00 Baso % (Auto) 0.6 % (0.3-1.7) 01/09/19 14:00 Nucleat RBC Rel Count 0.0 % (0.0-0.2) 01/09/19 14:00 Absolute Neuts (auto) 6.94 10^3/uL (1.70-6.50) H 01/09/19 14:00 Absolute Lymphs (auto) 2.12 10^3/uL (1.00-3.00) 01/09/19 14:00 Absolute Monos (auto) 1.23 10^3/uL (0.30-0.80) H 01/09/19 14:00 Absolute Eos (auto) 0.48 10^3/uL (0.03-0.40) H 01/09/19 14:00 Absolute Basos (auto) 0.06 10^3/uL (0.02-0.10) 01/09/19 14:00 Absolute Nucleated RBC 0.00 10^3/uL (0-0.01) 01/09/19 14:00 Immature Gran % 0.3 % (0.0-1.1) 01/09/19 14:00 Immature Gran # 0.03 10^3/uL (0.00-0.10) 01/09/19 14:00 PT 24.1 SEC (12.0-15.0) H 01/09/19 14:00 INR 2.16 (0.83-1.16) H 01/09/19 14:00 APTT 33.7 SEC (23.0-38.0) 01/09/19 14:00 Sodium 138 mEq/L (135-145) 01/09/19 14:00 Potassium 4.4 mEq/L (3.5-5.2) 01/09/19 14:00 Chloride 103 mEq/L (97-110) 01/09/19 14:00 Carbon Dioxide 28 mEq/l (22-31) 01/09/19 14:00 Anion Gap 7 mEq/L (6-14) 01/09/19 14:00 BUN 23 mg/dL (7-23) 01/09/19 14:00 Creatinine 1.0 mg/dL (0.7-1.3) 01/09/19 14:00 Estimated GFR > 60 01/09/19 14:00 Glucose 121 mg/dL (70-100) H 01/09/19 14:00 Calcium 9.5 mg/dL (8.5-10.4) 01/09/19 14:00 Visualized and Interpreted EKG results: Yes EKG additional interpertation: A fib, paced Assessment & Plan Assessment: TIA (transient ischemic attack) (Acute) - symptoms resolved. CT and CTA head and neck neg for acute infarct or lg vessel occlusion, but 70% stenosis on rt ICA with moderate plaque could be source of TIA. Pt has h/o A fib and is therapeutic on coumadin, making cardioembolic source unlikely. -admit for neurochecks, TIA w/u -monitor on telemetry -permissive hypertension, treat for SBP >220, DBP >110 -check echo, unable to get MRI with pacemaker -given this occurred while on coumadin and 81 mg ASA, will increase ASA to 325 mg daily -neurology consult in am Rt ICA stenosis - 70% per discussion with radiology, with moderate plaque this could be source of TIA. -Discussed case with Dr. Santiago, vascular surgeon, who will evaluate A fib - INR therapeutic on coumadin, rate controlled, s/p pacemaker -pharmacy to dose coumadin -cont coreg for rate control Chronic diastolic HF - last echo 09/2017 reviewed, EF 65% CHRF / COPD - on 3 LPM, which is his baseline. No e/o acute exacerbation -cont home meds AVR - bioprosthetic valve -echo pending AAA s/p repair Code status - Discussed with pt and his son, he wishes to be DNR, which will be honored. He would however, be willing to be full code rod-operatively if surgical intervention of his ICA stenosis is pursued. Dispo - admit to inpt, anticipate >48 hrs hospitalization for ongoing management of TIA
[2019-01-09] MEDS ORDERED: LABETALOL HCL 5 MG/ML 20 ML MDV IVP PRN (16:49)
[2019-01-09] MEDS ORDERED: hydrALAZINE 20 MG/ML VIAL IVP PRN (17:22)
[2019-01-09] MEDS: ASPIRIN EC 325 MG TAB PO SCH (17:25)
[2019-01-09] MEDS: CARVEDILOL 3.125 MG TAB PO SCH (17:25)
--- NOTE | 2019-01-09 19:32 | CPEKG ---
Test Reason : OPEN Blood Pressure : / mmHG Vent. Rate : 077 BPM Atrial Rate : 246 BPM P-R Int : 169 ms QRS Dur : 135 ms QT Int : 447 ms P-R-T Axes : 175 257 075 degrees QTc Int : 506 ms Afib/flutter and ventricular-paced rhythm Confirmed by Valerie Bowser ([id number]) on 01/09/2019 7:31:40 PM Referred By: Isaias Palomino Confirmed By:Valerie Bowser
[2019-01-09] MEDS: FERROUS SULFATE 325 MG TAB PO SCH (22:08)
--- NOTE | 2019-01-09 22:37 | SOAPPROG ---
VALERIE Progress Note Assessment/Plan: Assessment: 88-YEAR-OLD MALE ADMITTED WITH THE TIA WHICH LASTED ABOUT [address] IS NEGATIVE NECK CT REVEALS A 70 80% RIGHT INTERNAL CAROTID STENOSIS WITH SIGNIFICANT CALCIFIED PLAQUE NEURO EXAM IS PRESENTLY SYMMETRIC AND PHYSIOLOGIC DOES HAVE SIGNIFICANT HEART HISTORY WITH AFIB ON COUMADIN, AORTIC VALVE REPLACEMENT X2 TO POSSIBLE NOTE HIS TIA WITH SECONDARY IS RIGHT CAROTID BUT IS QUITE POSSIBLE THAT THIS DEGREE OF STENOSIS COULD CONTRIBUTE TO A TIA. RECENT HEART EVALUATION WAS GOOD PER THE PATIENT'S FAMILY RISKS AND OPTIONS BEEN FULLY DISCUSSED AND HE WISHES TO PROCEED WITH CAROTID ENDARTERECTOMY Plan: CONSIDER RIGHT CEA WHEN MEDICALLY CLEARED. THE PATIENT LIKE TO PROCEED ROGER. WILL DISCUSS WITH NEUROLOGY AND INTERNAL MEDICINE IN THE A.M. 01/09/19 22:34 Objective: Vital Signs Temp Pulse Resp BP Pulse Ox 36.7 C 600 H 17 126/68 H 100 01/09/19 20:00 01/09/19 20:00 01/09/19 20:00 01/09/19 20:00 01/09/19 20:00 PT 24.1 SEC (12.0-15.0) H 01/09/19 14:00 INR 2.16 (0.83-1.16) H 01/09/19 14:00 ICD10 Worksheet Patient Problems: Problems Problem Status Onset TIA (transient ischemic attack) Acute Abdominal pain Acute Acute respiratory failure Acute Atrial fibrillation Acute Hematoma of chest wall Acute Hematoma of pacemaker pocket Acute Incarcerated right inguinal hernia Acute Pneumonia Acute Severe sepsis Acute Small bowel obstruction Acute chronic disease mgmt/transitional care Acute
[2019-01-10 05:24] LABS: INR 2.39 (0.83-1.16); PROTIME(PATIENT) 26.1 SEC (12.0-15.0)
[2019-01-10] MEDS: CARVEDILOL 3.125 MG TAB PO SCH ×2 (09:23→18:11)
[2019-01-10] MEDS: OMEGA-3 FATTY ACIDS 1,000 MG CAP PO SCH (09:24)
[2019-01-10] MEDS: ASPIRIN EC 325 MG TAB PO SCH (09:24)
[2019-01-10] MEDS: FINASTERIDE 5 MG TAB PO SCH (09:24)
[2019-01-10] MEDS: POLYETHYLENE GLYCOL 3350 17 GM PKT PO SCH (09:25)
--- NOTE | 2019-01-10 09:44 | SOAPPROG ---
SOSUSAN Progress Note Assessment/Plan: Assessment/plan: 88 y/o M s/p TIA. Found to have 70% stenosis in R carotid. A-fib and hx of valve replacements x2. Await cardiology clearance for surgery. TIA. Head CT clear. MRI contraindicated d/t pacemaker. Neurology to see prior to surgery. Plan to proceed with R CEA when medically cleared. Pt is currently NPO and on OR schedule for this afternoon. Ok to wait until Sunday to do surgery if further workup is required. S: No stroke-like symptoms currently. Would like to proceed with surgery today if possible. O: Alert and oriented VSS HEENT: normocephalic, atraumatic, no gross hearing deficits, mmm Neck: carotid bruits present bilaterally Cardiac: Irregularly irregular Chest: CTAB Abdomen soft, nontender Neuro: CN 2-12 grossly intact 01/10/19 09:39 Objective: Vital Signs Temp Pulse Resp BP Pulse Ox 36.7 C 82 17 144/97 H 97 01/10/19 07:35 01/10/19 07:35 01/10/19 07:35 01/10/19 07:35 01/10/19 07:35 01/09/19 01/10/19 01/11/19 05:59 05:59 05:59 Output Total 200 Balance -200 PT 26.1 SEC (12.0-15.0) H 01/10/19 04:39 INR 2.39 (0.83-1.16) H 01/10/19 04:39 ICD10 Worksheet Patient Problems: Problems Problem Status Onset TIA (transient ischemic attack) Acute Abdominal pain Acute Acute respiratory failure Acute Atrial fibrillation Acute Hematoma of chest wall Acute Hematoma of pacemaker pocket Acute Incarcerated right inguinal hernia Acute Pneumonia Acute Severe sepsis Acute Small bowel obstruction Acute chronic disease mgmt/transitional care Acute
--- NOTE | 2019-01-10 09:52 | HOSPPROG ---
Hospitalist Progress Note Assessment/Plan: 88 yo M w valvular heart disease, R carotid stenosis here w TIA preop cardiac eval: has h/o bypass X 2 in setting of valvular surgery last 2000 no stents able to achieve > 4 mets intact LVEF w/out current heart failure to OR w/out further workup or intervention we discussed he is moderate risk for high risk surgery, he wishes to proceed HFpEF: euvolemic carotid stenosis: as above coagulopathy" give FFP X 2 now and type for add'l 2 TIA: as above no large stroke of CT code: dnr AF: rate controlled w pacer AC as above dispo: inpt Subjective: case d/w dr gonzalez. able to exercise daily w/out chest sx Objective: Vital Signs Temp Pulse Resp BP Pulse Ox 36.7 C 82 17 144/97 H 97 01/10/19 07:35 01/10/19 07:35 01/10/19 07:35 01/10/19 07:35 01/10/19 07:35 01/09/19 01/10/19 01/11/19 05:59 05:59 05:59 Output Total 200 Balance -200 PT 26.1 SEC (12.0-15.0) H 01/10/19 04:39 INR 2.39 (0.83-1.16) H 01/10/19 04:39 - Physical Exam Constitutional: no apparent distress, appears nourished Eyes: PERRL, anicteric sclera Ears, Nose, Mouth, Throat: moist mucous membranes, hearing normal Cardiovascular: regular rate and rhythym, systolic murmur, No tachycardia Respiratory: no respiratory distress, no rales or rhonchi Gastrointestinal: normoactive bowel sounds, soft, non-tender abdomen Genitourinary: No bowen in urethra Skin: warm, normal color Musculoskeletal: full muscle strength Neurologic: AAOx3 ICD10 Worksheet Patient Problems: Problems Problem Status Onset TIA (transient ischemic attack) Acute Abdominal pain Acute Acute respiratory failure Acute Atrial fibrillation Acute Hematoma of chest wall Acute Hematoma of pacemaker pocket Acute Incarcerated right inguinal hernia Acute Pneumonia Acute Severe sepsis Acute Small bowel obstruction Acute chronic disease mgmt/transitional care Acute
[2019-01-10] MEDS ORDERED: ceFAZolin 2 GM/DEXTROSE 100 ML IV ONE (10:16)
[2019-01-10] MEDS ORDERED: LR 1,000 ML IV ONE (10:54)
[2019-01-10] MEDS ORDERED: THROMBIN (BOVINE) 20,000 UNIT SPRAY TP ONE (11:11)
[2019-01-10] MEDS ORDERED: BUPIVACAINE 0.5% 30 ML SDV ONE (11:12)
[2019-01-10] MEDS ORDERED: PROTAMINE SULFATE 50 MG/5 ML VIAL IVP ONE (11:12)
--- NOTE | 2019-01-10 11:13 | PDMN ---
Medical Necessity Medical necessity: Pt meets IP criteria per MD & MCG M-360; est los >2 mn for eval/tx of TIA w/permissive hypertension & 70% R carotid stenosis; requiring further workup/monitoring & carotid endarterectomy; comorbid advanced age, AFIB on AC, CHF, Parkinsons, COPD; per H&P & order 01/09/19
--- NOTE | 2019-01-10 11:31 | PDANEPAE ---
ANE History of Present Illness here for R CEA ANE Past Medical History - Cardiovascular History Hx Hypertension: Yes Hx Arrhythmias: Yes Hx Chest Pain: No Hx Coronary Artery / Peripheral Vascular Disease: Yes Hx CHF / Valvular Disease: Yes Hx Palpitations: No - Pulmonary History Hx COPD: Yes Hx Asthma/Reactive Airway Disease: No Hx Recent Upper Respiratory Infection: No Hx Oxygen in Use at Home: Yes O2 in Use at Home (L/minute): 4 Hx Sleep Apnea: Yes Sleep Apnea Screening Result - Last Documented: Positive - Endocrine History Hx Diabetes: No - Renal History Hx Renal Disorders: No - Liver History Hx Hepatic Disorders: No - Neurological & Psychiatric Hx Hx Neurological and Psychiatric Disorders: No - Chronic Pain History Chronic Pain: No ANE Review of Systems Review of systems is: negative Review of Systems: - Exercise capacity Exercise capacity: >=4 METS ANE Patient History - Allergies Allergies/Adverse Reactions: ciprofloxacin [From Cipro] Allergy (Verified 09/01/17 11:20) Other-Enter Comments codeine Allergy (Verified 09/01/17 11:20) Other-Enter Comments hydromorphone [From Dilaudid] Allergy (Verified 09/02/17 07:29) Unknown - Home Medications Home medications: home medication list seen and reviewed Home Medications: Carvedilol [Coreg (*)] 3.125 mg PO BIDMEAL 11/25/14 [Last Taken 01/09/19] Polyethylene Glycol 3350 [Miralax 17 gm (*)] 17 gm PO DAILY 11/25/14 [Last Taken 01/09/19] Sims-3 Fatty Acids [Fish Oil 1000 mg (*)] 1,000 mg PO HS 11/29/14 [Last Taken 01/08/19] Finasteride [Proscar 5 MG (*)] 5 mg PO HS 11/25/15 [Last Taken 01/08/19] rOPINIRole HCL [Requip 1mg (*)] 1 mg PO QID 11/25/15 [Last Taken 01/09/19] Ascorbic Acid [Vitamin C 500 mg (*)] 500 mg PO HS 09/01/17 [Last Taken 01/09/19] Aspirin [Aspirin 81mg (*)] 81 mg PO DAILY 09/01/17 [Last Taken 01/09/19] Cholecalciferol Vit D3 [Vitamin D3 (*)] 1,000 units PO DAILY 09/01/17 [Last Taken 01/09/19] Multivitamins [Multivitamin (*)] 1 tab PO DAILY 09/01/17 [Last Taken 01/09/19] Ferrous Sulfate [Ferrous Sulf 325 MG (*)] 325 mg PO HS 01/09/19 [Last Taken ] Melatonin [Melatonin 3 MG (*)] 3 mg PO HS PRN 01/09/19 [Last Taken Unknown] Warfarin Sodium [Coumadin 4MG (*)] 4 mg PO DAILY 01/09/19 [Last Taken 01/09/19] - NPO status NPO Status: no food or drink >8 hours NPO Since - Liquids (Date): 01/09/19 NPO Since - Liquids (Time): 23:59 NPO Since - Solids (Date): 01/10/19 NPO Since - Solids (Time): 23:59 - Smoking Hx Smoking Status: Former smoker - Alcohol Use Alcohol Use: None ANE Labs/Vital Signs - Labs Result Diagrams: 01/09/19 14:00 01/09/19 14:00 - Vital Signs Vital Signs: reviewed preoperatively; see RN documention for details Blood Pressure: 144/97 Heart Rate: 82 Respiratory Rate: 17 O2 Sat (%): 97 Height: 172.72 cm Weight: 72.575 kg ANE Physical Exam - Airway Neck exam: FROM Mallampati Score: Class 1 - Pulmonary Pulmonary: no respiratory distress - Cardiovascular Cardiovascular: regular rate and rhythym - ASA Status ASA Status: IV ANE Anesthesia Plan Anesthesia Plan: general endotracheal anesthesia Lines/Monitors: arterial line
--- NOTE | 2019-01-10 11:32 | GCON ---
[f rep st] CONSULTATION NEUROLOGY CONSULT REFERRING PHYSICIAN: Dr. Jennings CHIEF COMPLAINT: Confusion. HISTORY OF PRESENT ILLNESS: The patient is a very pleasant 88-year-old gentleman who has a significant past medical history including pacemaker placement, aortic valve replacement x2, chronic atrial fibrillation, on warfarin. He also has chronic pain, restless legs, and apparently parkinsonism is listed in his past medical history but he denies this. He was at the [facility] [place] [employer] yesterday and got onto a stationary bike and rode vigorously for 10-15 minutes. The patient and his friend state he had not been on an exercise bike for at least 1 year or greater. He felt very tired when he got off and went to play cards using his roller walker. When he sat down, he became unresponsive for 10-15 minutes. He simply did not respond to them when his friend spoke to him. His eyes were open. He appeared awake and alert but did not respond to any verbal stimuli for 10-15 minutes and then came out of it and was amnestic for this event afterwards. There were no automatisms. No convulsive movements. No tongue biting. The patient did not have any focal left-sided numbness or weakness. There was no history of amaurosis. It was fairly nonspecific and he was brought to the emergency department via EMS. He had a full neurologic evaluation including CT head, which showed age-related changes. He had a CTA of the head and neck. CTA neck showed 70% stenosis on the right and less than 50% on the left. His angio of the head showed no significant stenosis or acute thrombus in the brain. He is back to baseline and doing well. The patient was counseled regarding the carotid findings and would like to have an elective right carotid endarterectomy done. The patient's INR when he came in to the emergency department was therapeutic at 2.1 and today it is 2.3. REVIEW OF SYSTEMS: Ten-point review of systems was done and only pertinent to the HPI. For past medical history, social history, family history, home medications, allergies, see Dr. Jennings's H and P. PHYSICAL EXAM: VITAL SIGNS: Blood pressure is 126/68, temperature 36.8, heart rate 70s. GENERAL: He is awake and alert, in no acute distress. NEUROLOGIC: Higher mental function: There is no aphasia, no dysarthria. Cranial nerves: No dysarthria. Extraocular movements are full. Face is symmetric. On motor exam, he has no focal weakness. Sensory exam: Normal light touch throughout. Coordination is normal in all 4 extremities. IMPRESSION/PLAN: 1. Cardiac disease. 2. Status post pacemaker placement. 3. Atrial fibrillation, on chronic oral anticoagulation. 4. Right carotid artery stenosis (70%) 5. Confusion. Overall, the patient's episode is nonspecific and not clearly referable to his right internal carotid artery stenosis. Specifically, there was no right-sided amaurosis fugax symptomology or left-sided motor, sensory or neglect symptomology -- or abnormal focal findings on exam. Based on this, I counseled him that I would consider this an asymptomatic right carotid artery stenosis and that intervention is not mandatory based on his significant cardiovascular risk factors, age of 88, and the fact that he is on oral anticoagulation. Maximal medical therapy would be reasonable treatment for his right carotid artery stenosis. I counseled him that his annual risk for stroke is somewhere between 0.5-1% based on previous studies. In addition, his life expectancy is not entirely clear. Typically, life expectancy of 5-10 years is ideal to proceed with endarterectomy. He was counseled at length regarding all this. I also counseled him that he will be at higher risk for complications including stroke, myocardial infarction, and disability with vascular surgery. He understood and appreciated all my counseling but wishes to proceed with a right carotid endarterectomy to prevent a possible stroke in the future despite the risks the surgery may impose. He understands that I think that the right carotid artery stenosis is asymptomatic. Indeed, I called Dr. Santiago, his surgeon, in his presence to discuss the case and explain my thoughts. I will leave it between the patient and Dr. Santiago in terms of proceeding with surgery. We cannot get an MRI brain due to his pacemaker. His head CT shows no early changes of significant cerebral infarction. Once he discharges back at home, I recommend he follow up with me for an outpatient review this spell and EEG. This event may have represented a complex partial seizure. Discussed at length. He should be on 90 days of driving restrictions and seizure precautions as well. He is agreeable. No further recommendations. We will continue to follow as needed. Please do not hesitate to call if there are any questions or changes in neurologic status with this very pleasant patient. Seventy total minutes floor time reviewing history, imaging, over 50% in direct counseling and coordination of care. /[id number]/MODL MTDD
[2019-01-10] MEDS ORDERED: PROPOFOL/EMULSION 500 MG/50 ML BOTTLE IV ONE (11:53)
[2019-01-10] MEDS ORDERED: ROCURONIUM 50 MG/5 ML VIAL ONE ×2 (11:53→12:24)
[2019-01-10] MEDS ORDERED: fentaNYL 100 MCG/2 ML INJ ONE ×2 (11:53→12:35)
[2019-01-10] MEDS ORDERED: PHENYLEPHRINE HCL 100 MCG/ML SYR ONE (11:56)
[2019-01-10] MEDS ORDERED: SUGAMMADEX SODIUM 200 MG/2 ML VIAL IVP ONE (13:48)
[2019-01-10] MEDS ORDERED: NS 500 ML IV PRN (13:50)
[2019-01-10] MEDS ORDERED: NALOXONE HCL 0.4 MG/ML INJ IVP PRN (13:50)
[2019-01-10] MEDS ORDERED: ONDANSETRON 4 MG/2 ML VIAL IVP PRN (13:50)
[2019-01-10] MEDS ORDERED: ALBUTEROL 3 ML DEYVIAL IH PRN (13:50)
[2019-01-10] MEDS ORDERED: HYDROmorphONE/DILAUDID 2 MG/ML INJ IVP PRN (13:50)
[2019-01-10] MEDS ORDERED: fentaNYL 100 MCG/2 ML INJ IVP PRN (13:50)
[2019-01-10] MEDS ORDERED: LABETALOL HCL 5 MG/ML 20 ML MDV ONE (13:59)
--- NOTE | 2019-01-10 14:03 | POSTOPPROG ---
Post Op Note Date of Operation: 01/10/19 Surgeon: Jose Ramon Santiago All Around Patternmaker: Cindi Anesthesiologist: Obed Anesthesia: GET(General Endotracheal) Pre-op Diagnosis: R carotid stenosis, TIA Post-op Diagnosis: same Indication: same Procedure: R CEA with EEG monitoring. Findings: Plaque extending above the bifurcation. No EEG changes. Inf/Abcess present in the surg proc area at time of surgery?: No Depth: Deep Incisional (Fascial) EBL: Minimal Specimen(s): R carotid plaque - permanent R cervical LN- permanent
--- NOTE | 2019-01-10 14:17 | POSTANESTH ---
Post Anesthetic Evaluation Cardiovascular Status: Normal, Stable Respiratory Status: Normal, Stable Level of Consciousness/Mental Status: Can Participate in Eval Pain Control: Adequate, Prn Tx Ordered Nausea/Vomiting Control: Adequate, Prn Tx Ordered Complications Possibly Related to Anesthesia: None Noted
--- NOTE | 2019-01-10 14:43 | SOAPPROG ---
VALERIE Progress Note Assessment/Plan: Assessment: 88-YEAR-OLD MALE ADMITTED WITH THE TIA WHICH LASTED ABOUT [address] IS NEGATIVE NECK CT REVEALS A 70 80% RIGHT INTERNAL CAROTID STENOSIS WITH SIGNIFICANT CALCIFIED PLAQUE NEURO EXAM IS PRESENTLY SYMMETRIC AND PHYSIOLOGIC DOES HAVE SIGNIFICANT HEART HISTORY WITH AFIB ON COUMADIN, AORTIC VALVE REPLACEMENT X2 PATIENT NEUROLOGIC LEAST STABLE TO POSSIBLE NOTE HIS TIA WITH SECONDARY IS RIGHT CAROTID BUT IS QUITE POSSIBLE THAT THIS DEGREE OF STENOSIS COULD CONTRIBUTE TO A TIA. RECENT HEART EVALUATION WAS GOOD PER THE PATIENT'S FAMILY RISKS AND OPTIONS BEEN FULLY DISCUSSED AND HE WISHES TO PROCEED WITH CAROTID ENDARTERECTOMY Plan: CONSIDER RIGHT CEA WHEN MEDICALLY CLEARED. THE PATIENT LIKE TO PROCEED ROGER. WILL DISCUSS WITH NEUROLOGY AND INTERNAL MEDICINE IN THE A.M. 01/09/19 22:34 01/10/19 14:42 PATIENT NEUROLOGICALLY STABLE/CLEARED BY MEDICINE FOR SURGERY/RISKS AND OPTIONS AGAIN FULLY DISCUSSED AND HE WISHES TO PROCEED WITH CAROTID ENDARTERECTOMY YOU DISCUSSED THE RISK OF STROKE AND THE BENEFITS UPPER VENTING STROKE. HE IS AWARE THAT HIS RECENT TIA SYMPTOMS MAY NOT BE RELATED TO THIS CAROTID STENOSIS Objective: Vital Signs Temp Pulse Resp BP Pulse Ox 36.7 C 82 17 144/97 H 97 01/10/19 11:28 01/10/19 11:45 01/10/19 11:45 01/10/19 11:45 01/10/19 11:45 01/09/19 01/10/19 01/11/19 05:59 05:59 05:59 Output Total 400 Balance -400 PT 26.1 SEC (12.0-15.0) H 01/10/19 04:39 INR 2.39 (0.83-1.16) H 01/10/19 04:39 ICD10 Worksheet Patient Problems: Problems Problem Status Onset TIA (transient ischemic attack) Acute Abdominal pain Acute Acute respiratory failure Acute Atrial fibrillation Acute Hematoma of chest wall Acute Hematoma of pacemaker pocket Acute Incarcerated right inguinal hernia Acute Pneumonia Acute Severe sepsis Acute Small bowel obstruction Acute chronic disease mgmt/transitional care Acute
--- NOTE | 2019-01-10 15:10 | ASMTCMCOM ---
CM Note CM Note Notes: 01/10/2019 Case Management Note Pt admitted with TIA. Pt to surgery today for carotid endarterectomy. Transfer to ICU. Pt discharge needs are unclear at this time. Therapy evals pending. Case Management d/c poc: to be determined. Case Management to follow. Date Signed: 01/10/2019 03:10 PM Electronically Signed By:Estefanía Pacheco RN
[2019-01-10] MEDS ORDERED: ENALAPRILAT DIHYDRATE 1.25 MG/ML VIAL IVP PRN ×3 (15:14→15:20)
[2019-01-10] MEDS ORDERED: ENALAPRILAT DIHYDRATE 1.25 MG/ML VIAL ONE (15:18)
[2019-01-10] MEDS ORDERED: D5W 1/2 NS W/ 20 KCl/L 1,000 ML IV SCH (15:45)
[2019-01-10] MEDS: ENALAPRILAT DIHYDRATE 1.25 MG/ML VIAL IVP PRN (16:41)
--- NOTE | 2019-01-10 17:16 | ECHO ---
[email or web address] [address] [address] Main: [phone] Fax: Transthoracic Echocardiogram Name: BLANCA COX MR#: [id number] Study Date: 01/10/2019 Study Time: 08:53 AM Date of : 1930 Age: 88 year(s) Height: 172.7 cm (68 in.) Weight: 72.58 kg (160 lb.) BSA: 1.86 m2 Gender: Male Examination: Echo Indication: TIA, Known Ao bioprosthetic valve Image Quality: Contrast: Requested by: Bess Jennings BP: 144 mmHg/97 mmHg Heart Rate: Rhythm: Pacemaker rhythm Indication: TIA, Known Ao bioprosthetic valve Procedure Staff Field Insurance Sales Manager: Satish Richter [facility] Reading Physician: Morales Arenas MD Requesting Provider: Conclusions: Normal size left ventricle. No LV hypertrophy. Normal global systolic LV function. The ejection fraction is estimated to be 50-55 %. Diastolic dysfunction is present. . Mildly reduced RV function. TAPSE 1.4 . The left atrium is severely dilated. The right atrium is mildly dilated. Moderate mitral annular calcification. There is mild thickening of the mitral valve leaflets. Trivial mitral valve regurgitation. The aortic valve is a bioprosthesis. Normal functioning aortic valve prosthesis. The Ao mean PG is 11 mmHg, witha a max PG of 19 mmHg.. The pulmonary artery pressure is normal. No pericardial effusion. Measurements: Chambers Valvular Assessment AV/MV Valvular Assessment TV/PV Normal Normal Normal Name Value Range Name Value Range Name Value Range Ao Wendi (MM): 2.6 cm (2.2 cm-3.7 AV Vmax: 2.19 m/s (1 m/s-1.7 TR Vmax: 2.43 mm/s ( - ) cm) m/s) TR PGmax: 24 mmHg ( - ) IVSd (2D): 1.0 cm (0.6 cm-1.1 AV maxP mmHg ( - ) syst. PAP: 29 mmHg ( - ) cm) AV meanP mmHg ( - ) PV Vmax: 0.73 m/s (0.6 m/s-0.9 LVDd (2D): 5.1 cm (4.2 cm-5.9 LVOT Vmax: 0.69 m/s (0.7 m/s-1.1 m/s) cm) m/s) PV PGmax: 2 mmHg ( - ) LVDs (2D): 3.2 cm (2.1 cm-4 ISAI (Vmax): 1.0 cm2 ( - ) cm) ISAI (VTI): 0.9 cm ( - ) Patient: BLANCA COX Study Date: 01/10/2019 Page 1 of 08:53 AM LVPWd (2D): 1.1 cm (0.6 cm-1 MV E Vmax: 1.26 m/s ( - ) cm) MV A Vmax: 0.46 m/s ( - ) LVOTd 2.0 cm 2.0 cm mm MV E/A: 2.74 ( - ) LVEF (2D): 68 (>=54 %) EF Range: 50-55 % Continued Measurements: Chambers Valvular Assessment AV/MV Valvular Assessment TV/PV Name Value Name Value Name Value LADs Lon.5 cm MV E' Septal: 0.07 m/s CVP (est.): 5 mmHg LA Area: 27.0 cm2 MV E/E' Septal: 17.90 LA Volume: 85 ml MV E/E' Lateral: 19.00 LA Volume Index: 45.7 ml/m2 TAPSE: 1.4 cm Findings: Left Ventricle: Normal size left ventricle. No LV hypertrophy. Normal global systolic LV function. The ejection fraction is estimated to be 50-55 %. No regional wall motion abnormality. Diastolic dysfunction is present. . Right Ventricle: Normal size right ventricle. Mildly reduced RV function. TAPSE 1.4 . Left Atrium: The left atrium is severely dilated. Right Atrium: The right atrium is mildly dilated. Mitral Valve: Moderate mitral annular calcification. There is mild thickening of the mitral valve leaflets. Trivial mitral valve regurgitation. Aortic Valve: The aortic valve is a bioprosthesis. Normal functioning aortic valve prosthesis. The prosthetic aortic valve is normal. The Ao mean PG is 11 mmHg, witha a max PG of 19 mmHg.. Tricuspid Valve: The tricuspid valve appears normal. The pulmonary artery pressure is normal. Pulmonic Valve: The pulmonic valve is normal in appearance and function. Aorta: The aorta is normal. Pericardium: No pericardial effusion. Exam Comments: Incidental note, it was found that the patient needs a endarterectomy.. (No Signature Object) Patient: BLANCA COX Study Date: 01/10/2019 Page 2 of 2 08:53 AM [id number]
[2019-01-10] MEDS: oxyCODONE IR 5 MG TAB PO PRN (21:19)
[2019-01-10] MEDS: FERROUS SULFATE 325 MG TAB PO SCH (21:20)
[2019-01-10] MEDS: MELATONIN 3 MG TAB PO PRN (21:20)
[2019-01-11 05:36] LABS: INR 1.73 (0.83-1.16); PROTIME(PATIENT) 20.4 SEC (12.0-15.0)
[2019-01-11] MEDS: ACETAMINOPHEN 325 MG TAB PO PRN (05:39)
[2019-01-11] MEDS: oxyCODONE IR 5 MG TAB PO PRN (05:39)
[2019-01-11] MEDS: OMEGA-3 FATTY ACIDS 1,000 MG CAP PO SCH (08:47)
[2019-01-11] MEDS: POLYETHYLENE GLYCOL 3350 17 GM PKT PO SCH (08:47)
[2019-01-11] MEDS: FINASTERIDE 5 MG TAB PO SCH (08:47)
[2019-01-11] MEDS: ASPIRIN EC 325 MG TAB PO SCH (08:48)
[2019-01-11] MEDS: CARVEDILOL 3.125 MG TAB PO SCH ×2 (08:48→17:11)
--- NOTE | 2019-01-11 11:29 | SOAPPROG ---
VALERIE Progress Note Assessment/Plan: Assessment/Plan: 88 y/o M s/p right CEA 01/10/2019 s/p TIA. Found to have 70% stenosis in R carotid. A-fib and hx of valve replacements x2-on coumadin TIA. Head CT clear. MRI contraindicated d/t pacemaker. No FRANCO, slightly unsteady with walking Sore throat likely d/t intubation, swallowing intact restart coumadin tonight S: pleasant, alert, sitting in chair with friend at bedside, eating regular diet , no headache. Some dizziness when active slight bruising/sanguinous discharge, incision CDI HR regularly irregular no increased WOB good strength CN XI intact 01/11/19 11:32 01/11/19 13:40 Objective: Vital Signs Temp Pulse Resp BP Pulse Ox 36.4 C 75 21 H 145/58 H 96 01/11/19 08:00 01/11/19 10:00 01/11/19 10:00 01/11/19 10:00 01/11/19 10:00 01/10/19 01/11/19 01/12/19 05:59 05:59 05:59 Intake Total 2325 Output Total 1055 50 Balance 1270 -50 PT 20.4 SEC (12.0-15.0) H 01/11/19 05:20 INR 1.73 (0.83-1.16) H 01/11/19 05:20 ICD10 Worksheet Patient Problems: Problems Problem Status Onset TIA (transient ischemic attack) Acute Abdominal pain Acute Acute respiratory failure Acute Atrial fibrillation Acute Hematoma of chest wall Acute Hematoma of pacemaker pocket Acute Incarcerated right inguinal hernia Acute Pneumonia Acute Severe sepsis Acute Small bowel obstruction Acute chronic disease [facility]/transitional care Acute
--- NOTE | 2019-01-11 12:20 | NEUROPROG ---
Assessment: 1. Indeterminate spell 2. Asymptomatic right carotid artery stenosis, 70%, status post carotid endarterectomy - postop day 1 3. Atrial fibrillation Patient did very well with surgery. He has had no signs or symptoms of stroke. I defer to Dr. Santiago in terms of when we can restart oral anticoagulation for atrial fibrillation. Otherwise, no further recommendations. Disposition per therapies. I will see him as outpatient in 8-10 weeks to review his indeterminate spell and likely perform an EEG to exclude epileptogenic source for the spell. We will sign off and follow up as needed. Please do not hesitate to call if there are any questions or changes in neurologic status with this very pleasant patient. Subjective: No new symptoms Doing well postoperatively Objective: Vital Signs Temp Pulse Resp BP Pulse Ox 36.4 C 75 21 H 145/58 H 96 01/11/19 08:00 01/11/19 10:00 01/11/19 10:00 01/11/19 10:00 01/11/19 10:00 01/10/19 01/11/19 01/12/19 05:59 05:59 05:59 Intake Total 2325 Output Total 1055 50 Balance 1270 -50 PT 20.4 SEC (12.0-15.0) H 01/11/19 05:20 INR 1.73 (0.83-1.16) H 01/11/19 05:20 Awake and alert No aphasia No drift No upper extremity weakness Face is symmetric 35 total minutes floor time; over 50% counseling and coordination of care. Allergies/Adverse Reactions: ciprofloxacin [From Cipro] Allergy (Verified 09/01/17 11:20) Other-Enter Comments codeine Allergy (Verified 09/01/17 11:20) Other-Enter Comments hydromorphone [From Dilaudid] Allergy (Verified 09/02/17 07:29) Unknown
[2019-01-11] MEDS: ENALAPRILAT DIHYDRATE 1.25 MG/ML VIAL IVP PRN (12:35)
[2019-01-11] MEDS: CEPACOL LOZENGE PO PRN ×2 (13:30→14:55)
[2019-01-11] MEDS: WARFARIN SODIUM 4 MG TAB PO SCH (15:58)
--- NOTE | 2019-01-11 16:01 | HOSPPROG ---
Hospitalist Progress Note Assessment/Plan: 88 yo M w valvular heart disease, R carotid stenosis here w TIA HFpEF: euvolemic Asymptomatic right carotid artery stenosis, 70%: s/p R carotid endarterectomy by Dr. Santiago on 01/10 Coagulopathy: on coumadin at home for A Fib, s/p FFP X 2 prior to surgery yesterday - Plan to restart Coumadin tonight per Dr. Miller, surgery TIA: as above no large stroke of CT Neurology following, f/u with them as outpatient in 8-1- weeks, likely perform EEG to exclude epileptogenic source AF: rate controlled w pacer AC as above code: dnr dispo: inpt Subjective: Patient reports some pain at surgical site this AM Objective: Vital Signs Temp Pulse Resp BP Pulse Ox 36.3 C 74 11 L 157/62 H 100 01/11/19 12:00 01/11/19 14:00 01/11/19 14:00 01/11/19 14:00 01/11/19 14:00 01/10/19 01/11/19 01/12/19 05:59 05:59 05:59 Intake Total 2325 Output Total 1055 150 Balance 1270 -150 PT 20.4 SEC (12.0-15.0) H 01/11/19 05:20 INR 1.73 (0.83-1.16) H 01/11/19 05:20 - Physical Exam Constitutional: no apparent distress Eyes: PERRL Ears, Nose, Mouth, Throat: moist mucous membranes Cardiovascular: irregularly irregular Respiratory: no respiratory distress Gastrointestinal: soft, non-tender abdomen Skin: warm Musculoskeletal: full muscle strength Neurologic: AAOx3 Psychiatric: interacting appropriately ICD10 Worksheet Patient Problems: Problems Problem Status Onset TIA (transient ischemic attack) Acute Abdominal pain Acute Acute respiratory failure Acute Atrial fibrillation Acute Hematoma of chest wall Acute Hematoma of pacemaker pocket Acute Incarcerated right inguinal hernia Acute Pneumonia Acute Severe sepsis Acute Small bowel obstruction Acute chronic disease mgmt/transitional care Acute
[2019-01-11] MEDS: FERROUS SULFATE 325 MG TAB PO SCH (21:06)
--- NOTE | 2019-01-12 00:48 | GOP ---
[f rep st] OPERATIVE REPORT DATE OF OPERATION: 01/10/2019 SURGEON: Jose Ramon Santiago MD BATTERY STARTER: Maday Puente NP. ANESTHESIOLOGIST: Dr. Clay. PREOPERATIVE DIAGNOSIS: Transient ischemic attack and critical right carotid stenosis. POSTOPERATIVE DIAGNOSIS: Transient ischemic attack and critical right carotid stenosis. PROCEDURE PERFORMED: 1. Right carotid endarterectomy with EEG monitoring. 2. Right deep cervical node biopsy. FINDINGS: The patient was found to have a thick, long, tight, right carotid stenosis starting at the origin of the internal carotid artery and extending 3 cm up the internal carotid artery. He had no EEG changes and no difficulties, and he awoke neurologically intact. DESCRIPTION OF PROCEDURE: The patient was brought to the operating room where he received satisfacto ry general endotracheal anesthesia by Dr. Clay. He was heparinized systemically prior to induction of anesthesia. He was placed in the supine position and prepped and draped in the usual sterile fas hion. An incision was made along the anterior border of the sternocleidomastoid muscle and carried d own through the platysma and subcutaneous tissue and through the superficial cervical fascia. Thayer ing the carotid arterial tree, a large cervical node was dissected free and removed and sent out as s natalie. It appeared to be benign. The common facial vein was multiply ligated and divided, and the carotid arterial tree was then dissected free. He had decreased mobility of his neck, and the disse ction was somewhat difficult up underneath the mandible. The jugulodigastric tendon was divided for adequate exposure above the carotid plaque. The hypoglossal nerve was identified and spared from inj ury. The common carotid, internal carotid, external carotid arteries were all freed up and controlle d with vessel loops. There were 2 other branches that were also dissected free and controlled with s ilk clips. After adequate exposure, the patient was given additional heparin. After adequate circul ation time, the vessels were crossclamped with the vessel loops. An arteriotomy was made in the comm on carotid artery and extended up through the calcified dense plaque into the internal carotid artery past the end of the calcified plaque. He had good backflow from the internal carotid artery and no EEG changes. An expeditious endarterectomy was then done removing the plaque with a good feathered e nd. The distal end was tacked with 6-0 Prolene suture for security. All debris and loose tissue was removed from the arteriotomy site, and the wound was then closed with a Dacron patch sutured in plac e with a HEMO-SEAL 7 suture. Hemostasis was thoroughly obtained. Flow was first established through the external carotid and then back through the internal carotid. Again, there were no EEG changes o r problems, and the suture line was reinforced in 1 place with a 6-0 Prolene suture but was otherwise hemostatic. Heparin was reversed with protamine. The wound was sprayed with some topical thrombin. Hemostasis appeared to be adequate. The wound was then closed in layers using 3-0 Vicryl for the c ervical fascia, 3-0 Vicryl for the platysma and subcutaneous tissue, and a running 3-0 Prolene vertic al mattress suture for the skin. Posterior flap was infiltrated with 0.5% Marcaine. He tolerated pr ocedure well. He was taken to the recovery room in satisfactory condition. He woke up with normal n euro function and responsive. /[id number]/MODL
[2019-01-12 06:33] LABS: INR 1.7 (0.83-1.16); PROTIME(PATIENT) 20.1 SEC (12.0-15.0)
[2019-01-12] MEDS: ASPIRIN EC 325 MG TAB PO SCH (08:45)
[2019-01-12] MEDS: CARVEDILOL 3.125 MG TAB PO SCH ×2 (08:45→18:25)
[2019-01-12] MEDS: FINASTERIDE 5 MG TAB PO SCH (08:45)
[2019-01-12] MEDS: OMEGA-3 FATTY ACIDS 1,000 MG CAP PO SCH (08:45)
[2019-01-12] MEDS: oxyCODONE IR 5 MG TAB PO PRN (08:47)
[2019-01-12] MEDS: POLYETHYLENE GLYCOL 3350 17 GM PKT PO SCH (09:05)
--- NOTE | 2019-01-12 12:08 | SOAPPROG ---
VALERIE Progress Note Assessment/Plan: Assessment/Plan: 88 y/o M s/p right CEA 01/10/2019 A-fib and hx of valve replacements x2-on coumadin No need to rebandage-minor bruising from surgical perspective, can dc home and follow up with Dr. Santiago in 1 week S: feeling better today, sore throat improved O: pleasant, alert slight bruising, no discharge on bandage. incision CDI HR regularly irregular no increased WOB good strength CN XI intact 01/11/19 11:32 01/11/19 13:40 01/12/19 12:06 01/12/19 12:30 Objective: Vital Signs Temp Pulse Resp BP Pulse Ox 37.0 C 60 17 108/49 L 100 01/12/19 04:00 01/12/19 12:00 01/12/19 12:00 01/12/19 12:00 01/12/19 12:00 01/11/19 01/12/19 01/13/19 05:59 05:59 05:59 Intake Total 2325 900 Output Total 1055 650 Balance 1270 250 PT 20.1 SEC (12.0-15.0) H 01/12/19 05:40 INR 1.70 (0.83-1.16) H 01/12/19 05:40 ICD10 Worksheet Patient Problems: Problems Problem Status Onset TIA (transient ischemic attack) Acute Abdominal pain Acute Acute respiratory failure Acute Atrial fibrillation Acute Hematoma of chest wall Acute Hematoma of pacemaker pocket Acute Incarcerated right inguinal hernia Acute Pneumonia Acute Severe sepsis Acute Small bowel obstruction Acute chronic disease mgmt/transitional care Acute
[2019-01-12] MEDS: WARFARIN SODIUM 4 MG TAB PO SCH (15:58)
[2019-01-12] MEDS: MELATONIN 3 MG TAB PO PRN (21:33)
[2019-01-12] MEDS: FERROUS SULFATE 325 MG TAB PO SCH (21:33)
[2019-01-13 05:41] LABS: INR 1.87 (0.83-1.16); PROTIME(PATIENT) 21.6 SEC (12.0-15.0)
[2019-01-13] MEDS: ASPIRIN EC 325 MG TAB PO SCH (08:25)
[2019-01-13] MEDS: FINASTERIDE 5 MG TAB PO SCH (08:25)
[2019-01-13] MEDS: CARVEDILOL 3.125 MG TAB PO SCH (08:25)
[2019-01-13] MEDS: POLYETHYLENE GLYCOL 3350 17 GM PKT PO SCH (08:26)
[2019-01-13] MEDS: OMEGA-3 FATTY ACIDS 1,000 MG CAP PO SCH (08:26)
--- NOTE | 2019-01-13 09:40 | SOAPPROG ---
SOAP Progress Note Assessment/Plan: Assessment/plan: 88 y/o M s/p TIA. Now s/p R CEA POD #3 A-fib and hx of valve replacements x2. On Coumadin Continue asa PT/OT Ok for discharge from surgical perspective. Pt wishes to go to rehab. S: Denies stroke-like symptoms. Biggest complaint is arthritic neck pain. O: Alert and oriented VSS HEENT: normocephalic, atraumatic, no gross hearing deficits, mmm Neck: incision cdi. Diffuse ecchymosis throughout neck. Cardiac: Irregularly irregular Chest: CTAB Abdomen soft, nontender Neuro: CN 2-12 grossly intact 01/13/19 09:37 Objective: Vital Signs Temp Pulse Resp BP Pulse Ox 36.7 C 77 18 153/71 H 99 01/13/19 07:50 01/13/19 07:50 01/12/19 21:34 01/13/19 07:50 01/13/19 07:50 01/12/19 01/13/19 01/14/19 05:59 05:59 05:59 Intake Total 900 750 Output Total 650 550 175 Balance 250 200 -175 PT 21.6 SEC (12.0-15.0) H 01/13/19 05:00 INR 1.87 (0.83-1.16) H 01/13/19 05:00 ICD10 Worksheet Patient Problems: Problems Problem Status Onset TIA (transient ischemic attack) Acute Abdominal pain Acute Acute respiratory failure Acute Atrial fibrillation Acute Hematoma of chest wall Acute Hematoma of pacemaker pocket Acute Incarcerated right inguinal hernia Acute Pneumonia Acute Severe sepsis Acute Small bowel obstruction Acute chronic disease mgmt/transitional care Acute
[2019-01-13] MEDS: oxyCODONE IR 5 MG TAB PO PRN ×2 (10:21→16:15)
[2019-01-13] MEDS: ACETAMINOPHEN 325 MG TAB PO PRN ×2 (10:22→16:15)
--- NOTE | 2019-01-13 10:39 | SOAPPROG ---
VALERIE Progress Note Assessment/Plan: Assessment: 88-YEAR-OLD MALE ADMITTED WITH THE TIA WHICH LASTED ABOUT [address] IS NEGATIVE NECK CT REVEALS A 70 80% RIGHT INTERNAL CAROTID STENOSIS WITH SIGNIFICANT CALCIFIED PLAQUE NEURO EXAM IS PRESENTLY SYMMETRIC AND PHYSIOLOGIC DOES HAVE SIGNIFICANT HEART HISTORY WITH AFIB ON COUMADIN, AORTIC VALVE REPLACEMENT X2 PATIENT NEUROLOGIC LEAST STABLE TO POSSIBLE NOTE HIS TIA WITH SECONDARY IS RIGHT CAROTID BUT IS QUITE POSSIBLE THAT THIS DEGREE OF STENOSIS COULD CONTRIBUTE TO A TIA. RECENT HEART EVALUATION WAS GOOD PER THE PATIENT'S FAMILY RISKS AND OPTIONS BEEN FULLY DISCUSSED AND HE WISHES TO PROCEED WITH CAROTID ENDARTERECTOMY Plan: CONSIDER RIGHT CEA WHEN MEDICALLY CLEARED. THE PATIENT LIKE TO PROCEED ROGER. WILL DISCUSS WITH NEUROLOGY AND INTERNAL MEDICINE IN THE A.M. 01/09/19 22:34 01/10/19 14:42 PATIENT NEUROLOGICALLY STABLE/CLEARED BY MEDICINE FOR SURGERY/RISKS AND OPTIONS AGAIN FULLY DISCUSSED AND HE WISHES TO PROCEED WITH CAROTID ENDARTERECTOMY YOU DISCUSSED THE RISK OF STROKE AND THE BENEFITS UPPER VENTING STROKE. HE IS AWARE THAT HIS RECENT TIA SYMPTOMS MAY NOT BE RELATED TO THIS CAROTID STENOSIS 01/13/19 10:38 Doing well/neuro intact/wound okay/minor ecchymosis secondary to his anticoagulation/afebrile Plan to rehab soon/continue 81 mg aspirin and Lipitor Objective: Vital Signs Temp Pulse Resp BP Pulse Ox 36.7 C 77 18 153/71 H 99 01/13/19 07:50 01/13/19 07:50 01/12/19 21:34 01/13/19 07:50 01/13/19 07:50 01/12/19 01/13/19 01/14/19 05:59 05:59 05:59 Intake Total 900 750 Output Total 650 550 175 Balance 250 200 -175 PT 21.6 SEC (12.0-15.0) H 01/13/19 05:00 INR 1.87 (0.83-1.16) H 01/13/19 05:00 ICD10 Worksheet Patient Problems: Problems Problem Status Onset TIA (transient ischemic attack) Acute Abdominal pain Acute Acute respiratory failure Acute Atrial fibrillation Acute Hematoma of chest wall Acute Hematoma of pacemaker pocket Acute Incarcerated right inguinal hernia Acute Pneumonia Acute Severe sepsis Acute Small bowel obstruction Acute chronic disease mgmt/transitional care Acute
--- NOTE | 2019-01-13 14:16 | PDDCSUM ---
Discharge Summary Discharge Summary: Date of Admission: 01/09/2019 Date of Discharge: 01/13/2019 Consults: General Surgery, Neurology Procedures: R Carotid Endarterectomy Followup: PCP, General Surgery Hospital Course Problem List: 88 yo M w valvular heart disease, R carotid stenosis here w TIA Asymptomatic right carotid artery stenosis, 70%: s/p R carotid endarterectomy by Dr. Santiago on 01/10, has large hematoma on R side, cleared for discharge fro Surgery, f/u with them in 1 week Coagulopathy: on coumadin at home for A Fib, s/p FFP X 2 prior to surgery yesterday - Resuming Coumadin, INR 1.8 on day of discharge, repeat INR in next 2 days TIA: as above no large stroke of CT Neurology consulted, f/u with them as outpatient in 8-1- weeks, likely perform EEG to exclude epileptogenic source AF: rate controlled w pacer AC as above HFpEF: euvolemic Time spent on discharge was >35 minutes with >50% of time spent on patient education and discharge
--- NOTE | 2019-01-13 14:20 | PDIAF ---
- Diagnosis Code Status: Do Not Resuscitate - Medication Management Discharge Medications: electronically signed and located in the Home Medication List. - Orders Services needed: Registered Nurse, Physical Therapy, Occupational Therapy Isolation Type: None Additional Instructions: Call if extreme headache, weakness or dizziness - Follow Up Care Current Providers and Referrals: Jose Ramon Santiago MD [Medical Doctor] - follow up in 1 week Patient,NotPresent [Unknown] - As per Instructions
--- NOTE | 2019-01-13 14:38 | ASMTDCNOTE ---
Case Management Discharge Discharge Order Complete? Answers: Yes Patient to Obtain Answers: Other Notes: [facility] to arrange Medications transport Transportation Arranged Answers: [facility] W/C Faxed Final Orders Answers: Yes Agency/Facility Transfer Answers: Yes Report Printed & Faxed to Receiving Agency Family Notified Answers: Yes Discharge Comments Notes: Family chose [facility]. Pt being discharged there today. Transportation to be arranged by [facility]. Pt and family agreeable with dc plan. CM answered questions and concerns. No other CM needs identified. Date Signed: 01/13/2019 02:38 PM Electronically Signed By:JACQUES Merlos
--- NOTE | 2019-01-13 14:40 | ASMTLACE ---
LACE Length of stay for Answers: 3 days current admission Acuity / Level of Answers: Yes Care: Did the patient have an inpatient admission? Comorbidities - select Answers: Chronic pulmonary disease all that apply Congestive heart failure # of Emergency department Answers: 1-2 visits in the last 6 months Score: 11 Date Signed: 01/13/2019 02:40 PM Electronically Signed By:JACQUES Merlos
--- NOTE | 2019-01-13 14:47 | ASDISCHSUM ---
Discharge Information Plan Status:SNF Medically Cleared to Leave: Discharge Date: D/C Disposition:Group Home Facility [facility] D/C Disposition: Projected Discharge Date:01/12/2019 11:00 AM Transportation at D/C:Wheelchair Van Discharge Delay Reason: Follow-Up Date:01/12/2019 11:00 AM Discharge Slot: Final Diagnosis: Placement Information Referral Type:*Senior Living/SNF Referral ID:[id number] Provider Name:[facility] Address 1:[address] Address 2: City:[place] Selection Factors: State:[place] Patient Contact Information Contact Name:DORA Relationship:Son Address:[address] City:[facility] Phone: State/Zip Code:[place] [address] Email: Financial Information Financial Class:Medicare Primary Plan Desc:MEDICARE INPATIENT Primary Plan Number:[id number] Secondary Plan Desc:[facility] Secondary Plan Number:[id number] Assessment Information LACE LACE Length of stay for Answers: 3 days current admission Acuity / Level of Answers: Yes Care: Did the patient have an inpatient admission? Comorbidities - select Answers: Chronic pulmonary disease all that apply Congestive heart failure # of Emergency department Answers: 1-2 visits in the last 6 months Score: 11 Date Signed: 01/13/2019 02:40 PM Electronically Signed By:JACQUES Merlos [facility] CM Progress Note CM Note CM Note Notes: 01/10/2019 Case Management Note Pt admitted with TIA. Pt to surgery today for carotid endarterectomy. Transfer to ICU. Pt discharge needs are unclear at this time. Therapy evals pending. Case Management d/c poc: to be determined. Case Management to follow. Date Signed: 01/10/2019 03:10 PM Electronically Signed By:Estefanía Pacheco RN Case Management Discharge Plan Note Case Management Discharge Discharge Order Complete? Answers: Yes Patient to Obtain Answers: Other Notes: [facility] to arrange Medications transport Transportation Arranged Answers: [facility] W/C Faxed Final Orders Answers: Yes Agency/Facility Transfer Answers: Yes Report Printed & Faxed to Receiving Agency Family Notified Answers: Yes Discharge Comments Notes: Family chose [facility]. Pt being discharged there today. Transportation to be arranged by [facility]. Pt and family agreeable with dc plan. CM answered questions and concerns. No other CM needs identified. Date Signed: 01/13/2019 02:38 PM Electronically Signed By:JACQUES Merlos Intervention Information Intervention Type:*Incorrect Registration Date of Service:01/09/2019 10:15 AM Patient Type:Observation Staff Member:TAVARES León Courtney Hours: Discipline: Severity: Comment: Intervention Type:*IM-Signed Date of Service:01/13/2019 02:42 PM Patient Type:Inpatient Staff Member:JACQUES Fan Ema Hours: Discipline: Severity: Comment:
[2019-01-13 15:22] VITALS: BP 134/61
[2019-01-13] MEDS: WARFARIN SODIUM 4 MG TAB PO SCH (16:15)
--- NOTE | 2019-01-15 19:12 | GCON ---
[f rep st] CONSULTATION DATE OF CONSULTATION: 01/09/2019 HISTORY OF PRESENT ILLNESS: The patient is an 88-year-old male who was admitted last night with a po ssible TIA. He had some inability to talk and disorientation for approximately 10 minutes after ridi ng an exercise bike. He had no real focal findings except for the inability to speak. His symptoms cleared up rather quickly. He was seen now and demonstrates a 70% to 80% calcified right carotid ce que. His CT of his head was negative. He has no residual symptoms. He does have atrial fibrillatio n on Coumadin, and he has had aortic valve repair x2. At the present time, he is asymptomatic and fe eling well. ALLERGIES: Cipro, codeine and Dilaudid. MEDICATIONS: Present medications are Coreg, Coumadin, melatonin, iron, MiraLAX, Proscar, Requip, asp irin, vitamin D, other vitamins and supplements. PAST MEDICAL HISTORY: Includes AVR repair, congestive heart failure, hypertension, atrial fibrillati on, obstructive sleep apnea, COPD, Parkinson's, restless legs syndrome, hypertension, and AAA repair as well as 2 aortic valve repairs. FAMILY HISTORY: Noncontributory. SOCIAL HISTORY: Reveals he is an ex-smoker, but not currently and living independently. REVIEW OF SYSTEMS: Negative on a full 10-point review of systems except as related to the HPI and pa st history. Specifically does not smoke. PHYSICAL EXAMINATION: GENERAL APPEARANCE: Reveals an alert 88-year-old male in no acute distress. VITAL SIGNS: He is afebrile. HEENT: Reveals him to be anicteric, PERRLA, EOMs intact, no oral lesi ons. NECK: Supple. Nontender with full range of motion. No adenopathy. No thyromegaly. He does have a right carotid bruit. CHEST: Clear to auscultation and percussion. CARDIAC: Reveals an irre gularly irregular rhythm with a systolic murmur. ABDOMEN: Soft with positive bowel sounds. No mass es or hernias or tenderness. GENITALIA: Normal. EXTREMITIES: Reveal full range of motion. Full p ulses. NEUROLOGIC: Appears to be physiologic and symmetric with equal motor strength bilaterally. C ranial nerves intact. PSYCH: Reveals him to be alert, oriented, and cooperative. IMPRESSION: Significant right carotid stenosis. This may or may not be the cause of his episode whi ch is not a classic transient ischemic attack except for the possible speech effect. It is quite pos sible that this severe carotid stenosis caused his transient ischemic attack. He also has other pote ntial reasons with atrial fibrillation and aortic valve replacements. I would certainly consider and recommend right carotid endarterectomy after medical clearance of other issues. Risks and options h ave been fully discussed with the patient, and he wishes to proceed. /[id number]/MODL
== END 2019-01-13 16:50 | DRG 38 ==
LOC: EDUNIT# → SUPCPDRO 13:54 → OBSVTOIN 16:01 → F3N 16:02 → F2N 01-10 11:19
PROVIDERS: ADMIT Hospitalist; ATTEND Hospitalist
PROC: 07B10ZX Excision of Right Neck Lymphatic, Open Approach, Diagnostic (ICD-10-PCS; principal; 2019-01-10 11:15)
PROC: 03CK0ZZ Extirpation of Matter from Right Internal Carotid Artery, Open Approach (ICD-10-PCS; principal; 2019-01-10 11:15)
PROC: 30233L1 Transfusion of Nonautologous Fresh Plasma into Peripheral Vein, Percutaneous Approach (ICD-10-PCS; 2019-01-10 11:15)
DX: I65.21 Occlusion and stenosis of right carotid artery (principal); I11.0 Hypertensive heart disease with heart failure; I50.32 Chronic diastolic (congestive) heart failure; J96.10 Chronic respiratory failure, unspecified whether with hypoxia or hypercapnia; L76.32 Postprocedural hematoma of skin and subcutaneous tissue following other procedure; D68.9 Coagulation defect, unspecified; E86.9 Volume depletion, unspecified; I48.91 Unspecified atrial fibrillation; G47.33 Obstructive sleep apnea (adult) (pediatric); G89.29 Other chronic pain; K21.9 Gastro-esophageal reflux disease without esophagitis; G20 Parkinson's disease; N40.0 Benign prostatic hyperplasia without lower urinary tract symptoms; J44.9 Chronic obstructive pulmonary disease, unspecified; Z95.0 Presence of cardiac pacemaker; Z79.01 Long term (current) use of anticoagulants; Z95.3 Presence of xenogenic heart valve; Z66 Do not resuscitate
CPT/HCPCS: 92523-GN; 97116-GP; 97162-GP; 97165-GO; 97530-GO; 97530-GP; 97535-GO; C1768; J0690; J1644; J2370; J2704; J2720; J3010; P9016; P9017; Q9967

== ENCOUNTER → 2019-03-25 | Outpatient (CLI) | payer OTHER ==
--- NOTE | 2019-03-25 14:42 | CPEEG ---
[f rep st] ELECTROENCEPHALOGRAM 4-HOUR VIDEO EEG DATE OF STUDY: 03/25/2019 INTERPRETATION: This 4-hour video EEG recording is normal. There were no potentially epileptogenic abnormalities present in the awake or sleep recordings. The patient did not have any clinical events during the video EEG monitoring session. REPORT: This 4-hour video EEG contains 9 to 10 Hz alpha activity over the posterior head regions. T he background activity was normal and symmetric. There was no abnormal activation at rest, during ph otic stimulation or hyperventilation. The patient became drowsy and fell asleep during the study. T here was no abnormal activation during drowsiness, sleep, or during times of arousal. The patient di d not have any clinical events during the EEG monitoring session. /[id number]/MODL
== END ==
LOC: FCPNEURO 08:32
PROVIDERS: ATTEND Psychiatry & Neurology Neurology
DX: R41.0 Disorientation, unspecified (principal)